=== PATIENT | male | born 1945 | race American Indian/Alaskan Native ===

== ENCOUNTER 2020-12-01 14:57 | Inpatient (IN) | payer MEDICARE ==
[2020-12-01] MEDS ORDERED: SODIUM CHLORIDE 0.9% 1000 ML 1,000 ML IV ONE (15:04)
[2020-12-01] MEDS ORDERED: ONDANSETRON 4 MG/2 ML INJ IV ONE (15:04)
--- NOTE | 2020-12-01 15:09 | Emergency Department Report ---
ED General Adult HPI - General Stated complaint: HYPOTENSION Time Seen by Provider: 12/01/20 15:03 - History of Present Illness Initial comments: Patient presented by EMS from a custodial secondary to hypotension. They were called because the patient was hypotensive. They found the patient to have a blood pressure of 50/30. He had a coffee ground emesis. He complained of epigastric pain. He was transported here for further management. Patient admits his stomach has been upset today. He has been vomiting today. He does report some coffee-ground emesis. He denies melanotic stool. He has no cough or congestion. There is no bleeding from other sites. He does not know if he takes a blood thinner. He has not noticed bleeding from other sites. There has been no epistaxis. He has no gingival bleeding. Patient does feel somewhat dizzy and lightheaded. EMS reports that the patient's blood pressure has improved with IV saline. - Related Data Home Medications Medication Instructions Recorded Confirmed Last Taken Apixaban [Eliquis] 5 mg PO BID 12/01/20 12/01/20 Unknown Aspirin [Aspirin BABY CHEW TAB] 81 mg PO QDAY 12/01/20 12/01/20 Unknown AtorvaSTATin [Lipitor] 40 mg PO QHS 12/01/20 12/01/20 Unknown Carbidopa/Levodopa 25-100 [Sinemet] 1 each PO TID 12/01/20 12/01/20 Unknown Divalproex [Eleanor STARK] 500 mg PO BID 12/01/20 12/01/20 Unknown Flecainide [Tambocor] 100 mg PO Q12H 12/01/20 12/01/20 Unknown Loratadine 10 mg PO QDAY 12/01/20 12/01/20 Unknown Metoprolol Tartrate [Lopressor] 25 mg PO QDAY 12/01/20 12/01/20 Unknown Mirtazapine 7.5 mg PO QHS 12/01/20 12/01/20 Unknown Oxybutynin Chloride [Ditropan Xl] 5 mg PO BID 12/01/20 12/01/20 Unknown QUEtiapine [SEROquel] 200 mg PO QHS 12/01/20 12/01/20 Unknown amantadine HCL [Amantadine] 100 mg PO BID 12/01/20 12/01/20 Unknown Allergies Allergy/AdvReac Type Severity Reaction Status Date / Time No Known Allergies Allergy Unverified 12/01/20 15:26 ED Review of Systems ROS: Stated complaint: HYPOTENSION Other details as noted in HPI Comment: All other systems reviewed and negative Constitutional: denies: fever Eyes: denies: vision change ENT: denies: throat pain Respiratory: denies: cough Cardiovascular: denies: chest pain Endocrine: denies: unexplained weight loss Gastrointestinal: as per HPI Genitourinary: denies: hematuria Musculoskeletal: denies: back pain Skin: denies: rash Neurological: denies: headache Hematological/Lymphatic: easy bruising ED Past Medical Hx - Medications Home Medications: Home Medications Medication Instructions Recorded Confirmed Last Taken Type Apixaban [Eliquis] 5 mg PO BID 12/01/20 12/01/20 Unknown History Aspirin [Aspirin BABY CHEW TAB] 81 mg PO QDAY 12/01/20 12/01/20 Unknown History AtorvaSTATin [Lipitor] 40 mg PO QHS 12/01/20 12/01/20 Unknown History Carbidopa/Levodopa 25-100 [Sinemet] 1 each PO TID 12/01/20 12/01/[address] [DepaKOTE DR] 500 mg PO BID 12/01/20 12/01/20 Unknown History Flecainide [Tambocor] 100 mg PO Q12H 12/01/20 12/01/20 Unknown History Loratadine 10 mg PO QDAY 12/01/20 12/01/20 Unknown History Metoprolol Tartrate [Lopressor] 25 mg PO QDAY 12/01/20 12/01/20 Unknown History Mirtazapine 7.5 mg PO QHS 12/01/20 12/01/20 Unknown History Oxybutynin Chloride [Ditropan Xl] 5 mg PO BID 12/01/20 12/01/20 Unknown History QUEtiapine [SEROquel] 200 mg PO QHS 12/01/20 12/01/20 Unknown History amantadine HCL [Amantadine] 100 mg PO BID 12/01/20 12/01/20 Unknown History ED Physical Exam - General Limitations: Other (Pulse ox was noted and normal. Is not hypoxic.) General appearance: alert, in no apparent distress - Head Head exam: Present: atraumatic, normocephalic, normal inspection - Eye Eye exam: Present: normal appearance, PERRL. Absent: scleral icterus - ENT ENT exam: Present: mucous membranes dry (Parched), normal external ear exam, other (Coffee-ground material is noted in the oropharynx.) - Neck Neck exam: Present: normal inspection. Absent: meningismus - Respiratory Respiratory exam: Present: normal lung sounds bilaterally. Absent: respiratory distress - Cardiovascular Cardiovascular Exam: Present: regular rate, normal rhythm - GI/Abdominal GI/Abdominal exam: Present: soft. Absent: tenderness, guarding, rebound, pulsatile mass - Extremities Exam Extremities exam: Present: normal capillary refill. Absent: pedal edema - Back Exam Back exam: Absent: CVA tenderness (R), CVA tenderness (L) - Neurological Exam Neurological exam: Present: alert, oriented X3, CN II-XII intact - Psychiatric Psychiatric exam: Present: normal affect, normal mood - Skin Skin exam: Present: warm, dry ED Course Vital Signs 12/01/20 12/01/20 12/01/20 15:18 15:31 15:45 Temperature Pulse Rate 65 64 63 Respiratory 24 9 L 9 L Rate Blood Pressure 76/50 76/50 81/61 O2 Sat by Pulse 94 97 96 Oximetry 12/01/20 12/01/20 12/01/20 15:46 16:01 16:15 Temperature 96.9 F L Pulse Rate 74 64 Respiratory 12 16 Rate Blood Pressure 90/58 108/54 O2 Sat by Pulse 95 95 Oximetry 12/01/20 12/01/20 12/01/20 16:31 16:45 17:01 Temperature Pulse Rate 62 64 68 Respiratory 17 15 21 Rate Blood Pressure 113/53 100/61 99/59 O2 Sat by Pulse 97 96 98 Oximetry - Reevaluation(s) Reevaluation #1: 12/01/20 15:09 EMS was met upon arrival. IV and labs were ordered. Fluids were ordered. Reevaluation #2: 12/01/20 16:05 Blood pressures improving. We will continue fluid resuscitation. He may need blood at some point. He continues to rest. Labs are pending. Reevaluation #3: 12/01/20 17:24 Patient was discussed with Dr. Thurman who admit. GI has been paged but has not returned page. We will add Protonix. He does have acute kidney injury in addition to hypotension. He does have leukocytosis. This could be demargination. There is no fever. He does not have a obvious source of infection but the chest x-ray and UA have been added on. Patient is frail. We will give fluid boluses. I have discussed the fluid bolus with him at a 30 mL/kg bolus. He states that he would like to go slower with the fluids. He does not want the fluids bolused all at once. He will get 1/3 L now. That would give him 50% of a 30 mill per kilo bolus. We will continue to administer fluids as he will allow. Reevaluation #4: 12/01/20 17:34 Case was discussed with Dr. Anderson who will see the patient tomorrow. She would like him kept n.p.o. ED Medical Decision Making - Lab Data Result diagrams: 12/01/20 15:38 12/01/20 15:38 Rhythm strip: Monitor strip shows normal sinus rhythm without ectopy. Monitor observed 20 seconds. Critical Care Time: Yes Critical care time in (mins) excluding proc time.: 50 Critical care attestation.: If time is entered above; I have spent that time in minutes in the direct care of this critically ill patient, excluding procedure time. Critical Care Time: Critical care time of 50 minutes exclusive of procedures based on hypotension and acute kidney injury. ED Disposition Clinical Impression: Transient hypotension, Upper GI bleed, CHINO (acute kidney injury) Leukocytosis Qualifiers: Leukocytosis type: unspecified Qualified Code(s): D72.829 - Elevated white blood cell count, unspecified Disposition: 09 ADMITTED INPATIENT Is pt being admited?: Yes Condition: Stable Referrals: PRIMARY CARE, [Primary Care Provider] - 3-5 Days
[2020-12-01 16:18] LABS: Basophils # (Auto) 0.1 K/mm3 (0.0-0.1); Basophils % (Auto) 0.4 % (0.0-1.8); Hematocrit 40.8 % (35.5-45.6); Hemoglobin 13.7 gm/dl (11.8-15.2); Lymphocytes # (Auto) 2.9 K/mm3 (1.2-5.4); Lymphocytes % (Auto) 19.7 % (13.4-35.0); Mean Corpuscular HGB Conc 34 % (32-34); Mean Corpuscular Volume 96 fl (84-94); Monocytes # (Auto) 1.2 K/mm3 (0.0-0.8); Monocytes % (Auto) 8.4 % (0.0-7.3); Platelet Count 197 K/mm3 (140-440); Red Blood Count 4.27 M/mm3 (3.65-5.03); Red Cell Distribution Width 16.8 % (13.2-15.2)
[2020-12-01] MEDS ORDERED: FAMOTIDINE 20 MG/2 ML INJ IV ONE (16:20)
[2020-12-01 16:30] LABS: Calcium 9.7 mg/dL (8.4-10.2)
[2020-12-01] MEDS ORDERED: LACTATED RINGERS 1,000 ML IV ONE (17:21)
--- NOTE | 2020-12-01 17:54 | XRay Report ---
CHEST 1 VIEW 12/01/2020 5:39 PM INDICATION / CLINICAL INFORMATION: leukocytosis. COMPARISON: None available. FINDINGS: SUPPORT DEVICES: None. HEART / MEDIASTINUM: No significant abnormality. LUNGS / PLEURA: Airspace opacities are noted medially along the right lower lobe. No other significan t pulmonary abnormality. No significant pleural effusion. No pneumothorax. ADDITIONAL FINDINGS: No significant additional findings. IMPRESSION: Right lower lobe airspace opacities could represent pneumonia in the setting of leukocytosis. A neopl astic process is also a consideration. Please correlate with the clinical findings. Signer Name: Matt Mejia MD Signed: 12/01/2020 5:50 PM Workstation Name: [id number]
--- NOTE | 2020-12-01 18:17 | History and Physical Report ---
History of Present Illness Date of admission: 12/01/20 17:26 Chief complaint: Spitting up blood History of present illness: 75 YO Male [facility] Facility Resident at [email or web address]] with Atrial Fib on Therapeutic Anticoagulation, Encephalopathy, Debility, Bipolar Disorder, HTN, Debility, Vascular Dementia, Cerebral Atherosclerosis, Alzheimers Disease presents to ED for evaluation. Patient has diminished cognition and is unable to provide detailed history at the time of my evaluation. Patient history taken from EMS staff, ED staff, as well as halfway facility staff. As per staff the patient was found to have coffee- ground emesis today with concomitant hypotension with a blood pressure of 50/30. EMS was notified and upon arrival the patient was found to be hypotensive with a systolic blood pressure in the 50s. The patient was treated with supportive care and transported to [facility] for further care and evaluation of the aforementioned symptoms. The patient was seen and evaluated in the emergency department. All lab and imaging studies reviewed. Patient found to have symptoms consistent with GI bleed. Chest x-ray revealed pneumonia with focal consolidation suspicious for malignancy. Patient also found to have systemic plantar response syndrome, as well as CHINO. Patient admitted to [facility] and initiated on pneumonia protocol as well as GI bleed protocol. GI team consulted in ED. No reports of fever, chills, chest pain, palpitations, productive cough, skin rash, recent ill contacts. No prior admission for review. All medication listed at time of admission has been reconciled. Advanced care planning conducted in ED. Patient has diminished cognition at the time my evaluation but has a positive gag reflex and is able to protect his airway without difficulty. Past History Past Medical History: atrial fib, hypertension, other (See HPI) Past Surgical History: No surgical history, Other (Reviewed) Social history: Family history: diabetes, hypertension Medications and Allergies Allergies Allergy/AdvReac Type Severity Reaction Status Date / Time No Known Allergies Allergy Unverified 12/01/20 15:26 Home Medications Medication Instructions Recorded Confirmed Last Taken Type Apixaban [Eliquis] 5 mg PO BID 12/01/20 12/01/20 Unknown History Aspirin [Aspirin BABY CHEW TAB] 81 mg PO QDAY 12/01/20 12/01/20 Unknown History AtorvaSTATin [Lipitor] 40 mg PO QHS 12/01/20 12/01/20 Unknown History Carbidopa/Levodopa 25-100 [Sinemet] 1 each PO TID 12/01/20 12/01/[address] [DepaKOTE DR] 500 mg PO BID 12/01/20 12/01/20 Unknown History Flecainide [Tambocor] 100 mg PO Q12H 12/01/20 12/01/20 Unknown History Loratadine 10 mg PO QDAY 12/01/20 12/01/20 Unknown History Metoprolol Tartrate [Lopressor] 25 mg PO QDAY 12/01/20 12/01/20 Unknown History Mirtazapine 7.5 mg PO QHS 12/01/20 12/01/20 Unknown History Oxybutynin Chloride [Ditropan Xl] 5 mg PO BID 12/01/20 12/01/20 Unknown History QUEtiapine [SEROquel] 200 mg PO QHS 12/01/20 12/01/20 Unknown History amantadine HCL [Amantadine] 100 mg PO BID 12/01/20 12/01/20 Unknown History Active Meds: Active Medications Lactated Ringer's (Lactated Ringers) 1,000 mls @ 999 mls/hr IV BOLUS ONE Stop: 12/01/20 18:21 Last Admin: 12/01/20 17:35 Dose: 999 mls/hr Documented by: Pantoprazole Sodium 80 mg/ (Sodium Chloride) 100 mls @ 10 mls/hr IV DIRECT CASEY Review of Systems ROS unobtainable: due to mental status Exam - Constitutional Vitals: Temp Pulse Resp BP Pulse Ox 96.9 F L 67 11 L 92/50 100 12/01/20 15:46 12/01/20 18:01 12/01/20 18:01 12/01/20 18:01 12/01/20 18:01 General appearance: Present: mild distress - EENT Eyes: Present: PERRL ENT: hearing decreased - Neck Neck: Present: supple - Respiratory Respiratory effort: normal Respiratory: bilateral: diminished - Cardiovascular Rhythm: regular Heart Sounds: Present: S1 & S2 Peripheral Pulses: within normal limits - Abdominal General gastrointestinal: Present: soft, non-tender, non-distended, normal bowel sounds Male genitourinary: Present: normal - Integumentary Integumentary: Present: clear, warm, dry - Musculoskeletal Musculoskeletal: generalized weakness - Psychiatric Psychiatric: no appropriate mood/affect, no intact judgment & insight, no memory intact, cooperative - Neurologic Neurologic: CNII-XII intact, moves all extremities, no gait normal Results - Labs CBC & Chem 7: 12/01/20 15:38 12/01/20 15:38 Labs: Abnormal lab results 12/01/20 12/01/20 Range/Units 15:38 15:38 WBC 14.7 H (4.5-11.0) K/mm3 MCV 96 H (84-94) fl RDW 16.8 H (13.2-15.2) % [place] % (Auto) 8.4 H (0.0-7.3) % [place] # (Auto) 1.2 H (0.0-0.8) K/mm3 Seg Neutrophils % 71.5 H (40.0-70.0) % Seg Neutrophils # 10.5 H (1.8-7.7) K/mm3 BUN 67 H (9-20) mg/dL Creatinine 4.2 H (0.8-1.3) mg/dL Glucose 119 H (75-100) mg/dL Assessment and Plan - Patient Problems (1) GI bleed Current Visit: Yes Status: Acute Plan to address problem: GI bleed protocol: CBC, IV PPI therapy, serial abdominal exam, GI team consulted. Will consider blood transfusion if patient hemoglobin dropped by greater than 2 g in 24-hour period. (2) SIRS (systemic inflammatory response syndrome) Current Visit: Yes Status: Acute Plan to address problem: CBC, CMP, IV antibiotic therapy, blood culture. (3) Pneumonia Current Visit: Yes Status: Acute Plan to address problem: Chest x-ray, pneumonia protocol: CBC, CMP, supplemental oxygen, pulse oximetry, nebulizer therapy, supportive care. (4) CHINO (acute kidney injury) Current Visit: Yes Status: Acute Plan to address problem: BMP, IV fluid resuscitation therapy, repeat BMP in a.m. (5) Atrial fibrillation Current Visit: Yes Status: Acute Qualifiers: Atrial fibrillation type: longstanding persistent Qualified Code(s): I48.11 - Longstanding persistent atrial fibrillation Plan to address problem: therapeutic anticoagulation for now. Rate control, supportive care. (6) Alzheimer disease Current Visit: Yes Status: Acute Plan to address problem: Continue current therapy, supportive care (7) DVT prophylaxis Current Visit: Yes Status: Acute Plan to address problem: SCDs bilateral lower extremities while in bed, (8) Advance care planning Current Visit: Yes Status: Acute Plan to address problem: Disease education conducted, care plan discussed, diagnoses discussed, prognosis discussed, patient is full code, +30 minutes.
[2020-12-01] MEDS: PANTOPRAZOLE 80 MG in SODIUM CHLORIDE 0.9% 100 ML IV SCH (18:28)
[2020-12-01] MEDS ORDERED: ALBUTEROL 2.5 MG/3 ML NEBU IH PRN (18:59)
[2020-12-01] MEDS ORDERED: oxyCODONE /ACETAMINOPHEN 5-325MG TAB PO PRN (18:59)
[2020-12-01] MEDS ORDERED: ONDANSETRON 4 MG/2 ML INJ IV PRN (18:59)
[2020-12-01] MEDS ORDERED: ACETAMINOPHEN 325 MG TAB PO PRN (18:59)
[2020-12-01] MEDS ORDERED: HYDROmorphone 1 MG/1 ML INJ IV PRN (18:59)
--- NOTE | 2020-12-01 21:07 | Cat Scan Report ---
CT CHEST WITHOUT CONTRAST INDICATION / CLINICAL INFORMATION: suspected lung mass/malignancy. TECHNIQUE: Axial CT images were obtained through the chest without contrast. All CT scans at this [facility] ation are performed using CT dose reduction for ALARA by means of automated exposure control. COMPARISON: Chest x-ray 12/01/2020 FINDINGS: HEART: No significant abnormality. CORONARY ARTERY CALCIFICATION: None. THORACIC AORTA: No significant abnormality. MEDIASTINUM / ALVARADO: No significant abnormality. PLEURA: No pleural effusion. No pneumothorax. LUNGS: Patchy opacities in the right lower lobe are likely infectious/inflammatory. Scattered tiny n odules in the right upper lobe. For example there is a 4 mm noncalcified nodule in the right upper lo be on series 2 image 29. ADDITIONAL FINDINGS: Small hiatal hernia with fluid up to the midesophagus. UPPER ABDOMEN: 3.0 cm fluid attenuating lesion in the spleen, likely cyst. Additional cyst in the lef t kidney. SKELETAL SYSTEM: No significant abnormality. IMPRESSION: 1. Patchy opacities in the right lower lobe favoring infectious/inflammatory etiology. Given small hi atal hernia and fluid-filled esophagus, this may be related to aspiration. 2. Multiple incidental pulmonary nodule(s) in the right upper lobe measuring up to 4 mm with solid ch aracteristics. Recommendation according to Fleischner Society 2017 Guidelines: Low Risk Patient: No r outine follow-up; High Risk Patient: Optional CT at 12 months. 3. Additional incidental findings as above. Signer Name: Larry Kurtz MD Signed: 12/01/2020 9:03 PM Workstation Name: [id number]
[2020-12-01] MEDS ORDERED: SODIUM CHLORIDE 0.9% 1000 ML 1,000 ML ONE ×3 (21:31→21:33)
[2020-12-01] MEDS: MIRTAZAPINE 15 MG TAB PO SCH (21:49)
[2020-12-01] MEDS: DIVALPROEX DR 500 MG TAB PO SCH (21:49)
[2020-12-01] MEDS: QUEtiapine 200 MG TAB PO SCH (21:51)
[2020-12-01] MEDS: cefTRIAXone/NS 2 GM/100 ML 2 GM/100 ML BAG IV SCH (21:57)
[2020-12-01] MEDS ORDERED: NON-FORMULARY EACH (Apixaban 5 MG Tablet) PO SCH (22:00)
[2020-12-01] MEDS ORDERED: APIXABAN 5 MG TAB PO SCH (22:00)
[2020-12-01] MEDS ORDERED: NON-FORMULARY EACH (Oxybutynin Chloride [Ditropan Xl] 10 MG Tab.Er.24) PO SCH (22:00)
[2020-12-01] MEDS ORDERED: NON-FORMULARY EACH (Mirtazapine [Mirtazapine] 7.5 MG Tablet) PO SCH (22:00)
[2020-12-01] MEDS: FLECAINIDE 100 MG TAB PO SCH (22:34)
[2020-12-01] MEDS: OXYBUTYNIN 5 MG TAB PO SCH (22:35)
[2020-12-01] MEDS: CARBIDOPA/LEVODOPA 25-100 MG TAB PO SCH (22:35)
[2020-12-01] MEDS: AZITHROMYCIN/NS 500 MG/250 ML 500 MG/250 ML BAG IV SCH (22:36)
[2020-12-02 01:01] LABS: Basophils % (Auto) 0.1 % (0.0-1.8); Eosinophils % (Auto) 0.1 % (0.0-4.3); Hematocrit 33.9 % (35.5-45.6); Hemoglobin 11.4 gm/dl (11.8-15.2); Lymphocytes # (Auto) 2.3 K/mm3 (1.2-5.4); Mean Corpuscular HGB Conc 34 % (32-34); Mean Corpuscular Volume 97 fl (84-94); Monocytes # (Auto) 0.8 K/mm3 (0.0-0.8); Monocytes % (Auto) 6.9 % (0.0-7.3); Platelet Count 128 K/mm3 (140-440); Red Cell Distribution Width 16.8 % (13.2-15.2)
[2020-12-02] MEDS ORDERED: SODIUM CHLORIDE 0.9% 500 ML 500 ML IV ONE (03:32)
[2020-12-02] MEDS ORDERED: NORepinephrine/NS 4 MG-250 ML 4 MG/250 ML BAG IV SCH (04:00)
[2020-12-02 04:56] LABS: Basophils % (Auto) 0.4 % (0.0-1.8); Eosinophils % (Auto) 0.1 % (0.0-4.3); Hematocrit 33.7 % (35.5-45.6); Hemoglobin 11.5 gm/dl (11.8-15.2); Lymphocytes # (Auto) 2.3 K/mm3 (1.2-5.4); Lymphocytes % (Auto) 23.9 % (13.4-35.0); Mean Corpuscular HGB Conc 34 % (32-34); Mean Corpuscular Volume 97 fl (84-94); Monocytes # (Auto) 0.6 K/mm3 (0.0-0.8); Monocytes % (Auto) 5.9 % (0.0-7.3); Platelet Count 138 K/mm3 (140-440); Red Blood Count 3.48 M/mm3 (3.65-5.03)
[2020-12-02 05:20] LABS: Calcium 8.8 mg/dL (8.4-10.2)
[2020-12-02] MEDS: FLECAINIDE 100 MG TAB PO SCH (08:04)
[2020-12-02] MEDS: CARBIDOPA/LEVODOPA 25-100 MG TAB PO SCH ×2 (08:04→14:41)
[2020-12-02] MEDS ORDERED: SODIUM CHLORIDE 0.9% 1000 ML 1,000 ML IV ONE ×2 (08:15→22:00)
[2020-12-02 08:36] LABS: Bilirubin,Urine NEG (Negative); Blood,Urine SM (Negative); Color,Urine Amber (Yellow); Granular Casts,Urine 7 /LPF; Hyaline Casts,Urine 1 /LPF; Mucus,Urine FEW /HPF
[2020-12-02] MEDS ORDERED: NON-FORMULARY EACH (Loratadine [Loratadine] 10 MG Tablet) PO SCH (10:00)
[2020-12-02] MEDS ORDERED: ASPIRIN 81 MG TAB CHEW PO SCH (10:00)
[2020-12-02] MEDS: PANTOPRAZOLE 80 MG in SODIUM CHLORIDE 0.9% 100 ML IV SCH (10:21)
[2020-12-02] MEDS: DIVALPROEX DR 500 MG TAB PO SCH (10:37)
--- NOTE | 2020-12-02 10:37 | Progress Note ---
Assessment and Plan Assessment and plan: 75 YO Male Assisted Facility Resident at [facility] with Atrial Fib on Therapeutic Anticoagulation, Encephalopathy, Debility, Bipolar Disorder, HTN, Debility, Vascular Dementia, Cerebral Atherosclerosis, Alzheimers Disease presents to ED for evaluation. Patient has diminished cognition and is unable to provide detailed history at the time of my evaluation. Patient history taken from EMS staff, ED staff, as well as [facility] staff. As per staff the patient was found to have coffee- ground emesis today with concomitant hypotension with a blood pressure of 50/30. EMS was notified and upon arrival the patient was found to be hypotensive with a systolic blood pressure in the 50s. The patient was treated with supportive care and transported to [facility] for further care and evaluation of the aforementioned symptoms. The patient was seen and evaluated in the emergency department. All lab and imaging studies reviewed. Patient found to have symptoms consistent with GI bleed. Chest x-ray revealed pneumonia with focal consolidation suspicious for malignancy. Patient also found to have systemic plantar response syndrome, as well as CHINO. Patient admitted to [facility] and initiated on pneumonia protocol as well as GI bleed protocol. GI team consulted in ED. No reports of fever, chills, chest pain, palpitations, productive cough, skin rash, recent ill contacts. No prior admission for review. All medication listed at time of admission has been reconciled. Advanced care planning conducted in ED. Patient has diminished cognition at the time my evaluation but has a positive gag reflex and is able to protect his airway without difficulty. 12/02; CT scan chest shows no definitive mass but some nodules. No further recommendation noted on that. I have gone ahead to discontinue aspirin and anticoagulant on this patient due to possible GI bleed. Will monitor H&H today to see if any further decline. I have also gone ahead to consult GI. We will continue to follow I have discussed with nursing staff to restart Protonix drip until GI evaluation is complete. We will give a bolus of fluid, no need to start pressors at this time but if patient's blood pressure continues to trend down and pressors are needed nursing staff is advised physician and we can change patient throughout ICU stay. For now continue with IMCU (1) GI bleed Current Visit: Yes Status: Acute Plan to address problem: GI bleed protocol: CBC, IV PPI therapy, serial abdominal exam, GI team consulted. Will consider blood transfusion if patient hemoglobin dropped by greater than 2 g in 24-hour period. (2) SIRS (systemic inflammatory response syndrome) Current Visit: Yes Status: Acute Plan to address problem: CBC, CMP, IV antibiotic therapy, blood culture. (3) Pneumonia Current Visit: Yes Status: Acute Plan to address problem: Chest x-ray, pneumonia protocol: CBC, CMP, supplemental oxygen, pulse oximetry, nebulizer therapy, supportive care. (4) CHINO (acute kidney injury) Current Visit: Yes Status: Acute Plan to address problem: BMP, IV fluid resuscitation therapy, repeat BMP in a.m. (5) Atrial fibrillation Current Visit: Yes Status: Acute Qualifiers: Atrial fibrillation type: longstanding persistent Qualified Code(s): I48.11 - Longstanding persistent atrial fibrillation Plan to address problem: therapeutic anticoagulation for now. Rate control, supportive care. (6) Alzheimer disease Current Visit: Yes Status: Acute Plan to address problem: Continue current therapy, supportive care (7) acute blood loss anemia secondary to possible upper GI bleed (8) DVT prophylaxis Current Visit: Yes Status: Acute Plan to address problem: SCDs bilateral lower extremities while in bed, (9) Advance care planning Current Visit: Yes Status: Acute Plan to address problem: Disease education conducted, care plan discussed, diagnoses discussed, prognosis discussed, patient is full code, +30 minutes. History Interval history: Patient seen and examined this morning lethargic still. No further bleeding or vomiting noted by nursing staff. Hospitalist Physical - Physical exam Narrative exam: VITAL SIGNS: Reviewed. GENERAL: The patient appears normally developed, Vital signs as documented. HEAD: No signs of head trauma. EYES: Pupils are equal. Extraocular motions intact. EARS: Hearing grossly intact. MOUTH: Oropharynx is normal. NECK: No adenopathy, no JVD. CHEST: Chest with diminished breath sounds bilaterally. No wheezes, rales, or rhonchi. CARDIAC: Regular rate and rhythm. S1 and S2, without murmurs, gallops, or rubs. VASCULAR: No Edema. Peripheral pulses normal and equal in all extremities. ABDOMEN: Soft, non tender and non distended. No rebound or guarding, and no masses palpated. Bowel Sounds normal. MUSCULOSKELETAL: Good range of motion of all major joints. Extremities without clubbing, cyanosis or edema. NEUROLOGIC EXAM: Alert and oriented x 3 No focal sensory or strength deficits. Speech normal. Follows commands. PSYCHIATRIC: Mood normal. SKIN: detail exam as documented in skin assessment - Constitutional Vitals: Temp Pulse Resp BP Pulse Ox 98.0 F 78 12 91/64 96 12/02/20 07:04 12/02/20 08:07 12/02/20 08:07 12/02/20 08:07 12/02/20 08:07 General appearance: Present: mild distress Results - Labs CBC & Chem 7: 12/02/20 04:07 12/02/20 04:07 Labs: Laboratory Last Values WBC 9.7 K/mm3 (4.5-11.0) 12/02/20 04:07 RBC 3.48 M/mm3 (3.65-5.03) L 12/02/20 04:07 Hgb 11.5 gm/dl (11.8-15.2) L 12/02/20 04:07 Hct 33.7 % (35.5-45.6) L 12/02/20 04:07 MCV 97 fl (84-94) H 12/02/20 04:07 MCH 33 pg (28-32) H 12/02/20 04:07 MCHC 34 % (32-34) 12/02/20 04:07 RDW 17.0 % (13.2-15.2) H 12/02/20 04:07 Plt Count 138 K/mm3 (140-440) L 12/02/20 04:07 Lymph % (Auto) 23.9 % (13.4-35.0) 12/02/20 04:07 [place] % (Auto) 5.9 % (0.0-7.3) 12/02/20 04:07 Eos % (Auto) 0.1 % (0.0-4.3) 12/02/20 04:07 Baso % (Auto) 0.4 % (0.0-1.8) 12/02/20 04:07 Lymph # (Auto) 2.3 K/mm3 (1.2-5.4) 12/02/20 04:07 [place] # (Auto) 0.6 K/mm3 (0.0-0.8) 12/02/20 04:07 Eos # (Auto) 0.0 K/mm3 (0.0-0.4) 12/02/20 04:07 Baso # (Auto) 0.0 K/mm3 (0.0-0.1) 12/02/20 04:07 Seg Neutrophils % 69.7 % (40.0-70.0) 12/02/20 04:07 Seg Neutrophils # 6.7 K/mm3 (1.8-7.7) 12/02/20 04:07 Sodium 142 mmol/L (137-145) 12/02/20 04:07 Potassium 4.8 mmol/L (3.6-5.0) 12/02/20 04:07 Chloride 101.0 mmol/L (98-107) 12/02/20 04:07 Carbon Dioxide 26 mmol/L (22-30) 12/02/20 04:07 Anion Gap 20 mmol/L 12/02/20 04:07 BUN 63 mg/dL (9-20) H 12/02/20 04:07 Creatinine 3.2 mg/dL (0.8-1.3) H 12/02/20 04:07 Estimated GFR 23 ml/min 12/02/20 04:07 BUN/Creatinine Ratio 20 % 12/02/20 04:07 Glucose 82 mg/dL (75-100) 12/02/20 04:07 Lactic Acid 1.60 mmol/L (0.7-2.0) 12/02/20 04:07 Calcium 8.8 mg/dL (8.4-10.2) 12/02/20 04:07 Urine Color [place] (Yellow) 12/02/20 08:21 Urine Turbidity Slightly-cloudy (Clear) 12/02/20 08:21 Urine pH 5.0 (5.0-7.0) 12/02/20 08:21 Ur Specific [place] 1.020 (1.003-1.030) 12/02/20 08:21 Urine Protein 100 mg/dl mg/dL (Negative) 12/02/20 08:21 Urine Glucose (UA) 50 mg/dL (Negative) 12/02/20 08:21 Urine Ketones Neg mg/dL (Negative) 12/02/20 08:21 Urine Blood Sm (Negative) 12/02/20 08:21 Urine Nitrite Neg (Negative) 12/02/20 08:21 Urine Bilirubin Neg (Negative) 12/02/20 08:21 Urine Urobilinogen 4.0 mg/dL (<2.0) 12/02/20 08:21 Ur Leukocyte Esterase Mod (Negative) 12/02/20 08:21 Urine WBC (Auto) 67.0 /HPF (0.0-6.0) H 12/02/20 08:21 Urine RBC (Auto) 3.0 /HPF (0.0-6.0) 12/02/20 08:21 U Epithel Cells (Auto) 4.0 /HPF (0-13.0) 12/02/20 08:21 Hyaline Casts 1 /LPF 12/02/20 08:21 Granular Casts 7 /LPF 12/02/20 08:21 Urine Mucus Few /HPF 12/02/20 08:21 Blood Type O POSITIVE 12/01/20 15:38 Antibody Screen Negative 12/01/20 15:38 Crossmatch See Detail 12/01/20 15:38 Microbiology: Microbiology 12/01/20 18:18 Peripheral/Venous Blood Culture - Preliminary Culture in Progress 12/01/20 18:27 Peripheral/Venous Blood Culture - Preliminary Culture in Progress Active Medications - Current Medications Current Medications: Generic Name Dose Route Start Last Admin Trade Name Freq PRN Reason Stop Dose Admin Acetaminophen 650 mg 12/01/20 18:59 Acetaminophen 325 Mg Tab PO Q4H PRN Pain MILD(1-3)/Fever >100.5/FARRIS Albuterol 2.5 mg 12/01/20 18:59 Albuterol 2.5 Mg/3 Ml Nebu IH Q4HRT PRN Shortness Of Breath Amantadine HCl 100 mg 12/01/20 22:00 12/01/20 22:34 Amantadine 100 Mg Cap PO 100 mg BID CASEY Administration Atorvastatin Calcium 40 mg 12/01/20 22:00 12/01/20 21:51 Atorvastatin 40 Mg Tab PO 40 mg QHS CASEY Administration Carbidopa/Levodopa 1 each 12/01/20 20:00 12/02/20 08:04 Carbidopa/Levodopa 25-100 Mg Tab PO 1 each TID CASEY Administration Cetirizine HCl 10 mg 12/02/20 10:00 Cetirizine 10 Mg Tab PO DAILY CASEY Divalproex Sodium 500 mg 12/01/20 22:00 12/01/20 21:[address] 500 Mg Tab PO 500 mg BID CASEY Administration Flecainide Acetate 100 mg 12/01/20 20:00 12/02/20 08:04 Flecainide 100 Mg Tab PO 100 mg Q12H CASEY Administration Hydromorphone HCl 0.5 mg 12/01/20 18:59 Hydromorphone 1 Mg/1 Ml Inj IV Q23H PRN Pain , Severe (7-10) Pantoprazole Sodium 80 mg/ 100 mls @ 10 mls/hr 12/01/20 18:00 12/02/20 10:21 Sodium Chloride IV 8 mg/hr DIRECT CASEY 10 mls/hr Administration 8 MG/HR Ceftriaxone Sodium 2 gm in 100 mls @ 200 mls/hr 12/01/20 19:00 12/01/20 21:57 Rocephin/Ns 2 Gm/100 Ml IV 200 mls/hr Q24H CASEY Administration Protocol Azithromycin 500 mg in 250 mls @ 250 mls/hr 12/01/20 19:00 12/01/20 22:36 Zithromax/Ns IV 250 mls/hr Q24H CASEY Administration Protocol Sodium Chloride 1,000 mls @ 75 mls/hr 12/02/20 22:00 Nacl 0.9% 1000 Ml IV 12/03/20 11:19 BOLUS ONE Norepinephrine 4 mg in 250 mls @ 7.5 mls/hr 12/02/20 04:00 Levophed Drip 4 Mg/Ns 250 Ml IV TITR CASEY Protocol 2 MCG/MIN Metoprolol Succinate 25 mg 12/02/20 10:00 Metoprolol Succinate Xl 25 Mg Tab PO QDAY CASEY Mirtazapine 7.5 mg 12/01/20 22:00 12/01/20 21:49 Mirtazapine 15 Mg Tab PO 7.5 mg QHS CASEY Administration Ondansetron HCl 4 mg 12/01/20 18:59 Ondansetron 4 Mg/2 Ml Inj IV Q8H PRN Nausea And Vomiting Oxybutynin Chloride 5 mg 12/01/20 22:00 12/01/20 22:35 Oxybutynin 5 Mg Tab PO 5 mg BID CASEY Administration Oxycodone/Acetaminophen 1 tab 12/01/20 18:59 Oxycodone /Acetaminophen 5-325mg Tab PO Q16H PRN Pain, Moderate (4-6) Quetiapine Fumarate 200 mg 12/01/20 22:00 12/01/20 21:51 Quetiapine 200 Mg Tab PO 200 mg QHS CASEY Administration Sodium Chloride 10 ml 12/01/20 22:00 Sodium Chloride 0.9% 10 Ml Flush Syringe IV BID CASEY Sodium Chloride 10 ml 12/01/20 18:59 Sodium Chloride 0.9% 10 Ml Flush Syringe IV PRN PRN LINE FLUSH
[2020-12-02] MEDS: CETIRIZINE 10 MG TAB PO SCH (10:38)
[2020-12-02] MEDS: OXYBUTYNIN 5 MG TAB PO SCH (10:38)
[2020-12-02] MEDS: METOPROLOL SUCCINATE XL 25 MG TAB PO SCH (10:42)
--- NOTE | 2020-12-02 12:05 | Gastroenterology Consultation ---
History of Present Illness - Reason for Consult Consult date: 12/02/20 GI bleed Requesting physician: TYRA SEVILLA - History of Present Illness This is a 75 yo male from [facility] nursing facility with pmh of Afib on eliquis, vascular dementia, Bipolar, HTN brought from detention via EMS for coffee ground emesis and hypotension. Patient not able to give much history due to underlying diminished cognition. History obtained from ED staff and chart. Patient had episode of coffee ground emesis at detention. No additional vomiting in the ED overnight. No BM overnight. Work up in the ED, patient found to have pneumonia based on CXR. Started on sepsis protocol with antibiotics. Started on protonix IV. CT chest showed no definitive mass but nodules. BP was initially low but responded to IVF. Did not need to start on pressors. medication list reviewed. Past History Past Medical History: atrial fib, hypertension, other (See HPI) Past Surgical History: No surgical history, Other (Reviewed) Social history: Family history: diabetes, hypertension Medications and Allergies Allergies Allergy/AdvReac Type Severity Reaction Status Date / Time No Known Allergies Allergy Unverified 12/01/20 15:26 Home Medications Medication Instructions Recorded Confirmed Last Taken Type Apixaban [Eliquis] 5 mg PO BID 12/01/20 12/01/20 Unknown History Aspirin [Aspirin BABY CHEW TAB] 81 mg PO QDAY 12/01/20 12/01/20 Unknown History AtorvaSTATin [Lipitor] 40 mg PO QHS 12/01/20 12/01/20 Unknown History Carbidopa/Levodopa 25-100 [Sinemet] 1 each PO TID 12/01/20 12/01/20 Unknown History Divalproex [Eleanor STARK] 500 mg PO BID 12/01/20 12/01/20 Unknown History Flecainide [Tambocor] 100 mg PO Q12H 12/01/20 12/01/20 Unknown History Loratadine 10 mg PO QDAY 12/01/20 12/01/20 Unknown History Metoprolol Tartrate [Lopressor] 25 mg PO QDAY 12/01/20 12/01/20 Unknown History Mirtazapine 7.5 mg PO QHS 12/01/20 12/01/20 Unknown History Oxybutynin Chloride [Ditropan Xl] 5 mg PO BID 12/01/20 12/01/20 Unknown History QUEtiapine [SEROquel] 200 mg PO QHS 12/01/20 12/01/20 Unknown History amantadine HCL [Amantadine] 100 mg PO BID 12/01/20 12/01/20 Unknown History Active Meds: Active Medications Acetaminophen (Acetaminophen 325 Mg Tab) 650 mg PO Q4H PRN PRN Reason: Pain MILD(1-3)/Fever >100.5/FARRIS Albuterol (Albuterol 2.5 Mg/3 Ml Nebu) 2.5 mg IH Q4HRT PRN PRN Reason: Shortness Of Breath Amantadine HCl (Amantadine 100 Mg Cap) 100 mg PO BID [facility] Last Admin: 12/02/20 10:39 Dose: 100 mg Documented by: Atorvastatin Calcium (Atorvastatin 40 Mg Tab) 40 mg PO QHS [facility] Last Admin: 12/01/20 21:51 Dose: 40 mg Documented by: Carbidopa/Levodopa (Carbidopa/Levodopa 25-100 Mg Tab) 1 each PO TID [facility] Last Admin: 12/02/20 08:04 Dose: 1 each Documented by: Cetirizine HCl (Cetirizine 10 Mg Tab) 10 mg PO DAILY [facility] Last Admin: 12/02/20 10:38 Dose: 10 mg Documented by: Divalproex Sodium (Divalproex Dr 500 Mg Tab) 500 mg PO BID [facility] Last Admin: 12/02/20 10:37 Dose: 500 mg Documented by: Flecainide Acetate (Flecainide 100 Mg Tab) 100 mg PO Q12H [facility] Last Admin: 12/02/20 08:04 Dose: 100 mg Documented by: Hydromorphone HCl (Hydromorphone 1 Mg/1 Ml Inj) 0.5 mg IV Q23H PRN PRN Reason: Pain , Severe (7-10) Pantoprazole Sodium 80 mg/ (Sodium Chloride) 100 mls @ 10 mls/hr IV DIRECT [facility] Last Admin: 12/02/20 10:21 Dose: 8 mg/hr, 10 mls/hr Documented by: Ceftriaxone Sodium (Rocephin/Ns 2 Gm/100 Ml) 2 gm in 100 mls @ 200 mls/hr IV Q24H [facility]; Protocol Last Admin: 12/01/20 21:57 Dose: 200 mls/hr Documented by: Azithromycin (Zithromax/Ns) 500 mg in 250 mls @ 250 mls/hr IV Q24H [facility]; Protocol Last Admin: 12/01/20 22:36 Dose: 250 mls/hr Documented by: Sodium Chloride (Nacl 0.9% 1000 Ml) 1,000 mls @ 75 mls/hr IV BOLUS ONE Stop: 12/03/20 11:19 Norepinephrine (Levophed Drip 4 Mg/Ns 250 Ml) 4 mg in 250 mls @ 7.5 mls/hr IV TITR [facility]; Protocol Metoprolol Succinate (Metoprolol Succinate Xl 25 Mg Tab) 25 mg PO QDAY [facility] Last Admin: 12/02/20 10:42 Dose: Not Given Documented by: Mirtazapine (Mirtazapine 15 Mg Tab) 7.5 mg PO QHS [facility] Last Admin: 12/01/20 21:49 Dose: 7.5 mg Documented by: Ondansetron HCl (Ondansetron 4 Mg/2 Ml Inj) 4 mg IV Q8H PRN PRN Reason: Nausea And Vomiting Oxybutynin Chloride (Oxybutynin 5 Mg Tab) 5 mg PO BID [facility] Last Admin: 12/02/20 10:38 Dose: 5 mg Documented by: Oxycodone/Acetaminophen (Oxycodone /Acetaminophen 5-325mg Tab) 1 tab PO Q16H PRN PRN Reason: Pain, Moderate (4-6) Quetiapine Fumarate (Quetiapine 200 Mg Tab) 200 mg PO QHS [facility] Last Admin: 12/01/20 21:51 Dose: 200 mg Documented by: Sodium Chloride (Sodium Chloride 0.9% 10 Ml Flush Syringe) 10 ml IV BID [facility] Last Admin: 12/02/20 10:25 Dose: 10 ml Documented by: Sodium Chloride (Sodium Chloride 0.9% 10 Ml Flush Syringe) 10 ml IV PRN PRN PRN Reason: LINE FLUSH Review of Systems - Review of Systems ROS unobtainable: due to mental status Exam - Constitutional Vital Signs: Temp Pulse Resp BP Pulse Ox 98.0 F 73 24 112/73 96 12/02/20 07:04 12/02/20 11:32 12/02/20 11:32 12/02/20 11:32 12/02/20 11:33 General appearance: no acute distress - EENT Eyes: EOM intact ENT: hearing intact - Respiratory Respiratory effort: normal - Cardiovascular Rhythm: regular Heart Sounds: Present: S1 & S2 - Gastrointestinal General gastrointestinal: Present: soft, non-tender, non-distended - Neurologic Neurological: disoriented - Psychiatric Psychiatric: cooperative - Labs CBC & Chem 7: 12/02/20 04:07 12/02/20 04:07 Lab Results: Laboratory Results - last 24 hr 12/01/20 12/01/20 12/01/20 15:38 15:38 15:38 WBC 14.7 H RBC 4.27 Hgb 13.7 Hct 40.8 MCV 96 H MCH 32 MCHC 34 RDW 16.8 H Plt Count 197 Lymph % (Auto) 19.7 [place] % (Auto) 8.4 H Eos % (Auto) 0.0 Baso % (Auto) 0.4 Lymph # (Auto) 2.9 [place] # (Auto) 1.2 H Eos # (Auto) 0.0 Baso # (Auto) 0.1 Seg Neutrophils % 71.5 H Seg Neutrophils # 10.5 H Sodium 140 Potassium 4.7 Chloride 98.3 Carbon Dioxide 24 Anion Gap 22 BUN 67 H Creatinine 4.2 H Estimated GFR 17 BUN/Creatinine Ratio 16 Glucose 119 H Lactic Acid Calcium 9.7 Urine Color Urine Turbidity Urine pH Ur Specific [place] Urine Protein Urine Glucose (UA) Urine Ketones Urine Blood Urine Nitrite Urine Bilirubin Urine Urobilinogen Ur Leukocyte Esterase Urine WBC (Auto) Urine RBC (Auto) U Epithel Cells (Auto) Hyaline Casts Granular Casts Urine Mucus Blood Type O POSITIVE Antibody Screen Negative Crossmatch See Detail 12/01/20 12/01/20 12/02/20 18:18 20:33 00:13 WBC RBC Hgb Hct MCV MCH MCHC RDW Plt Count Lymph % (Auto) [place] % (Auto) Eos % (Auto) Baso % (Auto) Lymph # (Auto) [place] # (Auto) Eos # (Auto) Baso # (Auto) Seg Neutrophils % Seg Neutrophils # Sodium Potassium Chloride Carbon Dioxide Anion Gap BUN Creatinine Estimated GFR BUN/Creatinine Ratio Glucose Lactic Acid 3.10 H* 2.70 H* 2.50 H* Calcium Urine Color Urine Turbidity Urine pH Ur Specific [place] Urine Protein Urine Glucose (UA) Urine Ketones Urine Blood Urine Nitrite Urine Bilirubin Urine Urobilinogen Ur Leukocyte Esterase Urine WBC (Auto) Urine RBC (Auto) U Epithel Cells (Auto) Hyaline Casts Granular Casts Urine Mucus Blood Type Antibody Screen Crossmatch 12/02/20 12/02/20 12/02/20 00:13 04:07 04:07 WBC 11.6 H 9.7 RBC 3.50 L 3.48 L Hgb 11.4 L 11.5 L Hct 33.9 L D 33.7 L MCV 97 H 97 H MCH 33 H 33 H MCHC 34 34 RDW 16.8 H 17.0 H Plt Count 128 L 138 L Lymph % (Auto) 20.0 23.9 [place] % (Auto) 6.9 5.9 Eos % (Auto) 0.1 0.1 Baso % (Auto) 0.1 0.4 Lymph # (Auto) 2.3 2.3 [place] # (Auto) 0.8 0.6 Eos # (Auto) 0.0 0.0 Baso # (Auto) 0.0 0.0 Seg Neutrophils % 72.9 H 69.7 Seg Neutrophils # 8.5 H 6.7 Sodium 142 Potassium 4.8 Chloride 101.0 Carbon Dioxide 26 Anion Gap 20 BUN 63 H Creatinine 3.2 H Estimated GFR 23 BUN/Creatinine Ratio 20 Glucose 82 Lactic Acid Calcium 8.8 Urine Color Urine Turbidity Urine pH Ur Specific [place] Urine Protein Urine Glucose (UA) Urine Ketones Urine Blood Urine Nitrite Urine Bilirubin Urine Urobilinogen Ur Leukocyte Esterase Urine WBC (Auto) Urine RBC (Auto) U Epithel Cells (Auto) Hyaline Casts Granular Casts Urine Mucus Blood Type Antibody Screen Crossmatch 12/02/20 12/02/20 04:07 08:21 WBC RBC Hgb Hct MCV MCH MCHC RDW Plt Count Lymph % (Auto) [place] % (Auto) Eos % (Auto) Baso % (Auto) Lymph # (Auto) [place] # (Auto) Eos # (Auto) Baso # (Auto) Seg Neutrophils % Seg Neutrophils # Sodium Potassium Chloride Carbon Dioxide Anion Gap BUN Creatinine Estimated GFR BUN/Creatinine Ratio Glucose Lactic Acid 1.60 Calcium Urine Color [place] Urine Turbidity Slightly-cloudy Urine pH 5.0 Ur Specific [place] 1.020 Urine Protein 100 mg/dl Urine Glucose (UA) 50 Urine Ketones Neg Urine Blood Sm Urine Nitrite Neg Urine Bilirubin Neg Urine Urobilinogen 4.0 Ur Leukocyte Esterase Mod Urine WBC (Auto) 67.0 H Urine RBC (Auto) 3.0 U Epithel Cells (Auto) 4.0 Hyaline Casts 1 Granular Casts 7 Urine Mucus Few Blood Type Antibody Screen Crossmatch - Imaging CT Scan: report reviewed Assessment and Plan This is a 75 yo male from [facility] with pmh of Afib on eliquis, vascular dementia, Bipolar, HTN brought from detention via EMS for coffee ground emesis and hypotension. # GI bleed # Coffee ground emesis - Hgb at 11. - no additional episodes of bleeding symptoms. no nausea/vomiting or stools. - patient on antibiotics for possible aspiration pneumonia. - HD stable. Rec - cont with PPI IV - conservative management given no active bleeding. - will reassess tomorrow for possible EGD in case of active bleeding and will also need to have stable respiratory status. - will follow. - spoke with the son on the phone and updated. No prior h/o liver disease, colonoscopy, GI bleed that he knows. - Patient Problems (1) GI bleed Current Visit: Yes Status: Acute
[2020-12-02 15:57] LABS: Hematocrit 39.8 % (35.5-45.6); Hemoglobin 13.5 gm/dl (11.8-15.2); Mean Corpuscular HGB Conc 34 % (32-34); Mean Corpuscular Volume 95 fl (84-94); Platelet Count 145 K/mm3 (140-440); Red Blood Count 4.18 M/mm3 (3.65-5.03); Red Cell Distribution Width 16.5 % (13.2-15.2)
[2020-12-02 16:07] LABS: INR 1.08 (0.87-1.13)
[2020-12-02 16:19] LABS: Albumin 3.4 g/dL (3.9-5); Bilirubin,Direct 0.2 mg/dL (0-0.2)
[2020-12-02] MEDS: cefTRIAXone/NS 2 GM/100 ML 2 GM/100 ML BAG IV SCH (23:15)
[2020-12-03] MEDS: AZITHROMYCIN/NS 500 MG/250 ML 500 MG/250 ML BAG IV SCH ×2 (00:27→20:21)
[2020-12-03] MEDS: DIVALPROEX DR 500 MG TAB PO SCH ×3 (00:27→23:27)
[2020-12-03] MEDS: MIRTAZAPINE 15 MG TAB PO SCH ×2 (00:28→23:27)
[2020-12-03] MEDS: FLECAINIDE 100 MG TAB PO SCH ×3 (00:28→20:00)
[2020-12-03] MEDS: OXYBUTYNIN 5 MG TAB PO SCH ×3 (01:37→23:26)
[2020-12-03] MEDS: CARBIDOPA/LEVODOPA 25-100 MG TAB PO SCH ×3 (01:37→20:00)
[2020-12-03] MEDS: QUEtiapine 200 MG TAB PO SCH ×2 (03:14→23:26)
[2020-12-03 04:54] LABS: Hematocrit 36.4 % (35.5-45.6); Hemoglobin 12.6 gm/dl (11.8-15.2); Mean Corpuscular HGB Conc 35 % (32-34); Mean Corpuscular Volume 95 fl (84-94); Platelet Count 155 K/mm3 (140-440); Red Blood Count 3.82 M/mm3 (3.65-5.03); Red Cell Distribution Width 16.5 % (13.2-15.2)
[2020-12-03 05:26] LABS: Albumin 3.2 g/dL (3.9-5); BUN/Creatinine Ratio 28; Blood Urea Nitrogen 48 mg/dL (9-20); Calcium 9.4 mg/dL (8.4-10.2); Hemolysis Index 2
[2020-12-03 05:29] LABS: Alanine Aminotransferase < 5 units/L (7-56)
[2020-12-03] MEDS: METOPROLOL SUCCINATE XL 25 MG TAB PO SCH (10:00)
[2020-12-03] MEDS: CETIRIZINE 10 MG TAB PO SCH (11:00)
--- NOTE | 2020-12-03 11:58 | Gastroenterology Progress Note ---
Assessment and Plan This is a 75 yo male from [facility] with pmh of Afib on eliquis, vascular dementia, Bipolar, HTN brought from [facility] via EMS for coffee ground emesis and hypotension. # GI bleed # Coffee ground emesis - Hgb stable at 12. - no additional episodes of bleeding symptoms. no nausea/vomiting or stools. - patient on antibiotics for aspiration pneumonia. - HD stable. Rec - cont with PPI IV - will plan for EGD tomorrow. Currently eliquis held given concern for GI bleed but indicated for afib. - NPO MN - Patient Problems (1) GI bleed Current Visit: Yes Status: Acute Subjective Date of service: 12/03/20 Interval history: Patient more alert today but disoriented. No vomiting or BM overnight. Objective - Constitutional Vitals: Temp Pulse Resp BP Pulse Ox 97.6 F 87 11 L 118/77 98 12/03/20 01:23 12/03/20 07:45 12/03/20 07:45 12/03/20 08:15 12/03/20 08:15 General appearance: no acute distress - EENT Eyes: EOM intact ENT: hearing intact - Cardiovascular Rhythm: regular Heart Sounds: Present: S1 & S2 - Gastrointestinal General gastrointestinal: Present: soft, non-tender, non-distended - Integumentary Integumentary: Present: clear, warm - Neurologic Neurological: disoriented - Labs CBC & Chem 7: 12/03/20 04:26 12/03/20 04:26 Labs: Laboratory Results - last 24 hr 12/02/20 12/02/20 12/02/20 15:47 15:47 15:47 WBC 11.4 H RBC 4.18 Hgb 13.5 Hct 39.8 D MCV 95 H MCH 32 MCHC 34 RDW 16.5 H Plt Count 145 PT 15.2 H INR 1.08 Sodium Potassium Chloride Carbon Dioxide Anion Gap BUN Creatinine Estimated GFR BUN/Creatinine Ratio Glucose Calcium Total Bilirubin 0.50 Direct Bilirubin 0.2 Indirect Bilirubin 0.3 AST 63 H ALT 6 L Alkaline Phosphatase 96 Total Protein 6.3 Albumin 3.4 L Albumin/Globulin Ratio 1.2 12/03/20 12/03/20 04:26 04:26 WBC 9.3 RBC 3.82 Hgb 12.6 Hct 36.4 MCV 95 H MCH 33 H MCHC 35 H RDW 16.5 H Plt Count 155 PT INR Sodium 145 Potassium 5.2 H Chloride 104.0 Carbon Dioxide 28 Anion Gap 18 BUN 48 H Creatinine 1.7 H Estimated GFR 48 BUN/Creatinine Ratio 28 Glucose 73 L Calcium 9.4 Total Bilirubin 0.40 Direct Bilirubin Indirect Bilirubin AST 68 H ALT < 5 L Alkaline Phosphatase 92 Total Protein 5.9 L Albumin 3.2 L Albumin/Globulin Ratio 1.2
--- NOTE | 2020-12-03 13:53 | Progress Note ---
Assessment and Plan Assessment and plan: 75 YO Male Correction Facility Resident at [facility] Nursing [facility] with Atrial Fib on Therapeutic Anticoagulation, Encephalopathy, Debility, Bipolar Disorder, HTN, Debility, Vascular Dementia, Cerebral Atherosclerosis, Alzheimers Disease presents to ED for evaluation. Patient has diminished cognition and is unable to provide detailed history at the time of my evaluation. Patient history taken from EMS staff, ED staff, as well as nursing home facility staff. As per staff the patient was found to have coffee- ground emesis today with concomitant hypotension with a blood pressure of 50/30. EMS was notified and upon arrival the patient was found to be hypotensive with a systolic blood pressure in the 50s. The patient was treated with supportive care and transported to [facility] for further care and evaluation of the aforementioned symptoms. The patient was seen and evaluated in the emergency department. All lab and imaging studies reviewed. Patient found to have symptoms consistent with GI bleed. Chest x-ray revealed pneumonia with focal consolidation suspicious for malignancy. Patient also found to have systemic plantar response syndrome, as well as CHINO. Patient admitted to [facility] and initiated on pneumonia protocol as well as GI bleed protocol. GI team consulted in ED. No reports of fever, chills, chest pain, palpitations, productive cough, skin rash, recent ill contacts. No prior admission for review. All medication listed at time of admission has been reconciled. Advanced care planning conducted in ED. Patient has diminished cognition at the time my evaluation but has a positive gag reflex and is able to protect his airway without difficulty. 12/02; CT scan chest shows no definitive mass but some nodules. No further recommendation noted on that. I have gone ahead to discontinue aspirin and anticoagulant on this patient due to possible GI bleed. Will monitor H&H today to see if any further decline. I have also gone ahead to consult GI. We will continue to follow I have discussed with nursing staff to restart Protonix drip until GI evaluation is complete. We will give a bolus of fluid, no need to start pressors at this time but if patient's blood pressure continues to trend down and pressors are needed nursing staff is advised physician and we can change patient throughout ICU stay. For now continue with [facility] 12/03: Patient seen and examined, clinically improving. H/H is stable, will feed today per discussion with GI and plan for possible Endoscopy in am due to his need for anticoagulation for Afib. Patient is on restriants for safety, due to his Alzhemiers Dementia. Will obtain PT eval for evaluation. He can return to the SNF when cleared by GI. (1) GI bleed Current Visit: Yes Status: Acute Plan to address problem: GI bleed protocol: CBC, IV PPI therapy, serial abdominal exam, GI team consulted. Will consider blood transfusion if patient hemoglobin dropped by greater than 2 g in 24-hour period. (2) SIRS (systemic inflammatory response syndrome) Current Visit: Yes Status: Acute Plan to address problem: CBC, CMP, IV antibiotic therapy, blood culture. (3) Pneumonia Current Visit: Yes Status: Acute Plan to address problem: Chest x-ray, pneumonia protocol: CBC, CMP, supplemental oxygen, pulse oximetry, nebulizer therapy, supportive care. (4) CHINO (acute kidney injury) with vasomotor nephropathy Current Visit: Yes Status: Acute Plan to address problem: BMP, IV fluid resuscitation therapy, repeat BMP in a.m. (5) Atrial fibrillation Current Visit: Yes Status: Acute Qualifiers: Atrial fibrillation type: longstanding persistent Qualified Code(s): I48.11 - Longstanding persistent atrial fibrillation Plan to address problem: therapeutic anticoagulation for now. Rate control, supportive care. (6) Alzheimer disease Current Visit: Yes Status: Acute Plan to address problem: Continue current therapy, supportive care (7) acute blood loss anemia secondary to possible upper GI bleed (8) Hyperkalemia (9) DVT prophylaxis Current Visit: Yes Status: Acute Plan to address problem: SCDs bilateral lower extremities while in bed, (10) Advance care planning Current Visit: Yes Status: Acute Plan to address problem: Disease education conducted, care plan discussed, diagnoses discussed, prognosis discussed, patient is full code, +30 minutes. History Interval history: Patient seen and examined this morning awake but on restriants for safety. No further bleeding noted. Hospitalist Physical - Physical exam Narrative exam: VITAL SIGNS: Reviewed. GENERAL: The patient appears normally developed, Vital signs as documented. HEAD: No signs of head trauma. EYES: Pupils are equal. Extraocular motions intact. EARS: Hearing grossly intact. MOUTH: Oropharynx is normal. NECK: No adenopathy, no JVD. CHEST: Chest with diminished breath sounds bilaterally. No wheezes, rales, or rhonchi. CARDIAC: Regular rate and rhythm. S1 and S2, without murmurs, gallops, or rubs. VASCULAR: No Edema. Peripheral pulses normal and equal in all extremities. ABDOMEN: Soft, non tender and non distended. No rebound or guarding, and no masses palpated. Bowel Sounds normal. MUSCULOSKELETAL: Good range of motion of all major joints. Extremities without clubbing, cyanosis or edema. NEUROLOGIC EXAM: Alert and oriented x 3 No focal sensory or strength deficits. Speech normal. Follows commands. PSYCHIATRIC: Mood normal. SKIN: detail exam as documented in skin assessment - Constitutional Vitals: Temp Pulse Resp BP Pulse Ox 97.6 F 87 11 L 118/77 99 12/03/20 01:23 12/03/20 07:45 12/03/20 07:45 12/03/20 12:01 12/03/20 12:01 General appearance: Present: mild distress Results - Labs CBC & Chem 7: 12/03/20 04:26 12/03/20 04:26 Labs: Laboratory Last Values WBC 9.3 K/mm3 (4.5-11.0) 12/03/20 04:26 RBC 3.82 M/mm3 (3.65-5.03) 12/03/20 04:26 Hgb 12.6 gm/dl (11.8-15.2) 12/03/20 04:26 Hct 36.4 % (35.5-45.6) 12/03/20 04:26 MCV 95 fl (84-94) H 12/03/20 04:26 MCH 33 pg (28-32) H 12/03/20 04:26 MCHC 35 % (32-34) H 12/03/20 04:26 RDW 16.5 % (13.2-15.2) H 12/03/20 04:26 Plt Count 155 K/mm3 (140-440) 12/03/20 04:26 Lymph % (Auto) 23.9 % (13.4-35.0) 12/02/20 04:07 [place] % (Auto) 5.9 % (0.0-7.3) 12/02/20 04:07 Eos % (Auto) 0.1 % (0.0-4.3) 12/02/20 04:07 Baso % (Auto) 0.4 % (0.0-1.8) 12/02/20 04:07 Lymph # (Auto) 2.3 K/mm3 (1.2-5.4) 12/02/20 04:07 [place] # (Auto) 0.6 K/mm3 (0.0-0.8) 12/02/20 04:07 Eos # (Auto) 0.0 K/mm3 (0.0-0.4) 12/02/20 04:07 Baso # (Auto) 0.0 K/mm3 (0.0-0.1) 12/02/20 04:07 Seg Neutrophils % 69.7 % (40.0-70.0) 12/02/20 04:07 Seg Neutrophils # 6.7 K/mm3 (1.8-7.7) 12/02/20 04:07 PT 15.2 Sec. (12.2-14.9) H 12/02/20 15:47 INR 1.08 (0.87-1.13) 12/02/20 15:47 Sodium 145 mmol/L (137-145) 12/03/20 04:26 Potassium 5.2 mmol/L (3.6-5.0) H 12/03/20 04:26 Chloride 104.0 mmol/L (98-107) 12/03/20 04:26 Carbon Dioxide 28 mmol/L (22-30) 12/03/20 04:26 Anion Gap 18 mmol/L 12/03/20 04:26 BUN 48 mg/dL (9-20) H 12/03/20 04:26 Creatinine 1.7 mg/dL (0.8-1.3) H 12/03/20 04:26 Estimated GFR 48 ml/min 12/03/20 04:26 BUN/Creatinine Ratio 28 % 12/03/20 04:26 Glucose 73 mg/dL (75-100) L 12/03/20 04:26 Lactic Acid 1.60 mmol/L (0.7-2.0) 12/02/20 04:07 Calcium 9.4 mg/dL (8.4-10.2) 12/03/20 04:26 Total Bilirubin 0.40 mg/dL (0.1-1.2) 12/03/20 04:26 Direct Bilirubin 0.2 mg/dL (0-0.2) 12/02/20 15:47 Indirect Bilirubin 0.3 mg/dL 12/02/20 15:47 AST 68 units/L (5-40) H 12/03/20 04:26 ALT < 5 units/L (7-56) L 12/03/20 04:26 Alkaline Phosphatase 92 units/L (35-129) 12/03/20 04:26 Total Protein 5.9 g/dL (6.3-8.2) L 12/03/20 04:26 Albumin 3.2 g/dL (3.9-5) L 12/03/20 04:26 Albumin/Globulin Ratio 1.2 % 12/03/20 04:26 Urine Color [place] (Yellow) 12/02/20 08:21 Urine Turbidity Slightly-cloudy (Clear) 12/02/20 08:21 Urine pH 5.0 (5.0-7.0) 12/02/20 08:21 Ur Specific [place] 1.020 (1.003-1.030) 12/02/20 08:21 Urine Protein 100 mg/dl mg/dL (Negative) 12/02/20 08:21 Urine Glucose (UA) 50 mg/dL (Negative) 12/02/20 08:21 Urine Ketones Neg mg/dL (Negative) 12/02/20 08:21 Urine Blood Sm (Negative) 12/02/20 08:21 Urine Nitrite Neg (Negative) 12/02/20 08:21 Urine Bilirubin Neg (Negative) 12/02/20 08:21 Urine Urobilinogen 4.0 mg/dL (<2.0) 12/02/20 08:21 Ur Leukocyte Esterase Mod (Negative) 12/02/20 08:21 Urine WBC (Auto) 67.0 /HPF (0.0-6.0) H 12/02/20 08:21 Urine RBC (Auto) 3.0 /HPF (0.0-6.0) 12/02/20 08:21 U Epithel Cells (Auto) 4.0 /HPF (0-13.0) 12/02/20 08:21 Hyaline Casts 1 /LPF 12/02/20 08:21 Granular Casts 7 /LPF 12/02/20 08:21 Urine Mucus Few /HPF 12/02/20 08:21 Blood Type O POSITIVE 12/01/20 15:38 Antibody Screen Negative 12/01/20 15:38 Crossmatch See Detail 12/01/20 15:38 Microbiology: Microbiology 12/02/20 08:21 Urine,Clean Catch Urine Culture - Preliminary NO GROWTH AFTER 24 HOURS 12/01/20 18:18 Peripheral/Venous Blood Culture - Preliminary NO GROWTH AFTER 24 HOURS 12/01/20 18:27 Peripheral/Venous Blood Culture - Preliminary NO GROWTH AFTER 24 HOURS Active Medications - Current Medications Current Medications: Generic Name Dose Route Start Last Admin Trade Name Freq PRN Reason Stop Dose Admin Acetaminophen 650 mg 12/01/20 18:59 Acetaminophen 325 Mg Tab PO Q4H PRN Pain MILD(1-3)/Fever >100.5/FARRIS Albuterol 2.5 mg 12/01/20 18:59 Albuterol 2.5 Mg/3 Ml Nebu IH Q4HRT PRN Shortness Of Breath Amantadine HCl 100 mg 12/01/20 22:00 12/03/20 01:37 Amantadine 100 Mg Cap PO 100 mg BID CASEY Administration Atorvastatin Calcium 40 mg 12/01/20 22:00 12/03/20 00:27 Atorvastatin 40 Mg Tab PO 40 mg QHS CASEY Administration Carbidopa/Levodopa 1 each 12/01/20 20:00 12/03/20 10:00 Carbidopa/Levodopa 25-100 Mg Tab PO 1 each TID CASEY Administration Cetirizine HCl 10 mg 12/02/20 10:00 12/03/20 11:00 Cetirizine 10 Mg Tab PO 10 mg DAILY CASEY Administration Divalproex Sodium 500 mg 12/01/20 22:00 12/03/20 11:[address] 500 Mg Tab PO 500 mg BID CASEY Administration Flecainide Acetate 100 mg 12/01/20 20:00 12/03/20 10:15 Flecainide 100 Mg Tab PO 100 mg Q12H CASEY Administration Hydromorphone HCl 0.5 mg 12/01/20 18:59 Hydromorphone 1 Mg/1 Ml Inj IV Q23H PRN Pain , Severe (7-10) Pantoprazole Sodium 80 mg/ 100 mls @ 10 mls/hr 12/01/20 18:00 12/02/20 10:21 Sodium Chloride IV 8 mg/hr DIRECT CASEY 10 mls/hr Administration 8 MG/HR Ceftriaxone Sodium 2 gm in 100 mls @ 200 mls/hr 12/01/20 19:00 12/02/20 23:15 Rocephin/Ns 2 Gm/100 Ml IV 200 mls/hr Q24H CASEY Administration Protocol Azithromycin 500 mg in 250 mls @ 250 mls/hr 12/01/20 19:00 12/03/20 00:27 Zithromax/Ns IV 250 mls/hr Q24H ACSEY Administration Protocol Norepinephrine 4 mg in 250 mls @ 7.5 mls/hr 12/02/20 04:00 Levophed Drip 4 Mg/Ns 250 Ml IV TITR CASEY Protocol 2 MCG/MIN Metoprolol Succinate 25 mg 12/02/20 10:00 12/03/20 10:00 Metoprolol Succinate Xl 25 Mg Tab PO 25 mg QDAY CASEY Administration Mirtazapine 7.5 mg 12/01/20 22:00 12/03/20 00:28 Mirtazapine 15 Mg Tab PO 7.5 mg QHS CASEY Administration Ondansetron HCl 4 mg 12/01/20 18:59 Ondansetron 4 Mg/2 Ml Inj IV Q8H PRN Nausea And Vomiting Oxybutynin Chloride 5 mg 12/01/20 22:00 12/03/20 11:00 Oxybutynin 5 Mg Tab PO 5 mg BID CASEY Administration Oxycodone/Acetaminophen 1 tab 12/01/20 18:59 Oxycodone /Acetaminophen 5-325mg Tab PO Q16H PRN Pain, Moderate (4-6) Quetiapine Fumarate 200 mg 12/01/20 22:00 12/03/20 03:14 Quetiapine 200 Mg Tab PO Not Given QHS CASEY Sodium Chloride 10 ml 12/01/20 22:00 12/03/20 10:30 Sodium Chloride 0.9% 10 Ml Flush Syringe IV 10 ml BID CASEY Administration Sodium Chloride 10 ml 12/01/20 18:59 Sodium Chloride 0.9% 10 Ml Flush Syringe IV PRN PRN LINE FLUSH
[2020-12-03] MEDS: cefTRIAXone/NS 2 GM/100 ML 2 GM/100 ML BAG IV SCH (20:22)
--- NOTE | 2020-12-04 07:23 | Progress Note ---
Assessment and Plan Assessment and plan: 75 YO Male [facility] Facility Resident at [facility] with Atrial Fib on Therapeutic Anticoagulation, Encephalopathy, Debility, Bipolar Disorder, HTN, Debility, Vascular Dementia, Cerebral Atherosclerosis, Alzheimers Disease presents to ED for evaluation. Patient has diminished cognition and is unable to provide detailed history at the time of my evaluation. Patient history taken from EMS staff, ED staff, as well as group home facility staff. As per staff the patient was found to have coffee- ground emesis today with concomitant hypotension with a blood pressure of 50/30. EMS was notified and upon arrival the patient was found to be hypotensive with a systolic blood pressure in the 50s. The patient was treated with supportive care and transported to [facility] for further care and evaluation of the aforementioned symptoms. The patient was seen and evaluated in the emergency department. All lab and imaging studies reviewed. Patient found to have symptoms consistent with GI bleed. Chest x-ray revealed pneumonia with focal consolidation suspicious for malignancy. Patient also found to have systemic plantar response syndrome, as well as CHINO. Patient admitted to [facility] and initiated on pneumonia protocol as well as GI bleed protocol. GI team consulted in ED. No reports of fever, chills, chest pain, palpitations, productive cough, skin rash, recent ill contacts. No prior admission for review. All medication listed at time of admission has been reconciled. Advanced care planning conducted in ED. Patient has diminished cognition at the time my evaluation but has a positive gag reflex and is able to protect his airway without difficulty. 12/02; CT scan chest shows no definitive mass but some nodules. No further recommendation noted on that. I have gone ahead to discontinue aspirin and anticoagulant on this patient due to possible GI bleed. Will monitor H&H today to see if any further decline. I have also gone ahead to consult GI. We will continue to follow I have discussed with nursing staff to restart Protonix drip until GI evaluation is complete. We will give a bolus of fluid, no need to start pressors at this time but if patient's blood pressure continues to trend down and pressors are needed nursing staff is advised physician and we can change patient throughout ICU stay. For now continue with [facility] 12/03: Patient seen and examined, clinically improving. H/H is stable, will feed today per discussion with GI and plan for possible Endoscopy in am due to his need for anticoagulation for Afib. Patient is on restriants for safety, due to his Alzhemiers Dementia. Will obtain PT eval for evaluation. He can return to the SNF when cleared by GI. 12/04: Patient seen and examined, clinically improved in comparison to previous assessments. Vitally stable and H&H is stable. Plan for endoscopy this morning by gastroenterology. Once cleared by GI can be discharged back to [facility]. (1) GI bleed Current Visit: Yes Status: Acute Plan to address problem: GI bleed protocol: CBC, IV PPI therapy, serial abdominal exam, GI team consulted. Total units transfused this admission: 1 Will consider blood transfusion if patient hemoglobin dropped by greater than 2 g in 24-hour period. Follow-up EGD results and GI recommendation (2) SIRS (systemic inflammatory response syndrome) Current Visit: Yes Status: Acute Plan to address problem: CBC, CMP, IV antibiotic therapy, blood culture. (3) Pneumonia Current Visit: Yes Status: Acute Plan to address problem: Chest x-ray, pneumonia protocol: CBC, CMP, supplemental oxygen, pulse oximetry, nebulizer therapy, supportive care. (4) CHINO (acute kidney injury) with vasomotor nephropathy Current Visit: Yes Status: Acute Plan to address problem: BMP, IV fluid resuscitation therapy, repeat BMP in a.m. (5) Atrial fibrillation Current Visit: Yes Status: Acute Qualifiers: Atrial fibrillation type: longstanding persistent Qualified Code(s): I48.11 - Longstanding persistent atrial fibrillation Plan to address problem: therapeutic anticoagulation for now. Rate control, supportive care. (6) Alzheimer disease Current Visit: Yes Status: Acute Plan to address problem: Continue current therapy, supportive care (7) acute blood loss anemia secondary to possible upper GI bleed (8) Hyperkalemia (9) DVT prophylaxis Current Visit: Yes Status: Acute Plan to address problem: SCDs bilateral lower extremities while in bed, (10) Advance care planning Current Visit: Yes Status: Acute Plan to address problem: Disease education conducted, care plan discussed, diagnoses discussed, prognosis discussed, patient is full code, +30 minutes. History Interval history: No acute complaints today. Patient remains in restraints but is not agitated on encounter. Patient is alert and only oriented to self. He has EGD planned for today. Hospitalist Physical - Physical exam Narrative exam: Physical Exam: VITAL SIGNS: Reviewed. GENERAL: The patient appears normally developed, Vital signs as documented. Elderly gentleman currently in restraints HEAD: No signs of head trauma. EYES: Pupils are equal. Extraocular motions intact. EARS: Hearing grossly intact. MOUTH: Oropharynx is normal. NECK: No adenopathy, no JVD. CHEST: Chest with clear breath sounds bilaterally. No wheezes, rales, or rhonchi. CARDIAC: Regular rate and rhythm. S1 and S2, without murmurs, gallops, or rubs. VASCULAR: No Edema. Peripheral pulses normal and equal in all extremities. ABDOMEN: Soft, non tender and non distended. No rebound or guarding, and no masses palpated. Bowel Sounds normal. MUSCULOSKELETAL: Good range of motion of all major joints. Extremities without clubbing, cyanosis or edema. NEUROLOGIC EXAM: Alert although oriented only to self PSYCHIATRIC: Mood normal. SKIN: detail exam as documented in skin assessment - Constitutional Vitals: Temp Pulse Resp BP Pulse Ox 98.2 F 85 18 180/98 100 12/04/20 03:28 12/04/20 03:28 12/04/20 04:57 12/04/20 03:28 12/04/20 04:57 General appearance: Present: mild distress Results - Labs CBC & Chem 7: 12/03/20 04:26 12/03/20 04:26 Labs: Laboratory Last Values WBC 9.3 K/mm3 (4.5-11.0) 12/03/20 04:26 RBC 3.82 M/mm3 (3.65-5.03) 12/03/20 04:26 Hgb 12.6 gm/dl (11.8-15.2) 12/03/20 04:26 Hct 36.4 % (35.5-45.6) 12/03/20 04:26 MCV 95 fl (84-94) H 12/03/20 04:26 MCH 33 pg (28-32) H 12/03/20 04:26 MCHC 35 % (32-34) H 12/03/20 04:26 RDW 16.5 % (13.2-15.2) H 12/03/20 04:26 Plt Count 155 K/mm3 (140-440) 12/03/20 04:26 Lymph % (Auto) 23.9 % (13.4-35.0) 12/02/20 04:07 [place] % (Auto) 5.9 % (0.0-7.3) 12/02/20 04:07 Eos % (Auto) 0.1 % (0.0-4.3) 12/02/20 04:07 Baso % (Auto) 0.4 % (0.0-1.8) 12/02/20 04:07 Lymph # (Auto) 2.3 K/mm3 (1.2-5.4) 12/02/20 04:07 [place] # (Auto) 0.6 K/mm3 (0.0-0.8) 12/02/20 04:07 Eos # (Auto) 0.0 K/mm3 (0.0-0.4) 12/02/20 04:07 Baso # (Auto) 0.0 K/mm3 (0.0-0.1) 12/02/20 04:07 Seg Neutrophils % 69.7 % (40.0-70.0) 12/02/20 04:07 Seg Neutrophils # 6.7 K/mm3 (1.8-7.7) 12/02/20 04:07 PT 15.2 Sec. (12.2-14.9) H 12/02/20 15:47 INR 1.08 (0.87-1.13) 12/02/20 15:47 Sodium 145 mmol/L (137-145) 12/03/20 04:26 Potassium 5.2 mmol/L (3.6-5.0) H 12/03/20 04:26 Chloride 104.0 mmol/L (98-107) 12/03/20 04:26 Carbon Dioxide 28 mmol/L (22-30) 12/03/20 04:26 Anion Gap 18 mmol/L 12/03/20 04:26 BUN 48 mg/dL (9-20) H 12/03/20 04:26 Creatinine 1.7 mg/dL (0.8-1.3) H 12/03/20 04:26 Estimated GFR 48 ml/min 12/03/20 04:26 BUN/Creatinine Ratio 28 % 12/03/20 04:26 Glucose 73 mg/dL (75-100) L 12/03/20 04:26 Lactic Acid 1.60 mmol/L (0.7-2.0) 12/02/20 04:07 Calcium 9.4 mg/dL (8.4-10.2) 12/03/20 04:26 Total Bilirubin 0.40 mg/dL (0.1-1.2) 12/03/20 04:26 Direct Bilirubin 0.2 mg/dL (0-0.2) 12/02/20 15:47 Indirect Bilirubin 0.3 mg/dL 12/02/20 15:47 AST 68 units/L (5-40) H 12/03/20 04:26 ALT < 5 units/L (7-56) L 12/03/20 04:26 Alkaline Phosphatase 92 units/L (35-129) 12/03/20 04:26 Total Protein 5.9 g/dL (6.3-8.2) L 12/03/20 04:26 Albumin 3.2 g/dL (3.9-5) L 12/03/20 04:26 Albumin/Globulin Ratio 1.2 % 12/03/20 04:26 Urine Color Diana (Yellow) 12/02/20 08:21 Urine Turbidity Slightly-cloudy (Clear) 12/02/20 08:21 Urine pH 5.0 (5.0-7.0) 12/02/20 08:21 Ur Specific [place] 1.020 (1.003-1.030) 12/02/20 08:21 Urine Protein 100 mg/dl mg/dL (Negative) 12/02/20 08:21 Urine Glucose (UA) 50 mg/dL (Negative) 12/02/20 08:21 Urine Ketones Neg mg/dL (Negative) 12/02/20 08:21 Urine Blood Sm (Negative) 12/02/20 08:21 Urine Nitrite Neg (Negative) 12/02/20 08:21 Urine Bilirubin Neg (Negative) 12/02/20 08:21 Urine Urobilinogen 4.0 mg/dL (<2.0) 12/02/20 08:21 Ur Leukocyte Esterase Mod (Negative) 12/02/20 08:21 Urine WBC (Auto) 67.0 /HPF (0.0-6.0) H 12/02/20 08:21 Urine RBC (Auto) 3.0 /HPF (0.0-6.0) 12/02/20 08:21 U Epithel Cells (Auto) 4.0 /HPF (0-13.0) 12/02/20 08:21 Hyaline Casts 1 /LPF 12/02/20 08:21 Granular Casts 7 /LPF 12/02/20 08:21 Urine Mucus Few /HPF 12/02/20 08:21 Blood Type O POSITIVE 12/01/20 15:38 Antibody Screen Negative 12/01/20 15:38 Crossmatch See Detail 12/01/20 15:38 Microbiology: Microbiology 12/01/20 18:18 Peripheral/Venous Blood Culture - Preliminary NO GROWTH AFTER 48 HOURS 12/01/20 18:27 Peripheral/Venous Blood Culture - Preliminary NO GROWTH AFTER 48 HOURS 12/02/20 08:21 Urine,Clean Catch Urine Culture - Preliminary NO GROWTH AFTER 24 HOURS Vu/IV: Voiding Method Indwelling Catheter Active Medications - Current Medications Current Medications: Generic Name Dose Route Start Last Admin Trade Name Freq PRN Reason Stop Dose Admin Acetaminophen 650 mg 12/01/20 18:59 Acetaminophen 325 Mg Tab PO Q4H PRN Pain MILD(1-3)/Fever >100.5/FARRIS Albuterol 2.5 mg 12/01/20 18:59 Albuterol 2.5 Mg/3 Ml Nebu IH Q4HRT PRN Shortness Of Breath Amantadine HCl 100 mg 12/01/20 22:00 12/03/20 23:26 Amantadine 100 Mg Cap PO 100 mg BID CASEY Administration Atorvastatin Calcium 40 mg 12/01/20 22:00 12/03/20 23:27 Atorvastatin 40 Mg Tab PO 40 mg QHS CASEY Administration Carbidopa/Levodopa 1 each 12/01/20 20:00 12/03/20 20:00 Carbidopa/Levodopa 25-100 Mg Tab PO Not Given TID CASEY Cetirizine HCl 10 mg 12/02/20 10:00 12/03/20 11:00 Cetirizine 10 Mg Tab PO 10 mg DAILY CASEY Administration Divalproex Sodium 500 mg 12/01/20 22:00 12/03/20 23:[address] 500 Mg Tab PO 500 mg BID CASEY Administration Flecainide Acetate 100 mg 12/01/20 20:00 12/03/20 20:00 Flecainide 100 Mg Tab PO Not Given Q12H CASEY Hydromorphone HCl 0.5 mg 12/01/20 18:59 Hydromorphone 1 Mg/1 Ml Inj IV Q23H PRN Pain , Severe (7-10) Pantoprazole Sodium 80 mg/ 100 mls @ 10 mls/hr 12/01/20 18:00 12/02/20 10:21 Sodium Chloride IV 8 mg/hr DIRECT CASEY 10 mls/hr Administration 8 MG/HR Ceftriaxone Sodium 2 gm in 100 mls @ 200 mls/hr 12/01/20 19:00 12/03/20 20:22 Rocephin/Ns 2 Gm/100 Ml IV 200 mls/hr Q24H CASEY Administration Protocol Azithromycin 500 mg in 250 mls @ 250 mls/hr 12/01/20 19:00 12/03/20 20:21 Zithromax/Ns IV 250 mls/hr Q24H CASEY Administration Protocol Norepinephrine 4 mg in 250 mls @ 7.5 mls/hr 12/02/20 04:00 Levophed Drip 4 Mg/Ns 250 Ml IV TITR CASEY Protocol 2 MCG/MIN Metoprolol Succinate 25 mg 12/02/20 10:00 12/03/20 10:00 Metoprolol Succinate Xl 25 Mg Tab PO 25 mg QDAY CASEY Administration Mirtazapine 7.5 mg 12/01/20 22:00 12/03/20 23:27 Mirtazapine 15 Mg Tab PO 7.5 mg QHS CASEY Administration Ondansetron HCl 4 mg 12/01/20 18:59 Ondansetron 4 Mg/2 Ml Inj IV Q8H PRN Nausea And Vomiting Oxybutynin Chloride 5 mg 12/01/20 22:00 12/03/20 23:26 Oxybutynin 5 Mg Tab PO 5 mg BID CASEY Administration Oxycodone/Acetaminophen 1 tab 12/01/20 18:59 Oxycodone /Acetaminophen 5-325mg Tab PO Q16H PRN Pain, Moderate (4-6) Quetiapine Fumarate 200 mg 12/01/20 22:00 12/03/20 23:26 Quetiapine 200 Mg Tab PO 200 mg QHS ACSEY Administration Sodium Chloride 10 ml 12/01/20 22:00 12/03/20 23:27 Sodium Chloride 0.9% 10 Ml Flush Syringe IV 10 ml BID CASEY Administration Sodium Chloride 10 ml 12/01/20 18:59 Sodium Chloride 0.9% 10 Ml Flush Syringe IV PRN PRN LINE FLUSH
[2020-12-04] MEDS ORDERED: SODIUM CHLORIDE 0.9% 1000 ML 1,000 ML IV SCH (11:00)
[2020-12-04] MEDS: CARBIDOPA/LEVODOPA 25-100 MG TAB PO SCH ×3 (11:35→22:00)
[2020-12-04] MEDS: METOPROLOL SUCCINATE XL 25 MG TAB PO SCH (13:28)
[2020-12-04] MEDS: DIVALPROEX DR 500 MG TAB PO SCH (13:28)
[2020-12-04] MEDS: FLECAINIDE 100 MG TAB PO SCH (13:28)
[2020-12-04] MEDS: CETIRIZINE 10 MG TAB PO SCH (13:28)
[2020-12-04] MEDS: OXYBUTYNIN 5 MG TAB PO SCH (13:28)
--- NOTE | 2020-12-04 13:51 | Anesthesia Consultation ---
Anesthesia Consult and Med Hx Date of service: 12/04/20 - Airway Anesthetic Teeth Evaluation: Good ROM Head & Neck: Adequate Mental/Hyoid Distance: Adequate Mallampati Class: Class II Intubation Access Assessment: Probably Good - Pulmonary Exam CTA: Yes - Pre-Operative Health Status ASA Pre-Surgery Classification: ASA3 Proposed Anesthetic Plan: MAC - Pulmonary Hx Smoking: Yes Hx Respiratory Symptoms: No Hx Pneumonia: Yes (Systemic Inflammatory Response Syndrome) Hx Sleep Apnea: No - Cardiovascular System Hx Hypertension: Yes Hx Cardia Arrhythmia: Yes (Atrial Firillation) Hx Valvular Heart Disease: No - Central Nervous System Hx Seizures: No Hx Psychiatric Problems: Yes (Bipolar Disorder, Alzheimer's Disease, Cerebral Artherosclerosis,) - Gastrointestinal Hx Ulcer: Yes (GI Bleed) - Endocrine Hx Renal Disease: Yes (Acute renal Injury) Hx Liver Disease: No Hx Insulin Dependent Diabetes: No Hx Non-Insulin Dependent Diabetes: No - Hematic Hx Anemia: Yes - Other Systems Hx Alcohol Use: No Hx Substance Use: No Hx Obesity: Yes - Additional Comments Anesthesia Medical History Comments: Patient denied previous anesthesia complication.
--- NOTE | 2020-12-04 14:01 | Anesthesia Day of Surgery ---
Anesthesia Day of Surgery - Day of Surgery Patient Examined: Yes Patient H&P Reviewed: Yes Patient is NPO: Yes Beta Blockers: No Cardiac Clearance: No Pulmonary Clearance: No
[2020-12-04] MEDS ORDERED: ONDANSETRON 4 MG/2 ML INJ ONE (14:04)
[2020-12-04] MEDS ORDERED: fentaNYL 100 MCG/2 ML INJ ONE (14:05)
[2020-12-04] MEDS ORDERED: propofoL 200 MG/20 ML VIAL IV ONE (14:05)
[2020-12-04] MEDS ORDERED: PHENYLEPHRINE/NS 1,000 MCG/10 ML SYRINGE (OR USE) IV ONE (14:26)
--- NOTE | 2020-12-04 14:41 | Operative Report ---
Operative Report Operative Report: Date: 12/04/2020 SURGEON: Jose Anderson MD (Jenny) EGD REPORT PREOPERATIVE DIAGNOSIS: esophagitis, gastritis POSTOPERATIVE DIAGNOSIS: moderate hiatal hernia, esophagitis, gastritis, retained fluid in the esophagus and stomach ESTIMATED BLOOD LOSS:none DESCRIPTION OF PROCEDURE: A high-resolution EGD scope was passed through the oropharynx, esophagus, stomach, and second portion of duodenum. The scope was carefully withdrawn. Retroflexion was performed in the stomach. At the end of e procedure, the scope was cleaned using normal technique. Vital signs monitored continuously throughout. SEDATION: Provided by Anesthesiology Services. COMPLICATIONS: None. FINDINGS: 1. A large amount of fluid in the distal esophagus and gastric fundus. It was cleared out with aggressive suctioning. 2. Diffuse erosive esophagitis, LA grade c in the mid to distal esophagus with polypoid mucosa in the distal esophagus. Could not appreciate obvious mass lesions but not excluded. Biopsies obtained from distal esophagus. 3. The stomach was J-shaped with distortion and difficult to advance to the duodenum. The pylorus was open without signs of obstruction. 4. Mild erythematous mucosa in the antrum and body. Biopsies obtained. 5. A moderate size hiatal hernia 6. Examined part of duodenum appeared normal. 7. No blood throughout the exam. RECOMMENDATIONS: 1. Recommend CT a/p with oral contrast to evaluate for any obstruction in the small bowel. 2. NPO until after CT. 3. Aspiration precautions. 4. Monitor H/H serially. 5. Continue with PPI BID. 6. Discussed with family on the phone 7. Will follow.
--- NOTE | 2020-12-04 17:16 | Post Anesthesia Evaluation ---
- Post Anesthesia Evaluation Patient Participated: Yes Airway Patent: Yes Stable Respiratory Function: Yes Nausea/Vomiting: No Temp > 96.8F: Yes Pain Manageable: Yes Adequeate Hydration: Yes Anesthesia Complications: No Block Receding Appropriately: Not Applicable Patient on Ventilator: No
--- NOTE | 2020-12-04 18:08 | Cat Scan Report ---
CT ABDOMEN AND PELVIS WITH AND WITHOUT CONTRAST HISTORY: rule out small bowel obstruction 100 ML OMNI 300. COMPARISON: None. TECHNIQUE: Helical CT images of the abdomen and pelvis were obtained before and after administration of intravenous contrast. Sagittal and coronal reformatted images were reviewed. All CT scans at this location are performed using CT dose reduction for ALARA by means of automated exposure control. CONTRAST: 100 ml of intravenous contrast administered. FINDINGS: Abdomen/pelvis: There are multiple fluid-filled, dilated loops of small bowel throughout the abdomen . The transition point is not clearly identified but appears to be distal. The colon and appendix are unremarkable. There is small pelvic ascites. Large hiatal hernia. The liver, biliary system, pancreas, right kidney and adrenal glands are unremarkable. 2 cm cyst in t he superior left kidney is noted. The spleen is normal size and contains a 3 cm cyst inferiorly. The vascular structures are patent. No adenopathy is appreciated. The bladder is partially empty and demo nstrates diffuse wall thickening consistent with trabeculation. The prostate gland is mildly enlarged and contains multiple calcifications. Lungs/bones: There is minor subpleural scarring at the right lung base, otherwise the lung bases are clear. Mild thoracolumbar spondylosis. IMPRESSION: Moderate grade distal small bowel obstruction. Large hiatal hernia. Diffuse bladder wall thickening probably representing trabeculation. A cystitis could be considered. Signer Name: Alejo Garcia Jr, MD Signed: 12/04/2020 6:03 PM Workstation Name: [id number]
[2020-12-04] MEDS: cefTRIAXone/NS 2 GM/100 ML 2 GM/100 ML BAG IV SCH (18:22)
[2020-12-04 18:32] LABS: BUN/Creatinine Ratio 27; Blood Urea Nitrogen 27 mg/dL (9-20); Calcium 9.4 mg/dL (8.4-10.2); Hemolysis Index 5
[2020-12-05] MEDS: OXYBUTYNIN 5 MG TAB PO SCH ×3 (00:36→21:24)
[2020-12-05] MEDS: DIVALPROEX DR 500 MG TAB PO SCH ×2 (00:36→10:49)
[2020-12-05] MEDS: QUEtiapine 200 MG TAB PO SCH ×2 (00:36→21:23)
[2020-12-05] MEDS: MIRTAZAPINE 15 MG TAB PO SCH ×2 (00:36→21:23)
[2020-12-05] MEDS: FLECAINIDE 100 MG TAB PO SCH ×3 (00:37→21:24)
[2020-12-05 05:11] LABS: Eosinophils % (Auto) 0.1 % (0.0-4.3); Hematocrit 38.2 % (35.5-45.6); Hemoglobin 12.6 gm/dl (11.8-15.2); Lymphocytes % (Auto) 9.8 % (13.4-35.0); Mean Corpuscular HGB Conc 33 % (32-34); Mean Corpuscular Volume 95 fl (84-94); Monocytes # (Auto) 0.8 K/mm3 (0.0-0.8); Monocytes % (Auto) 7.2 % (0.0-7.3); Platelet Count 182 K/mm3 (140-440); Red Blood Count 4.03 M/mm3 (3.65-5.03); Red Cell Distribution Width 16.5 % (13.2-15.2)
[2020-12-05 05:13] LABS: BUN/Creatinine Ratio 26; Blood Urea Nitrogen 23 mg/dL (9-20); Calcium 9.4 mg/dL (8.4-10.2); Hemolysis Index 0
[2020-12-05 05:18] LABS: Mean Platelet Volume 8.9 fl (6-12)
--- NOTE | 2020-12-05 09:18 | XRay Report ---
ABDOMEN AP SUPINE 0909 INDICATION: NGT PLACEMENT COMPARISON: None available. FINDINGS: Nasogastric tube is coiled in the proximal stomach. Moderate small bowel dilatation is seen in a nonspecific pattern though possibly indicating mechanica l obstruction. Gas is seen throughout the colon. Follow-up is recommended. Signer Name: Claudio Santoro MD Signed: 12/05/2020 9:13 AM Workstation Name: [id number]
--- NOTE | 2020-12-05 10:30 | Progress Note ---
Assessment and Plan Assessment and plan: 75 YO Male Half-Way Facility Resident at [facility] with Atrial Fib on Therapeutic Anticoagulation, Encephalopathy, Debility, Bipolar Disorder, HTN, Debility, Vascular Dementia, Cerebral Atherosclerosis, Alzheimers Disease presents to ED for evaluation. Patient has diminished cognition and is unable to provide detailed history at the time of my evaluation. Patient history taken from EMS staff, ED staff, as well as residential facility staff. As per staff the patient was found to have coffee- ground emesis today with concomitant hypotension with a blood pressure of 50/30. EMS was notified and upon arrival the patient was found to be hypotensive with a systolic blood pressure in the 50s. The patient was treated with supportive care and transported to [facility] for further care and evaluation of the aforementioned symptoms. The patient was seen and evaluated in the emergency department. All lab and imaging studies reviewed. Patient found to have symptoms consistent with GI bleed. Chest x-ray revealed pneumonia with focal consolidation suspicious for malignancy. Patient also found to have systemic plantar response syndrome, as well as CHINO. Patient admitted to [facility] and initiated on pneumonia protocol as well as GI bleed protocol. GI team consulted in ED. No reports of fever, chills, chest pain, palpitations, productive cough, skin rash, recent ill contacts. No prior admission for review. All medication listed at time of admission has been reconciled. Advanced care planning conducted in ED. Patient has diminished cognition at the time my evaluation but has a positive gag reflex and is able to protect his airway without difficulty. 12/02; CT scan chest shows no definitive mass but some nodules. No further recommendation noted on that. I have gone ahead to discontinue aspirin and anticoagulant on this patient due to possible GI bleed. Will monitor H&H today to see if any further decline. I have also gone ahead to consult GI. We will continue to follow I have discussed with nursing staff to restart Protonix drip until GI evaluation is complete. We will give a bolus of fluid, no need to start pressors at this time but if patient's blood pressure continues to trend down and pressors are needed nursing staff is advised physician and we can change patient throughout ICU stay. For now continue with [facility] 12/03: Patient seen and examined, clinically improving. H/H is stable, will feed today per discussion with GI and plan for possible Endoscopy in am due to his need for anticoagulation for Afib. Patient is on restriants for safety, due to his Alzhemiers Dementia. Will obtain PT eval for evaluation. He can return to the SNF when cleared by GI. 12/04: Patient seen and examined, clinically improved in comparison to previous assessments. Vitally stable and H&H is stable. Plan for endoscopy this morning by gastroenterology. Once cleared by GI can be discharged back to [facility]. 12/05: EGD demonstrated erosive esophagitis and gastritis. Continue IV PPI twice daily. CT abdomen pelvis with contrast demonstrated small bowel obstruction. Patient has NG tube placed and remains n.p.o.. General surgery consulted will follow recommendations. (1) GI bleed Current Visit: Yes Status: Acute Plan to address problem: GI bleed protocol: CBC, IV PPI therapy, serial abdominal exam, GI team consulted. Total units transfused this admission: 1 Will consider blood transfusion if patient hemoglobin dropped by greater than 2 g in 24-hour period. EGD demonstrates erosive esophagitis and gastritis CT abdomen and pelvis with contrast ordered by GI yesterday, demonstrates evidence of small bowel obstruction NGT placed, patient remains n.p.o. General surgery consulted (2) SIRS (systemic inflammatory response syndrome) Current Visit: Yes Status: Acute Plan to address problem: CBC, CMP, IV antibiotic therapy, blood culture. (3) Pneumonia Current Visit: Yes Status: Acute Plan to address problem: Chest x-ray, pneumonia protocol: CBC, CMP, supplemental oxygen, pulse oximetry, nebulizer therapy, supportive care. (4) CHINO (acute kidney injury) with vasomotor nephropathy Current Visit: Yes Status: Acute Plan to address problem: BMP, IV fluid resuscitation therapy, repeat BMP in a.m. (5) Atrial fibrillation Current Visit: Yes Status: Acute Qualifiers: Atrial fibrillation type: longstanding persistent Qualified Code(s): I48.11 - Longstanding persistent atrial fibrillation Plan to address problem: therapeutic anticoagulation for now. Rate control, supportive care. (6) Alzheimer disease Current Visit: Yes Status: Acute Plan to address problem: Continue current therapy, supportive care (7) acute blood loss anemia secondary to possible upper GI bleed (8) Hyperkalemia (9) DVT prophylaxis Current Visit: Yes Status: Acute Plan to address problem: SCDs bilateral lower extremities while in bed, (10) Advance care planning Current Visit: Yes Status: Acute Plan to address problem: Disease education conducted, care plan discussed, diagnoses discussed, prognosis discussed, patient is full code, +30 minutes. History Interval history: No acute complaints on encounter. Denies abdominal pain. Patient has not had a bowel movement per RN. Patient remains in restraints. NG tube placed by RN this a.m. Hospitalist Physical - Physical exam Narrative exam: Physical Exam: VITAL SIGNS: Reviewed. GENERAL: The patient appears normally developed, Vital signs as documented. Elderly gentleman currently in restraints HEAD: No signs of head trauma. EYES: Pupils are equal. Extraocular motions intact. EARS: Hearing grossly intact. MOUTH: Oropharynx is normal. NECK: No adenopathy, no JVD. CHEST: Chest with clear breath sounds bilaterally. No wheezes, rales, or rhonchi. CARDIAC: Regular rate and rhythm. S1 and S2, without murmurs, gallops, or rubs. VASCULAR: No Edema. Peripheral pulses normal and equal in all extremities. ABDOMEN: Soft, non tender and non distended. No rebound or guarding, and no masses palpated. No bowel sounds appreciated. MUSCULOSKELETAL: Good range of motion of all major joints. Extremities without clubbing, cyanosis or edema. NEUROLOGIC EXAM: Alert although oriented only to self PSYCHIATRIC: Mood normal. SKIN: detail exam as documented in skin assessment - Constitutional Vitals: Temp Pulse Resp BP Pulse Ox 96.8 F L 73 20 131/78 100 12/05/20 07:45 12/05/20 07:45 12/05/20 07:45 12/05/20 07:45 12/05/20 07:45 General appearance: Present: mild distress Results - Labs CBC & Chem 7: 12/05/20 04:23 12/05/20 04:23 Labs: Laboratory Last Values WBC 10.5 K/mm3 (4.5-11.0) 12/05/20 04:23 RBC 4.03 M/mm3 (3.65-5.03) 12/05/20 04:23 Hgb 12.6 gm/dl (11.8-15.2) 12/05/20 04:23 Hct 38.2 % (35.5-45.6) 12/05/20 04:23 MCV 95 fl (84-94) H 12/05/20 04:23 MCH 31 pg (28-32) 12/05/20 04:23 MCHC 33 % (32-34) 12/05/20 04:23 RDW 16.5 % (13.2-15.2) H 12/05/20 04:23 Plt Count 182 K/mm3 (140-440) 12/05/20 04:23 Lymph % (Auto) 9.8 % (13.4-35.0) L 12/05/20 04:23 Bland % (Auto) 7.2 % (0.0-7.3) 12/05/20 04:23 Eos % (Auto) 0.1 % (0.0-4.3) 12/05/20 04:23 Baso % (Auto) 0.0 % (0.0-1.8) 12/05/20 04:23 Lymph # (Auto) 1.0 K/mm3 (1.2-5.4) L 12/05/20 04:23 Bland # (Auto) 0.8 K/mm3 (0.0-0.8) 12/05/20 04:23 Eos # (Auto) 0.0 K/mm3 (0.0-0.4) 12/05/20 04:23 Baso # (Auto) 0.0 K/mm3 (0.0-0.1) 12/05/20 04:23 Seg Neutrophils % 82.9 % (40.0-70.0) H 12/05/20 04:23 Seg Neutrophils # 8.7 K/mm3 (1.8-7.7) H 12/05/20 04:23 PT 15.2 Sec. (12.2-14.9) H 12/02/20 15:47 INR 1.08 (0.87-1.13) 12/02/20 15:47 Sodium 147 mmol/L (137-145) H 12/05/20 04:23 Potassium 4.6 mmol/L (3.6-5.0) 12/05/20 04:23 Chloride 104.3 mmol/L (98-107) 12/05/20 04:23 Carbon Dioxide 31 mmol/L (22-30) H 12/05/20 04:23 Anion Gap 16 mmol/L 12/05/20 04:23 BUN 23 mg/dL (9-20) H 12/05/20 04:23 Creatinine 0.9 mg/dL (0.8-1.3) 12/05/20 04:23 Estimated GFR > 60 ml/min 12/05/20 04:23 BUN/Creatinine Ratio 26 % 12/05/20 04:23 Glucose 95 mg/dL (75-100) 12/05/20 04:23 Lactic Acid 1.60 mmol/L (0.7-2.0) 12/02/20 04:07 Calcium 9.4 mg/dL (8.4-10.2) 12/05/20 04:23 Total Bilirubin 0.40 mg/dL (0.1-1.2) 12/03/20 04:26 Direct Bilirubin 0.2 mg/dL (0-0.2) 12/02/20 15:47 Indirect Bilirubin 0.3 mg/dL 12/02/20 15:47 AST 68 units/L (5-40) H 12/03/20 04:26 ALT < 5 units/L (7-56) L 12/03/20 04:26 Alkaline Phosphatase 92 units/L (35-129) 12/03/20 04:26 Total Protein 5.9 g/dL (6.3-8.2) L 12/03/20 04:26 Albumin 3.2 g/dL (3.9-5) L 12/03/20 04:26 Albumin/Globulin Ratio 1.2 % 12/03/20 04:26 Urine Color Diana (Yellow) 12/02/20 08:21 Urine Turbidity Slightly-cloudy (Clear) 12/02/20 08:21 Urine pH 5.0 (5.0-7.0) 12/02/20 08:21 Ur Specific Seltzer 1.020 (1.003-1.030) 12/02/20 08:21 Urine Protein 100 mg/dl mg/dL (Negative) 12/02/20 08:21 Urine Glucose (UA) 50 mg/dL (Negative) 12/02/20 08:21 Urine Ketones Neg mg/dL (Negative) 12/02/20 08:21 Urine Blood Sm (Negative) 12/02/20 08:21 Urine Nitrite Neg (Negative) 12/02/20 08:21 Urine Bilirubin Neg (Negative) 12/02/20 08:21 Urine Urobilinogen 4.0 mg/dL (<2.0) 12/02/20 08:21 Ur Leukocyte Esterase Mod (Negative) 12/02/20 08:21 Urine WBC (Auto) 67.0 /HPF (0.0-6.0) H 12/02/20 08:21 Urine RBC (Auto) 3.0 /HPF (0.0-6.0) 12/02/20 08:21 U Epithel Cells (Auto) 4.0 /HPF (0-13.0) 12/02/20 08:21 Hyaline Casts 1 /LPF 12/02/20 08:21 Granular Casts 7 /LPF 12/02/20 08:21 Urine Mucus Few /HPF 12/02/20 08:21 Blood Type O POSITIVE 12/01/20 15:38 Antibody Screen Negative 12/01/20 15:38 Crossmatch See Detail 12/01/20 15:38 Microbiology: Microbiology 12/01/20 18:18 Peripheral/Venous Blood Culture - Preliminary NO GROWTH AFTER 72 HOURS 12/01/20 18:27 Peripheral/Venous Blood Culture - Preliminary NO GROWTH AFTER 72 HOURS 12/02/20 08:21 Urine,Clean Catch Urine Culture - Final NO GROWTH AFTER 48 HOURS Vu/IV: Voiding Method Indwelling Catheter Active Medications - Current Medications Current Medications: Generic Name Dose Route Start Last Admin Trade Name Freq PRN Reason Stop Dose Admin Acetaminophen 650 mg 12/01/20 18:59 Acetaminophen 325 Mg Tab PO Q4H PRN Pain MILD(1-3)/Fever >100.5/FARRIS Albuterol 2.5 mg 12/01/20 18:59 Albuterol 2.5 Mg/3 Ml Nebu IH Q4HRT PRN Shortness Of Breath Amantadine HCl 100 mg 12/01/20 22:00 12/05/20 00:36 Amantadine 100 Mg Cap PO Not Given BID CASEY Atorvastatin Calcium 40 mg 12/01/20 22:00 12/05/20 00:36 Atorvastatin 40 Mg Tab PO Not Given QHS CASEY Carbidopa/Levodopa 1 each 12/01/20 20:00 12/04/20 22:00 Carbidopa/Levodopa 25-100 Mg Tab PO Not Given TID CASEY Cetirizine HCl 10 mg 12/02/20 10:00 12/04/20 13:28 Cetirizine 10 Mg Tab PO Not Given DAILY [facility] Divalproex Sodium 500 mg 12/01/20 22:00 12/05/20 00:[address] 500 Mg Tab PO Not Given BID CASEY Flecainide Acetate 100 mg 12/01/20 20:00 12/05/20 00:37 Flecainide 100 Mg Tab PO Not Given Q12H CASEY Hydromorphone HCl 0.5 mg 12/01/20 18:59 Hydromorphone 1 Mg/1 Ml Inj IV Q23H PRN Pain , Severe (7-10) Pantoprazole Sodium 80 mg/ 100 mls @ 10 mls/hr 12/01/20 18:00 12/02/20 10:21 Sodium Chloride IV 8 mg/hr DIRECT CASEY 10 mls/hr Administration 8 MG/HR Ceftriaxone Sodium 2 gm in 100 mls @ 200 mls/hr 12/01/20 19:00 12/04/20 18:22 Rocephin/Ns 2 Gm/100 Ml IV 12/05/20 19:29 200 mls/hr Q24H CASEY Administration Protocol Sodium Chloride 1,000 mls @ 50 mls/hr 12/04/20 11:00 12/04/20 15:45 Nacl 0.9% 1000 Ml IV 50 mls/hr DIRECT CASEY Administration Metoprolol Succinate 25 mg 12/02/20 10:00 12/04/20 13:28 Metoprolol Succinate Xl 25 Mg Tab PO Not Given QDAY CASEY Mirtazapine 7.5 mg 12/01/20 22:00 12/05/20 00:36 Mirtazapine 15 Mg Tab PO Not Given QHS CASEY Ondansetron HCl 4 mg 12/01/20 18:59 Ondansetron 4 Mg/2 Ml Inj IV Q8H PRN Nausea And Vomiting Oxybutynin Chloride 5 mg 12/01/20 22:00 12/05/20 00:36 Oxybutynin 5 Mg Tab PO Not Given BID CASEY Oxycodone/Acetaminophen 1 tab 12/01/20 18:59 Oxycodone /Acetaminophen 5-325mg Tab PO Q16H PRN Pain, Moderate (4-6) Quetiapine Fumarate 200 mg 12/01/20 22:00 12/05/20 00:36 Quetiapine 200 Mg Tab PO Not Given QHS CASEY Sodium Chloride 10 ml 12/01/20 22:00 12/05/20 00:30 Sodium Chloride 0.9% 10 Ml Flush Syringe IV 10 ml BID CASEY Administration Sodium Chloride 10 ml 12/01/20 18:59 Sodium Chloride 0.9% 10 Ml Flush Syringe IV PRN PRN LINE FLUSH
[2020-12-05] MEDS: CARBIDOPA/LEVODOPA 25-100 MG TAB PO SCH ×3 (10:48→21:17)
[2020-12-05] MEDS: CETIRIZINE 10 MG TAB PO SCH (10:49)
[2020-12-05] MEDS: METOPROLOL SUCCINATE XL 25 MG TAB PO SCH (10:49)
--- NOTE | 2020-12-05 10:52 | Gastroenterology Progress Note ---
Assessment and Plan This is a 75 yo male from [facility] with pmh of Afib on eliquis, vascular dementia, Bipolar, HTN brought from intermediate via EMS for coffee ground emesis and hypotension. # GI bleed # Coffee ground emesis - Hgb stable - no additional episodes of bleeding symptoms. no nausea/vomiting or stools. - patient on antibiotics for aspiration pneumonia. - s/p EGD on 12/04/2020 showing erosive esophagitis and retained food in the stomach and distal esophagus. - CT a/p showed moderate distal small bowel obstruction. normal appearing colon. - s/p NG tube placement. Rec - cont with PPI IV - surgery consult with Dr. melvin. Discussed case on the phone. - cont with NG tube for decompression. - Patient Problems (1) GI bleed Current Visit: Yes Status: Acute Subjective Date of service: 12/05/20 Interval history: Patient had CT a/p showing signs of SBO. NG tube placed this morning. No vomiting overnight. Objective - Constitutional Vitals: Temp Pulse Resp BP Pulse Ox 96.8 F L 73 20 131/78 100 12/05/20 07:45 12/05/20 07:45 12/05/20 07:45 12/05/20 07:45 12/05/20 07:45 General appearance: no acute distress - EENT Eyes: EOM intact ENT: hearing intact - Respiratory Respiratory effort: normal - Cardiovascular Rhythm: regular Heart Sounds: Present: S1 & S2 - Gastrointestinal General gastrointestinal: Present: soft, non-tender, non-distended, hypoactive bowel sounds - Integumentary Integumentary: Present: clear, warm - Labs CBC & Chem 7: 12/05/20 04:23 12/05/20 04:23 Labs: Laboratory Results - last 24 hr 12/04/20 12/05/20 12/05/20 16:49 04:23 04:23 WBC 10.5 RBC 4.03 Hgb 12.6 Hct 38.2 MCV 95 H MCH 31 MCHC 33 RDW 16.5 H Plt Count 182 Lymph % (Auto) 9.8 L Amelia % (Auto) 7.2 Eos % (Auto) 0.1 Baso % (Auto) 0.0 Lymph # (Auto) 1.0 L Amelia # (Auto) 0.8 Eos # (Auto) 0.0 Baso # (Auto) 0.0 Seg Neutrophils % 82.9 H Seg Neutrophils # 8.7 H Sodium 147 H 147 H Potassium 4.5 4.6 Chloride 105.0 104.3 Carbon Dioxide 27 31 H Anion Gap 20 16 BUN 27 H 23 H Creatinine 1.0 0.9 Estimated GFR > 60 > 60 BUN/Creatinine Ratio 27 26 Glucose 101 H 95 Calcium 9.4 9.4 - Imaging CT scan: report reviewed
[2020-12-05] MEDS: DEXTROSE 5% IN WATER 1,000 ML IV SCH (10:57)
--- NOTE | 2020-12-05 11:10 | Consultation ---
History of Present Illness Consult date: 12/05/20 Chief complaint: sbo - History of present illness History of present illness: 75 yo non-communicative male initially admitted for possible UGI bleed. Dr. Anderson is now concerned about the possibility of SBO. No apparent prior abdominal surgery. Past History Past Medical History: atrial fib, hypertension, other (See HPI) Past Surgical History: No surgical history, Other (Reviewed) Social history: Family history: diabetes, hypertension Medications and Allergies Allergies Allergy/AdvReac Type Severity Reaction Status Date / Time No Known Allergies Allergy Unverified 12/01/20 15:26 Home Medications Medication Instructions Recorded Confirmed Last Taken Type Apixaban [Eliquis] 5 mg PO BID 12/01/20 12/01/20 Unknown History Aspirin [Aspirin BABY CHEW TAB] 81 mg PO QDAY 12/01/20 12/01/20 Unknown History AtorvaSTATin [Lipitor] 40 mg PO QHS 12/01/20 12/01/20 Unknown History Carbidopa/Levodopa 25-100 [Sinemet] 1 each PO TID 12/01/20 12/01/20 Unknown History Divalproex [Eleanor STARK] 500 mg PO BID 12/01/20 12/01/20 Unknown History Flecainide [Tambocor] 100 mg PO Q12H 12/01/20 12/01/20 Unknown History Loratadine 10 mg PO QDAY 12/01/20 12/01/20 Unknown History Metoprolol Tartrate [Lopressor] 25 mg PO QDAY 12/01/20 12/01/20 Unknown History Mirtazapine 7.5 mg PO QHS 12/01/20 12/01/20 Unknown History Oxybutynin Chloride [Ditropan Xl] 5 mg PO BID 12/01/20 12/01/20 Unknown History QUEtiapine [SEROquel] 200 mg PO QHS 12/01/20 12/01/20 Unknown History amantadine HCL [Amantadine] 100 mg PO BID 12/01/20 12/01/20 Unknown History Active Meds: Active Medications Acetaminophen (Acetaminophen 325 Mg Tab) 650 mg PO Q4H PRN PRN Reason: Pain MILD(1-3)/Fever >100.5/FARRIS Albuterol (Albuterol 2.5 Mg/3 Ml Nebu) 2.5 mg IH Q4HRT PRN PRN Reason: Shortness Of Breath Amantadine HCl (Amantadine 100 Mg Cap) 100 mg PO BID [facility] Last Admin: 12/05/20 10:49 Dose: Not Given Documented by: Atorvastatin Calcium (Atorvastatin 40 Mg Tab) 40 mg PO QHS [facility] Last Admin: 12/05/20 00:36 Dose: Not Given Documented by: Carbidopa/Levodopa (Carbidopa/Levodopa 25-100 Mg Tab) 1 each PO TID [facility] Last Admin: 12/05/20 10:48 Dose: Not Given Documented by: Cetirizine HCl (Cetirizine 10 Mg Tab) 10 mg PO DAILY [facility] Last Admin: 12/05/20 10:49 Dose: Not Given Documented by: Divalproex Sodium (Divalproex Dr 500 Mg Tab) 500 mg PO BID [facility] Last Admin: 12/05/20 10:49 Dose: Not Given Documented by: Flecainide Acetate (Flecainide 100 Mg Tab) 100 mg PO Q12H [facility] Last Admin: 12/05/20 10:49 Dose: Not Given Documented by: Hydromorphone HCl (Hydromorphone 1 Mg/1 Ml Inj) 0.5 mg IV Q23H PRN PRN Reason: Pain , Severe (7-10) Pantoprazole Sodium 80 mg/ (Sodium Chloride) 100 mls @ 10 mls/hr IV DIRECT CASEY Last Admin: 12/02/20 10:21 Dose: 8 mg/hr, 10 mls/hr Documented by: Ceftriaxone Sodium (Rocephin/Ns 2 Gm/100 Ml) 2 gm in 100 mls @ 200 mls/hr IV Q24H [facility]; Protocol Stop: 12/05/20 19:29 Last Admin: 12/04/20 18:22 Dose: 200 mls/hr Documented by: Sodium Chloride (Nacl 0.9% 1000 Ml) 1,000 mls @ 50 mls/hr IV DIRECT CASEY Last Admin: 12/04/20 15:45 Dose: 50 mls/hr Documented by: Dextrose (D5w) 1,000 mls @ 75 mls/hr IV DIRECT CASEY Stop: 12/07/20 00:49 Last Admin: 12/05/20 10:57 Dose: 75 mls/hr Documented by: Metoprolol Succinate (Metoprolol Succinate Xl 25 Mg Tab) 25 mg PO QDAY [facility] Last Admin: 12/05/20 10:49 Dose: Not Given Documented by: Mirtazapine (Mirtazapine 15 Mg Tab) 7.5 mg PO QHS [facility] Last Admin: 12/05/20 00:36 Dose: Not Given Documented by: Ondansetron HCl (Ondansetron 4 Mg/2 Ml Inj) 4 mg IV Q8H PRN PRN Reason: Nausea And Vomiting Oxybutynin Chloride (Oxybutynin 5 Mg Tab) 5 mg PO BID [facility] Last Admin: 12/05/20 10:49 Dose: Not Given Documented by: Oxycodone/Acetaminophen (Oxycodone /Acetaminophen 5-325mg Tab) 1 tab PO Q16H PRN PRN Reason: Pain, Moderate (4-6) Quetiapine Fumarate (Quetiapine 200 Mg Tab) 200 mg PO QHS [facility] Last Admin: 12/05/20 00:36 Dose: Not Given Documented by: Sodium Chloride (Sodium Chloride 0.9% 10 Ml Flush Syringe) 10 ml IV BID [facility] Last Admin: 12/05/20 00:30 Dose: 10 ml Documented by: Sodium Chloride (Sodium Chloride 0.9% 10 Ml Flush Syringe) 10 ml IV PRN PRN PRN Reason: LINE FLUSH Review of Systems ROS unobtainable: due to mental status Exam Vital Signs Pulse Resp BP Pulse Ox 65 24 76/50 94 12/01/20 15:18 12/01/20 15:18 12/01/20 15:18 12/01/20 15:18 - General physical appearance Positive: well developed, well nourished, no distress - Eyes Positive: PERRL, normal occular movement - ENT Positive: normal pinna, normal nares, normal mucosa, no hearing loss, no congestion - Neck Positive: no masses, no bruits, trachea midline, no venous distension - Respiratory Positive: normal expansion, normal respiratory effort, clear to auscultation - Cardiovascular Rhythm: regular Heart Sounds: Present: S1 & S2. Absent: rub, click - Extremities Extremities: no ischemia, pulses symmetrical, No edema - Breasts Breasts: normal, no mass, no skin changes - Abdomen Abdomen: Present: soft, bowel sounds hypoactive. Absent: tender, distended, masses, rebound, guarding, surgical scars Hernia: none - Genitourinary Male Genitourinary: normal Female Genitourinary: normal - Integumentary no rash, no growths, no abnormal pigmentation Results - Labs 12/05/20 04:23 12/05/20 04:23 Abnormal lab results 12/04/20 12/05/20 12/05/20 Range/Units 16:49 04:23 04:23 MCV 95 H (84-94) fl RDW 16.5 H (13.2-15.2) % Lymph % (Auto) 9.8 L (13.4-35.0) % Lymph # (Auto) 1.0 L (1.2-5.4) K/mm3 Seg Neutrophils % 82.9 H (40.0-70.0) % Seg Neutrophils # 8.7 H (1.8-7.7) K/mm3 Sodium 147 H 147 H (137-145) mmol/L Carbon Dioxide 31 H (22-30) mmol/L BUN 27 H 23 H (9-20) mg/dL Glucose 101 H (75-100) mg/dL Diabetes panel 12/04/20 12/05/20 Range/Units 16:49 04:23 Sodium 147 H 147 H (137-145) mmol/L Potassium 4.5 4.6 (3.6-5.0) mmol/L Chloride 105.0 104.3 (98-107) mmol/L Carbon Dioxide 27 31 H (22-30) mmol/L BUN 27 H 23 H (9-20) mg/dL Creatinine 1.0 0.9 (0.8-1.3) mg/dL Glucose 101 H 95 (75-100) mg/dL Calcium 9.4 9.4 (8.4-10.2) mg/dL Calcium panel 12/04/20 12/05/20 Range/Units 16:49 04:23 Calcium 9.4 9.4 (8.4-10.2) mg/dL Pituitary panel 12/04/20 12/05/20 Range/Units 16:49 04:23 Sodium 147 H 147 H (137-145) mmol/L Potassium 4.5 4.6 (3.6-5.0) mmol/L Chloride 105.0 104.3 (98-107) mmol/L Carbon Dioxide 27 31 H (22-30) mmol/L BUN 27 H 23 H (9-20) mg/dL Creatinine 1.0 0.9 (0.8-1.3) mg/dL Glucose 101 H 95 (75-100) mg/dL Calcium 9.4 9.4 (8.4-10.2) mg/dL Adrenal panel 12/04/20 12/05/20 Range/Units 16:49 04:23 Sodium 147 H 147 H (137-145) mmol/L Potassium 4.5 4.6 (3.6-5.0) mmol/L Chloride 105.0 104.3 (98-107) mmol/L Carbon Dioxide 27 31 H (22-30) mmol/L BUN 27 H 23 H (9-20) mg/dL Creatinine 1.0 0.9 (0.8-1.3) mg/dL Glucose 101 H 95 (75-100) mg/dL Calcium 9.4 9.4 (8.4-10.2) mg/dL - Imaging Abdominal x-ray: report reviewed, image reviewed CT scan - abdomen: report reviewed CT scan - pelvis: report reviewed Assessment and Plan - Patient Problems (1) Paralytic ileus Current Visit: Yes Status: Acute Plan to address problem: 1) Continue NG 2) IVF 3) Daily AXR, CBC and BMP
[2020-12-05] MEDS: levETIRAcetam 1,000 MG in DEXTROSE 5% IN WATER 100 ML IV SCH ×2 (13:31→21:20)
[2020-12-05] MEDS: PANTOPRAZOLE 40 MG INJ IV SCH ×2 (13:31→21:41)
[2020-12-05] MEDS: cefTRIAXone/NS 2 GM/100 ML 2 GM/100 ML BAG IV SCH (18:02)
[2020-12-06] MEDS: DEXTROSE 5% IN WATER 1,000 ML IV SCH (00:23)
[2020-12-06 05:49] LABS: Basophils # (Auto) 0.1 K/mm3 (0.0-0.1); Basophils % (Auto) 1.4 % (0.0-1.8); Eosinophils # (Auto) 0.1 K/mm3 (0.0-0.4); Eosinophils % (Auto) 0.8 % (0.0-4.3); Hematocrit 35.4 % (35.5-45.6); Hemoglobin 11.9 gm/dl (11.8-15.2); Lymphocytes % (Auto) 13.5 % (13.4-35.0); Mean Corpuscular HGB Conc 34 % (32-34); Mean Corpuscular Volume 96 fl (84-94); Monocytes # (Auto) 0.6 K/mm3 (0.0-0.8); Monocytes % (Auto) 8.2 % (0.0-7.3); Platelet Count 188 K/mm3 (140-440); Red Blood Count 3.69 M/mm3 (3.65-5.03); Red Cell Distribution Width 16.9 % (13.2-15.2)
[2020-12-06 06:36] LABS: Blood Urea Nitrogen 17 mg/dL (9-20); Calcium 9.2 mg/dL (8.4-10.2); Hemolysis Index 17
[2020-12-06 06:41] LABS: BUN/Creatinine Ratio 24
--- NOTE | 2020-12-06 08:03 | XRay Report ---
ABDOMEN 2 VIEW(S) INDICATION / CLINICAL INFORMATION: ileus. COMPARISON: Yesterday FINDINGS: TUBES / LINES: Nasogastric tube appears slightly retracted with the sidehole at the level of the GE j unction. Consider advancement by 5-10 cm. BOWEL GAS PATTERN: Persistent mildly distended loops of small bowel throughout the abdomen. Normal ga s and stool in the colon. No overwhelming change is appreciated since yesterday's exam. FREE AIR / EXTRALUMINAL GAS: None seen. ADDITIONAL FINDINGS: No significant additional findings. IMPRESSION: No significant interval change. Nasogastric tube as described above. Signer Name: Alejo Garcia Jr, MD Signed: 12/06/2020 7:59 AM Workstation Name: [id number]
[2020-12-06] MEDS: CARBIDOPA/LEVODOPA 25-100 MG TAB PO SCH ×3 (09:39→21:15)
[2020-12-06] MEDS: FLECAINIDE 100 MG TAB PO SCH ×2 (09:39→21:15)
[2020-12-06] MEDS: CETIRIZINE 10 MG TAB PO SCH (09:39)
[2020-12-06] MEDS: PANTOPRAZOLE 40 MG INJ IV SCH ×2 (09:39→21:16)
[2020-12-06] MEDS: METOPROLOL SUCCINATE XL 25 MG TAB PO SCH (09:39)
[2020-12-06] MEDS: OXYBUTYNIN 5 MG TAB PO SCH ×2 (09:39→21:15)
--- NOTE | 2020-12-06 10:04 | Electrocardiograph Report ---
[facility] Test Date: 2020-12-01 Test Time: 18:42:46 Pat Name: EVAN HERRERA Department: Room: A453 Gender: M Director Furniture: KARISSA : 1945 Requested By: KRISTOFER GAY Order Number: [id number] Reading MD: Jorge Orr Measurements Intervals [place] Rate: 70 P: 0 DC: 161 QRS: 89 QRSD: 131 T: -9 QT: 556 QTc: 598 Interpretive Statements Poor quality ECG Probably atrial fibrillation with well-controlled ventricular rate Nonspecific intraventricular conduction delay Nonspecific ST segment abnormality No previous ECG available for comparison Electronically Signed On 12-06-2020 10:04:35 EDT by Jorge Orr
--- NOTE | 2020-12-06 10:29 | Progress Note ---
Assessment and Plan Assessment and plan: 75 YO Male Nursing Home Facility Resident at [facility] with Atrial Fib on Therapeutic Anticoagulation, Encephalopathy, Debility, Bipolar Disorder, HTN, Debility, Vascular Dementia, Cerebral Atherosclerosis, Alzheimers Disease presents to ED for evaluation. Patient has diminished cognition and is unable to provide detailed history at the time of my evaluation. Patient history taken from EMS staff, ED staff, as well as assisted facility staff. As per staff the patient was found to have coffee- ground emesis today with concomitant hypotension with a blood pressure of 50/30. EMS was notified and upon arrival the patient was found to be hypotensive with a systolic blood pressure in the 50s. The patient was treated with supportive care and transported to [facility] for further care and evaluation of the aforementioned symptoms. The patient was seen and evaluated in the emergency department. All lab and imaging studies reviewed. Patient found to have symptoms consistent with GI bleed. Chest x-ray revealed pneumonia with focal consolidation suspicious for malignancy. Patient also found to have systemic plantar response syndrome, as well as CHINO. Patient admitted to [facility] and initiated on pneumonia protocol as well as GI bleed protocol. GI team consulted in ED. No reports of fever, chills, chest pain, palpitations, productive cough, skin rash, recent ill contacts. No prior admission for review. All medication listed at time of admission has been reconciled. Advanced care planning conducted in ED. Patient has diminished cognition at the time my evaluation but has a positive gag reflex and is able to protect his airway without difficulty. 12/02; CT scan chest shows no definitive mass but some nodules. No further recommendation noted on that. I have gone ahead to discontinue aspirin and anticoagulant on this patient due to possible GI bleed. Will monitor H&H today to see if any further decline. I have also gone ahead to consult GI. We will continue to follow I have discussed with nursing staff to restart Protonix drip until GI evaluation is complete. We will give a bolus of fluid, no need to start pressors at this time but if patient's blood pressure continues to trend down and pressors are needed nursing staff is advised physician and we can change patient throughout ICU stay. For now continue with [facility] 12/03: Patient seen and examined, clinically improving. H/H is stable, will feed today per discussion with GI and plan for possible Endoscopy in am due to his need for anticoagulation for Afib. Patient is on restriants for safety, due to his Alzhemiers Dementia. Will obtain PT eval for evaluation. He can return to the SNF when cleared by GI. 12/04: Patient seen and examined, clinically improved in comparison to previous assessments. Vitally stable and H&H is stable. Plan for endoscopy this morning by gastroenterology. Once cleared by GI can be discharged back to [facility] SNF. 12/05: EGD demonstrated erosive esophagitis and gastritis. Continue IV PPI twice daily. CT abdomen pelvis with contrast demonstrated small bowel obstruction. Patient has NG tube placed and remains n.p.o.. General surgery consulted will follow recommendations. 12/06: Abdominal x-ray does not demonstrate any interval change. Patient denied bowel movement on encounter today. NG tube remains in place and set to intermittent suction, 60 cc of brown secretions in suction canister. Supportive management with IV fluids as patient is n.p.o. Will follow GI and surgery recommendations. (1) Small Bowel Obstruction CT abdomen and pelvis with contrast ordered by GI, demonstrates evidence of small bowel obstruction NGT placed, set to intermittent suction. patient remains n.p.o. General surgery following (2) GI bleed Current Visit: Yes Status: Acute Plan to address problem: GI bleed protocol: CBC, IV PPI therapy, serial abdominal exam, GI team consulted. Total units transfused this admission: 1 Will consider blood transfusion if patient hemoglobin dropped by greater than 2 g in 24-hour period. EGD demonstrates erosive esophagitis and gastritis CT abdomen and pelvis with contrast ordered by GI yesterday, demonstrates evidence of small bowel obstruction NGT placed, patient remains n.p.o. General surgery consulted (3) Bradycardia HR on 12/06 as low as 39 bpm, while sleeping. Range 39-50's. Currently asymptomatic continuous tele monitoring If patient becomes severely bradycardic or symptomatic will consult cardiology. (3) Pneumonia (improved) Current Visit: Yes Status: Acute Plan to address problem: Chest x-ray, pneumonia protocol: CBC, CMP, supplemental oxygen, pulse oximetry, nebulizer therapy, supportive care. (4) CHINO (acute kidney injury) with vasomotor nephropathy (resolved) Current Visit: Yes Status: Acute Plan to address problem: BMP, IV fluid resuscitation therapy, repeat BMP in a.m. (5) Atrial fibrillation (rate controlled) Current Visit: Yes Status: Acute Qualifiers: Atrial fibrillation type: longstanding persistent Qualified Code(s): I48.11 - Longstanding persistent atrial fibrillation Plan to address problem: Hold therapeutic anticoagulation for now. Rate control, supportive care. (6) Alzheimer disease Current Visit: Yes Status: Acute Plan to address problem: Continue current therapy, supportive care (7) acute blood loss anemia secondary to possible upper GI bleed (resolved) Supportive care management as above (8) Hyperkalemia (resolved) Follow on renal profile (9) DVT prophylaxis Current Visit: Yes Status: Acute Plan to address problem: SCDs bilateral lower extremities while in bed, (10) Advance care planning Current Visit: Yes Status: Acute Plan to address problem: Disease education conducted, care plan discussed, diagnoses discussed, prognosis discussed, patient is full code, +30 minutes. History Interval history: Resting comfortably on encounter. Patient denies any acute complaints. Nasogastric tube remains in place, denies any bowel movement this morning on encounter. Discussed with RN this morning who states that patient is sinus bradycardic. Rate was as low as 39 bpm however patient was sleeping at the time. Patient remains asymptomatic from this. Hospitalist Physical - Physical exam Narrative exam: Physical Exam: VITAL SIGNS: Reviewed. GENERAL: The patient appears normally developed, Vital signs as documented. Elderly gentleman currently in restraints HEAD: No signs of head trauma. EYES: Pupils are equal. Extraocular motions intact. EARS: Hearing grossly intact. MOUTH: Oropharynx is normal. NECK: No adenopathy, no JVD. CHEST: Chest with clear breath sounds bilaterally. No wheezes, rales, or rhonchi. CARDIAC: Regular rate and rhythm. S1 and S2, without murmurs, gallops, or rub s. VASCULAR: No Edema. Peripheral pulses normal and equal in all extremities. ABDOMEN: Soft, non tender and non distended. No rebound or guarding, and no masses palpated. No bowel sounds appreciated. MUSCULOSKELETAL: Good range of motion of all major joints. Extremities without clubbing, cyanosis or edema. NEUROLOGIC EXAM: Alert although oriented only to self PSYCHIATRIC: Mood normal. SKIN: detail exam as documented in skin assessment - Constitutional Vitals: Temp Pulse Resp BP Pulse Ox 98.5 F 51 L 18 128/78 96 12/06/20 03:42 12/06/20 03:42 12/06/20 03:42 12/06/20 03:42 12/06/20 03:42 General appearance: Present: mild distress Results - Labs CBC & Chem 7: 12/06/20 04:57 12/06/20 04:57 Labs: Laboratory Last Values WBC 7.5 K/mm3 (4.5-11.0) 12/06/20 04:57 RBC 3.69 M/mm3 (3.65-5.03) 12/06/20 04:57 Hgb 11.9 gm/dl (11.8-15.2) 12/06/20 04:57 Hct 35.4 % (35.5-45.6) L 12/06/20 04:57 MCV 96 fl (84-94) H 12/06/20 04:57 MCH 32 pg (28-32) 12/06/20 04:57 MCHC 34 % (32-34) 12/06/20 04:57 RDW 16.9 % (13.2-15.2) H 12/06/20 04:57 Plt Count 188 K/mm3 (140-440) 12/06/20 04:57 Lymph % (Auto) 13.5 % (13.4-35.0) 12/06/20 04:57 V[place] % (Auto) 8.2 % (0.0-7.3) H 12/06/20 04:57 Eos % (Auto) 0.8 % (0.0-4.3) 12/06/20 04:57 Baso % (Auto) 1.4 % (0.0-1.8) 12/06/20 04:57 Lymph # (Auto) 1.0 K/mm3 (1.2-5.4) L 12/06/20 04:57 [place] # (Auto) 0.6 K/mm3 (0.0-0.8) 12/06/20 04:57 Eos # (Auto) 0.1 K/mm3 (0.0-0.4) 12/06/20 04:57 Baso # (Auto) 0.1 K/mm3 (0.0-0.1) 12/06/20 04:57 Seg Neutrophils % 76.1 % (40.0-70.0) H 12/06/20 04:57 Seg Neutrophils # 5.7 K/mm3 (1.8-7.7) 12/06/20 04:57 PT 15.2 Sec. (12.2-14.9) H 12/02/20 15:47 INR 1.08 (0.87-1.13) 12/02/20 15:47 Sodium 146 mmol/L (137-145) H 12/06/20 04:57 Potassium 4.7 mmol/L (3.6-5.0) 12/06/20 04:57 Chloride 105.0 mmol/L (98-107) 12/06/20 04:57 Carbon Dioxide 31 mmol/L (22-30) H 12/06/20 04:57 Anion Gap 15 mmol/L 12/06/20 04:57 BUN 17 mg/dL (9-20) 12/06/20 04:57 Creatinine 0.7 mg/dL (0.8-1.3) L 12/06/20 04:57 Estimated GFR > 60 ml/min 12/06/20 04:57 BUN/Creatinine Ratio 24 % 12/06/20 04:57 Glucose 108 mg/dL (75-100) H 12/06/20 04:57 Lactic Acid 1.60 mmol/L (0.7-2.0) 12/02/20 04:07 Calcium 9.2 mg/dL (8.4-10.2) 12/06/20 04:57 Magnesium 1.80 mg/dL (1.7-2.3) 12/06/20 04:57 Total Bilirubin 0.40 mg/dL (0.1-1.2) 12/03/20 04:26 Direct Bilirubin 0.2 mg/dL (0-0.2) 12/02/20 15:47 Indirect Bilirubin 0.3 mg/dL 12/02/20 15:47 AST 68 units/L (5-40) H 12/03/20 04:26 ALT < 5 units/L (7-56) L 12/03/20 04:26 Alkaline Phosphatase 92 units/L (35-129) 12/03/20 04:26 Total Protein 5.9 g/dL (6.3-8.2) L 12/03/20 04:26 Albumin 3.2 g/dL (3.9-5) L 12/03/20 04:26 Albumin/Globulin Ratio 1.2 % 12/03/20 04:26 TSH 7.930 mlU/mL (0.270-4.200) H 12/06/20 04:57 Urine Color Diana (Yellow) 12/02/20 08:21 Urine Turbidity Slightly-cloudy (Clear) 12/02/20 08:21 Urine pH 5.0 (5.0-7.0) 12/02/20 08:21 Ur Specific [place] 1.020 (1.003-1.030) 12/02/20 08:21 Urine Protein 100 mg/dl mg/dL (Negative) 12/02/20 08:21 Urine Glucose (UA) 50 mg/dL (Negative) 12/02/20 08:21 Urine Ketones Neg mg/dL (Negative) 12/02/20 08:21 Urine Blood Sm (Negative) 12/02/20 08:21 Urine Nitrite Neg (Negative) 12/02/20 08:21 Urine Bilirubin Neg (Negative) 12/02/20 08:21 Urine Urobilinogen 4.0 mg/dL (<2.0) 12/02/20 08:21 Ur Leukocyte Esterase Mod (Negative) 12/02/20 08:21 Urine WBC (Auto) 67.0 /HPF (0.0-6.0) H 12/02/20 08:21 Urine RBC (Auto) 3.0 /HPF (0.0-6.0) 12/02/20 08:21 U Epithel Cells (Auto) 4.0 /HPF (0-13.0) 12/02/20 08:21 Hyaline Casts 1 /LPF 12/02/20 08:21 Granular Casts 7 /LPF 12/02/20 08:21 Urine Mucus Few /HPF 12/02/20 08:21 Coronavirus (PCR) Negative (Negative) 12/04/20 Unknown Blood Type O POSITIVE 12/01/20 15:38 Antibody Screen Negative 12/01/20 15:38 Crossmatch See Detail 12/01/20 15:38 Microbiology: Microbiology 12/01/20 18:18 Peripheral/Venous Blood Culture - Preliminary NO GROWTH AFTER 4 DAYS 12/01/20 18:27 Peripheral/Venous Blood Culture - Preliminary NO GROWTH AFTER 4 DAYS Vu/IV: Voiding Method Indwelling Catheter Active Medications - Current Medications Current Medications: Generic Name Dose Route Start Last Admin Trade Name Freq PRN Reason Stop Dose Admin Acetaminophen 650 mg 12/01/20 18:59 Acetaminophen 325 Mg Tab PO Q4H PRN Pain MILD(1-3)/Fever >100.5/FARRIS Albuterol 2.5 mg 12/01/20 18:59 Albuterol 2.5 Mg/3 Ml Nebu IH Q4HRT PRN Shortness Of Breath Amantadine HCl 100 mg 12/01/20 22:00 12/06/20 09:39 Amantadine 100 Mg Cap PO Not Given BID CASEY Atorvastatin Calcium 40 mg 12/01/20 22:00 12/05/20 21:25 Atorvastatin 40 Mg Tab PO Not Given QHS CASEY Carbidopa/Levodopa 1 each 12/01/20 20:00 12/06/20 09:39 Carbidopa/Levodopa 25-100 Mg Tab PO Not Given TID CASEY Cetirizine HCl 10 mg 12/02/20 10:00 12/06/20 09:39 Cetirizine 10 Mg Tab PO Not Given DAILY CASEY Flecainide Acetate 100 mg 12/01/20 20:00 12/06/20 09:39 Flecainide 100 Mg Tab PO Not Given Q12H CASEY Hydromorphone HCl 0.5 mg 12/01/20 18:59 Hydromorphone 1 Mg/1 Ml Inj IV Q23H PRN Pain , Severe (7-10) Sodium Chloride 1,000 mls @ 50 mls/hr 12/04/20 11:00 12/04/20 15:45 Nacl 0.9% 1000 Ml IV 50 mls/hr DIRECT CASEY Administration Dextrose 1,000 mls @ 75 mls/hr 12/05/20 11:30 12/06/20 00:23 D5w IV 12/07/20 00:49 75 mls/hr DIRECT CASEY Administration Levetiracetam 1,000 mg/ 110 mls @ 400 mls/hr 12/05/20 13:00 12/05/20 21:20 Dextrose IV 400 mls/hr Q12HR CASEY Administration Metoprolol Succinate 25 mg 12/02/20 10:00 12/06/20 09:39 Metoprolol Succinate Xl 25 Mg Tab PO Not Given QDAY CASEY Mirtazapine 7.5 mg 12/01/20 22:00 12/05/20 21:23 Mirtazapine 15 Mg Tab PO Not Given QHS CASEY Ondansetron HCl 4 mg 12/01/20 18:59 Ondansetron 4 Mg/2 Ml Inj IV Q8H PRN Nausea And Vomiting Oxybutynin Chloride 5 mg 12/01/20 22:00 12/06/20 09:39 Oxybutynin 5 Mg Tab PO Not Given BID CASEY Oxycodone/Acetaminophen 1 tab 12/01/20 18:59 Oxycodone /Acetaminophen 5-325mg Tab PO Q16H PRN Pain, Moderate (4-6) Pantoprazole Sodium 40 mg 12/05/20 14:00 12/06/20 09:39 Pantoprazole 40 Mg Inj IV Not Given BID CASEY Quetiapine Fumarate 200 mg 12/01/20 22:00 12/05/20 21:23 Quetiapine 200 Mg Tab PO Not Given QHS CASEY Sodium Chloride 10 ml 12/01/20 22:00 12/06/20 09:39 Sodium Chloride 0.9% 10 Ml Flush Syringe IV Not Given BID CASEY Sodium Chloride 10 ml 12/01/20 18:59 Sodium Chloride 0.9% 10 Ml Flush Syringe IV PRN PRN LINE FLUSH Nutrition/Malnutrition Assess - Dietary Evaluation Nutrition/Malnutrition Findings: Nutrition Notes Start: 12/05/20 13:12 Freq: Status: Active Protocol: Document 12/05/20 13:12 RITIKA (Rec: 12/05/20 13:30 RITIKA [email or web address]) Nutrition Notes Need for Assessment generated from: [facility] Initial or Follow up Assessment Current Diagnosis Acute Kidney Injury Other Pertinent Diagnosis Hypotension, GI Bleeding, Dementia Current Diet NPO (since D 12/04) Labs/Tests 12/05: Na 147, CO2 31, BUN 23. Pertinent Medications 12/05: Nutritionally unremarkable. Height 5 ft 8 in Weight 95.5 kg Ce[place] Body Weight (kg) 70.00 BMI 32.0 Weight Status Obese Subjective/Other Information NG tube has been installed am. Percent of energy/protein needs met: Pt currently on NPO, but could advance to Tube Feed. Burn Absent Trauma Absent GI Symptoms Other Difficulty In Chewing Skin Integrity/Comment Clear, warm, dry. Current % PO Other Minimum of two criteria No physical signs of malnutrition #1 Nutrition Diagnosis No nutrition diagnosis at this time Comments: Pt currently on NPO, but could advance to Tube Feed as per MD. Is patient on ventilator? No Is Patient Ambulatory and/or Out of Bed Yes REE-([place]-St. Jeor-ambulatory/OOB) [ 2176.850 NUTR.[id number]] Kcal/Kg value to use for calculation 23 Approximate Energy Requirements Using 2197 kcal/Kg Calculation Used for Recommendations Kcal/kg Additional Notes Proteins: 1.0-1.2 g/Kg/day; 70 -80 g/day; 280-320 Kcal/day ( from IBW). Fluids: 1.0 ml/Kcal/day, or as per MD. Nutrition Intervention Change Diet Order: Continue NPO as per MD, advance to Tube Feeding as soon as possible. Goal #1 Maintain body weight within +/ -3% of current BWt during LOS. Goal #2 Reach and maintaing acceptable chemistry lab values during LOS. Follow-Up By: 12/07/20 Additional Comments Continue monitoring Hydration and BM.
[2020-12-06] MEDS: levETIRAcetam 1,000 MG in DEXTROSE 5% IN WATER 100 ML IV SCH ×2 (10:51→21:15)
--- NOTE | 2020-12-06 13:32 | Gastroenterology Progress Note ---
Assessment and Plan This is a 75 yo male from [facility] with pmh of Afib on eliquis, vascular dementia, Bipolar, HTN brought from care home via EMS for coffee ground emesis and hypotension. # GI bleed # Coffee ground emesis - Hgb stable - no additional episodes of bleeding symptoms. no nausea/vomiting or stools. - patient on antibiotics for aspiration pneumonia. - s/p EGD on 12/04/2020 showing erosive esophagitis and retained food in the stomach and distal esophagus. - CT a/p showed moderate distal small bowel obstruction. normal appearing colon. - s/p NG tube placement for decompression. Patient pulled out NG tube. - Abdominal xray with similar findings with dilated small bowel. Normal colon. - no signs of GI bleeding. Rec - cont with PPI IV bid. - surgery with Dr. melvin on board. would defer management for SBO to surgery. - cont with NG tube for decompression. - will sign off. please call with questions. - Patient Problems (1) GI bleed Current Visit: Yes Status: Acute Subjective Date of service: 12/06/20 Interval history: Patient with 100 cc output from NG tube. Abdominal xray with still dilated small bowel. No signs of GI bleeding. Per nursing, patient had a BM overnight. Pulled out NG tube this morning. Objective - Constitutional Vitals: Temp Pulse Resp BP Pulse Ox 98.7 F 48 L 18 122/63 99 12/06/20 11:35 12/06/20 11:35 12/06/20 11:35 12/06/20 11:35 12/06/20 11:35 General appearance: no acute distress - EENT Eyes: EOM intact ENT: hearing intact - Respiratory Respiratory effort: normal - Cardiovascular Rhythm: regular Heart Sounds: Present: S1 & S2 - Gastrointestinal General gastrointestinal: Present: soft, non-tender, non-distended, hypoactive bowel sounds - Neurologic Neurological: disoriented - Labs CBC & Chem 7: 12/06/20 04:57 12/06/20 04:57 Labs: Laboratory Results - last 24 hr 12/04/20 12/06/20 12/06/20 Unknown 04:57 04:57 WBC 7.5 RBC 3.69 Hgb 11.9 Hct 35.4 L MCV 96 H MCH 32 MCHC 34 RDW 16.9 H Plt Count 188 Lymph % (Auto) 13.5 [place] % (Auto) 8.2 H Eos % (Auto) 0.8 Baso % (Auto) 1.4 Lymph # (Auto) 1.0 L [place] # (Auto) 0.6 Eos # (Auto) 0.1 Baso # (Auto) 0.1 Seg Neutrophils % 76.1 H Seg Neutrophils # 5.7 Sodium 146 H Potassium 4.7 Chloride 105.0 Carbon Dioxide 31 H Anion Gap 15 BUN 17 Creatinine 0.7 L Estimated GFR > 60 BUN/Creatinine Ratio 24 Glucose 108 H Calcium 9.2 Magnesium 1.80 TSH Coronavirus (PCR) Negative 12/06/20 04:57 WBC RBC Hgb Hct MCV MCH MCHC RDW Plt Count Lymph % (Auto) [place] % (Auto) Eos % (Auto) Baso % (Auto) Lymph # (Auto) [place] # (Auto) Eos # (Auto) Baso # (Auto) Seg Neutrophils % Seg Neutrophils # Sodium Potassium Chloride Carbon Dioxide Anion Gap BUN Creatinine Estimated GFR BUN/Creatinine Ratio Glucose Calcium Magnesium TSH 7.930 H Coronavirus (PCR) - Imaging x-ray: report reviewed CT scan: report reviewed
[2020-12-06] MEDS ORDERED: DEXTROSE 5% IN WATER 1,000 ML IV SCH (15:00)
--- NOTE | 2020-12-06 19:27 | Progress Note ---
Assessment and Plan - Patient Problems (1) Paralytic ileus Current Visit: Yes Status: Acute Plan to address problem: 1) DC NG 2) Sips of clears 3) AXR, TSH and Mg in the am Subjective Date of service: 12/06/20 Patient Reports: Positive: no new complaints (Very little NG output. 1 BM yesterday.) Objective Vital Signs - 12hr 12/06/20 12/06/20 12/06/20 08:04 10:00 11:00 Temperature 97.2 F L Pulse Rate 61 52 L Respiratory 18 Rate Blood Pressure 110/71 O2 Sat by Pulse 100 100 Oximetry 12/06/20 12/06/20 11:35 17:14 Temperature 98.7 F 97.8 F Pulse Rate 48 L 54 L Respiratory 18 18 Rate Blood Pressure 122/63 129/61 O2 Sat by Pulse 99 98 Oximetry - Abdomen soft, not tender, bowel sounds hypoactive, not rebound, not guarding - Labs 12/06/20 04:57 12/06/20 04:57 Diabetes panel 12/06/20 Range/Units 04:57 Sodium 146 H (137-145) mmol/L Potassium 4.7 (3.6-5.0) mmol/L Chloride 105.0 (98-107) mmol/L Carbon Dioxide 31 H (22-30) mmol/L BUN 17 (9-20) mg/dL Creatinine 0.7 L (0.8-1.3) mg/dL Glucose 108 H (75-100) mg/dL Calcium 9.2 (8.4-10.2) mg/dL Thyroid panel 12/06/20 Range/Units 04:57 TSH 7.930 H (0.270-4.200) mlU/mL Calcium panel 12/06/20 Range/Units 04:57 Calcium 9.2 (8.4-10.2) mg/dL Pituitary panel 12/06/20 12/06/20 Range/Units 04:57 04:57 Sodium 146 H (137-145) mmol/L Potassium 4.7 (3.6-5.0) mmol/L Chloride 105.0 (98-107) mmol/L Carbon Dioxide 31 H (22-30) mmol/L BUN 17 (9-20) mg/dL Creatinine 0.7 L (0.8-1.3) mg/dL Glucose 108 H (75-100) mg/dL Calcium 9.2 (8.4-10.2) mg/dL TSH 7.930 H (0.270-4.200) mlU/mL Adrenal panel 12/06/20 Range/Units 04:57 Sodium 146 H (137-145) mmol/L Potassium 4.7 (3.6-5.0) mmol/L Chloride 105.0 (98-107) mmol/L Carbon Dioxide 31 H (22-30) mmol/L BUN 17 (9-20) mg/dL Creatinine 0.7 L (0.8-1.3) mg/dL Glucose 108 H (75-100) mg/dL Calcium 9.2 (8.4-10.2) mg/dL
[2020-12-06] MEDS: MIRTAZAPINE 15 MG TAB PO SCH (21:16)
[2020-12-06] MEDS: QUEtiapine 200 MG TAB PO SCH (21:16)
--- NOTE | 2020-12-07 08:45 | XRay Report ---
ABDOMEN 2 VIEW(S) INDICATION / CLINICAL INFORMATION: ileus. COMPARISON: 12/06/2020 FINDINGS: TUBES / LINES: None. Nasogastric tube has been removed. BOWEL GAS PATTERN: Gaseous distention of small bowel loops is again seen with no overwhelming change. FREE AIR / EXTRALUMINAL GAS: None seen. ADDITIONAL FINDINGS: No significant additional findings. IMPRESSION: No significant interval change. Signer Name: Alejo Garcia Jr, MD Signed: 12/07/2020 8:41 AM Workstation Name: [id number]
[2020-12-07] MEDS: PANTOPRAZOLE 40 MG INJ IV SCH (10:20)
[2020-12-07] MEDS: levETIRAcetam 1,000 MG in DEXTROSE 5% IN WATER 100 ML IV SCH (10:20)
[2020-12-07] MEDS: METOPROLOL SUCCINATE XL 25 MG TAB PO SCH (10:20)
[2020-12-07] MEDS: CETIRIZINE 10 MG TAB PO SCH (10:20)
[2020-12-07] MEDS: FLECAINIDE 100 MG TAB PO SCH (10:21)
[2020-12-07] MEDS: OXYBUTYNIN 5 MG TAB PO SCH (10:21)
[2020-12-07] MEDS: CARBIDOPA/LEVODOPA 25-100 MG TAB PO SCH ×3 (10:21→15:38)
--- NOTE | 2020-12-07 12:29 | Progress Note ---
Assessment and Plan - Patient Problems (1) Paralytic ileus Current Visit: Yes Status: Acute Plan to address problem: 1) FLD Subjective Date of service: 12/07/20 Patient Reports: Positive: no new complaints, feels better, tolerating liquids well Objective Vital Signs - 12hr 12/07/20 07:33 O2 Sat by Pulse 95 Oximetry - Abdomen soft, not tender, bowel sounds normal, not distended, not rebound, not guarding - Labs 12/06/20 04:57 12/06/20 04:57 Thyroid panel 12/07/20 Range/Units 04:59 TSH 8.920 H (0.270-4.200) mlU/mL Pituitary panel 12/07/20 Range/Units 04:59 TSH 8.920 H (0.270-4.200) mlU/mL - Imaging Abdominal x-ray: report reviewed, image reviewed
--- NOTE | 2020-12-07 14:45 | Discharge Summary ---
Providers - Providers Date of Admission: 12/01/20 17:26 Date of discharge: 12/07/20 Attending physician: JIMENA PALMOINO MD 12/02/20 07:45 Consult to Physician [CONS] Routine Comment: Consulting Provider: ELAINE DELGADO Physician Instructions: Reason For Exam: GI BLEED 12/04/20 08:36 Occupational Therapy Evaluate and Treat [CONS] Urgent Comment: Reason For Exam: OT to eval and treat Physical Therapy Evaluation and Treat [CONS] Urgent Comment: Reason For Exam: PT to eval and treat 12/05/20 07:59 Consult to Physician [CONS] Routine Comment: Consulting Provider: CURTIS KINGSTON Physician Instructions: Reason For Exam: SBO Primary care physician: PIPE TURNER Hospitalization Reason for admission: coffee ground emesis Condition: Stable Hospital course: History of present illness: 75 YO Male [facility] Facility Resident at [facility] with Atrial Fib on Therapeutic Anticoagulation, Encephalopathy, Debility, Bipolar Disorder, HTN, Debility, Vascular Dementia, Cerebral Atherosclerosis, Alzheimers Disease presents to ED for evaluation. Patient has diminished cognition and is unable to provide detailed history at the time of my evaluation. Patient history taken from EMS staff, ED staff, as well as shelter facility staff. As per staff the patient was found to have coffee- ground emesis today with concomitant hypotension with a blood pressure of 50/30. EMS was notified and upon arrival the patient was found to be hypotensive with a systolic blood pressure in the 50s. The patient was treated with supportive care and transported to [facility] for further care and evaluation of the aforementioned symptoms. The patient was seen and evaluated in the emergency department. All lab and imaging studies reviewed. Patient found to have symptoms consistent with GI bleed. Chest x-ray revealed pneumonia with focal consolidation suspicious for malignancy. Patient also found to have systemic plantar response syndrome, as well as CHINO. Patient admitted to [facility] and initiated on pneumonia protocol as well as GI bleed protocol. GI team consulted in ED. No reports of fever, chills, chest pain, palpitations, productive cough, skin rash, recent ill contacts. No prior admission for review. All medication listed at time of admission has been reconciled. Advanced care planning conducted in ED. Patient has diminished cognition at the time my evaluation but has a positive gag reflex and is able to protect his airway with out difficulty. 12/02; CT scan chest shows no definitive mass but some nodules. No further recommendation noted on that. I have gone ahead to discontinue aspirin and anticoagulant on this patient due to possible GI bleed. Will monitor H&H today to see if any further decline. I have also gone ahead to consult GI. We will continue to follow I have discussed with nursing staff to restart Protonix drip until GI evaluation is complete. We will give a bolus of fluid, no need to start pressors at this time but if patient's blood pressure continues to trend down and pressors are needed nursing staff is advised physician and we can change patient throughout ICU stay. For now continue with IMCU 12/03: Patient seen and examined, clinically improving. H/H is stable, will feed today per discussion with GI and plan for possible Endoscopy in am due to his need for anticoagulation for Afib. Patient is on restriants for safety, due to his Alzhemiers Dementia. Will obtain PT eval for evaluation. He can return to the SNF when cleared by GI. 12/04: Patient seen and examined, clinically improved in comparison to previous assessments. Vitally stable and H&H is stable. Plan for endoscopy this morning by gastroenterology. Once cleared by GI can be discharged back to [facility]. 12/05: EGD demonstrated erosive esophagitis and gastritis. Continue IV PPI twice daily. CT abdomen pelvis with contrast demonstrated small bowel obstruction. Patient has NG tube placed and remains n.p.o.. General surgery consulted will follow recommendations. 12/06: Abdominal x-ray does not demonstrate any interval change. Patient denied bowel movement on encounter today. NG tube remains in place and set to intermittent suction, 60 cc of brown secretions in suction canister. Supportive management with IV fluids as patient is n.p.o. Will follow GI and surgery recommendations. 12/07: Patient NG tube was discontinued. SBO appears to be resolving. He was able to tolerate liquid diet. OK to return to [facility] home. Hgb is stable and patient is no longer actively bleeeding. He will have instructions to resume anticoagulation with Eliquis as per the direction of his staff reporter/primary care doctor. He will be discharged with prescription for protonix 40 mg po daily. Patient should follow-up with his primary care doctor in 1 week. He can follow-up with gastroenterology in 1 week. (1) Small Bowel Obstruction (resolving) CT abdomen and pelvis with contrast ordered by GI, demonstrates evidence of small bowel obstruction NGT placed, set to intermittent suction. has since been d/c Clear liquid diet, patient tolerated well. (2) GI bleed Current Visit: Yes Status: Acute Plan to address problem: GI bleed protocol: CBC, IV PPI therapy, serial abdominal exam, GI team consulted. Total units transfused this admission: 1 Will consider blood transfusion if patient hemoglobin dropped by greater than 2 g in 24-hour period. EGD demonstrates erosive esophagitis and gastritis CT abdomen and pelvis with contrast ordered by GI yesterday, demonstrates evidence of small bowel obstruction NGT placed, patient remains n.p.o. General surgery consulted (3) Bradycardia (resolved) HR on 12/06 as low as 39 bpm, while sleeping. Range 39-50's. Currently asymptomatic continuous tele monitoring If patient becomes severely bradycardic or symptomatic will consult cardiology. Resolved, now in 60's on 12/07. (3) Pneumonia (improved) Current Visit: Yes Status: Acute Plan to address problem: Chest x-ray, pneumonia protocol: CBC, CMP, supplemental oxygen, pulse oximetry, nebulizer therapy, supportive care. (4) CHINO (acute kidney injury) with vasomotor nephropathy (resolved) Current Visit: Yes Status: Acute Plan to address problem: BMP, IV fluid resuscitation therapy, repeat BMP in a.m. (5) Atrial fibrillation (rate controlled) Current Visit: Yes Status: Acute Qualifiers: Atrial fibrillation type: longstanding persistent Qualified Code(s): I48.11 - Longstanding persistent atrial fibrillation Plan to address problem: Hold therapeutic anticoagulation for now. Rate control, supportive care. (6) Alzheimer disease Current Visit: Yes Status: Acute Plan to address problem: Continue current therapy, supportive care (7) acute blood loss anemia secondary to possible upper GI bleed (resolved) Supportive care management as above (8) Hyperkalemia (resolved) Follow on renal profile (9) DVT prophylaxis Current Visit: Yes Status: Acute Plan to address problem: SCDs bilateral lower extremities while in bed, (10) Advance care planning Current Visit: Yes Status: Acute Plan to address problem: Disease education conducted, care plan discussed, diagnoses discussed, prognosis discussed, patient is full code, +30 minutes. Disposition: [facility] Final Discharge Diagnosis (Prints w/discharge instructions): small bowel obstruction, erosive esophagitis Time spent for discharge: 35 - Discharge Diagnoses (1) Small bowel obstruction Status: Acute (2) Erosive esophagitis Status: Acute (3) Paralytic ileus Status: Acute (4) Upper GI bleed Status: Acute Core Measure Documentation - Palliative Care Palliative Care/ Comfort Measures: Not Applicable - Core Measures Any of the following diagnoses?: none Exam - Physical Exam Narrative exam: Physical Exam: VITAL SIGNS: Reviewed. GENERAL: The patient appears normally developed, Vital signs as documented. Elderly gentleman currently in restraints HEAD: No signs of head trauma. EYES: Pupils are equal. Extraocular motions intact. EARS: Hearing grossly intact. MOUTH: Oropharynx is normal. NECK: No adenopathy, no JVD. CHEST: Chest with clear breath sounds bilaterally. No wheezes, rales, or rhonchi. CARDIAC: Regular rate and rhythm. S1 and S2, without murmurs, gallops, or rubs. VASCULAR: No Edema. Peripheral pulses normal and equal in all extremities. ABDOMEN: Soft, non tender and non distended. No rebound or guarding, and no masses palpated. MUSCULOSKELETAL: Good range of motion of all major joints. Extremities without clubbing, cyanosis or edema. NEUROLOGIC EXAM: Alert although oriented only to self PSYCHIATRIC: Mood normal. SKIN: detail exam as documented in skin assessment - Constitutional Vitals: Temp Pulse Resp BP Pulse Ox 98.4 F 64 18 131/78 95 12/07/20 00:23 12/07/20 00:23 12/07/20 00:23 12/07/20 00:23 12/07/20 07:33 Plan Activity: advance as tolerated Weight Bearing Status: Weight Bear as Tolerated Diet: clear liquids, advance as tolerated Follow up with: MAYA MARTINEZ MD [Primary Care Provider] - 3-5 Days MINYANI MD [Staff Physician] - 7 Days Forms: Accompanied Note Prescriptions: Pantoprazole [Protonix] 40 mg PO QDAY 30 Days #30 tablet
[2020-12-07 20:09] VITALS: BP 103/71
== END 2020-12-07 21:19 | DRG 380 ==
LOC: ED 14:57 → IMCU 17:26 → 4A 12-03 14:58
PROVIDERS: ADMIT Internal Medicine; ATTEND Internal Medicine
PROC: 30233N1 Transfusion of Nonautologous Red Blood Cells into Peripheral Vein, Percutaneous Approach (ICD-10-PCS; principal; 2020-12-02)
PROC: 0DB38ZX Excision of Lower Esophagus, Via Natural or Artificial Opening Endoscopic, Diagnostic (ICD-10-PCS; 2020-12-04)
PROC: 0DB68ZX Excision of Stomach, Via Natural or Artificial Opening Endoscopic, Diagnostic (ICD-10-PCS; 2020-12-04)
PROC: 0D9670Z Drainage of Stomach with Drainage Device, Via Natural or Artificial Opening (ICD-10-PCS; 2020-12-05)
DX: K22.11 Ulcer of esophagus with bleeding (principal); N17.0 Acute kidney failure with tubular necrosis; J18.9 Pneumonia, unspecified organism; I48.11 Longstanding persistent atrial fibrillation; D62 Acute posthemorrhagic anemia; K56.0 Paralytic ileus; K56.609 Unspecified intestinal obstruction, unspecified as to partial versus complete obstruction; R65.10 Systemic inflammatory response syndrome (SIRS) of non-infectious origin without acute organ dysfunction; K29.71 Gastritis, unspecified, with bleeding; G30.9 Alzheimer's disease, unspecified; F02.80 Dementia in other diseases classified elsewhere, unspecified severity, without behavioral disturbance, psychotic disturbance, mood disturbance, and anxiety; Z20.822 Contact with and (suspected) exposure to COVID-19; I95.9 Hypotension, unspecified; R53.81 Other malaise; F31.9 Bipolar disorder, unspecified; F01.50 Vascular dementia, unspecified severity, without behavioral disturbance, psychotic disturbance, mood disturbance, and anxiety; Z83.3 Family history of diabetes mellitus; Z82.49 Family history of ischemic heart disease and other diseases of the circulatory system; E87.5 Hyperkalemia
CPT/HCPCS: 36415; 71045; 71250; 74018; 74019; 74178; 80048; 80053; 80076; 81001; 82140; 83735; 84443; 85025; 85027; 85610; 86850; 86900; 86901; 86920; 87040; 87086; 88305; 88342; 93005; 94760; G0378; C9113; J0456; J0696; J1953; J2370; J2405; J2704; J3010; J7030; J7040; J7070; J7120; P9016; Q9967; U0003

== ENCOUNTER 2021-03-17 01:58 | Emergency (ER) | payer MEDICARE ==
--- NOTE | 2021-03-17 03:07 | Cat Scan Report ---
CT HEAD WITHOUT CONTRAST INDICATION / CLINICAL INFORMATION: Fall with head trauma. TECHNIQUE: All CT scans at this location are performed using CT dose reduction for ALARA by means of automated exposure control. COMPARISON: None available. FINDINGS: HEMORRHAGE: None. EXTRA-AXIAL SPACES: Moderately prominent likely related to cortical atrophy. VENTRICULAR SYSTEM: Moderately enlarged likely related to central atrophy. CEREBRAL PARENCHYMA: There are moderate small vessel ischemic changes in the periventricular white ma tter bilaterally. No acute territorial infarct. MIDLINE SHIFT / HERNIATION: None. CEREBELLUM / BRAINSTEM: Mild generalized cerebellar atrophy without other abnormality. ORBITS: Normal as visualized. SOFT TISSUES: No significant abnormality. SKULL: No significant abnormality. PARANASAL SINUSES / MASTOID AIR CELLS: Normal as visualized. ADDITIONAL FINDINGS: None. IMPRESSION: No acute intracranial abnormality. Signer Name: Yfn Bush MD Signed: 03/17/2021 3:03 AM Workstation Name: [id number]
[2021-03-17 03:21] VITALS: BP 141/73
--- NOTE | 2021-03-17 03:30 | Emergency Department Report ---
ED Fall HPI - General Chief Complaint: Fall Stated Complaint: HEAD TRAUMA Time Seen by Provider: 03/17/21 02:23 Source: EMS Mode of arrival: Stretcher - History of Present Illness Initial Comments: Patient presents after a fall at 1830 while at [facility] facility -: Sudden, hour(s) Fall From: chair When Fall Occurred: 4-6 hours [employer] Fall Witnessed: yes, by living facility s Place Fall Occurred: long-term/SNF Loss of Consciousness: none Prolonged Down Time?: no - Related Data Home Medications Medication Instructions Recorded Confirmed Last Taken Apixaban [Eliquis] 5 mg PO BID 12/01/20 12/01/20 Unknown Aspirin [Aspirin BABY CHEW TAB] 81 mg PO QDAY 12/01/20 12/01/20 Unknown AtorvaSTATin [Lipitor] 40 mg PO QHS 12/01/20 12/01/20 Unknown Carbidopa/Levodopa 25-100 [Sinemet] 1 each PO TID 12/01/20 12/01/[address] [Depakote Dr] 500 mg PO BID 12/01/20 12/01/20 Unknown Flecainide [Tambocor] 100 mg PO Q12H 12/01/20 12/01/20 Unknown Loratadine 10 mg PO QDAY 12/01/20 12/01/20 Unknown Metoprolol Tartrate [Lopressor] 25 mg PO QDAY 12/01/20 12/01/20 Unknown Mirtazapine 7.5 mg PO QHS 12/01/20 12/01/20 Unknown Oxybutynin Chloride [Ditropan Xl] 5 mg PO BID 12/01/20 12/01/20 Unknown amantadine HCL [Amantadine] 100 mg PO BID 12/01/20 12/01/20 Unknown Previous Rx's Medication Instructions Recorded Last Taken Type Pantoprazole [Protonix] 40 mg PO QDAY 30 Days #30 tablet 12/07/20 Unknown Rx Allergies Allergy/AdvReac Type Severity Reaction Status Date / Time No Known Allergies Allergy Verified 03/17/21 02:12 ED Review of Systems ROS: Stated complaint: HEAD TRAUMA Other details as noted in HPI Comment: Unobtainable due to pts medical conditions Constitutional: denies: chills, fever Eyes: denies: eye pain, eye discharge, vision change ENT: denies: ear pain, throat pain Respiratory: denies: cough, shortness of breath, wheezing Cardiovascular: denies: chest pain, palpitations Endocrine: no symptoms reported Gastrointestinal: denies: abdominal pain, nausea, diarrhea Genitourinary: denies: urgency, dysuria Musculoskeletal: denies: back pain, joint swelling, arthralgia Skin: denies: rash, lesions Neurological: denies: headache, weakness, paresthesias Psychiatric: denies: anxiety, depression Hematological/Lymphatic: denies: easy bleeding, easy bruising ED Past Medical Hx - Past Medical History Hx Hypertension: Yes Hx CVA: Yes Hx Liver Disease: No Hx Renal Disease: Yes (Acute renal Injury) Hx Seizures: No - Social History Smoking Status: Never Smoker - Medications Home Medications: Home Medications Medication Instructions Recorded Confirmed Last Taken Type Apixaban [Eliquis] 5 mg PO BID 12/01/20 12/01/20 Unknown History Aspirin [Aspirin BABY CHEW TAB] 81 mg PO QDAY 12/01/20 12/01/20 Unknown History AtorvaSTATin [Lipitor] 40 mg PO QHS 12/01/20 12/01/20 Unknown History Carbidopa/Levodopa 25-100 [Sinemet] 1 each PO TID 12/01/20 12/01/[address] [Depveronicate Dr] 500 mg PO BID 12/01/20 12/01/20 Unknown History Flecainide [Tambocor] 100 mg PO Q12H 12/01/20 12/01/20 Unknown History Loratadine 10 mg PO QDAY 12/01/20 12/01/20 Unknown History Metoprolol Tartrate [Lopressor] 25 mg PO QDAY 12/01/20 12/01/20 Unknown History Mirtazapine 7.5 mg PO QHS 12/01/20 12/01/20 Unknown History Oxybutynin Chloride [Ditropan Xl] 5 mg PO BID 12/01/20 12/01/20 Unknown History amantadine HCL [Amantadine] 100 mg PO BID 12/01/20 12/01/20 Unknown History Pantoprazole [Protonix] 40 mg PO QDAY 30 Days #30 tablet 12/07/20 Unknown Rx ED Physical Exam - General Limitations: No Limitations General appearance: alert - Head Head exam: Present: atraumatic, normocephalic - Eye Eye exam: Present: normal appearance - ENT ENT exam: Present: mucous membranes moist - Neck Neck exam: Present: normal inspection - Respiratory Respiratory exam: Present: normal lung sounds bilaterally. Absent: respiratory distress - Cardiovascular Cardiovascular Exam: Present: regular rate, normal rhythm. Absent: systolic murmur, diastolic murmur, rubs, gallop - GI/Abdominal GI/Abdominal exam: Present: soft, normal bowel sounds - Rectal Rectal exam: Present: deferred - Extremities Exam Extremities exam: Present: normal inspection - Back Exam Back exam: Present: normal inspection - Neurological Exam Neurological exam: Present: alert, oriented X3 - Psychiatric Psychiatric exam: Present: normal affect, normal mood - Skin Skin exam: Present: warm, dry, intact, normal color. Absent: rash ED Course Vital Signs 03/17/21 03/17/21 03/17/21 02:14 03:09 03:15 Temperature 97.1 F L Pulse Rate 78 Respiratory 16 Rate Blood Pressure 141/73 Blood Pressure 142/84 [Left] O2 Sat by Pulse 98 100 99 Oximetry 03/17/21 03:21 Temperature Pulse Rate 45 L Respiratory Rate Blood Pressure Blood Pressure [Left] O2 Sat by Pulse 100 Oximetry Critical care attestation.: If time is entered above; I have spent that time in minutes in the direct care of this critically ill patient, excluding procedure time. ED Disposition Clinical Impression: Fall, Head injury Disposition: 03 LONG-TERM FACILITY Is pt being admited?: No Does the pt Need Aspirin: No Condition: Stable Instructions: How to Use Cold Therapy
[2021-03-17] MEDS ORDERED: ACETAMINOPHEN 650 MG RECT SUPP PR ONE (21:16)
[2021-03-17] MEDS ORDERED: SODIUM CHLORIDE 0.9% 1000 ML 1,000 ML ONE (22:35)
== END 2021-03-17 11:30 ==
LOC: ED 01:58
DX: S09.90XA Unspecified injury of head, initial encounter (principal); I10 Essential (primary) hypertension; N28.9 Disorder of kidney and ureter, unspecified; Z86.73 Personal history of transient ischemic attack (TIA), and cerebral infarction without residual deficits; Z79.899 Other long term (current) drug therapy; W07.XXXA Fall from chair, initial encounter; Y93.89 Activity, other specified; Y92.89 Other specified places as the place of occurrence of the external cause; Y99.8 Other external cause status
CPT/HCPCS: 70450; 99283; Q0162; J7030

== ENCOUNTER 2021-04-29 03:10 | Emergency (ER) | payer MEDICARE ==
--- NOTE | 2021-04-29 04:38 | Cat Scan Report ---
CT head without contrast INDICATION : fall. Headache. TECHNIQUE: Axial imaging performed from the skull apex through the skull base without the use of con trast. All CT scans at this location are performed using CT dose reduction for ALARA by means of aut omated exposure control. COMPARISON: 03/17/2021 FINDINGS: Parenchyma: Diffuse cerebral atrophy. Low density within the periventricular white matter. Small, chr onic right cerebellar infarct. No mass, stroke or hemorrhage. Ventricles: Ventricles are normal in size and appear symmetric. Soft tissues: Soft tissues including the orbits appear normal. Bones: No acute osseous abnormality. Sinuses: Mild thickening left maxillary sinus. IMPRESSION: 1. Chronic changes of atrophy, small vessel ischemic change and small infarct right cerebellum. 2. No acute intracranial abnormality. Signer Name: Alvarado Flores MD Signed: 04/29/2021 4:34 AM Workstation Name: [id number]
--- NOTE | 2021-04-29 05:06 | Emergency Department Report ---
ED Head Trauma HPI - General Chief complaint: Head Injury Stated complaint: FALL/HEAD INJURY Time Seen by Provider: 04/29/21 03:18 Source: EMS Mode of arrival: Stretcher Limitations: Other - History of Present Illness Initial comments: From correction. Ground level fall and sustained small laceration right forehead. Reporting pain in left hip. Complaint: head injury -: Sudden, hour(s) Mechanism of Injury: other Location: parietal Loss of Consciousness: no Previous Trauma to this Area: No Place: other ([facility] home ) Severity scale (0 -10): 0 Provoking factors: none known - Related Data Home Medications Medication Instructions Recorded Confirmed Last Taken Apixaban [Eliquis] 5 mg PO BID 12/01/20 12/01/20 Unknown Aspirin [Aspirin BABY CHEW TAB] 81 mg PO QDAY 12/01/20 12/01/20 Unknown AtorvaSTATin [Lipitor] 40 mg PO QHS 12/01/20 12/01/20 Unknown Carbidopa/Levodopa 25-100 [Sinemet] 1 each PO TID 12/01/20 12/01/[address] [Depakote Dr] 500 mg PO BID 12/01/20 12/01/20 Unknown Flecainide [Tambocor] 100 mg PO Q12H 12/01/20 12/01/20 Unknown Loratadine 10 mg PO QDAY 12/01/20 12/01/20 Unknown Metoprolol Tartrate [Lopressor] 25 mg PO QDAY 12/01/20 12/01/20 Unknown Mirtazapine 7.5 mg PO QHS 12/01/20 12/01/20 Unknown Oxybutynin Chloride [Ditropan Xl] 5 mg PO BID 12/01/20 12/01/20 Unknown amantadine HCL [Amantadine] 100 mg PO BID 12/01/20 12/01/20 Unknown Previous Rx's Medication Instructions Recorded Last Taken Type Pantoprazole [Protonix] 40 mg PO QDAY 30 Days #30 tablet 12/07/20 Unknown Rx Allergies/Adverse reactions: Allergies Allergy/AdvReac Type Severity Reaction Status Date / Time peanut Allergy Itching Verified 04/29/21 03:49 ED Review of Systems ROS: Stated complaint: FALL/HEAD INJURY Other details as noted in HPI Constitutional: denies: chills, fever Eyes: denies: eye pain, eye discharge, vision change ENT: denies: ear pain, throat pain Respiratory: denies: cough, shortness of breath, wheezing Cardiovascular: denies: chest pain, palpitations Endocrine: no symptoms reported Gastrointestinal: denies: abdominal pain, nausea, diarrhea Genitourinary: denies: urgency, dysuria Musculoskeletal: denies: back pain, joint swelling, arthralgia Skin: denies: rash, lesions Neurological: denies: headache, weakness, paresthesias Psychiatric: denies: anxiety, depression Hematological/Lymphatic: denies: easy bleeding, easy bruising ED Past Medical Hx - Past Medical History Previous Medical History?: Yes Hx Hypertension: Yes Hx CVA: Yes Hx Liver Disease: Yes Hx Renal Disease: Yes (Acute renal Injury) Hx Seizures: No Hx Psychiatric Treatment: Yes (Bipolar, Schizophrenia) Additional medical history: A-fib. High Cholesterol - Surgical History Past Surgical History?: No - Social History Smoking Status: Current Every Day Smoker Substance Use Type: None - Medications Home Medications: Home Medications Medication Instructions Recorded Confirmed Last Taken Type Apixaban [Eliquis] 5 mg PO BID 12/01/20 12/01/20 Unknown History Aspirin [Aspirin BABY CHEW TAB] 81 mg PO QDAY 12/01/20 12/01/20 Unknown History AtorvaSTATin [Lipitor] 40 mg PO QHS 12/01/20 12/01/20 Unknown History Carbidopa/Levodopa 25-100 [Sinemet] 1 each PO TID 12/01/20 12/01/[address] [Depakote Dr] 500 mg PO BID 12/01/20 12/01/20 Unknown History Flecainide [Tambocor] 100 mg PO Q12H 12/01/20 12/01/20 Unknown History Loratadine 10 mg PO QDAY 12/01/20 12/01/20 Unknown History Metoprolol Tartrate [Lopressor] 25 mg PO QDAY 12/01/20 12/01/20 Unknown History Mirtazapine 7.5 mg PO QHS 12/01/20 12/01/20 Unknown History Oxybutynin Chloride [Ditropan Xl] 5 mg PO BID 12/01/20 12/01/20 Unknown History amantadine HCL [Amantadine] 100 mg PO BID 12/01/20 12/01/20 Unknown History Pantoprazole [Protonix] 40 mg PO QDAY 30 Days #30 tablet 12/07/20 Unknown Rx ED Physical Exam - General Limitations: Other General appearance: alert, in no apparent distress - Head Head exam: Present: atraumatic, normocephalic - Eye Eye exam: Present: normal appearance - ENT ENT exam: Present: mucous membranes moist - Neck Neck exam: Present: normal inspection - Respiratory Respiratory exam: Present: normal lung sounds bilaterally. Absent: respiratory distress - Cardiovascular Cardiovascular Exam: Present: regular rate, normal rhythm. Absent: systolic murmur, diastolic murmur, rubs, gallop - GI/Abdominal GI/Abdominal exam: Present: soft, normal bowel sounds - Rectal Rectal exam: Present: deferred - Extremities Exam Extremities exam: Present: normal inspection - Back Exam Back exam: Present: normal inspection - Neurological Exam Neurological exam: Present: alert, oriented X3 - Psychiatric Psychiatric exam: Present: normal affect, normal mood - Skin Skin exam: Present: warm, dry, intact, normal color. Absent: rash ED Course Vital Signs 04/29/21 04/29/21 03:33 04:49 Temperature 98 F Pulse Rate 57 L 47 L Respiratory 18 16 Rate Blood Pressure 135/88 Blood Pressure 134/65 [Right] O2 Sat by Pulse 96 98 Oximetry Critical care attestation.: If time is entered above; I have spent that time in minutes in the direct care of this critically ill patient, excluding procedure time. ED Disposition Clinical Impression: Head injury Disposition: [facility] Is pt being admited?: No Does the pt Need Aspirin: No Condition: Stable Instructions: How to Use Cold Therapy, [id number]
[2021-04-29 08:02] VITALS: BP 95/56
--- NOTE | 2021-04-30 09:59 | Electrocardiograph Report ---
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 FIB. LOW LIMB VOLTAGE [id number] Nonspecific intraventricular conduction delay Prolonged QT interval Compared to ECG 12/01/2020 18:42:46 Prolonged QT interval now present Thereis a change in rhythm ST (T wave) deviation has improved Electronically Signed On 04-30-2021 9:59:29 EDT by Evan Tesfaye
== END 2021-04-29 08:00 ==
LOC: ED 03:10
DX: S01.81XA Laceration without foreign body of other part of head, initial encounter (principal); I10 Essential (primary) hypertension; Z86.73 Personal history of transient ischemic attack (TIA), and cerebral infarction without residual deficits; K76.9 Liver disease, unspecified; N28.9 Disorder of kidney and ureter, unspecified; F31.9 Bipolar disorder, unspecified; F20.9 Schizophrenia, unspecified; F17.200 Nicotine dependence, unspecified, uncomplicated; Z79.899 Other long term (current) drug therapy; Z91.010 Allergy to peanuts; X58.XXXA Exposure to other specified factors, initial encounter; Y93.89 Activity, other specified; Y92.89 Other specified places as the place of occurrence of the external cause; Y99.8 Other external cause status
CPT/HCPCS: 70450; 93005; 99284

== ENCOUNTER 2021-05-04 12:29 | Inpatient (IN) | payer MEDICARE ==
[2021-05-04] MEDS ORDERED: SODIUM CHLORIDE 0.9% 1000 ML 1,000 ML IV ONE ×2 (12:46→13:03)
[2021-05-04] MEDS ORDERED: PANTOPRAZOLE 40 MG INJ IV ONE (12:46)
--- NOTE | 2021-05-04 12:55 | Emergency Department Report ---
HPI - General Chief Complaint: Nausea/Vomiting/Diarrhea Time Seen by Provider: 05/04/21 12:37 - HPI HPI: Room 20 The patient is a 76-year-old male present with a chief complaint of hematemesis. Patient is a resident at [facility] staff reports patient developed coffee-ground emesis this morning. EMS was called and upon their arrival states the patient was lethargic and hypotensive with a systolic in the 80s. Patient was administered normal saline 300 mL prior to arrival with improvement of his blood pressure and mental status. The patient appears demented and initially denied having episodes of nausea vomitus morning until his emesis was pointed out on his clothing ED Past Medical Hx - Past Medical History Previous Medical History?: Yes Hx Hypertension: Yes Hx CVA: Yes Hx Liver Disease: Yes Hx Renal Disease: Yes (Acute renal Injury) Hx Psychiatric Treatment: Yes (Bipolar, Schizophrenia) Additional medical history: A-fib. High Cholesterol - Surgical History Past Surgical History?: No - Family History Family history: no significant - Social History Smoking Status: Unknown if ever smoked Substance Use Type: None - Medications Home Medications: Home Medications Medication Instructions Recorded Confirmed Last Taken Type Apixaban [Eliquis] 5 mg PO BID 12/01/20 12/01/20 Unknown History Aspirin [Aspirin BABY CHEW TAB] 81 mg PO QDAY 12/01/20 12/01/20 Unknown History AtorvaSTATin [Lipitor] 40 mg PO QHS 12/01/20 12/01/20 Unknown History Carbidopa/Levodopa 25-100 [Sinemet] 1 each PO TID 12/01/20 12/01/20 Unknown History Divalproex [Elvia Suarez] 500 mg PO BID 12/01/20 12/01/20 Unknown History Flecainide [Tambocor] 100 mg PO Q12H 12/01/20 12/01/20 Unknown History Loratadine 10 mg PO QDAY 12/01/20 12/01/20 Unknown History Metoprolol Tartrate [Lopressor] 25 mg PO QDAY 12/01/20 12/01/20 Unknown History Mirtazapine 7.5 mg PO QHS 12/01/20 12/01/20 Unknown History Oxybutynin Chloride [Ditropan Xl] 5 mg PO BID 12/01/20 12/01/20 Unknown History amantadine HCL [Amantadine] 100 mg PO BID 12/01/20 12/01/20 Unknown History Pantoprazole [Protonix] 40 mg PO QDAY 30 Days #30 tablet 12/07/20 Unknown Rx ED Review of Systems ROS: Stated complaint: HYPOTENSION Other details as noted in HPI Comment: Unobtainable due to pts medical conditions Physical Exam - Physical Exam Vital Signs: Vital Signs 05/04/21 12:30 Temperature 97.9 F Pulse Rate 51 L Respiratory 16 Rate Blood Pressure 98/62 [Left] O2 Sat by Pulse 98 Oximetry Physical Exam: GENERAL: The patient is well-developed well-nourished male sitting on stretcher with emesis stains on his shirt awake and alert and in no acute distress. [] HEENT: Normocephalic. Atraumatic. Extraocular motions are intact. Patient has moist mucous membranes. NECK: Supple. Trachea midline CHEST/LUNGS: Clear to auscultation. There is no respiratory distress noted. HEART/CARDIOVASCULAR: Regular. There is no tachycardia. There is no gallop rub or murmur. ABDOMEN: Abdomen is soft, nontender. Patient has normal bowel sounds. There is no abdominal distention. SKIN: There is no rash. There is no edema. There is no diaphoresis. NEURO: The patient is awake and alert. The patient is cooperative. The patient has no focal neurologic deficits. The patient has normal speech. GCS 15 MUSCULOSKELETAL: There is no evidence of acute injury. RECTAL: Guaiac positive brown stool ED Course Vital Signs 05/04/21 12:30 Temperature 97.9 F Pulse Rate 51 L Respiratory 16 Rate Blood Pressure 98/62 [Left] O2 Sat by Pulse 98 Oximetry - Consultations Consultation #1: 05/04/21 13:41 GI paged-Case discussed with mill representative Dr. Maria L Brown ED Medical Decision Making - Lab Data Result diagrams: 05/04/21 13:01 05/04/21 13:01 Laboratory Tests 05/04/21 05/04/21 05/04/21 13:01 13:01 13:01 WBC 8.2 RBC 2.30 L Hgb 7.3 L Hct 21.1 L MCV 92 MCH 32 MCHC 35 H RDW 18.5 H Plt Count 391 Lymph % (Auto) 23.1 [place] % (Auto) 3.0 Eos % (Auto) 0.8 Baso % (Auto) 0.8 Lymph # (Auto) 1.9 [place] # (Auto) 0.2 Eos # (Auto) 0.1 Baso # (Auto) 0.1 Seg Neutrophils % 72.3 H Seg Neutrophils # 5.9 APTT 29.0 Sodium 143 Potassium 3.9 Chloride 100.9 Carbon Dioxide 26 Anion Gap 20 BUN 21 H Creatinine 1.0 Estimated GFR > 60 BUN/Creatinine Ratio 21 Glucose 135 H Calcium 9.2 Total Bilirubin 0.40 AST 14 ALT < 5 L Alkaline Phosphatase 102 Troponin T 0.018 Total Protein 6.4 Albumin 3.2 L Albumin/Globulin Ratio 1.0 Blood Type 05/04/21 13:01 WBC RBC Hgb Hct MCV MCH MCHC RDW Plt Count Lymph % (Auto) [place] % (Auto) Eos % (Auto) Baso % (Auto) Lymph # (Auto) [place] # (Auto) Eos # (Auto) Baso # (Auto) Seg Neutrophils % Seg Neutrophils # APTT Sodium Potassium Chloride Carbon Dioxide Anion Gap BUN Creatinine Estimated GFR BUN/Creatinine Ratio Glucose Calcium Total Bilirubin AST ALT Alkaline Phosphatase Troponin T Total Protein Albumin Albumin/Globulin Ratio Blood Type O POSITIVE - Differential Diagnosis GI bleed, dehydration Critical care attestation.: If time is entered above; I have spent that time in minutes in the direct care of this critically ill patient, excluding procedure time. ED Disposition Clinical Impression: GI bleed Disposition: ADMITTED INPATIENT Is pt being admited?: Yes Does the pt Need Aspirin: No Condition: Fair Referrals: ANALY QUACH MD [Primary Care Provider] - 3-5 Days Time of Disposition: 14:13 (Hospitalist called (Dr. Thurman))
[2021-05-04] MEDS: PANTOPRAZOLE 80 MG in SODIUM CHLORIDE 0.9% 100 ML IV SCH ×2 (13:35→23:36)
[2021-05-04 13:37] LABS: Basophils # (Auto) 0.1 K/mm3 (0.0-0.1); Basophils % (Auto) 0.8 % (0.0-1.8); Eosinophils # (Auto) 0.1 K/mm3 (0.0-0.4); Eosinophils % (Auto) 0.8 % (0.0-4.3); Hematocrit 21.1 % (35.5-45.6); Hemoglobin 7.3 gm/dl (11.8-15.2); Lymphocytes # (Auto) 1.9 K/mm3 (1.2-5.4); Lymphocytes % (Auto) 23.1 % (13.4-35.0); Mean Corpuscular HGB Conc 35 % (32-34); Mean Corpuscular Volume 92 fl (84-94); Monocytes # (Auto) 0.2 K/mm3 (0.0-0.8); Platelet Count 391 K/mm3 (140-440); Red Cell Distribution Width 18.5 % (13.2-15.2)
[2021-05-04 14:03] LABS: Albumin 3.2 g/dL (3.9-5); BUN/Creatinine Ratio 21; Blood Urea Nitrogen 21 mg/dL (9-20); Calcium 9.2 mg/dL (8.4-10.2); Hemolysis Index 16
[2021-05-04 14:06] LABS: Alanine Aminotransferase < 5 units/L (7-56)
--- NOTE | 2021-05-04 14:20 | History and Physical Report ---
History of Present Illness Chief complaint: He was coughing up blood History of present illness: 76 YO Male [facility]mediate Facility Resident as [facility] with Atrial Fib on Therapeutic Anticoagulation, Encephalopathy, Debility, Bipolar Disorder, HTN, CVA, Debility, Vascular Dementia, Cerebral Atherosclerosis, Alzheimers Disease presents to ED for evaluation. Patient has diminished cognition and is unable to provide detailed history at the time of my evaluation. Patient history taken from EMS staff, ED staff, as well as residential facility staff. As per staff the patient was found to have coffee- ground emesis today with concomitant hypotension, and change in level of consciousness, hypotension with a systolic blood pressure in the 80s. EMS was notified and upon arrival the patient was found to be in distress and subsequent transported to [facility] for further care and evaluation of the aforementioned symptoms. The patient was seen and evaluated in the emergency department. All lab and imaging studies reviewed. Patient found to have symptoms consistent with GI bleed. Patient admitted to telemetry due to increased risk of worsening symptoms. Patient initiated on GI bleed protocol. GI team consulted in ED. No reports of fever, chills, chest pain, palpitations, productive cough, skin rash, recent ill contacts, known exposure to COVID-19. Prior mission on 05/01/2020 reviewed. All medication listed at time of admission has been reconciled. Advanced care planning conducted in ED. Patient has diminished cognition at the time my evaluation but has a positive gag reflex and is able to protect his airway without difficulty. Past History Past Medical History: atrial fib, hypertension, stroke, other (See HPI) Past Surgical History: No surgical history, Other (Reviewed) Social history: . denies: smoking, alcohol abuse Family history: diabetes, hypertension Medications and Allergies Allergies Allergy/AdvReac Type Severity Reaction Status Date / Time peanut Allergy Itching Verified 05/04/21 12:35 Home Medications Medication Instructions Recorded Confirmed Last Taken Type Apixaban [Eliquis] 5 mg PO BID 12/01/20 12/01/20 Unknown History Aspirin [Aspirin BABY CHEW TAB] 81 mg PO QDAY 12/01/20 12/01/20 Unknown History AtorvaSTATin [Lipitor] 40 mg PO QHS 12/01/20 12/01/20 Unknown History Carbidopa/Levodopa 25-100 [Sinemet] 1 each PO TID 12/01/20 12/01/[address] [Depakote Dr] 500 mg PO BID 12/01/20 12/01/20 Unknown History Flecainide [Tambocor] 100 mg PO Q12H 12/01/20 12/01/20 Unknown History Loratadine 10 mg PO QDAY 12/01/20 12/01/20 Unknown History Metoprolol Tartrate [Lopressor] 25 mg PO QDAY 12/01/20 12/01/20 Unknown History Mirtazapine 7.5 mg PO QHS 12/01/20 12/01/20 Unknown History Oxybutynin Chloride [Ditropan Xl] 5 mg PO BID 12/01/20 12/01/20 Unknown History amantadine HCL [Amantadine] 100 mg PO BID 12/01/20 12/01/20 Unknown History Pantoprazole [Protonix] 40 mg PO QDAY 30 Days #30 tablet 12/07/20 Unknown Rx Active Meds: Active Medications Pantoprazole Sodium 80 mg/ (Sodium Chloride) 100 mls @ 10 mls/hr IV DIRECT CASEY Last Admin: 05/04/21 13:35 Dose: 8 mg/hr, 10 mls/hr Review of Systems ROS unobtainable: due to mental status Exam - Constitutional Vitals: Temp Pulse Resp BP Pulse Ox 97.9 F 51 L 16 98/62 98 05/04/21 12:30 05/04/21 12:30 05/04/21 12:30 05/04/21 12:30 05/04/21 12:30 General appearance: Present: mild distress - EENT Eyes: Present: PERRL ENT: hearing intact, clear oral mucosa, hearing decreased - Neck Neck: Present: supple, normal ROM - Respiratory Respiratory effort: normal Respiratory: bilateral: diminished - Cardiovascular Rhythm: irregularly irregular Heart Sounds: Present: S1 & S2. Absent: rub, click - Extremities Extremities: pulses symmetrical, No edema Peripheral Pulses: within normal limits - Abdominal General gastrointestinal: Present: soft, non-tender, non-distended Male genitourinary: Present: normal - Integumentary Integumentary: Present: clear, dry - Musculoskeletal Musculoskeletal: generalized weakness - Psychiatric Psychiatric: no appropriate mood/affect, no intact judgment & insight, no memory intact - Neurologic Neurologic: CNII-XII intact, no focal deficits, moves all extremities, no gait normal HEART Score - HEART Score Troponin: Troponin T 0.018 ng/mL (0.00-0.029) 05/04/21 13:01 Results - Labs CBC & Chem 7: 05/04/21 13:01 05/04/21 13:01 Labs: Abnormal lab results 05/04/21 05/04/21 Range/Units 13:01 13:01 RBC 2.30 L (3.65-5.03) M/mm3 Hgb 7.3 L (11.8-15.2) gm/dl Hct 21.1 L (35.5-45.6) % MCHC 35 H (32-34) % RDW 18.5 H (13.2-15.2) % Seg Neutrophils % 72.3 H (40.0-70.0) % BUN 21 H (9-20) mg/dL Glucose 135 H (75-100) mg/dL ALT < 5 L (7-56) units/L Albumin 3.2 L (3.9-5) g/dL Assessment and Plan - Patient Problems (1) GI bleed Current Visit: Yes Status: Acute Plan to address problem: GI bleed protocol: CBC, repeat CBC in a.m., IV PPI therapy, supportive care, GI team consulted. (2) Alzheimer disease Current Visit: No Status: Acute Plan to address problem: Supportive care. Patient has a fast score of 7C. Continue medical management. Supportive care. Fall precautions. (3) Atrial fibrillation Current Visit: No Status: Acute Qualifiers: Atrial fibrillation type: longstanding persistent Qualified Code(s): I48.11 - Longstanding persistent atrial fibrillation Plan to address problem: Rate currently controlled, continue therapeutic anticoagulation, supportive care. Continue medical management. (4) Vascular dementia Current Visit: Yes Status: Acute Qualifiers: Dementia behavioral disturbance: without behavioral disturbance Qualified Code(s): F01.50 - Vascular dementia without behavioral disturbance Plan to address problem: Verbal prompting, verbal redirection, benzodiazepine therapy as clinically indicated. (5) Cerebral atherosclerosis Current Visit: Yes Status: Acute Plan to address problem: Risk factor reduction therapy, antiplatelet therapy as clinically indicated. (6) Bipolar disorder Current Visit: Yes Status: Acute Plan to address problem: No acute exacerbation at this time, continue current therapy. (7) DVT prophylaxis Current Visit: No Status: Acute Plan to address problem: SCD to bilateral lower extremities while in bed, continue therapeutic anticoagulation (8) Advance care planning Current Visit: No Status: Acute Plan to address problem: Disease education conducted, care plan discussed, diagnoses discussed, prognosis discussed, +30 minutes.
[2021-05-04 14:22] LABS: INR 1.13 (0.87-1.13)
[2021-05-04] MEDS ORDERED: oxyCODONE /ACETAMINOPHEN 5-325MG TAB PO PRN (15:00)
[2021-05-04] MEDS ORDERED: HYDROmorphone 1 MG/1 ML INJ IV PRN (15:00)
[2021-05-04] MEDS ORDERED: ALBUTEROL 2.5 MG/3 ML NEBU IH PRN (15:00)
[2021-05-04] MEDS ORDERED: ONDANSETRON 4 MG/2 ML INJ IV PRN (15:00)
[2021-05-04] MEDS ORDERED: ACETAMINOPHEN 325 MG TAB PO PRN (15:00)
[2021-05-04 15:04] LABS: INR 1.13 (0.87-1.13)
--- NOTE | 2021-05-04 16:58 | Gastroenterology Consultation ---
History of Present Illness - Reason for Consult Consult date: 05/04/21 UGI bleed Requesting physician: MAMTA PALM - History of Present Illness The patient is a 76 yo aam who presents with coffee ground emesis/upper gi bleed. pt presents from [facility], extensive medical history including cva, dementia, afib on anticoagulation. h/o SBO a couple years ago. reportedly with ugi bleeding signs last couple days, hypotensive on arrival, improved vitals now. no overt bleeding since ER arrival. vitals now stable. Past History Past Medical History: atrial fib, hypertension, stroke, other (See HPI) Past Surgical History: No surgical history, Other (Reviewed) Social history: . denies: smoking, alcohol abuse Family history: diabetes, hypertension Medications and Allergies Allergies Allergy/AdvReac Type Severity Reaction Status Date / Time peanut Allergy Itching Verified 05/04/21 12:35 Home Medications Medication Instructions Recorded Confirmed Last Taken Type Apixaban [Eliquis] 5 mg PO BID 12/01/20 12/01/20 Unknown History Aspirin [Aspirin BABY CHEW TAB] 81 mg PO QDAY 12/01/20 12/01/20 Unknown History AtorvaSTATin [Lipitor] 40 mg PO QHS 12/01/20 12/01/20 Unknown History Carbidopa/Levodopa 25-100 [Sinemet] 1 each PO TID 12/01/20 12/01/20 Unknown History Divalproex [Elvia Suarez] 500 mg PO BID 12/01/20 12/01/20 Unknown History Flecainide [Tambocor] 100 mg PO Q12H 12/01/20 12/01/20 Unknown History Loratadine 10 mg PO QDAY 12/01/20 12/01/20 Unknown History Metoprolol Tartrate [Lopressor] 25 mg PO QDAY 12/01/20 12/01/20 Unknown History Mirtazapine 7.5 mg PO QHS 12/01/20 12/01/20 Unknown History Oxybutynin Chloride [Ditropan Xl] 5 mg PO BID 12/01/20 12/01/20 Unknown History amantadine HCL [Amantadine] 100 mg PO BID 12/01/20 12/01/20 Unknown History Pantoprazole [Protonix] 40 mg PO QDAY 30 Days #30 tablet 12/07/20 Unknown Rx Active Meds: Active Medications Acetaminophen (Acetaminophen 325 Mg Tab) 650 mg PO Q4H PRN PRN Reason: Pain MILD(1-3)/Fever >100.5/FARRIS Albuterol (Albuterol 2.5 Mg/3 Ml Nebu) 2.5 mg IH Q4HRT PRN PRN Reason: Shortness Of Breath Hydromorphone HCl (Hydromorphone 1 Mg/1 Ml Inj) 0.5 mg IV Q13H PRN PRN Reason: Pain , Severe (7-10) Pantoprazole Sodium 80 mg/ (Sodium Chloride) 100 mls @ 10 mls/hr IV DIRECT CASEY Last Admin: 05/04/21 13:35 Dose: 8 mg/hr, 10 mls/hr Ondansetron HCl (Ondansetron 4 Mg/2 Ml Inj) 4 mg IV Q8H PRN PRN Reason: Nausea And Vomiting Oxycodone/Acetaminophen (Oxycodone /Acetaminophen 5-325mg Tab) 1 tab PO Q6H PRN PRN Reason: Pain, Moderate (4-6) Sodium Chloride (Sodium Chloride 0.9% 10 Ml Flush Syringe) 10 ml IV BID CASEY Sodium Chloride (Sodium Chloride 0.9% 10 Ml Flush Syringe) 10 ml IV PRN PRN PRN Reason: LINE FLUSH Reviewed/updated patient's home and current medications Review of Systems - Review of Systems ROS unobtainable: due to mental status Exam - Constitutional Vital Signs: Temp Pulse Resp BP Pulse Ox 97.9 F 63 13 93/50 93 05/04/21 12:30 05/04/21 16:00 05/04/21 16:00 05/04/21 16:00 05/04/21 16:00 General appearance: no acute distress, other (resting tremors) - EENT Eyes: PERRL, EOM intact - Respiratory Respiratory effort: normal Respiratory: bilateral: CTA - Cardiovascular Rhythm: regular Heart Sounds: Present: S1 & S2 - Gastrointestinal General gastrointestinal: Present: soft, non-tender, non-distended - Neurologic Neurological: disoriented - Labs CBC & Chem 7: 05/04/21 13:01 05/04/21 13:01 Lab Results: Laboratory Results - last 24 hr 05/04/21 05/04/21 05/04/21 13:01 13:01 13:01 WBC 8.2 RBC 2.30 L Hgb 7.3 L Hct 21.1 L MCV 92 MCH 32 MCHC 35 H RDW 18.5 H Plt Count 391 Lymph % (Auto) 23.1 [place] % (Auto) 3.0 Eos % (Auto) 0.8 Baso % (Auto) 0.8 Lymph # (Auto) 1.9 [place] # (Auto) 0.2 Eos # (Auto) 0.1 Baso # (Auto) 0.1 Seg Neutrophils % 72.3 H Seg Neutrophils # 5.9 PT 15.8 H INR 1.13 APTT 29.0 Sodium 143 Potassium 3.9 Chloride 100.9 Carbon Dioxide 26 Anion Gap 20 BUN 21 H Creatinine 1.0 Estimated GFR > 60 BUN/Creatinine Ratio 21 Glucose 135 H Calcium 9.2 Total Bilirubin 0.40 AST 14 ALT < 5 L Alkaline Phosphatase 102 Troponin T 0.018 Total Protein 6.4 Albumin 3.2 L Albumin/Globulin Ratio 1.0 Blood Type 05/04/21 05/04/21 13:01 14:47 WBC RBC Hgb Hct MCV MCH MCHC RDW Plt Count Lymph % (Auto) [place] % (Auto) Eos % (Auto) Baso % (Auto) Lymph # (Auto) [place] # (Auto) Eos # (Auto) Baso # (Auto) Seg Neutrophils % Seg Neutrophils # PT 15.8 H INR 1.13 APTT Sodium Potassium Chloride Carbon Dioxide Anion Gap BUN Creatinine Estimated GFR BUN/Creatinine Ratio Glucose Calcium Total Bilirubin AST ALT Alkaline Phosphatase Troponin T Total Protein Albumin Albumin/Globulin Ratio Blood Type O POSITIVE Assessment and Plan 1. Upper gi bleed with acute on chronic anemia - non-obstructive abdomen on exam. consider ct scan given h/o SBO. cont IV PPI, monitor labs, and will plan for EGD tomorrow.
[2021-05-05 05:39] LABS: Basophils % (Auto) 0.2 % (0.0-1.8); Hemoglobin 6.1 gm/dl (11.8-15.2); Lymphocytes # (Auto) 1.5 K/mm3 (1.2-5.4); Lymphocytes % (Auto) 8.1 % (13.4-35.0); Mean Corpuscular HGB Conc 32 % (32-34); Mean Corpuscular Volume 92 fl (84-94); Monocytes # (Auto) 0.4 K/mm3 (0.0-0.8); Monocytes % (Auto) 2.3 % (0.0-7.3); Platelet Count 279 K/mm3 (140-440); Red Cell Distribution Width 18.1 % (13.2-15.2)
[2021-05-05 05:48] LABS: Hematocrit 19.4 % (35.5-45.6)
[2021-05-05] MEDS ORDERED: SODIUM CHLORIDE 0.9% 500 ML 500 ML IV ONE (06:52)
[2021-05-05] MEDS ORDERED: WATER FOR IRRIG STERILE 1,000 ML BOTTLE ONE (10:00)
[2021-05-05] MEDS ORDERED: WATER FOR IRRIG STERILE 250 ML BOTTLE IR ONE (10:00)
[2021-05-05] MEDS ORDERED: SODIUM CHLORIDE 0.9% 1000 ML 1,000 ML ONE (10:53)
[2021-05-05] MEDS ORDERED: propofoL 200 MG/20 ML VIAL IV ONE (11:14)
--- NOTE | 2021-05-05 11:23 | Operative Report ---
Operative Report Operative Report: Esophagogastroduodenoscopy Procedure Note Date of procedure: 05/05/2021 Endoscopist: Gael Brown Pre-op diagnosis/indication: Upper gi bleed/coffee ground emesis Post-op diagnosis: Mild esophagitis MEDICATIONS: MAC COMPLICATIONS: No immediate complications ESTIMATED BLOOD LOSS: Minimal DESCRIPTION OF PROCEDURE: After consent was obtained from the patient's son over the phone, the patient was placed in the left lateral decubitis position. The olympus endoscope was inserted into the patient's mouth under direct vision and advanced to the 2nd portion of the duodenum without difficulty. The patient tolerated the procedure well. The views of the mucosa were good. The patient's vital signs were monitored continuously throughout the procedure. FINDINGS: There was mild esophagitis without bleeding in the distal esophagus. Moderate sized hiatal hernia. Otherwise, the esophagus appeared normal. The stomach and duodenum appeared normal. IMPRESSION: 1. Mild esophagitis. Hiatal hernia. Otherwise, unremarkable upper endoscopy RECOMMENDATIONS: -okay to resume diet as tolerated -PPI once daily -consider ct scan based on progress (if further signs of n/v or other abd symptoms given h/o SBO)
--- NOTE | 2021-05-05 11:23 | Progress Note ---
Assessment and Plan Assessment and plan: The patient is a 76 yo aam who presents with coffee ground emesis/upper gi bleed. pt [facility] from [facility], extensive medical history including cva, dementia, afib on anticoagulation. h/o SBO a couple years ago. reportedly with ugi bleeding signs last couple days, hypotensive on arrival Upper GI bleed Alzheimer's/vascular dementia Atrial fibrillation Cerebral atherosclerosis Bipolar disorder 05/05/2021. Patient to receive PRBCs. Follow-up H&H. GI has been consulted and plans for EGD in a.m. History Interval history: No new issues overnight Hospitalist Physical - Constitutional Vitals: Temp Pulse Resp BP Pulse Ox 97.2 F L 56 L 18 136/59 97 05/05/21 07:47 05/05/21 10:00 05/05/21 07:47 05/05/21 07:47 05/05/21 07:47 General appearance: Present: no acute distress - EENT Eyes: Present: PERRL, EOM intact ENT: hearing intact, clear oral mucosa, dentition normal - Neck Neck: Present: supple, normal ROM - Respiratory Respiratory effort: normal Respiratory: bilateral: CTA - Cardiovascular Rhythm: regular Heart Sounds: Present: S1 & S2. Absent: gallop, rub - Extremities Extremities: no ischemia, No edema, Full ROM - Abdominal General gastrointestinal: soft, non-tender, non-distended, normal bowel sounds - Integumentary Integumentary: Present: clear, warm, dry - Neurologic Neurologic: CNII-XII intact, moves all extremities HEART Score - HEART Score Troponin: Troponin T 0.018 ng/mL (0.00-0.029) 05/04/21 13:01 Results - Labs CBC & Chem 7: 05/05/21 05:12 05/04/21 13:01 Labs: Laboratory Last Values WBC 18.4 K/mm3 (4.5-11.0) H 05/05/21 05:12 RBC 2.10 M/mm3 (3.65-5.03) L 05/05/21 05:12 Hgb 6.1 gm/dl (11.8-15.2) L 05/05/21 05:12 Hct 19.4 % (35.5-45.6) L* 05/05/21 05:12 MCV 92 fl (84-94) 05/05/21 05:12 MCH 29 pg (28-32) 05/05/21 05:12 MCHC 32 % (32-34) 05/05/21 05:12 RDW 18.1 % (13.2-15.2) H 05/05/21 05:12 Plt Count 279 K/mm3 (140-440) 05/05/21 05:12 Lymph % (Auto) 8.1 % (13.4-35.0) L 05/05/21 05:12 [place] % (Auto) 2.3 % (0.0-7.3) 05/05/21 05:12 Eos % (Auto) 0.0 % (0.0-4.3) 05/05/21 05:12 Baso % (Auto) 0.2 % (0.0-1.8) 05/05/21 05:12 Lymph # (Auto) 1.5 K/mm3 (1.2-5.4) 05/05/21 05:12 [place] # (Auto) 0.4 K/mm3 (0.0-0.8) 05/05/21 05:12 Eos # (Auto) 0.0 K/mm3 (0.0-0.4) 05/05/21 05:12 Baso # (Auto) 0.0 K/mm3 (0.0-0.1) 05/05/21 05:12 Seg Neutrophils % 89.4 % (40.0-70.0) H 05/05/21 05:12 Seg Neutrophils # 16.4 K/mm3 (1.8-7.7) H 05/05/21 05:12 PT 15.8 Sec. (12.2-14.9) H 05/04/21 14:47 INR 1.13 (0.87-1.13) 05/04/21 14:47 APTT 29.0 Sec. (24.2-36.6) 05/04/21 13:01 Sodium 143 mmol/L (137-145) 05/04/21 13:01 Potassium 3.9 mmol/L (3.6-5.0) 05/04/21 13:01 Chloride 100.9 mmol/L (98-107) 05/04/21 13:01 Carbon Dioxide 26 mmol/L (22-30) 05/04/21 13:01 Anion Gap 20 mmol/L 05/04/21 13:01 BUN 21 mg/dL (9-20) H 05/04/21 13:01 Creatinine 1.0 mg/dL (0.8-1.3) 05/04/21 13:01 Estimated GFR > 60 ml/min 05/04/21 13:01 BUN/Creatinine Ratio 21 % 05/04/21 13:01 Glucose 135 mg/dL (75-100) H 05/04/21 13:01 Calcium 9.2 mg/dL (8.4-10.2) 05/04/21 13:01 Total Bilirubin 0.40 mg/dL (0.1-1.2) 05/04/21 13:01 AST 14 units/L (5-40) 05/04/21 13:01 ALT < 5 units/L (7-56) L 05/04/21 13:01 Alkaline Phosphatase 102 units/L (35-129) 05/04/21 13:01 Troponin T 0.018 ng/mL (0.00-0.029) 05/04/21 13:01 Total Protein 6.4 g/dL (6.3-8.2) 05/04/21 13:01 Albumin 3.2 g/dL (3.9-5) L 05/04/21 13:01 Albumin/Globulin Ratio 1.0 % 05/04/21 13:01 Blood Type O POSITIVE 05/04/21 13:01 Antibody Screen Negative 05/04/21 13:01 Crossmatch See Detail 05/04/21 13:01 Microbiology: Microbiology 05/04/21 Unknown Stool Stool Occult Blood (VI) - Final Active Medications - Current Medications Current Medications: Generic Name Dose Route Start Last Admin Trade Name Freq PRN Reason Stop Dose Admin Acetaminophen 650 mg 05/04/21 15:00 Acetaminophen 325 Mg Tab PO Q4H PRN Pain MILD(1-3)/Fever >100.5/FARRIS Albuterol 2.5 mg 05/04/21 15:00 Albuterol 2.5 Mg/3 Ml Nebu IH Q4HRT PRN Shortness Of Breath Hydromorphone HCl 0.5 mg 05/04/21 15:00 Hydromorphone 1 Mg/1 Ml Inj IV Q13H PRN Pain , Severe (7-10) Pantoprazole Sodium 80 mg/ 100 mls @ 10 mls/hr 05/04/21 13:00 05/04/21 23:36 Sodium Chloride IV 8 mg/hr DIRECT CASEY 10 mls/hr Administration 8 MG/HR Ondansetron HCl 4 mg 05/04/21 15:00 Ondansetron 4 Mg/2 Ml Inj IV Q8H PRN Nausea And Vomiting Oxycodone/Acetaminophen 1 tab 05/04/21 15:00 Oxycodone /Acetaminophen 5-325mg Tab PO Q6H PRN Pain, Moderate (4-6) Sodium Chloride 10 ml 05/04/21 22:00 05/04/21 23:00 Sodium Chloride 0.9% 10 Ml Flush Syringe IV 10 ml BID CASEY Administration Sodium Chloride 10 ml 05/04/21 15:00 Sodium Chloride 0.9% 10 Ml Flush Syringe IV PRN PRN LINE FLUSH
--- NOTE | 2021-05-05 11:27 | Anesthesia Consultation ---
Anesthesia Consult and Med Hx Date of service: 05/05/21 - Airway Anesthetic Teeth Evaluation: Poor ROM Head & Neck: Adequate Mental/Hyoid Distance: Adequate Mallampati Class: Class II Intubation Access Assessment: Possibly Difficult - Pulmonary Exam CTA: Yes - Cardiac Exam Cardiac Exam: RRR - Pre-Operative Health Status ASA Pre-Surgery Classification: ASA3 Proposed Anesthetic Plan: MAC - Pulmonary Hx Smoking: Yes Hx Respiratory Symptoms: No Hx Pneumonia: Yes (Systemic Inflammatory Response Syndrome) Hx Sleep Apnea: No - Cardiovascular System Hx Hypertension: Yes Hx Cardia Arrhythmia: Yes (Atrial Firillation) Hx Valvular Heart Disease: No - Central Nervous System Hx Seizures: No Hx Psychiatric Problems: Yes (Bipolar Disorder, Alzheimer's Disease, Cerebral Artherosclerosis,) - Gastrointestinal Hx Ulcer: Yes (GI Bleed) - Endocrine Hx Renal Disease: Yes (Acute renal Injury) Hx Liver Disease: Yes Hx Insulin Dependent Diabetes: No Hx Non-Insulin Dependent Diabetes: No - Hematic Hx Anemia: Yes - Other Systems Hx Alcohol Use: No Hx Substance Use: No Hx Obesity: Yes
--- NOTE | 2021-05-05 11:28 | Anesthesia Day of Surgery ---
Anesthesia Day of Surgery - Day of Surgery Patient Examined: Yes Patient H&P Reviewed: Yes Patient is NPO: Yes
--- NOTE | 2021-05-05 11:29 | Post Anesthesia Evaluation ---
- Post Anesthesia Evaluation Patient Participated: No Airway Patent: Yes Stable Respiratory Function: Yes Nausea/Vomiting: No Temp > 96.8F: Yes Pain Manageable: Yes Adequeate Hydration: Yes Anesthesia Complications: No Block Receding Appropriately: Not Applicable Patient on Ventilator: No
[2021-05-05] MEDS ORDERED: SODIUM CHLORIDE 0.9% 500 ML 500 ML ONE (12:00)
[2021-05-06] MEDS: PANTOPRAZOLE 80 MG in SODIUM CHLORIDE 0.9% 100 ML IV SCH (05:50)
--- NOTE | 2021-05-06 08:58 | Progress Note ---
Assessment and Plan Assessment and plan: The patient is a 76 yo aam who presents with coffee ground emesis/upper gi bleed. pt presents from [facility], extensive medical history including cva, dementia, afib on anticoagulation. h/o SBO a couple years ago. reportedly with ugi bleeding signs last couple days, hypotensive on arrival Upper GI bleed Alzheimer's/vascular dementia Atrial fibrillation Cerebral atherosclerosis Bipolar disorder 05/05/2021. Patient to receive PRBCs. Follow-up H&H. GI has been consulted and plans for EGD in a.m. 05/06/2021. EGD revealed mild esophagitis and hiatal hernia. Otherwise unremarkable upper endoscopy. Patient's diet was resumed. Continue PPI daily. Patient is s/p 1 unit PRBCs. Follow-up H&H and transfuse for hemoglobin less than 7 History Interval history: No new issues overnight Hospitalist Physical - Constitutional Vitals: Temp Pulse Resp BP Pulse Ox 98.0 F 67 18 144/70 98 05/06/21 08:02 05/06/21 08:02 05/06/21 08:02 05/06/21 08:02 05/06/21 08:02 General appearance: Present: no acute distress - EENT Eyes: Present: PERRL, EOM intact ENT: hearing intact, clear oral mucosa, dentition normal - Neck Neck: Present: supple, normal ROM - Respiratory Respiratory effort: normal Respiratory: bilateral: CTA - Cardiovascular Rhythm: regular Heart Sounds: Present: S1 & S2. Absent: gallop, rub - Extremities Extremities: no ischemia, No edema, Full ROM - Abdominal General gastrointestinal: soft, non-tender, non-distended, normal bowel sounds - Integumentary Integumentary: Present: clear, warm, dry - Neurologic Neurologic: CNII-XII intact, moves all extremities HEART Score - HEART Score Troponin: Troponin T 0.018 ng/mL (0.00-0.029) 05/04/21 13:01 Results - Labs CBC & Chem 7: 05/05/21 05:12 05/04/21 13:01 Labs: Laboratory Last Values WBC 18.4 K/mm3 (4.5-11.0) H 05/05/21 05:12 RBC 2.10 M/mm3 (3.65-5.03) L 05/05/21 05:12 Hgb 6.1 gm/dl (11.8-15.2) L 05/05/21 05:12 Hct 19.4 % (35.5-45.6) L* 05/05/21 05:12 MCV 92 fl (84-94) 05/05/21 05:12 MCH 29 pg (28-32) 05/05/21 05:12 MCHC 32 % (32-34) 05/05/21 05:12 RDW 18.1 % (13.2-15.2) H 05/05/21 05:12 Plt Count 279 K/mm3 (140-440) 05/05/21 05:12 Lymph % (Auto) 8.1 % (13.4-35.0) L 05/05/21 05:12 [place] % (Auto) 2.3 % (0.0-7.3) 05/05/21 05:12 Eos % (Auto) 0.0 % (0.0-4.3) 05/05/21 05:12 Baso % (Auto) 0.2 % (0.0-1.8) 05/05/21 05:12 Lymph # (Auto) 1.5 K/mm3 (1.2-5.4) 05/05/21 05:12 [place] # (Auto) 0.4 K/mm3 (0.0-0.8) 05/05/21 05:12 Eos # (Auto) 0.0 K/mm3 (0.0-0.4) 05/05/21 05:12 Baso # (Auto) 0.0 K/mm3 (0.0-0.1) 05/05/21 05:12 Seg Neutrophils % 89.4 % (40.0-70.0) H 05/05/21 05:12 Seg Neutrophils # 16.4 K/mm3 (1.8-7.7) H 05/05/21 05:12 PT 15.8 Sec. (12.2-14.9) H 05/04/21 14:47 INR 1.13 (0.87-1.13) 05/04/21 14:47 APTT 29.0 Sec. (24.2-36.6) 05/04/21 13:01 Sodium 143 mmol/L (137-145) 05/04/21 13:01 Potassium 3.9 mmol/L (3.6-5.0) 05/04/21 13:01 Chloride 100.9 mmol/L (98-107) 05/04/21 13:01 Carbon Dioxide 26 mmol/L (22-30) 05/04/21 13:01 Anion Gap 20 mmol/L 05/04/21 13:01 BUN 21 mg/dL (9-20) H 05/04/21 13:01 Creatinine 1.0 mg/dL (0.8-1.3) 05/04/21 13:01 Estimated GFR > 60 ml/min 05/04/21 13:01 BUN/Creatinine Ratio 21 % 05/04/21 13:01 Glucose 135 mg/dL (75-100) H 05/04/21 13:01 Calcium 9.2 mg/dL (8.4-10.2) 05/04/21 13:01 Total Bilirubin 0.40 mg/dL (0.1-1.2) 05/04/21 13:01 AST 14 units/L (5-40) 05/04/21 13:01 ALT < 5 units/L (7-56) L 05/04/21 13:01 Alkaline Phosphatase 102 units/L (35-129) 05/04/21 13:01 Troponin T 0.018 ng/mL (0.00-0.029) 05/04/21 13:01 Total Protein 6.4 g/dL (6.3-8.2) 05/04/21 13:01 Albumin 3.2 g/dL (3.9-5) L 05/04/21 13:01 Albumin/Globulin Ratio 1.0 % 05/04/21 13:01 Blood Type O POSITIVE 05/04/21 13:01 Antibody Screen Negative 05/04/21 13:01 Crossmatch See Detail 05/04/21 13:01 Vu/IV: Voiding Method Incontinent Active Medications - Current Medications Current Medications: Generic Name Dose Route Start Last Admin Trade Name Freq PRN Reason Stop Dose Admin Acetaminophen 650 mg 05/04/21 15:00 Acetaminophen 325 Mg Tab PO Q4H PRN Pain MILD(1-3)/Fever >100.5/FARRIS Albuterol 2.5 mg 05/04/21 15:00 Albuterol 2.5 Mg/3 Ml Nebu IH Q4HRT PRN Shortness Of Breath Hydromorphone HCl 0.5 mg 05/04/21 15:00 Hydromorphone 1 Mg/1 Ml Inj IV Q13H PRN Pain , Severe (7-10) Pantoprazole Sodium 80 mg/ 100 mls @ 10 mls/hr 05/04/21 13:00 05/06/21 05:50 Sodium Chloride IV 05/06/21 16:00 8 mg/hr DIRECT CASEY 10 mls/hr Administration 8 MG/HR Ondansetron HCl 4 mg 05/04/21 15:00 Ondansetron 4 Mg/2 Ml Inj IV Q8H PRN Nausea And Vomiting Oxycodone/Acetaminophen 1 tab 05/04/21 15:00 Oxycodone /Acetaminophen 5-325mg Tab PO Q6H PRN Pain, Moderate (4-6) Pantoprazole Sodium 40 mg 05/07/21 07:30 Pantoprazole 40 Mg Tab PO QDAC CASEY Sodium Chloride 10 ml 05/04/21 22:00 05/05/21 22:00 Sodium Chloride 0.9% 10 Ml Flush Syringe IV 10 ml BID CASEY Administration Sodium Chloride 10 ml 05/04/21 15:00 Sodium Chloride 0.9% 10 Ml Flush Syringe IV PRN PRN LINE FLUSH
--- NOTE | 2021-05-06 08:59 | Electrocardiograph Report ---
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
--- NOTE | 2021-05-06 09:14 | Gastroenterology Progress Note ---
Assessment and Plan 1. Upper gi bleed/anemia - s/p egd with esophagitis otherwise no significant findings. no overt gi bleeding since procedure. labs for today pending. cont PPI once daily. can resume diet as tolerated, recommend speech eval for reccs regarding appropriate diet for patient 1. abd pain with n/v - appears resolved. f/u labs for today and if worsening leukocytosis or recurrent symptoms, recommend ct scan Subjective Date of service: 05/06/21 Principal diagnosis: gi bleed Interval history: no events overnight, no signs overt gi bleeding since endoscopy Objective - Constitutional Vitals: Temp Pulse Resp BP Pulse Ox 98.0 F 67 18 144/70 98 05/06/21 08:02 05/06/21 08:02 05/06/21 08:02 05/06/21 08:02 05/06/21 08:02 General appearance: no acute distress - Respiratory Respiratory effort: normal Respiratory: bilateral: CTA - Cardiovascular Rhythm: regular Heart Sounds: Present: S1 & S2 - Gastrointestinal General gastrointestinal: Present: soft, non-tender, non-distended - Labs CBC & Chem 7: 05/05/21 05:12 05/04/21 13:01 Labs: Laboratory Results - last 24 hr 05/04/21 13:01 Blood Type O POSITIVE Antibody Screen Negative Crossmatch See Detail
[2021-05-06 10:13] LABS: Basophils # (Auto) 0.1 K/mm3 (0.0-0.1); Basophils % (Auto) 0.4 % (0.0-1.8); Eosinophils # (Auto) 0.1 K/mm3 (0.0-0.4); Eosinophils % (Auto) 0.5 % (0.0-4.3); Hematocrit 21.1 % (35.5-45.6); Lymphocytes # (Auto) 1.2 K/mm3 (1.2-5.4); Lymphocytes % (Auto) 7.1 % (13.4-35.0); Mean Corpuscular HGB Conc 33 % (32-34); Mean Corpuscular Volume 90 fl (84-94); Monocytes # (Auto) 0.5 K/mm3 (0.0-0.8); Monocytes % (Auto) 2.9 % (0.0-7.3); Platelet Count 201 K/mm3 (140-440); Red Blood Count 2.36 M/mm3 (3.65-5.03); Red Cell Distribution Width 17.5 % (13.2-15.2)
--- NOTE | 2021-05-06 16:47 | Cat Scan Report ---
CT head/brain wo con INDICATION: Altered mental status. TECHNIQUE: Routine CT head. All CT scans at this location are performed using CT dose reduction for A LUCA by means of automated exposure control. COMPARISON: 04/29/21. FINDINGS: Intracranial: Fish-white matter differentiation is maintained. Encephalomalacia in the right cerebell um from prior infarction. No intracranial hemorrhage. No extra axial collection. No hydrocephalus. No herniation. Periventricular and centrum semiovale white matter hypoattenuation most consistent with sequela of chronic microvascular disease. Sinuses: Paranasal sinuses and mastoid air cells are essentially clear. Orbits: Globes are intact. Calvarium: No acute fracture. IMPRESSION: 1. No acute intracranial abnormality. Signer Name: Kishore Hartmann MD Signed: 05/06/2021 4:43 PM Workstation Name: [id number]
[2021-05-06] MEDS: D5W/0.45% NACL 1,000 ML IV SCH (16:56)
[2021-05-06] MEDS ORDERED: cefTRIAXone/NS 1 GM/50 ML 1 GM/50 ML BAG IV SCH (21:00)
[2021-05-07] MEDS: D5W/0.45% NACL 1,000 ML IV SCH ×3 (07:11→20:29)
[2021-05-07] MEDS: PANTOPRAZOLE 40 MG TAB PO SCH (07:30)
[2021-05-07 08:02] LABS: Basophils % (Auto) 0.2 % (0.0-1.8); Eosinophils # (Auto) 0.3 K/mm3 (0.0-0.4); Eosinophils % (Auto) 1.8 % (0.0-4.3); Hematocrit 20.8 % (35.5-45.6); Hemoglobin 6.6 gm/dl (11.8-15.2); Lymphocytes # (Auto) 1.2 K/mm3 (1.2-5.4); Lymphocytes % (Auto) 7.5 % (13.4-35.0); Mean Corpuscular HGB Conc 32 % (32-34); Mean Corpuscular Volume 90 fl (84-94); Monocytes # (Auto) 0.5 K/mm3 (0.0-0.8); Monocytes % (Auto) 3.2 % (0.0-7.3); Platelet Count 208 K/mm3 (140-440); Red Blood Count 2.32 M/mm3 (3.65-5.03); Red Cell Distribution Width 16.9 % (13.2-15.2)
[2021-05-07 08:48] LABS: Blood Urea Nitrogen 11 mg/dL (9-20); Calcium 9.1 mg/dL (8.4-10.2); Hemolysis Index 2
[2021-05-07 08:54] LABS: BUN/Creatinine Ratio 22
[2021-05-07] MEDS ORDERED: SODIUM CHLORIDE 0.9% 500 ML 500 ML IV NR (09:06)
--- NOTE | 2021-05-07 09:13 | Progress Note ---
Assessment and Plan Assessment and plan: The patient is a 76 yo aam who presents with coffee ground emesis/upper gi bleed. pt presents from [facility], extensive medical history including cva, dementia, afib on anticoagulation. h/o SBO a couple years ago. reportedly with ugi bleeding signs last couple days, hypotensive on arrival Patient also has bradycardia with mild dizziness. Receiving second unit of PRBC transfusion --Bradycardia; symptomatic[patient had mild dizziness] check EKG heart rate ranges between 30-59 Patient has mild dizziness, check EKG Patient not on any AV noel blocking agents Cardiology evaluation if needed --Upper GI bleeding ; Closely monitor H&H and transfuse as needed --Acute blood loss anemia s/p 1 unit PRBC transfusion Today hemoglobin is 6.6, advised second unit of PRBC transfusion today --Alzheimer's/vascular dementia --Atrial fibrillation; low heart rate Closely monitor, patient is not on any AV noel blocking agents --Cerebral atherosclerosis --Bipolar disorder Closely monitor the patient and adjust management as needed Plan of care reviewed with the patient and his nurse 05/05/2021. Patient to receive PRBCs. Follow-up H&H. GI has been consulted and plans for EGD in a.m. 05/06/2021. EGD revealed mild esophagitis and hiatal hernia. Otherwise unremarkable upper endoscopy. Patient's diet was resumed. Continue PPI daily. Patient is s/p 1 unit PRBCs. Follow-up H&H and transfuse for hemoglobin less than 7 05/07/2021; cardiology consult, EKG, follow posttransfusion H&H, if less than 7 additional 1 unit PRBC transfusion Follow cardiology evaluation recommendations History Interval history: I have seen and examined the patient at the bedside Patient's chart and med medications reviewed Patient is receiving blood transfusion due to severe anemia due to GI bleeding Patient also complains of mild dizziness, multifactorial Due to severe anemia, bradycardia[symptomatic bradycardia] Vital signs noted Hospitalist Physical - Constitutional Vitals: Temp Pulse Resp BP Pulse Ox 97.8 F 69 21 128/70 96 05/07/21 07:56 05/07/21 04:13 05/07/21 07:56 05/07/21 07:56 05/07/21 04:13 General appearance: Present: no acute distress, well-nourished - EENT Eyes: Present: PERRL, EOM intact - Neck Neck: Present: supple, normal ROM - Respiratory Respiratory effort: normal Respiratory: bilateral: diminished, negative: rales, rhonchi, wheezing - Cardiovascular Rhythm: regular Heart Sounds: Present: S1 & S2 (Bradycardia) - Extremities Extremities: no ischemia, pulses intact Peripheral Pulses: within normal limits - Abdominal General gastrointestinal: soft, non-tender, non-distended, normal bowel sounds - Integumentary Integumentary: Present: clear, warm - Psychiatric Psychiatric: appropriate mood/affect, cooperative - Neurologic Neurologic: CNII-XII intact, moves all extremities HEART Score - HEART Score Troponin: Troponin T 0.014 ng/mL (0.00-0.029) 05/06/21 19:27 Results - Labs CBC & Chem 7: 05/07/21 18:39 05/07/21 07:49 Labs: Laboratory Last Values WBC 15.6 K/mm3 (4.5-11.0) H 05/07/21 07:49 RBC 2.32 M/mm3 (3.65-5.03) L 05/07/21 07:49 Hgb 6.6 gm/dl (11.8-15.2) L 05/07/21 07:49 Hct 20.8 % (35.5-45.6) L 05/07/21 07:49 MCV 90 fl (84-94) 05/07/21 07:49 MCH 29 pg (28-32) 05/07/21 07:49 MCHC 32 % (32-34) 05/07/21 07:49 RDW 16.9 % (13.2-15.2) H 05/07/21 07:49 Plt Count 208 K/mm3 (140-440) 05/07/21 07:49 Lymph % (Auto) 7.5 % (13.4-35.0) L 05/07/21 07:49 [place] % (Auto) 3.2 % (0.0-7.3) 05/07/21 07:49 Eos % (Auto) 1.8 % (0.0-4.3) 05/07/21 07:49 Baso % (Auto) 0.2 % (0.0-1.8) 05/07/21 07:49 Lymph # (Auto) 1.2 K/mm3 (1.2-5.4) 05/07/21 07:49 [place] # (Auto) 0.5 K/mm3 (0.0-0.8) 05/07/21 07:49 Eos # (Auto) 0.3 K/mm3 (0.0-0.4) 05/07/21 07:49 Baso # (Auto) 0.0 K/mm3 (0.0-0.1) 05/07/21 07:49 Seg Neutrophils % 87.3 % (40.0-70.0) H 05/07/21 07:49 Seg Neutrophils # 13.6 K/mm3 (1.8-7.7) H 05/07/21 07:49 PT 15.8 Sec. (12.2-14.9) H 05/04/21 14:47 INR 1.13 (0.87-1.13) 05/04/21 14:47 APTT 29.0 Sec. (24.2-36.6) 05/04/21 13:01 Sodium 149 mmol/L (137-145) H 05/07/21 07:49 Potassium 3.5 mmol/L (3.6-5.0) L 05/07/21 07:49 Chloride 110.0 mmol/L (98-107) H 05/07/21 07:49 Carbon Dioxide 30 mmol/L (22-30) 05/07/21 07:49 Anion Gap 13 mmol/L 05/07/21 07:49 BUN 11 mg/dL (9-20) 05/07/21 07:49 Creatinine 0.5 mg/dL (0.8-1.3) L 05/07/21 07:49 Estimated GFR > 60 ml/min 05/07/21 07:49 BUN/Creatinine Ratio 22 % 05/07/21 07:49 Glucose 99 mg/dL (75-100) 05/07/21 07:49 POC Glucose 89 mg/dL (70-105) 05/06/21 17:37 Calcium 9.1 mg/dL (8.4-10.2) 05/07/21 07:49 Total Bilirubin 0.40 mg/dL (0.1-1.2) 05/04/21 13:01 AST 14 units/L (5-40) 05/04/21 13:01 ALT < 5 units/L (7-56) L 05/04/21 13:01 Alkaline Phosphatase 102 units/L (35-129) 05/04/21 13:01 Troponin T 0.014 ng/mL (0.00-0.029) 05/06/21 19:27 Total Protein 6.4 g/dL (6.3-8.2) 05/04/21 13:01 Albumin 3.2 g/dL (3.9-5) L 05/04/21 13:01 Albumin/Globulin Ratio 1.0 % 05/04/21 13:01 Blood Type O POSITIVE 05/04/21 13:01 Antibody Screen Negative 05/04/21 13:01 Crossmatch See Detail 05/04/21 13:01 Vu/IV: Voiding Method Incontinent Active Medications - Current Medications Current Medications: Generic Name Dose Route Start Last Admin Trade Name Freq PRN Reason Stop Dose Admin Acetaminophen 650 mg 05/04/21 15:00 Acetaminophen 325 Mg Tab PO Q4H PRN Pain MILD(1-3)/Fever >100.5/FARRIS Albuterol 2.5 mg 05/04/21 15:00 Albuterol 2.5 Mg/3 Ml Nebu IH Q4HRT PRN Shortness Of Breath Hydromorphone HCl 0.5 mg 05/04/21 15:00 Hydromorphone 1 Mg/1 Ml Inj IV Q13H PRN Pain , Severe (7-10) Dextrose/Sodium Chloride 1,000 mls @ 75 mls/hr 05/06/21 17:00 05/07/21 07:19 D5/0.45ns IV 75 mls/hr DIRECT CASEY Administration Ceftriaxone Sodium 1 gm in 50 mls @ 100 mls/hr 05/06/21 21:00 05/06/21 21:03 Rocephin/Ns 1 Gm/50 Ml IV 100 mls/hr Q24H CASEY Administration Protocol Sodium Chloride 500 mls @ 0 mls/hr 05/07/21 09:06 Nacl 0.9% 500 Ml IV 05/07/21 09:07 ONCE ONE As Directed Ondansetron HCl 4 mg 05/04/21 15:00 Ondansetron 4 Mg/2 Ml Inj IV Q8H PRN Nausea And Vomiting Oxycodone/Acetaminophen 1 tab 05/04/21 15:00 Oxycodone /Acetaminophen 5-325mg Tab PO Q6H PRN Pain, Moderate (4-6) Pantoprazole Sodium 40 mg 05/07/21 07:30 05/07/21 07:30 Pantoprazole 40 Mg Tab PO Not Given QDAC CASEY Sodium Chloride 10 ml 05/04/21 22:00 05/06/21 21:03 Sodium Chloride 0.9% 10 Ml Flush Syringe IV 10 ml BID CASEY Administration Sodium Chloride 10 ml 05/04/21 15:00 Sodium Chloride 0.9% 10 Ml Flush Syringe IV PRN PRN LINE FLUSH
--- NOTE | 2021-05-07 10:56 | Electrocardiograph Report ---
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
--- NOTE | 2021-05-07 17:01 | Consultation ---
History of Present Illness Consult date: 05/07/21 Requesting physician: KAITLIN MASTERS Consult reason: bradycardia History of present illness: Patient is 76-year-old male with a past medical history of A. fib, bipolar disorder, debility, dementia, Alzheimer, history of CVA, and hypertension who came to the ED from a assisted facility on 05/04/2021 for complaint of coffee-ground emesis and hypotension. History is taken for documentation due to patient's mental status. Patient had EGD done and was found to have esophagitis. Per conversation with staff patient has been having episodes of bradycardia into the 30s-40s for the last 2 days on monitor. Patient denies any complaints of chest pain, shortness of breath, nausea, diaphoresis or lighth eadedness. Per charting patient's blood pressures appears to be stable while being bradycardic. Patient is previously known to our practice cardiology is consulted for bradycardia Past History Past Medical History: atrial fib, hypertension, stroke, other (See HPI) Past Surgical History: No surgical history, Other (Reviewed) Social history: . denies: smoking, alcohol abuse Family history: diabetes, hypertension Medications and Allergies Allergies Allergy/AdvReac Type Severity Reaction Status Date / Time peanut Allergy Itching Verified 05/04/21 12:35 Home Medications Medication Instructions Recorded Confirmed Last Taken Type Apixaban [Eliquis] 5 mg PO BID 12/01/20 05/05/21 Unknown History Aspirin [Aspirin BABY CHEW TAB] 81 mg PO QDAY 12/01/20 05/05/21 Unknown History AtorvaSTATin [Lipitor] 40 mg PO QHS 12/01/20 05/05/21 Unknown History Carbidopa/Levodopa 25-100 [Sinemet] 1 each PO TID 12/01/20 05/05/21 Unknown History Divalproex [Elvia Suarez] 500 mg PO BID 12/01/20 05/05/21 Unknown History Flecainide [Tambocor] 100 mg PO Q12H 12/01/20 05/05/21 Unknown History Loratadine 10 mg PO QDAY 12/01/20 05/05/21 Unknown History Metoprolol Tartrate [Lopressor] 25 mg PO QDAY 12/01/20 05/05/21 Unknown History Mirtazapine 7.5 mg PO QHS 12/01/20 05/05/21 Unknown History Oxybutynin Chloride [Ditropan Xl] 5 mg PO BID 12/01/20 05/05/21 Unknown History amantadine HCL [Amantadine] 100 mg PO BID 12/01/20 05/05/21 Unknown History Pantoprazole [Protonix] 40 mg PO QDAY 30 Days #30 tablet 12/07/20 05/05/21 Unknown Rx Active Meds: Active Medications Acetaminophen (Acetaminophen 325 Mg Tab) 650 mg PO Q4H PRN PRN Reason: Pain MILD(1-3)/Fever >100.5/FARRIS Albuterol (Albuterol 2.5 Mg/3 Ml Nebu) 2.5 mg IH Q4HRT PRN PRN Reason: Shortness Of Breath Hydromorphone HCl (Hydromorphone 1 Mg/1 Ml Inj) 0.5 mg IV Q13H PRN PRN Reason: Pain , Severe (7-10) Dextrose/Sodium Chloride (D5/0.45ns) 1,000 mls @ 75 mls/hr IV DIRECT [facility] Last Admin: 05/07/21 07:19 Dose: 75 mls/hr Sodium Chloride (Nacl 0.9% 500 Ml) 500 mls @ 0 mls/hr IV ONCE NR Stop: 05/08/21 09:05 Last Admin: 05/07/21 13:08 Dose: 50 mls/hr Ondansetron HCl (Ondansetron 4 Mg/2 Ml Inj) 4 mg IV Q8H PRN PRN Reason: Nausea And Vomiting Oxycodone/Acetaminophen (Oxycodone /Acetaminophen 5-325mg Tab) 1 tab PO Q6H PRN PRN Reason: Pain, Moderate (4-6) Pantoprazole Sodium (Pantoprazole 40 Mg Tab) 40 mg PO QDAC [facility] Last Admin: 05/07/21 07:30 Dose: Not Given Sodium Chloride (Sodium Chloride 0.9% 10 Ml Flush Syringe) 10 ml IV BID [facility] Last Admin: 05/07/21 13:07 Dose: 10 ml Sodium Chloride (Sodium Chloride 0.9% 10 Ml Flush Syringe) 10 ml IV PRN PRN PRN Reason: LINE FLUSH Review of Systems Constitutional: no weight loss, no weight gain Ears, nose, mouth and throat: no nasal discharge, no sinus pressure, no sinus pain Cardiovascular: no chest pain, no orthopnea, no palpitations, no shortness of breath, no dyspnea on exertion Respiratory: no shortness of breath, no dyspnea on exertion Gastrointestinal: no abdominal pain Musculoskeletal: no neck stiffness, no neck pain Integumentary: no rash, no pruritis, no redness, no sores Neurological: no head injury, no transient paralysis Psychiatric: no anxiety, no memory loss Endocrine: no cold intolerance, no heat intolerance Physical Examination Vital Signs Temp Pulse Resp BP Pulse Ox 97.9 F 51 L 16 98/62 98 05/04/21 12:30 05/04/21 12:30 05/04/21 12:30 05/04/21 12:30 05/04/21 12:30 General appearance: no acute distress HEENT: Positive: Normocephaly Neck: Positive: trachea midline Cardiac: Positive: irregularly irregular, Bradycardia Lungs: Positive: Normal Breath Sounds Neuro: Positive: Other Abdomen: Positive: Soft Skin: Negative: Rash, Suspicious Lesions, Ulceration Extremities: Present: upper extr. pulses, edema Results 05/07/21 18:39 05/07/21 07:49 CBC 05/07/21 Range/Units 07:49 WBC 15.6 H (4.5-11.0) K/mm3 RBC 2.32 L (3.65-5.03) M/mm3 Hgb 6.6 L (11.8-15.2) gm/dl Hct 20.8 L (35.5-45.6) % Plt Count 208 (140-440) K/mm3 Lymph # (Auto) 1.2 (1.2-5.4) K/mm3 [place] # (Auto) 0.5 (0.0-0.8) K/mm3 Eos # (Auto) 0.3 (0.0-0.4) K/mm3 Baso # (Auto) 0.0 (0.0-0.1) K/mm3 Comprehensive Metabolic Panel 05/07/21 Range/Units 07:49 Sodium 149 H (137-145) mmol/L Potassium 3.5 L (3.6-5.0) mmol/L Chloride 110.0 H (98-107) mmol/L Carbon Dioxide 30 (22-30) mmol/L BUN 11 (9-20) mg/dL Creatinine 0.5 L (0.8-1.3) mg/dL Glucose 99 (75-100) mg/dL Calcium 9.1 (8.4-10.2) mg/dL - Imaging and Cardiology Echo: pending EKG interpretations - Telemetry EKG Rhythm: Atrial Fibrillation - EKG Supraventricular dysrhythmia: atrial fibrillation Repolarization changes or abnormalities: Q-T interval prolongation Assessment and Plan Patient is 76-year-old male with a past medical history of A. fib, bipolar disorder, debility, dementia, Alzheimer, history of CVA, and hypertension who came to the ED from a assisted facility on 05/04/2021 for complaint of coffee-ground emesis and hypotension Esophagitis-GI following Anemia requiring PRBCs A. fib Bradycardia Dementia/Alzheimer's History of CVA Hypertension Plan: EKG shows bradycardia with a irregular rate 53 prolonged QT. No acute ischemic changes patient denies any complaints of chest pain Telemetry rhythm was reviewed patient appears to be in a slow A. fib. Patient does not appear to have a heart block. Furthermore patient's blood pressure appears to be stable with systolic blood pressure trending in the 120s to 140s If patient becomes hemodynamically unstable recommend using pacing pads and transcutaneously pacing patient Continue to closely monitor and to hold any AV noel agents If patient heart rate does not appear to have been improved will consider EP consult Hold anticoagulation due to anemia requiring PRBC transfusion Echo pending Patient seen in conjunction with Dr. Ibrahim who agrees with this plan of care - Patient Problems (1) Bipolar disorder Current Visit: Yes Status: Acute (2) Cerebral atherosclerosis Current Visit: Yes Status: Acute (3) GI bleed Current Visit: Yes Status: Acute (4) Vascular dementia Current Visit: Yes Status: Acute Qualifiers: Dementia behavioral disturbance: without behavioral disturbance Qualified Code(s): F01.50 - Vascular dementia without behavioral disturbance (5) Alzheimer disease Current Visit: No Status: Acute (6) Atrial fibrillation Current Visit: No Status: Acute Qualifiers: Atrial fibrillation type: longstanding persistent Qualified Code(s): I48.11 - Longstanding persistent atrial fibrillation (7) Erosive esophagitis Current Visit: No Status: Acute (8) Leukocytosis Current Visit: No Status: Acute Qualifiers: Leukocytosis type: unspecified Qualified Code(s): D72.829 - Elevated white blood cell count, unspecified (9) Upper GI bleed Current Visit: No Status: Acute
--- NOTE | 2021-05-07 17:35 | Gastroenterology Progress Note ---
Assessment and Plan Anemia - s/p egd due to coffee ground emesis with esophagitis otherwise no high risk bleeding lesions. no overt bleeding last couple days. cont anti-acid medication once daily abd pain - appears resolved, no further n/v episodes. diet per speech recommendations will sign off, please call as needed Subjective Date of service: 05/07/21 Principal diagnosis: gi bleed Interval history: no overt bleeding episodes overnight/today. Objective - Constitutional Vitals: Temp Pulse Resp BP Pulse Ox 98.2 F 78 18 173/75 95 05/07/21 16:01 05/07/21 12:40 05/07/21 16:01 05/07/21 16:01 05/07/21 17:04 General appearance: no acute distress - Respiratory Respiratory effort: normal Respiratory: bilateral: CTA - Cardiovascular Rhythm: regular Heart Sounds: Present: S1 & S2 - Gastrointestinal General gastrointestinal: Present: soft, non-tender - Labs CBC & Chem 7: 05/07/21 07:49 05/07/21 07:49 Labs: Laboratory Results - last 24 hr 05/04/21 05/06/21 05/06/21 13:01 16:44 17:37 WBC RBC Hgb Hct MCV MCH MCHC RDW Plt Count Lymph % (Auto) Miner % (Auto) Eos % (Auto) Baso % (Auto) Lymph # (Auto) Miner # (Auto) Eos # (Auto) Baso # (Auto) Seg Neutrophils % Seg Neutrophils # Sodium Potassium Chloride Carbon Dioxide Anion Gap BUN Creatinine Estimated GFR BUN/Creatinine Ratio Glucose POC Glucose 94 89 Calcium Troponin T Blood Type O POSITIVE Antibody Screen Negative Crossmatch See Detail 05/06/21 05/07/21 05/07/21 19:27 07:49 07:49 WBC 15.6 H RBC 2.32 L Hgb 6.6 L Hct 20.8 L MCV 90 MCH 29 MCHC 32 RDW 16.9 H Plt Count 208 Lymph % (Auto) 7.5 L Miner % (Auto) 3.2 Eos % (Auto) 1.8 Baso % (Auto) 0.2 Lymph # (Auto) 1.2 Miner # (Auto) 0.5 Eos # (Auto) 0.3 Baso # (Auto) 0.0 Seg Neutrophils % 87.3 H Seg Neutrophils # 13.6 H Sodium 149 H Potassium 3.5 L Chloride 110.0 H Carbon Dioxide 30 Anion Gap 13 BUN 11 Creatinine 0.5 L Estimated GFR > 60 BUN/Creatinine Ratio 22 Glucose 99 POC Glucose Calcium 9.1 Troponin T 0.014 Blood Type Antibody Screen Crossmatch
[2021-05-07 19:46] LABS: Hematocrit 23.3 % (35.5-45.6); Hemoglobin 7.7 gm/dl (11.8-15.2)
[2021-05-08] MEDS: D5W/0.45% NACL 1,000 ML IV SCH ×2 (10:32→23:04)
[2021-05-08] MEDS: PANTOPRAZOLE 40 MG INJ IV SCH (10:32)
[2021-05-08 11:15] LABS: Hematocrit 24.1 % (35.5-45.6); Hemoglobin 7.7 gm/dl (11.8-15.2); Mean Corpuscular HGB Conc 32 % (32-34); Mean Corpuscular Volume 91 fl (84-94); Platelet Count 248 K/mm3 (140-440); Red Blood Count 2.67 M/mm3 (3.65-5.03); Red Cell Distribution Width 17.3 % (13.2-15.2)
[2021-05-08] MEDS: PANTOPRAZOLE 40 MG TAB PO SCH (11:32)
[2021-05-08 11:36] LABS: Blood Urea Nitrogen 8 mg/dL (9-20); Calcium 8.8 mg/dL (8.4-10.2); Hemolysis Index 0
[2021-05-08 11:48] LABS: BUN/Creatinine Ratio 16
--- NOTE | 2021-05-08 14:42 | Progress Note ---
Assessment and Plan Assessment and plan: --COVID-19 infection Dan PCR test positive/05/08/2021 Contact and droplet isolation Chest x-ray to rule out pneumonia Inflammatory markers O2 evaluation, patient is on 2 L of nasal cannula oxygen Home O2 evaluation prior to discharge Prone positioning ID consult, pulmonary consult as needed --Bradycardia; symptomatic[patient had mild dizziness] check EKG heart rate ranges between 30-59 Patient not on any AV noel blocking agents Cardiology following, EP cardiology evaluation and possible PPM/AICD placement --Upper GI bleeding ; Closely monitor H&H and transfuse as needed GI evaluated ,status post endoscopy, cleared for discharge --Acute blood loss anemia Patient received total 2 units of PRBC Hb improved to 7.7 Monitor H&H additional transfusion as needed --Alzheimer's/vascular dementia --Atrial fibrillation; low heart rate Closely monitor, patient is not on any AV noel blocking agents --Cerebral atherosclerosis --Bipolar disorder; continue psych medications Closely monitor the patient and adjust management as needed Plan of care reviewed with the patient and his nurse Advance care plan;+30min Patient is COVID 19+, transfer the patient to [facility] floor, placed on isolation, ordered inflammatory markers, chest x-ray Also called the family x2, to discuss about patient's condition, to discuss about patient's prognosis, to discuss the goals of treatment And also to discuss the CODE STATUS, could not reach them, I will call again tomorrow Informed the patient's nurse. Advance care planning spent additional 32 minutes Brief history and daily hospital course; The patient is a 76 yo aam who presents with coffee ground emesis/upper gi bleed. pt presents from [facility], extensive medical history including cva, dementia, afib on anticoagulation. h/o SBO a couple years ago. reportedly with ugi bleeding signs last couple days, hypotensive on arrival Patient also has bradycardia with mild dizziness. 05/05/2021. Patient to receive PRBCs. Follow-up H&H. GI has been consulted and plans for EGD in a.m. 05/06/2021. EGD revealed mild esophagitis and hiatal hernia. Otherwise unremarkable upper endoscopy. Patient's diet was resumed. Continue PPI daily. Patient is s/p 1 unit PRBCs. Follow-up H&H and transfuse for hemoglobin less than 7 05/07/2021; cardiology consult, EKG, follow posttransfusion H&H, if less than 7 additional 1 unit PRBC transfusion Follow cardiology evaluation recommendations 05/08/2021; we will check with the family about patient's baseline status and about the goals of treatment and CODE STATUS Today's positive Covid test, his bradycardia and cardiologists plans of possible procedure. However I was not able to reach him As nobody picked up the phone and voicemail was not set up, I tried twice, will try again tomorrow Patient was transferred to [facility] unit with isolation precautions, will consult ID tomorrow History Interval history: I have seen and examined the patient at the bedside Patient's chart and medications reviewed Patient's COVID-19 is positive Pleasant droplet and contact isolation Transfer the patient to cold floor [facility] third floor Patient is afebrile Hospitalist Physical - Constitutional Vitals: Temp Pulse Resp BP Pulse Ox 96.7 F L 41 L 20 148/73 100 05/08/21 12:59 05/08/21 13:58 05/08/21 12:59 05/08/21 12:59 05/08/21 12:59 General appearance: Present: mild distress, well-nourished, other (On 2 L nasal cannula oxygen) - EENT Eyes: Present: PERRL, EOM intact - Neck Neck: Present: supple, normal ROM - Respiratory Respiratory effort: normal Respiratory: bilateral: diminished, rhonchi, negative: rales, wheezing - Cardiovascular Rhythm: regular Heart Sounds: Present: S1 & S2 - Extremities Extremities: no ischemia, No edema - Abdominal General gastrointestinal: soft, non-tender, non-distended, normal bowel sounds - Integumentary Integumentary: Present: clear, warm - Psychiatric Psychiatric: appropriate mood/affect, cooperative - Neurologic Neurologic: CNII-XII intact, moves all extremities HEART Score - HEART Score Troponin: Troponin T 0.014 ng/mL (0.00-0.029) 05/06/21 19:27 Results - Labs CBC & Chem 7: 05/08/21 10:43 05/08/21 10:43 Labs: Laboratory Last Values WBC 11.7 K/mm3 (4.5-11.0) H 05/08/21 10:43 RBC 2.67 M/mm3 (3.65-5.03) L 05/08/21 10:43 Hgb 7.7 gm/dl (11.8-15.2) L 05/08/21 10:43 Hct 24.1 % (35.5-45.6) L 05/08/21 10:43 MCV 91 fl (84-94) 05/08/21 10:43 MCH 29 pg (28-32) 05/08/21 10:43 MCHC 32 % (32-34) 05/08/21 10:43 RDW 17.3 % (13.2-15.2) H 05/08/21 10:43 Plt Count 248 K/mm3 (140-440) 05/08/21 10:43 Lymph % (Auto) 7.5 % (13.4-35.0) L 05/07/21 07:49 Cobb % (Auto) 3.2 % (0.0-7.3) 05/07/21 07:49 Eos % (Auto) 1.8 % (0.0-4.3) 05/07/21 07:49 Baso % (Auto) 0.2 % (0.0-1.8) 05/07/21 07:49 Lymph # (Auto) 1.2 K/mm3 (1.2-5.4) 05/07/21 07:49 Cobb # (Auto) 0.5 K/mm3 (0.0-0.8) 05/07/21 07:49 Eos # (Auto) 0.3 K/mm3 (0.0-0.4) 05/07/21 07:49 Baso # (Auto) 0.0 K/mm3 (0.0-0.1) 05/07/21 07:49 Seg Neutrophils % 87.3 % (40.0-70.0) H 05/07/21 07:49 Seg Neutrophils # 13.6 K/mm3 (1.8-7.7) H 05/07/21 07:49 PT 15.8 Sec. (12.2-14.9) H 05/04/21 14:47 INR 1.13 (0.87-1.13) 05/04/21 14:47 APTT 29.0 Sec. (24.2-36.6) 05/04/21 13:01 Sodium 150 mmol/L (137-145) H 05/08/21 10:43 Potassium 3.6 mmol/L (3.6-5.0) 05/08/21 10:43 Chloride 110.1 mmol/L (98-107) H 05/08/21 10:43 Carbon Dioxide 29 mmol/L (22-30) 05/08/21 10:43 Anion Gap 15 mmol/L 05/08/21 10:43 BUN 8 mg/dL (9-20) L 05/08/21 10:43 Creatinine 0.5 mg/dL (0.8-1.3) L 05/08/21 10:43 Estimated GFR > 60 ml/min 05/08/21 10:43 BUN/Creatinine Ratio 16 % 05/08/21 10:43 Glucose 94 mg/dL (75-100) 05/08/21 10:43 POC Glucose 89 mg/dL (70-105) 05/06/21 17:37 Calcium 8.8 mg/dL (8.4-10.2) 05/08/21 10:43 Total Bilirubin 0.40 mg/dL (0.1-1.2) 05/04/21 13:01 AST 14 units/L (5-40) 05/04/21 13:01 ALT < 5 units/L (7-56) L 05/04/21 13:01 Alkaline Phosphatase 102 units/L (35-129) 05/04/21 13:01 Troponin T 0.014 ng/mL (0.00-0.029) 05/06/21 19:27 Total Protein 6.4 g/dL (6.3-8.2) 05/04/21 13:01 Albumin 3.2 g/dL (3.9-5) L 05/04/21 13:01 Albumin/Globulin Ratio 1.0 % 05/04/21 13:01 Coronavirus (PCR) Positive (Negative) A 05/08/21 10:50 Blood Type O POSITIVE 05/04/21 13:01 Antibody Screen Negative 05/04/21 13:01 Crossmatch See Detail 05/04/21 13:01 Vu/IV: Voiding Method Condom Catheter Active Medications - Current Medications Current Medications: Generic Name Dose Route Start Last Admin Trade Name Freq PRN Reason Stop Dose Admin Acetaminophen 650 mg 05/04/21 15:00 Acetaminophen 325 Mg Tab PO Q4H PRN Pain MILD(1-3)/Fever >100.5/FARRIS Albuterol 2.5 mg 05/04/21 15:00 Albuterol 2.5 Mg/3 Ml Nebu IH Q4HRT PRN Shortness Of Breath Hydromorphone HCl 0.5 mg 05/04/21 15:00 Hydromorphone 1 Mg/1 Ml Inj IV Q13H PRN Pain , Severe (7-10) Dextrose/Sodium Chloride 1,000 mls @ 75 mls/hr 05/06/21 17:00 05/08/21 10:32 D5/0.45ns IV 75 mls/hr DIRECT CASEY Administration Ondansetron HCl 4 mg 05/04/21 15:00 Ondansetron 4 Mg/2 Ml Inj IV Q8H PRN Nausea And Vomiting Oxycodone/Acetaminophen 1 tab 05/04/21 15:00 Oxycodone /Acetaminophen 5-325mg Tab PO Q6H PRN Pain, Moderate (4-6) Pantoprazole Sodium 40 mg 05/08/21 10:00 05/08/21 10:32 Pantoprazole 40 Mg Inj IV 40 mg QDAY CASEY Administration Sodium Chloride 10 ml 05/04/21 22:00 05/08/21 10:32 Sodium Chloride 0.9% 10 Ml Flush Syringe IV 10 ml BID CASEY Administration Sodium Chloride 10 ml 05/04/21 15:00 Sodium Chloride 0.9% 10 Ml Flush Syringe IV PRN PRN LINE FLUSH
--- NOTE | 2021-05-08 16:19 | Progress Note ---
Assessment and Plan Patient is 76-year-old male with a past medical history of A. fib, bipolar disorder, debility, dementia, Alzheimer, history of CVA, and hypertension who came to the ED from a [facility] facility on 05/[facility]/2021 for complaint of coffee-ground emesis and hypotension Covid+ Esophagitis-GI following Anemia requiring PRBCs A. fib Bradycardia Dementia/Alzheimer's History of CVA Hypertension Echo 05/07/2021-EF 50% normal LV systolic function. Right ventricle is dilated right ventricle systolic function is normal. Left atrium is normal in size. Right atrium is. Mild diastolic function depression relaxation pattern. No pericardial effusion Plan: Patient tested positive for COVID-19 today Patient remains in A. fib with episodes of bradycardic into the 30s and 40s. However patient's blood pressure appears to be stable with systolic blood pressure trending in the 120s to 140s If patient becomes hemodynamically unstable recommend using pacing pads and transcutaneously pacing patient Continue to closely monitor and to hold any AV noel agents EP consulted due to slow A. fib with episodes into bradycardia. Pending EP recommendations Hold anticoagulation due to anemia requiring PRBC transfusion Patient seen in conjunction with Dr. Ibrahim who agrees with this plan of care - Patient Problems (1) Bipolar disorder Current Visit: Yes Status: Acute (2) Cerebral atherosclerosis Current Visit: Yes Status: Acute (3) GI bleed Current Visit: Yes Status: Acute (4) Vascular dementia Current Visit: Yes Status: Acute Qualifiers: Dementia behavioral disturbance: without behavioral disturbance Qualified Code(s): F01.50 - Vascular dementia without behavioral disturbance (5) Alzheimer disease Current Visit: No Status: Acute (6) Atrial fibrillation Current Visit: No Status: Acute Qualifiers: Atrial fibrillation type: longstanding persistent Qualified Code(s): I48.11 - Longstanding persistent atrial fibrillation (7) Erosive esophagitis Current Visit: No Status: Acute (8) Leukocytosis Current Visit: No Status: Acute Qualifiers: Leukocytosis type: unspecified Qualified Code(s): D72.829 - Elevated white blood cell count, unspecified (9) Upper GI bleed Current Visit: No Status: Acute Subjective Date of service: 05/08/21 Principal diagnosis: gi bleed Interval history: Patient remains demented altered mental status A. fib on monitor episodes as low into the 40s and patient's rate go right back up to a rate of 60 Objective Vital Signs Temp Pulse Resp BP BP Pulse Ox 05/08/21 13:58 41 L 05/08/21 12:59 96.7 F L 65 20 148/73 100 05/08/21 09:36 96 05/08/21 08:13 16 97 05/08/21 04:10 97.5 F L 61 18 134/77 93 05/08/21 00:06 98.5 F 47 L 18 124/64 95 05/07/21 23:25 99 05/07/21 22:33 96 05/07/21 19:29 98.0 F 76 19 138/67 94 05/07/21 17:04 95 - Physical Examination General: No Apparent Distress HEENT: Positive: Normocephaly Neck: Positive: trachea midline Cardiac: Positive: irregularly irregular Lungs: Positive: Normal Breath Sounds Neuro: Positive: Other Abdomen: Positive: Soft Skin: Negative: Rash, Suspicious Lesions, Ulceration Extremities: Present: upper extr. pulses, edema - Labs and Meds CBC 05/07/21 05/08/21 Range/Units 18:39 10:43 WBC 11.7 H (4.5-11.0) K/mm3 RBC 2.67 L (3.65-5.03) M/mm3 Hgb 7.7 L 7.7 L (11.8-15.2) gm/dl Hct 23.3 L 24.1 L (35.5-45.6) % Plt Count 248 (140-440) K/mm3 Comprehensive Metabolic Panel 05/08/21 Range/Units 10:43 Sodium 150 H (137-145) mmol/L Potassium 3.6 (3.6-5.0) mmol/L Chloride 110.1 H (98-107) mmol/L Carbon Dioxide 29 (22-30) mmol/L BUN 8 L (9-20) mg/dL Creatinine 0.5 L (0.8-1.3) mg/dL Glucose 94 (75-100) mg/dL Calcium 8.8 (8.4-10.2) mg/dL - Imaging and Cardiology Echo: report reviewed - Telemetry EKG Rhythm: Atrial Fibrillation - EKG Supraventricular dysrhythmia: atrial fibrillation Repolarization changes or abnormalities: Q-T interval prolongation
--- NOTE | 2021-05-08 19:41 | Event Note ---
Date: 05/08/21 I tried to reach Patient's Son , Ridge Parker at [phone] to discuss about the patient's condition, tests and reports, pending cardiology procedure tomorrow, positive Covid status, goals of treatment, CODE STATUS and the prognosis. I called this number twice, could not reach as nobody picked up the phone, the voicemail box was not set up. Unable to leave a message to call back. I will try to reach out to him tomorrow again. And also will discuss with the case management tomorrow.
--- NOTE | 2021-05-08 20:50 | XRay Report ---
CHEST 1 VIEW INDICATION / CLINICAL INFORMATION: COVID-19 infection/rule out pneumonia STUDY TIME: 2022 COMPARISON: 12/01/2020 FINDINGS: SUPPORT DEVICES: None HEART / MEDIASTINUM: No significant abnormality. LUNGS / PLEURA: No significant acute pulmonary or pleural abnormality. No pneumothorax. ADDITIONAL FINDINGS: No significant additional findings. Signer Name: Claudio Santoro MD Signed: 05/08/2021 8:46 PM Workstation Name: [id number]
[2021-05-08] MEDS: ASCORBIC ACID 500 MG TAB PO SCH (21:16)
[2021-05-08] MEDS ORDERED: ENOXAPARIN 40 MG/0.4 ML INJ SUB-Q SCH (22:00)
[2021-05-08 22:11] LABS: C-Reactive Protein 10.5 mg/dL (0.00-1.30)
[2021-05-09] MEDS ORDERED: SODIUM CHLORIDE 0.9% 1000 ML 1,000 ML IV ONE (08:00)
[2021-05-09 08:53] LABS: Hematocrit 21.9 % (35.5-45.6); Hemoglobin 7.1 gm/dl (11.8-15.2); Mean Corpuscular HGB Conc 33 % (32-34); Mean Corpuscular Volume 90 fl (84-94); Platelet Count 270 K/mm3 (140-440); Red Blood Count 2.44 M/mm3 (3.65-5.03); Red Cell Distribution Width 17.2 % (13.2-15.2)
[2021-05-09 09:12] LABS: Blood Urea Nitrogen 7 mg/dL (9-20); Calcium 8.8 mg/dL (8.4-10.2); Hemolysis Index 7
[2021-05-09] MEDS: CHOLECALCIFEROL (VIT D3) 1000 UNIT (25 mcg) TAB PO SCH (09:12)
[2021-05-09] MEDS: ASCORBIC ACID 500 MG TAB PO SCH ×2 (09:12→21:46)
[2021-05-09 09:13] LABS: BUN/Creatinine Ratio 18
[2021-05-09] MEDS: PANTOPRAZOLE 40 MG INJ IV SCH (09:13)
[2021-05-09] MEDS ORDERED: dexAMETHasone 4 MG/ML VIAL IV SCH (10:00)
--- NOTE | 2021-05-09 11:20 | Electrocardiograph Report ---
[facility] Test Date: 2021-05-07 Test Time: 12:14:48 Pat Name: EVAN HERRERA Department: Room: A356 Gender: M Leasing Associate: VAISHALI : 1945 Requested By: KAITLIN MASTERS Order Number: [id number] Reading MD: Александр Ibrahim Measurements Intervals [place] Rate: 42 P: [place]: QRS: 53 QRSD: 112 T: 74 QT: 684 QTc: 573 Interpretive Statements Atrial fibrillation Nonspecific T abnrm, anterolateral leads Prolonged QT interval Compared to ECG 05/06/2021 16:56:52 No significant changes Electronically Signed On 05-09-2021 11:19:48 EDT by Александр Ibrahim
--- NOTE | 2021-05-09 11:46 | Consultation ---
History of Present Illness - Reason for Consult Consult date: 05/09/21 COVID-19 infection Requesting physician: KAITLIN MASTERS - History of Present Illness The patient is a 76-year-old male with atrial fibrillation, bipolar disorder, hypertension, prior CVA, dementia, shelter resident was admitted on 05/04/2021 with coffee-ground emesis. Was seen by GI, underwent EGD and was found to have mild esophagitis. Was also found to have episodes of bradycardia for which cardiology was consulted, once plan for additional evaluation, underwent COVID-19 testing and came back positive. Infectious diseases was consulted for additional evaluation. He has been afebrile throughout the hospitalization. Labs revealed improving leukocytosis, D-dimer 419, CRP 10.5, LDH 377, ferritin 171. Review of Systems: Unable to obtain due to dementia Past History Past Medical History: atrial fib, hypertension, stroke, other (See HPI) Past Surgical History: No surgical history, Other (Reviewed) Social history: . denies: smoking, alcohol abuse Family history: diabetes, hypertension Medications and Allergies Allergies Allergy/AdvReac Type Severity Reaction Status Date / Time peanut Allergy Itching Verified 05/04/21 12:35 Home Medications Medication Instructions Recorded Confirmed Last Taken Type Apixaban [Eliquis] 5 mg PO BID 12/01/20 05/05/21 Unknown History Aspirin [Aspirin BABY CHEW TAB] 81 mg PO QDAY 12/01/20 05/05/21 Unknown History AtorvaSTATin [Lipitor] 40 mg PO QHS 12/01/20 05/05/21 Unknown History Carbidopa/Levodopa 25-100 [Sinemet] 1 each PO TID 12/01/20 05/05/21 Unknown History Divalproex [Elvia Suarez] 500 mg PO BID 12/01/20 05/05/21 Unknown History Flecainide [Tambocor] 100 mg PO Q12H 12/01/20 05/05/21 Unknown History Loratadine 10 mg PO QDAY 12/01/20 05/05/21 Unknown History Metoprolol Tartrate [Lopressor] 25 mg PO QDAY 12/01/20 05/05/21 Unknown History Mirtazapine 7.5 mg PO QHS 12/01/20 05/05/21 Unknown History Oxybutynin Chloride [Ditropan Xl] 5 mg PO BID 12/01/20 05/05/21 Unknown History amantadine HCL [Amantadine] 100 mg PO BID 12/01/20 05/05/21 Unknown History Pantoprazole [Protonix] 40 mg PO QDAY 30 Days #30 tablet 12/07/20 05/05/21 Unknown Rx Active Meds: Active Medications Acetaminophen (Acetaminophen 325 Mg Tab) 650 mg PO Q4H PRN PRN Reason: Pain MILD(1-3)/Fever >100.5/FARRIS Albuterol (Albuterol 2.5 Mg/3 Ml Nebu) 2.5 mg IH Q4HRT PRN PRN Reason: Shortness Of Breath Ascorbic Acid (Ascorbic Acid 500 Mg Tab) 500 mg PO BID [facility] Last Admin: 05/09/21 09:12 Dose: 500 mg Cholecalciferol (Cholecalciferol (Vit D3) 1000 Unit (25 Mcg) Tab) 1,000 unit PO QDAY [facility] Last Admin: 05/09/21 09:12 Dose: 1,000 unit Dexamethasone (Dexamethasone 4 Mg/Ml Vial) 6 mg IV DAILY [facility] Last Admin: 05/09/21 09:12 Dose: 6 mg Hydromorphone HCl (Hydromorphone 1 Mg/1 Ml Inj) 0.5 mg IV Q13H PRN PRN Reason: Pain , Severe (7-10) Dextrose/Sodium Chloride (D5/0.45ns) 1,000 mls @ 75 mls/hr IV DIRECT [facility] Last Admin: 05/08/21 23:04 Dose: 75 mls/hr Ondansetron HCl (Ondansetron 4 Mg/2 Ml Inj) 4 mg IV Q8H PRN PRN Reason: Nausea And Vomiting Oxycodone/Acetaminophen (Oxycodone /Acetaminophen 5-325mg Tab) 1 tab PO Q6H PRN PRN Reason: Pain, Moderate (4-6) Pantoprazole Sodium (Pantoprazole 40 Mg Inj) 40 mg IV QDAY [facility] Last Admin: 05/09/21 09:13 Dose: 40 mg Sodium Chloride (Sodium Chloride 0.9% 10 Ml Flush Syringe) 10 ml IV BID [facility] Last Admin: 05/09/21 09:13 Dose: 10 ml Sodium Chloride (Sodium Chloride 0.9% 10 Ml Flush Syringe) 10 ml IV PRN PRN PRN Reason: LINE FLUSH Physical Examination - Physical Exam Narrative exam: Physical Exam: Constitutional: Alert, cooperative. No acute distress Head, Ears, Nose: Normocephalic, atraumatic. External ears, nose normal Eyes: Conjunctivae/corneas clear. No icterus. No ptosis. Neck: Supple, no meningeal signs Oral: Dentition poor Cardiovascular: S1, S2 + Respiratory: Good air entry, clear to auscultation bilaterally GI: Soft, non-tender; bowel sounds normal. No peritoneal signs Musculoskeletal: No pedal edema, no cyanosis. Skin: No rash or abscess Hem/Lymphatic: No palpable cervical or supraclavicular nodes. No lymphangitis Psych: Calm, no agitation Neurological: Awake, alert, not oriented - Constitutional Vitals: Vital Signs Temp Pulse Resp BP Pulse Ox 98.0 F 66 18 99/54 90 05/09/21 04:16 05/09/21 04:16 05/09/21 04:16 05/09/21 04:16 05/09/21 04:16 Temperature -Last 24 Hours Temperature 98.0 F Temperature 97.5 F Temperature 96.7 F Results - Labs CBC & Chem 7: 05/09/21 07:30 05/09/21 07:30 Labs: Abnormal lab results 05/08/21 05/08/21 05/08/21 Range/Units 10:43 10:50 20:28 WBC (4.5-11.0) K/mm3 RBC (3.65-5.03) M/mm3 Hgb (11.8-15.2) gm/dl Hct (35.5-45.6) % RDW (13.2-15.2) % D-Dimer 419.12 H (0-234) ng/mlDDU Potassium (3.6-5.0) mmol/L BUN (9-20) mg/dL Creatinine 0.5 L (0.8-1.3) mg/dL Lactate Dehydrogenase (91-180) units/L C-Reactive Protein (0.00-1.30) mg/dL Coronavirus (PCR) Positive A (Negative) 05/08/21 05/09/21 05/09/21 Range/Units 20:28 07:30 07:30 WBC 11.7 H (4.5-11.0) K/mm3 RBC 2.44 L (3.65-5.03) M/mm3 Hgb 7.1 L (11.8-15.2) gm/dl Hct 21.9 L (35.5-45.6) % RDW 17.2 H (13.2-15.2) % D-Dimer (0-234) ng/mlDDU Potassium 3.2 L (3.6-5.0) mmol/L BUN 7 L (9-20) mg/dL Creatinine 0.4 L (0.8-1.3) mg/dL Lactate Dehydrogenase 377 H (91-180) units/L C-Reactive Protein 10.50 H (0.00-1.30) mg/dL Coronavirus (PCR) (Negative) - Imaging and Cardiology Chest x-ray: report reviewed, image reviewed (no pneumonia) Assessment and Plan Cultures: SARS CoV2 PCR: Positive 05/08/2021 blood culture: In process A/P: 76-year-old male with atrial fibrillation, bipolar disorder, hypertension, prior CVA, dementia, shelter resident was admitted on 05/04/2021 with coffee- ground emesis: #COVID-19 infection: Chest x-ray does not show pneumonia. At the time of my evaluation, patient was not on oxygen. Unable to determine if asymptomatic v/s presymptomatic. Considering his comorbidities, is at risk of disease progression, hence will treat with Remdesivir for 3 days. CRP elevated, ferritin normal, mild elevation of LDH. #Bradycardia: Cardiology following. #Acute blood loss anemia, suspected upper GI bleeding: EGD revealed esophagitis. #Dementia Recs: -IV Remdesivir for 3 days based on PINETREE study data and FDA label expansion -Monitor bradycardia, if he becomes symptomatic, stop Remdesivir -No indication for steroids since he is not hypoxic. If he develops hypoxia, start dexamethasone 6 mg daily -monitor LFTs -trend ferritin, d-dimer, CRP every 2-3 days Lavinia Low MD, FACP, [facility] O: [phone] F: [phone] C: [phone]
[2021-05-09 12:30] LABS: Alanine Aminotransferase 21 units/L (7-56); Albumin 2.6 g/dL (3.9-5); Blood Urea Nitrogen 6 mg/dL (9-20); Calcium 8.6 mg/dL (8.4-10.2); Hemolysis Index 6
[2021-05-09 12:33] LABS: BUN/Creatinine Ratio 12
[2021-05-09] MEDS ORDERED: REMDESIVIR 200 MG in SODIUM CHLORIDE 0.9% 250ML 250 ML IV ONE (14:00)
--- NOTE | 2021-05-09 14:14 | Progress Note ---
Assessment and Plan Patient is 76-year-old male with a past medical history of A. fib, bipolar disorder, debility, dementia, Alzheimer, history of CVA, and hypertension who came to the ED from a custodial facility on 05/04/2021 for complaint of coffee-ground emesis and hypotension Covid+ -ID following Esophagitis-GI following Anemia requiring PRBCs A. fib Bradycardia Dementia/Alzheimer's History of CVA Hypertension Echo 05/07/2021-EF 50% normal LV systolic function. Right ventricle is dilated right ventricle systolic function is normal. Left atrium is normal in size. Right atrium is. Mild diastolic function depression relaxation pattern. No pericardial effusion Plan: Patient remains in A. fib with brief episodes of bradycardia into the 30s and 40s. However patient's blood pressure appears to be stable with systolic blood pressure trending in the 120s to 140s If patient becomes hemodynamically unstable recommend using pacing pads and transcutaneously pacing patient Continue to closely monitor and to hold any AV noel agents EP consulted due to slow A. fib with episodes into bradycardia. Pending EP recommendations Hold anticoagulation due to anemia requiring PRBC transfusion Patient seen in conjunction with Dr. Ibrahim who agrees with this plan of care - Patient Problems (1) Bipolar disorder Current Visit: Yes Status: Acute (2) Cerebral atherosclerosis Current Visit: Yes Status: Acute (3) GI bleed Current Visit: Yes Status: Acute (4) Vascular dementia Current Visit: Yes Status: Acute Qualifiers: Dementia behavioral disturbance: without behavioral disturbance Qualified Code(s): F01.50 - Vascular dementia without behavioral disturbance (5) Alzheimer disease Current Visit: No Status: Acute (6) Atrial fibrillation Current Visit: No Status: Acute Qualifiers: Atrial fibrillation type: longstanding persistent Qualified Code(s): I48.11 - Longstanding persistent atrial fibrillation (7) Erosive esophagitis Current Visit: No Status: Acute (8) Leukocytosis Current Visit: No Status: Acute Qualifiers: Leukocytosis type: unspecified Qualified Code(s): D72.829 - Elevated white blood cell count, unspecified (9) Upper GI bleed Current Visit: No Status: Acute Subjective Date of service: 05/09/21 Principal diagnosis: gi bleed Interval history: Patient remains demented altered mental status A. fib on monitor episodes as low into the 40s and patient's rate go right back up to a rate of 60s Objective Vital Signs Temp Pulse Resp BP Pulse Ox 05/09/21 04:16 98.0 F 66 18 99/54 90 05/08/21 22:00 97 05/08/21 21:03 97.5 F L 75 19 143/67 97 05/08/21 19:43 97 - Physical Examination General: No Apparent Distress HEENT: Positive: Normocephaly Neck: Positive: trachea midline Cardiac: Positive: irregularly irregular Lungs: Positive: Decreased Breath Sounds Neuro: Positive: Other Abdomen: Positive: Soft Skin: Negative: Rash, Suspicious Lesions, Ulceration Extremities: Present: upper extr. pulses, edema - Labs and Meds Cardiac Enzymes 05/08/21 05/09/21 Range/Units 20:28 11:58 AST 20 (5-40) units/L Lactate Dehydrogenase 377 H (91-180) units/L CBC 05/09/21 Range/Units 07:30 WBC 11.7 H (4.5-11.0) K/mm3 RBC 2.44 L (3.65-5.03) M/mm3 Hgb 7.1 L (11.8-15.2) gm/dl Hct 21.9 L (35.5-45.6) % Plt Count 270 (140-440) K/mm3 Comprehensive Metabolic Panel 05/09/21 05/09/21 Range/Units 07:30 11:58 Sodium 145 145 (137-145) mmol/L Potassium 3.2 L 3.5 L (3.6-5.0) mmol/L Chloride 106.8 107.9 H (98-107) mmol/L Carbon Dioxide 28 28 (22-30) mmol/L BUN 7 L 6 L (9-20) mg/dL Creatinine 0.4 L 0.5 L (0.8-1.3) mg/dL Glucose 91 84 (75-100) mg/dL Calcium 8.8 8.6 (8.4-10.2) mg/dL AST 20 (5-40) units/L ALT 21 (7-56) units/L Alkaline Phosphatase 85 (35-129) units/L Total Protein 5.9 L (6.3-8.2) g/dL Albumin 2.6 L (3.9-5) g/dL - Imaging and Cardiology Echo: report reviewed - Telemetry EKG Rhythm: Atrial Fibrillation Repolarization changes or abnormalities: Q-T interval prolongation
[2021-05-09] MEDS ORDERED: SODIUM CHLORIDE 0.9% 50 ML IVPB IV ONE (14:30)
[2021-05-09] MEDS: SODIUM CHLORIDE 0.9% 50 ML IVPB IV SCH (14:57)
--- NOTE | 2021-05-09 18:16 | Progress Note ---
Assessment and Plan Assessment and plan: #COVID-19 infection #Acute hypoxic respiratory failure- resolved -Dan PCR test positive/05/08/2021 -Continue Contact and droplet isolation -Chest x-ray to rule out pneumonia -Inflammatory markers every 2-3 days -ID consulted; appreciate recs #Bradycardia; symptomatic -check EKG heart rate ranges between 30-59 -Patient not on any AV noel blocking agents -Cardiology following, EP cardiology evaluation and possible PPM/AICD placement #Upper GI bleeding- resolved -Closely monitor H&H and transfuse as needed -GI consulted; appreciate recs -status post endoscopy that revealed esophagitis #Acute blood loss anemia- resolved -Patient received total 2 units of PRBC Hb improved to 7.7 -Monitor H&H additional transfusion as needed #Alzheimer's/vascular dementia #Chronic Atrial fibrillation -Closely monitor, patient is not on any AV noel blocking agents #Cerebral atherosclerosis #Bipolar disorder; continue psych medications #Advanced care planning -Disease education conducted, care plan discussed, diagnoses discussed, prognosis discussed, and patient acknowledges understanding with care plan -Time: +30 min Disposition Plan: Continue medical management Total Time Spent with Patient (Minutes): 30 minutes History Interval history: No acute events overnight. Hospitalist Physical - Constitutional Vitals: Temp Pulse Resp BP Pulse Ox 98.3 F 67 14 125/58 93 05/09/21 17:21 05/09/21 17:21 05/09/21 17:21 05/09/21 17:21 05/09/21 10:00 General appearance: Present: no acute distress, well-nourished, other (Dementia at baseline) - EENT Eyes: Present: PERRL, EOM intact ENT: hearing intact, clear oral mucosa, poor dentition, edentulous - Neck Neck: Present: supple, normal ROM - Respiratory Respiratory effort: normal Respiratory: bilateral: diminished - Cardiovascular Rhythm: regular Heart Sounds: Present: S1 & S2 - Extremities Extremities: no ischemia, pulses intact, pulses symmetrical, normal color Peripheral Pulses: within normal limits - Abdominal General gastrointestinal: soft, non-tender, non-distended, normal bowel sounds - Integumentary Integumentary: Present: clear, warm, dry - Psychiatric Psychiatric: appropriate mood/affect, other (Unable to assess given dementia baseline) - Allied Health Allied health notes reviewed: nursing HEART Score - HEART Score Troponin: Troponin T 0.014 ng/mL (0.00-0.029) 05/06/21 19:27 Results - Labs CBC & Chem 7: 05/09/21 07:30 05/09/21 11:58 Labs: Laboratory Last Values WBC 11.7 K/mm3 (4.5-11.0) H 05/09/21 07:30 RBC 2.44 M/mm3 (3.65-5.03) L 05/09/21 07:30 Hgb 7.1 gm/dl (11.8-15.2) L 05/09/21 07:30 Hct 21.9 % (35.5-45.6) L 05/09/21 07:30 MCV 90 fl (84-94) 05/09/21 07:30 MCH 29 pg (28-32) 05/09/21 07:30 MCHC 33 % (32-34) 05/09/21 07:30 RDW 17.2 % (13.2-15.2) H 05/09/21 07:30 Plt Count 270 K/mm3 (140-440) 05/09/21 07:30 Lymph % (Auto) 7.5 % (13.4-35.0) L 05/07/21 07:49 [place] % (Auto) 3.2 % (0.0-7.3) 05/07/21 07:49 Eos % (Auto) 1.8 % (0.0-4.3) 05/07/21 07:49 Baso % (Auto) 0.2 % (0.0-1.8) 05/07/21 07:49 Lymph # (Auto) 1.2 K/mm3 (1.2-5.4) 05/07/21 07:49 [place] # (Auto) 0.5 K/mm3 (0.0-0.8) 05/07/21 07:49 Eos # (Auto) 0.3 K/mm3 (0.0-0.4) 05/07/21 07:49 Baso # (Auto) 0.0 K/mm3 (0.0-0.1) 05/07/21 07:49 Seg Neutrophils % 87.3 % (40.0-70.0) H 05/07/21 07:49 Seg Neutrophils # 13.6 K/mm3 (1.8-7.7) H 05/07/21 07:49 PT 15.8 Sec. (12.2-14.9) H 05/04/21 14:47 INR 1.13 (0.87-1.13) 05/04/21 14:47 APTT 29.0 Sec. (24.2-36.6) 05/04/21 13:01 D-Dimer 419.12 ng/mlDDU (0-234) H 05/08/21 20:28 Sodium 145 mmol/L (137-145) 05/09/21 11:58 Potassium 3.5 mmol/L (3.6-5.0) L 05/09/21 11:58 Chloride 107.9 mmol/L (98-107) H 05/09/21 11:58 Carbon Dioxide 28 mmol/L (22-30) 05/09/21 11:58 Anion Gap 13 mmol/L 05/09/21 11:58 BUN 6 mg/dL (9-20) L 05/09/21 11:58 Creatinine 0.5 mg/dL (0.8-1.3) L 05/09/21 11:58 Estimated GFR > 60 ml/min 05/09/21 11:58 BUN/Creatinine Ratio 12 % 05/09/21 11:58 Glucose 84 mg/dL (75-100) 05/09/21 11:58 POC Glucose 89 mg/dL (70-105) 05/06/21 17:37 Calcium 8.6 mg/dL (8.4-10.2) 05/09/21 11:58 Ferritin 171.3 ng/mL (30.0-300.0) 05/08/21 20:28 Total Bilirubin 0.90 mg/dL (0.1-1.2) 05/09/21 11:58 AST 20 units/L (5-40) 05/09/21 11:58 ALT 21 units/L (7-56) 05/09/21 11:58 Alkaline Phosphatase 85 units/L (35-129) 05/09/21 11:58 Lactate Dehydrogenase 377 units/L (91-180) H 05/08/21 20:28 Troponin T 0.014 ng/mL (0.00-0.029) 05/06/21 19:27 C-Reactive Protein 10.50 mg/dL (0.00-1.30) H 05/08/21 20:28 Total Protein 5.9 g/dL (6.3-8.2) L 05/09/21 11:58 Albumin 2.6 g/dL (3.9-5) L 05/09/21 11:58 Albumin/Globulin Ratio 0.8 % 05/09/21 11:58 Coronavirus (PCR) Positive (Negative) A 05/08/21 10:50 Blood Type O POSITIVE 05/04/21 13:01 Antibody Screen Negative 05/04/21 13:01 Crossmatch See Detail 05/04/21 13:01 Microbiology: Microbiology 05/08/21 20:28 Peripheral/Venous Blood Culture - Preliminary Culture in Progress 05/08/21 20:28 Peripheral/Venous Blood Culture - Preliminary Culture in Progress Vu/IV: Voiding Method Incontinent Active Medications - Current Medications Current Medications: Generic Name Dose Route Start Last Admin Trade Name Freq PRN Reason Stop Dose Admin Acetaminophen 650 mg 05/04/21 15:00 Acetaminophen 325 Mg Tab PO Q4H PRN Pain MILD(1-3)/Fever >100.5/FARRIS Albuterol 2.5 mg 05/04/21 15:00 Albuterol 2.5 Mg/3 Ml Nebu IH Q4HRT PRN Shortness Of Breath Ascorbic Acid 500 mg 05/08/21 22:00 05/09/21 09:12 Ascorbic Acid 500 Mg Tab PO 500 mg BID CASEY Administration Cholecalciferol 1,000 unit 05/09/21 10:00 05/09/21 09:12 Cholecalciferol (Vit D3) 1000 Unit (25 Mcg) Tab PO 1,000 unit QDAY CASEY Administration Hydromorphone HCl 0.5 mg 05/04/21 15:00 Hydromorphone 1 Mg/1 Ml Inj IV Q13H PRN Pain , Severe (7-10) Dextrose/Sodium Chloride 1,000 mls @ 75 mls/hr 05/06/21 17:00 05/08/21 23:04 D5/0.45ns IV 75 mls/hr DIRECT CASEY Administration Remdesivir 100 mg/ Sodium 250 mls @ 500 mls/hr 05/10/21 14:00 Chloride IV 05/11/21 14:29 Q24HR@1400 CASEY Ondansetron HCl 4 mg 05/04/21 15:00 Ondansetron 4 Mg/2 Ml Inj IV Q8H PRN Nausea And Vomiting Oxycodone/Acetaminophen 1 tab 05/04/21 15:00 Oxycodone /Acetaminophen 5-325mg Tab PO Q6H PRN Pain, Moderate (4-6) Pantoprazole Sodium 40 mg 05/08/21 10:00 05/09/21 09:13 Pantoprazole 40 Mg Inj IV 40 mg QDAY CASEY Administration Sodium Chloride 10 ml 05/04/21 22:00 05/09/21 09:13 Sodium Chloride 0.9% 10 Ml Flush Syringe IV 10 ml BID CASEY Administration Sodium Chloride 10 ml 05/04/21 15:00 Sodium Chloride 0.9% 10 Ml Flush Syringe IV PRN PRN LINE FLUSH Sodium Chloride 50 ml 05/09/21 14:00 05/09/21 14:57 Sodium Chloride 0.9% 50 Ml Ivpb IV 05/11/21 14:01 50 ml Q24HR@1400 CASEY Administration
[2021-05-09] MEDS: D5W/0.45% NACL 1,000 ML IV SCH (21:46)
[2021-05-10] MEDS ORDERED: SODIUM CHLORIDE 0.9% 1000 ML 1,000 ML IV ONE (04:02)
[2021-05-10 08:06] LABS: Basophils % (Auto) 0.4 % (0.0-1.8); Eosinophils # (Auto) 0.1 K/mm3 (0.0-0.4); Eosinophils % (Auto) 1.1 % (0.0-4.3); Hematocrit 20.4 % (35.5-45.6); Hemoglobin 6.5 gm/dl (11.8-15.2); Lymphocytes # (Auto) 2.1 K/mm3 (1.2-5.4); Mean Corpuscular HGB Conc 32 % (32-34); Mean Corpuscular Volume 90 fl (84-94); Monocytes # (Auto) 1.1 K/mm3 (0.0-0.8); Monocytes % (Auto) 11.5 % (0.0-7.3); Platelet Count 279 K/mm3 (140-440); Red Blood Count 2.26 M/mm3 (3.65-5.03); Red Cell Distribution Width 17.1 % (13.2-15.2)
[2021-05-10 08:30] LABS: Alanine Aminotransferase 24 units/L (7-56); Albumin 2.6 g/dL (3.9-5); Blood Urea Nitrogen 9 mg/dL (9-20); Calcium 8.2 mg/dL (8.4-10.2); Hemolysis Index 0
[2021-05-10 08:31] LABS: BUN/Creatinine Ratio 23
--- NOTE | 2021-05-10 10:14 | Progress Note ---
Assessment and Plan Cultures: SARS CoV2 PCR: Positive 05/08/2021 blood culture: no growth A/P: 76-year-old male with atrial fibrillation, bipolar disorder, hypertension, prior CVA, dementia, [facility] resident was admitted on 05/[facility]/2021 with coffee- ground emesis: #COVID-19 infection: Chest x-ray does not show pneumonia. At the time of my evaluation, patient was not on oxygen. Unable to determine if asymptomatic v/s presymptomatic. Considering his comorbidities, is at risk of disease progression, hence will treat with Remdesivir for 3 days. CRP elevated, ferritin normal, mild elevation of LDH. #Bradycardia: Cardiology following. #Acute blood loss anemia, suspected upper GI bleeding: EGD revealed esophagitis. #Dementia Recs: -IV Remdesivir, D2 of 3 -if he develops symptomatic bradycardia or if heart rate drops below 30/min, stop Remdesivir -No indication for steroids since he is not hypoxic. If he develops hypoxia, start dexamethasone 6 mg daily -monitor LFTs -trend ferritin, d-dimer, CRP every 2-3 days Lavinia Low MD, FACP, [facility] ([facility] O: [phone] F: [phone] C: [phone] Subjective Date of service: 05/10/21 Principal diagnosis: gi bleed Interval history: No fever. Remains on room air. No distress. Poor historian. Objective - Exam Narrative Exam: Physical Exam: Constitutional: Alert, cooperative. No acute distress Head, Ears, Nose: Normocephalic, atraumatic. External ears, nose normal Eyes: Conjunctivae/corneas clear. No icterus. No ptosis. Neck: Supple, no meningeal signs Oral: Dentition poor Cardiovascular: S1, S2 + Respiratory: Good air entry, clear to auscultation bilaterally GI: Soft, non-tender; bowel sounds normal. No peritoneal signs Musculoskeletal: No pedal edema, no cyanosis. Skin: No rash or abscess Hem/Lymphatic: No palpable cervical or supraclavicular nodes. No lymphangitis Psych: Calm, no agitation Neurological: Awake, alert, not oriented - Constitutional Vitals: Vital Signs Temp Pulse Resp BP Pulse Ox 97.9 F 40 L 18 124/47 95 05/10/21 09:10 05/10/21 09:10 05/10/21 09:10 05/10/21 09:10 05/09/21 22:00 Temperature -Last 24 Hours Temperature 97.9 F Temperature 98.3 F Temperature 98.3 F - Labs CBC & Chem 7: 05/10/21 07:25 05/10/21 07:25 Labs: Abnormal lab results 05/09/21 05/10/21 05/10/21 Range/Units 11:58 07:25 07:25 RBC 2.26 L (3.65-5.03) M/mm3 Hgb 6.5 L (11.8-15.2) gm/dl Hct 20.4 L (35.5-45.6) % RDW 17.1 H (13.2-15.2) % [place] % (Auto) 11.5 H (0.0-7.3) % [place] # (Auto) 1.1 H (0.0-0.8) K/mm3 Sodium 146 H (137-145) mmol/L Potassium 3.5 L 3.2 L (3.6-5.0) mmol/L Chloride 107.9 H 109.6 H (98-107) mmol/L BUN 6 L (9-20) mg/dL Creatinine 0.5 L 0.4 L (0.8-1.3) mg/dL Calcium 8.2 L (8.4-10.2) mg/dL Total Protein 5.9 L 5.5 L (6.3-8.2) g/dL Albumin 2.6 L 2.6 L (3.9-5) g/dL
[2021-05-10] MEDS: ASCORBIC ACID 500 MG TAB PO SCH ×2 (10:35→23:20)
[2021-05-10] MEDS: PANTOPRAZOLE 40 MG TAB PO SCH (10:35)
[2021-05-10] MEDS: CHOLECALCIFEROL (VIT D3) 1000 UNIT (25 mcg) TAB PO SCH (10:35)
--- NOTE | 2021-05-10 11:50 | Progress Note ---
Assessment and Plan Assessment and plan: #COVID-19 infection #Acute hypoxic respiratory failure- resolved -Dan PCR test positive/05/08/2021 -Continue Contact and droplet isolation -Chest x-ray to rule out pneumonia -Inflammatory markers every 2-3 days -ID consulted; appreciate recs #Bradycardia; symptomatic -check EKG heart rate ranges between 30-59 -Patient not on any AV noel blocking agents -Cardiology following, EP cardiology evaluation and possible PPM/AICD placement -Transferring to ICU for initiation of dopamine drip. Pulmonology consulted for critical care management; pending recs #Upper GI bleeding- resolved -Closely monitor H&H and transfuse as needed -GI consulted; appreciate recs -status post endoscopy that revealed esophagitis #Acute blood loss anemia- resolved -Patient received total 2 units of PRBC Hb improved to 7.7 -Monitor H&H additional transfusion as needed #Alzheimer's/vascular dementia #Chronic Atrial fibrillation -Closely monitor, patient is not on any AV noel blocking agents #Cerebral atherosclerosis #Bipolar disorder; continue psych medications #Advanced care planning -Disease education conducted, care plan discussed, diagnoses discussed, prognosis discussed, and patient acknowledges understanding with care plan -Time: +30 min Disposition Plan: Transferring to ICU for dopamine drip Total Time Spent with Patient (Minutes): 30 minutes History Interval history: The patient continued to be bradycardic to as low as the 30s last night. Hospitalist Physical - Constitutional Vitals: Temp Pulse Resp BP Pulse Ox 97.9 F 40 L 18 124/47 95 05/10/21 09:10 05/10/21 09:10 05/10/21 09:10 05/10/21 09:10 05/09/21 22:00 General appearance: Present: mild distress, well-nourished - EENT Eyes: Present: PERRL, EOM intact ENT: hearing intact, clear oral mucosa, edentulous - Neck Neck: Present: supple, normal ROM - Respiratory Respiratory effort: normal Respiratory: bilateral: CTA - Cardiovascular Heart rate: 40 Rhythm: regular Heart Sounds: Present: S1 & S2 - Extremities Extremities: no ischemia, pulses intact, pulses symmetrical, No edema, normal temperature, normal color Peripheral Pulses: within normal limits - Abdominal General gastrointestinal: soft, non-tender, non-distended, normal bowel sounds - Integumentary Integumentary: Present: clear, warm, dry - Psychiatric Psychiatric: cooperative, other (Baseline dementia) - Neurologic Neurologic: other (Baseline dementia; alert and oriented x1) - Allied Health Allied health notes reviewed: nursing HEART Score - HEART Score Troponin: Troponin T 0.014 ng/mL (0.00-0.029) 05/06/21 19:27 Results - Labs CBC & Chem 7: 05/10/21 07:25 05/10/21 07:25 Labs: Laboratory Last Values WBC 9.8 K/mm3 (4.5-11.0) 05/10/21 07:25 RBC 2.26 M/mm3 (3.65-5.03) L 05/10/21 07:25 Hgb 6.5 gm/dl (11.8-15.2) L 05/10/21 07:25 Hct 20.4 % (35.5-45.6) L 05/10/21 07:25 MCV 90 fl (84-94) 05/10/21 07:25 MCH 29 pg (28-32) 05/10/21 07:25 MCHC 32 % (32-34) 05/10/21 07:25 RDW 17.1 % (13.2-15.2) H 05/10/21 07:25 Plt Count 279 K/mm3 (140-440) 05/10/21 07:25 Lymph % (Auto) 21.0 % (13.4-35.0) 05/10/21 07:25 [place] % (Auto) 11.5 % (0.0-7.3) H 05/10/21 07:25 Eos % (Auto) 1.1 % (0.0-4.3) 05/10/21 07:25 Baso % (Auto) 0.4 % (0.0-1.8) 05/10/21 07:25 Lymph # (Auto) 2.1 K/mm3 (1.2-5.4) 05/10/21 07:25 [place] # (Auto) 1.1 K/mm3 (0.0-0.8) H 05/10/21 07:25 Eos # (Auto) 0.1 K/mm3 (0.0-0.4) 05/10/21 07:25 Baso # (Auto) 0.0 K/mm3 (0.0-0.1) 05/10/21 07:25 Seg Neutrophils % 66.0 % (40.0-70.0) 05/10/21 07:25 Seg Neutrophils # 6.5 K/mm3 (1.8-7.7) 05/10/21 07:25 PT 15.8 Sec. (12.2-14.9) H 05/04/21 14:47 INR 1.13 (0.87-1.13) 05/04/21 14:47 APTT 29.0 Sec. (24.2-36.6) 05/04/21 13:01 D-Dimer 419.12 ng/mlDDU (0-234) H 05/08/21 20:28 Sodium 146 mmol/L (137-145) H 05/10/21 07:25 Potassium 3.2 mmol/L (3.6-5.0) L 05/10/21 07:25 Chloride 109.6 mmol/L (98-107) H 05/10/21 07:25 Carbon Dioxide 27 mmol/L (22-30) 05/10/21 07:25 Anion Gap 13 mmol/L 05/10/21 07:25 BUN 9 mg/dL (9-20) 05/10/21 07:25 Creatinine 0.4 mg/dL (0.8-1.3) L 05/10/21 07:25 Estimated GFR > 60 ml/min 05/10/21 07:25 BUN/Creatinine Ratio 23 % 05/10/21 07:25 Glucose 96 mg/dL (75-100) 05/10/21 07:25 POC Glucose 89 mg/dL (70-105) 05/06/21 17:37 Calcium 8.2 mg/dL (8.4-10.2) L 05/10/21 07:25 Ferritin 171.3 ng/mL (30.0-300.0) 05/08/21 20:28 Total Bilirubin 0.60 mg/dL (0.1-1.2) 05/10/21 07:25 AST 26 units/L (5-40) 05/10/21 07:25 ALT 24 units/L (7-56) 05/10/21 07:25 Alkaline Phosphatase 76 units/L (35-129) 05/10/21 07:25 Lactate Dehydrogenase 377 units/L (91-180) H 05/08/21 20:28 Troponin T 0.014 ng/mL (0.00-0.029) 05/06/21 19:27 C-Reactive Protein 10.50 mg/dL (0.00-1.30) H 05/08/21 20:28 Total Protein 5.5 g/dL (6.3-8.2) L 05/10/21 07:25 Albumin 2.6 g/dL (3.9-5) L 05/10/21 07:25 Albumin/Globulin Ratio 0.9 % 05/10/21 07:25 Coronavirus (PCR) Positive (Negative) A 05/08/21 10:50 Blood Type O POSITIVE 05/04/21 13:01 Antibody Screen Negative 05/04/21 13:01 Crossmatch See Detail 05/04/21 13:01 Microbiology: Microbiology 05/08/21 20:28 Peripheral/Venous Blood Culture - Preliminary NO GROWTH AFTER 24 HOURS 05/08/21 20:28 Peripheral/Venous Blood Culture - Preliminary NO GROWTH AFTER 24 HOURS Vu/IV: Voiding Method Incontinent Active Medications - Current Medications Current Medications: Generic Name Dose Route Start Last Admin Trade Name Freq PRN Reason Stop Dose Admin Acetaminophen 650 mg 05/04/21 15:00 Acetaminophen 325 Mg Tab PO Q4H PRN Pain MILD(1-3)/Fever >100.5/FARRIS Albuterol 2.5 mg 05/04/21 15:00 Albuterol 2.5 Mg/3 Ml Nebu IH Q4HRT PRN Shortness Of Breath Ascorbic Acid 500 mg 05/08/21 22:00 05/10/21 10:35 Ascorbic Acid 500 Mg Tab PO 500 mg BID CASEY Administration Cholecalciferol 1,000 unit 05/09/21 10:00 05/10/21 10:35 Cholecalciferol (Vit D3) 1000 Unit (25 Mcg) Tab PO 1,000 unit QDAY CASEY Administration Hydromorphone HCl 0.5 mg 05/04/21 15:00 Hydromorphone 1 Mg/1 Ml Inj IV Q13H PRN Pain , Severe (7-10) Dextrose/Sodium Chloride 1,000 mls @ 75 mls/hr 05/06/21 17:00 05/09/21 21:46 D5/0.45ns IV 75 mls/hr DIRECT CASEY Administration Remdesivir 100 mg/ Sodium 250 mls @ 500 mls/hr 05/10/21 14:00 Chloride IV 05/11/21 14:29 Q24HR@1400 CASEY Dopamine HCl/Dextrose 800 mg in 250 mls @ 3.57 mls/hr 05/10/21 12:00 Dopamine 800 Mg/D5w 250ml IV TITR CASEY Protocol 2 MCG/KG/MIN Ondansetron HCl 4 mg 05/04/21 15:00 Ondansetron 4 Mg/2 Ml Inj IV Q8H PRN Nausea And Vomiting Oxycodone/Acetaminophen 1 tab 05/04/21 15:00 Oxycodone /Acetaminophen 5-325mg Tab PO Q6H PRN Pain, Moderate (4-6) Pantoprazole Sodium 40 mg 05/10/21 11:00 05/10/21 10:35 Pantoprazole 40 Mg Tab PO 40 mg DAILY CASEY Administration Sodium Chloride 10 ml 05/04/21 22:00 05/10/21 10:35 Sodium Chloride 0.9% 10 Ml Flush Syringe IV 10 ml BID CASEY Administration Sodium Chloride 10 ml 05/04/21 15:00 Sodium Chloride 0.9% 10 Ml Flush Syringe IV PRN PRN LINE FLUSH Sodium Chloride 50 ml 05/09/21 14:00 05/09/21 14:57 Sodium Chloride 0.9% 50 Ml Ivpb IV 05/11/21 14:01 50 ml Q24HR@1400 CASEY Administration
[2021-05-10] MEDS ORDERED: DOPamine 800 MG/D5W 250ML 800 MG/250 ML BAG IV SCH (12:00)
--- NOTE | 2021-05-10 12:19 | Progress Note ---
Assessment and Plan Patient is 76-year-old male with a past medical history of A. fib, bipolar disorder, debility, dementia, Alzheimer, history of CVA, and hypertension who came to the ED from a [facility] facility on 05/04/2021 for complaint of coffee-ground emesis and hypotension Covid+ -ID following Esophagitis-GI following Anemia requiring PRBCs A. fib Bradycardia Dementia/Alzheimer's History of CVA Hypertension Echo 05/07/2021-EF 50% normal LV systolic function. Right ventricle is dilated right ventricle systolic function is normal. Left atrium is normal in size. Right atrium is. Mild diastolic function depression relaxation pattern. No pericardial effusion Plan: Patient remains in A. fib with brief episodes of bradycardia into the 30s and 40s. However systolic blood pressure trending in the 120s Case discussed with environmental monitoring specialist who does not recommend pacing patient. environmental monitoring specialist recommends dopamine to improve heart rate. Dopamine drip has been ordered Further recommendations awaiting environmental monitoring specialist evaluation Continue to closely monitor and to hold any AV noel agents Hold anticoagulation due to anemia requiring PRBC transfusion Patient seen in conjunction with Dr. Ibrahim who agrees with this plan of care - Patient Problems (1) Bipolar disorder Current Visit: Yes Status: Acute (2) Cerebral atherosclerosis Current Visit: Yes Status: Acute (3) GI bleed Current Visit: Yes Status: Acute (4) Vascular dementia Current Visit: Yes Status: Acute Qualifiers: Dementia behavioral disturbance: without behavioral disturbance Qualified Code(s): F01.50 - Vascular dementia without behavioral disturbance (5) Alzheimer disease Current Visit: No Status: Acute (6) Atrial fibrillation Current Visit: No Status: Acute Qualifiers: Atrial fibrillation type: longstanding persistent Qualified Code(s): I48.11 - Longstanding persistent atrial fibrillation (7) Erosive esophagitis Current Visit: No Status: Acute (8) Leukocytosis Current Visit: No Status: Acute Qualifiers: Leukocytosis type: unspecified Qualified Code(s): D72.829 - Elevated white blood cell count, unspecified (9) Upper GI bleed Current Visit: No Status: Acute Subjective Date of service: 05/10/21 Principal diagnosis: gi bleed Interval history: Patient remains demented altered mental status A. fib on monitor patient heart rate has appeared to slow more patient is trending more into 30s and 40s with episodes back into the 60s Objective Vital Signs Temp Pulse Resp BP Pulse Ox 05/10/21 09:10 97.9 F 40 L 18 124/47 05/10/21 04:01 56 L 120/56 05/09/21 22:00 95 05/09/21 21:35 98.3 F 74 18 146/74 98 05/09/21 17:21 98.3 F 67 14 125/58 - Physical Examination General: No Apparent Distress HEENT: Positive: Normocephaly Neck: Positive: trachea midline Cardiac: Positive: irregularly irregular, Bradycardia Lungs: Positive: clear to auscultation, Normal Breath Sounds Neuro: Positive: Other Abdomen: Positive: Soft Skin: Negative: Rash, Suspicious Lesions, Ulceration Extremities: Present: upper extr. pulses, edema - Labs and Meds Cardiac Enzymes 05/09/21 05/10/21 Range/Units 11:58 07:25 AST 20 26 (5-40) units/L CBC 05/10/21 Range/Units 07:25 WBC 9.8 (4.5-11.0) K/mm3 RBC 2.26 L (3.65-5.03) M/mm3 Hgb 6.5 L (11.8-15.2) gm/dl Hct 20.4 L (35.5-45.6) % Plt Count 279 (140-440) K/mm3 Lymph # (Auto) 2.1 (1.2-5.4) K/mm3 Darke # (Auto) 1.1 H (0.0-0.8) K/mm3 Eos # (Auto) 0.1 (0.0-0.4) K/mm3 Baso # (Auto) 0.0 (0.0-0.1) K/mm3 Comprehensive Metabolic Panel 05/09/21 05/10/21 Range/Units 11:58 07:25 Sodium 145 146 H (137-145) mmol/L Potassium 3.5 L 3.2 L (3.6-5.0) mmol/L Chloride 107.9 H 109.6 H (98-107) mmol/L Carbon Dioxide 28 27 (22-30) mmol/L BUN 6 L 9 (9-20) mg/dL Creatinine 0.5 L 0.4 L (0.8-1.3) mg/dL Glucose 84 96 (75-100) mg/dL Calcium 8.6 8.2 L (8.4-10.2) mg/dL AST 20 26 (5-40) units/L ALT 21 24 (7-56) units/L Alkaline Phosphatase 85 76 (35-129) units/L Total Protein 5.9 L 5.5 L (6.3-8.2) g/dL Albumin 2.6 L 2.6 L (3.9-5) g/dL - Imaging and Cardiology Echo: report reviewed - Telemetry EKG Rhythm: Atrial Fibrillation - EKG Supraventricular dysrhythmia: atrial fibrillation Repolarization changes or abnormalities: Q-T interval prolongation
[2021-05-10] MEDS: REMDESIVIR 100 MG in SODIUM CHLORIDE 0.9% 250ML 250 ML IV SCH (14:22)
[2021-05-10] MEDS: PANTOPRAZOLE 40 MG INJ IV SCH (16:10)
[2021-05-10] MEDS: SODIUM CHLORIDE 0.9% 50 ML IVPB IV SCH (16:11)
[2021-05-10] MEDS ORDERED: SODIUM CHLORIDE 0.9% 500 ML 500 ML IV SCH (16:41)
[2021-05-10] MEDS ORDERED: POTASSIUM CHLORIDE 20 MEQ PACKET FEEDTUBE ONE (17:00)
[2021-05-10] MEDS: D5W/0.45% NACL 1,000 ML IV SCH (17:03)
[2021-05-10] MEDS: POTASSIUM CHLORIDE 10 MEQ 10 MEQ/100 ML BAG IV SCH ×4 (17:03→22:05)
--- NOTE | 2021-05-11 03:42 | Consultation ---
History of Present Illness - Reason for Consult Consult date: 05/11/21 Bradycardia - History of Present Illness 76 y/o male, covid positive transitioned to ICU for dopamine drip secondary to asymptomatic bradycardia. Even on Dopamine at 2, HR still in the 30-40's but with normal blood pressure. patient is also refusing to eat per staff and can only repeat words. Has vascular dementia Past History Past Medical History: atrial fib, hypertension, stroke, other (See HPI) Past Surgical History: No surgical history, Other (Reviewed) Social history: . denies: smoking, alcohol abuse Family history: diabetes, hypertension Medications and Allergies Allergies Allergy/AdvReac Type Severity Reaction Status Date / Time peanut Allergy Itching Verified 05/04/21 12:35 Home Medications Medication Instructions Recorded Confirmed Last Taken Type Apixaban [Eliquis] 5 mg PO BID 12/01/20 05/05/21 Unknown History Aspirin [Aspirin BABY CHEW TAB] 81 mg PO QDAY 12/01/20 05/05/21 Unknown History AtorvaSTATin [Lipitor] 40 mg PO QHS 12/01/20 05/05/21 Unknown History Carbidopa/Levodopa 25-100 [Sinemet] 1 each PO TID 12/01/20 05/05/[address] [Depveronicate Dr] 500 mg PO BID 12/01/20 05/05/21 Unknown History Flecainide [Tambocor] 100 mg PO Q12H 12/01/20 05/05/21 Unknown History Loratadine 10 mg PO QDAY 12/01/20 05/05/21 Unknown History Metoprolol Tartrate [Lopressor] 25 mg PO QDAY 12/01/20 05/05/21 Unknown History Mirtazapine 7.5 mg PO QHS 12/01/20 05/05/21 Unknown History Oxybutynin Chloride [Ditropan Xl] 5 mg PO BID 12/01/20 05/05/21 Unknown History amantadine HCL [Amantadine] 100 mg PO BID 12/01/20 05/05/21 Unknown History Pantoprazole [Protonix] 40 mg PO QDAY 30 Days #30 tablet 12/07/20 05/05/21 Unknown Rx Active Meds: Active Medications Acetaminophen (Acetaminophen 325 Mg Tab) 650 mg PO Q4H PRN PRN Reason: Pain MILD(1-3)/Fever >100.5/FARRIS Albuterol (Albuterol 2.5 Mg/3 Ml Nebu) 2.5 mg IH Q4HRT PRN PRN Reason: Shortness Of Breath Ascorbic Acid (Ascorbic Acid 500 Mg Tab) 500 mg PO BID [facility] Last Admin: 05/10/21 23:20 Dose: Not Given Cholecalciferol (Cholecalciferol (Vit D3) 1000 Unit (25 Mcg) Tab) 1,000 unit PO QDAY [facility] Last Admin: 05/10/21 10:35 Dose: 1,000 unit Hydromorphone HCl (Hydromorphone 1 Mg/1 Ml Inj) 0.5 mg IV Q13H PRN PRN Reason: Pain , Severe (7-10) Dextrose/Sodium Chloride (D5/0.45ns) 1,000 mls @ 75 mls/hr IV DIRECT [facility] Last Admin: 05/10/21 17:03 Dose: 75 mls/hr Remdesivir 100 mg/ Sodium (Chloride) 250 mls @ 500 mls/hr IV Q24HR@1400 [facility] Stop: 05/11/21 14:29 Last Admin: 05/10/21 14:22 Dose: 500 mls/hr Dopamine HCl/Dextrose (Dopamine 800 Mg/D5w 250ml) 800 mg in 250 mls @ 3.57 mls/hr IV TITR [facility]; Protocol Last Admin: 05/10/21 17:04 Dose: 2 mcg/kg/min, 3.57 mls/hr Sodium Chloride (Nacl 0.9% 500 Ml) 500 mls @ 0 mls/hr IV ONCE [facility] Ondansetron HCl (Ondansetron 4 Mg/2 Ml Inj) 4 mg IV Q8H PRN PRN Reason: Nausea And Vomiting Oxycodone/Acetaminophen (Oxycodone /Acetaminophen 5-325mg Tab) 1 tab PO Q6H PRN PRN Reason: Pain, Moderate (4-6) Pantoprazole Sodium (Pantoprazole 40 Mg Tab) 40 mg PO DAILY [facility] Last Admin: 05/10/21 10:35 Dose: 40 mg Sodium Chloride (Sodium Chloride 0.9% 10 Ml Flush Syringe) 10 ml IV BID [facility] Last Admin: 05/10/21 23:19 Dose: 10 ml Sodium Chloride (Sodium Chloride 0.9% 10 Ml Flush Syringe) 10 ml IV PRN PRN PRN Reason: LINE FLUSH Sodium Chloride (Sodium Chloride 0.9% 50 Ml Ivpb) 50 ml IV Q24HR@1400 [facility] Stop: 05/11/21 14:01 Last Admin: 05/10/21 16:11 Dose: Not Given Exam - Constitutional Vitals: Temp Pulse Resp BP Pulse Ox 98 F 44 L 11 L 126/61 94 05/11/21 02:18 05/11/21 02:10 05/11/21 02:10 05/11/21 02:10 05/11/21 02:10 Results - Labs CBC & Chem 7: 05/10/21 07:25 05/10/21 07:25 Labs: Abnormal lab results 05/04/21 05/10/21 05/10/21 Range/Units 13:01 07:25 07:25 RBC 2.26 L (3.65-5.03) M/mm3 Hgb 6.5 L (11.8-15.2) gm/dl Hct 20.4 L (35.5-45.6) % RDW 17.1 H (13.2-15.2) % [place]t % (Auto) 11.5 H (0.0-7.3) % [place] # (Auto) 1.1 H (0.0-0.8) K/mm3 Sodium 146 H (137-145) mmol/L Potassium 3.2 L (3.6-5.0) mmol/L Chloride 109.6 H (98-107) mmol/L Creatinine 0.4 L (0.8-1.3) mg/dL POC Glucose (70-105) mg/dL Calcium 8.2 L (8.4-10.2) mg/dL Total Protein 5.5 L (6.3-8.2) g/dL Albumin 2.6 L (3.9-5) g/dL Crossmatch See Detail 05/10/21 05/10/21 Range/Units 17:50 23:35 RBC (3.65-5.03) M/mm3 Hgb (11.8-15.2) gm/dl Hct (35.5-45.6) % RDW (13.2-15.2) % [place] % (Auto) (0.0-7.3) % [place] # (Auto) (0.0-0.8) K/mm3 Sodium (137-145) mmol/L Potassium (3.6-5.0) mmol/L Chloride (98-107) mmol/L Creatinine (0.8-1.3) mg/dL POC Glucose 113 H (70-105) mg/dL Calcium (8.4-10.2) mg/dL Total Protein (6.3-8.2) g/dL Albumin (3.9-5) g/dL Crossmatch See Detail - Imaging and Cardiology Chest x-ray: image reviewed Assessment and Plan 76 y/o covid positive male with asymptomatic bradycardia 1. Follow up cards recs. Dopamine, although not titrated, has not improved heart rate and has elevated Blood pressure 2. Continue COVID therapy and precautions 3. Please consider transfer back to floor if patient is asymptomatic and no intervention is planned in the immediate future
[2021-05-11 06:07] LABS: Mean Corpuscular HGB Conc 33 % (32-34); Mean Corpuscular Volume 89 fl (84-94); Platelet Count 329 K/mm3 (140-440); Red Blood Count 3.74 M/mm3 (3.65-5.03); Red Cell Distribution Width 16.1 % (13.2-15.2)
[2021-05-11 06:09] LABS: Hematocrit 33.2 % (35.5-45.6)
[2021-05-11 06:27] LABS: Alanine Aminotransferase 27 units/L (7-56); Albumin 2.8 g/dL (3.9-5); Blood Urea Nitrogen 6 mg/dL (9-20); Calcium 8.9 mg/dL (8.4-10.2); Hemolysis Index 3
[2021-05-11 06:30] LABS: BUN/Creatinine Ratio 15
[2021-05-11] MEDS: D5W/0.45% NACL 1,000 ML IV SCH ×2 (06:42→21:46)
[2021-05-11 07:28] LABS: Anisocytosis 1+; Band Neutrophils # (Manual) 0.2 K/mm3; Macrocytosis 1+; Total Cells Counted 100
[2021-05-11 07:29] LABS: Large Platelets Few; Platelet Estimate Consistent w Auto
--- NOTE | 2021-05-11 09:04 | Progress Note ---
Assessment and Plan #COVID-19 infection #Acute hypoxic respiratory failure- resolved -Patient no longer hypoxemic. -Dan PCR test positive/05/08/2021 -Continue Contact and droplet isolation -Chest x-ray to rule out pneumonia -Inflammatory markers every 2-3 days #Bradycardia; symptomatic -Cardiology suggest dopamine which is been initiated as opposed to PPM. -Remains asymptomatic at this time. -check EKG heart rate ranges between 40-59 -Patient not on any AV noel blocking agents -Cardiology following, EP cardiology evaluation and possible PPM/AICD placement #Upper GI bleeding- resolved -After closely monitoring H&H. 11 and 32. -GI consulted; appreciate recs -status post endoscopy that revealed esophagitis no evidence of bleeding. #Acute blood loss anemia- resolved -Patient received total 2 units of PRBC Hb improved to 7.7 -Monitor H&H additional transfusion as needed #Alzheimer's/vascular dementia Clear cognitive impairment. Patient mood stable #Chronic Atrial fibrillation -Require to hold anticoagulation secondary to GI blood loss anemia but stable. At some point will need to determine when to restart anticoagulate therapy. -Closely monitor, patient is not on any AV noel blocking agents #Cerebral atherosclerosis #Bipolar disorder; continue psych medications #Advanced care planning -Disease education conducted, care plan discussed, diagnoses discussed, prognosis discussed, and patient acknowledges understanding with care plan -Time: +30 min Subjective Date of service: 05/11/21 Principal diagnosis: gi bleed Interval history: Patient is 76-year-old male with a past medical history of A. fib, bipolar disorder, debility, dementia, Alzheimer, history of CVA, and hypertension who came to the ED from a longterm facility on 05/04/2021 for complaint of coffee-ground emesis and hypotension Covid+ Esophagitis-GI following Anemia requiring PRBCs A. fib Bradycardia Dementia/Alzheimer's History of CVA Hypertension Patient states today he is feeling fine. Patient able to make needs known. No acute distress. Hospital course complicated by asymptomatic bradycardia. Objective - Constitutional Vitals: Vital Signs - 12hr 05/10/21 05/10/21 05/10/21 21:10 21:20 21:30 Temperature Pulse Rate 74 71 57 L Pulse Rate [ From Monitor] Respiratory 8 L 11 L 19 Rate Blood Pressure 132/70 132/70 132/70 O2 Sat by Pulse 96 94 94 Oximetry 05/10/21 05/10/2105/10/22 21:35 21:40 21:50 Temperature 97 F L Pulse Rate 62 52 L Pulse Rate [ From Monitor] Respiratory 19 15 Rate Blood Pressure 132/70 132/70 O2 Sat by Pulse 94 94 Oximetry 05/10/21 05/10/21 05/10/21 22:00 22:10 22:20 Temperature Pulse Rate 64 64 71 Pulse Rate [ From Monitor] Respiratory 11 L 11 L 12 Rate Blood Pressure 132/70 142/70 142/70 O2 Sat by Pulse 96 95 96 Oximetry 05/10/21 05/10/21 05/10/21 22:30 22:40 22:50 Temperature Pulse Rate 73 55 L 54 L Pulse Rate [ From Monitor] Respiratory 10 L 19 11 L Rate Blood Pressure 142/70 142/70 142/70 O2 Sat by Pulse 96 95 96 Oximetry 05/10/21 05/10/21 05/10/21 23:00 23:10 23:20 Temperature 98 F Pulse Rate 64 60 54 L Pulse Rate [ From Monitor] Respiratory 14 19 13 Rate Blood Pressure 142/70 131/52 131/52 O2 Sat by Pulse 97 94 96 Oximetry 05/10/21 05/10/21 05/10/21 23:30 23:40 23:48 Temperature 98 F Pulse Rate 46 L 54 L Pulse Rate [ From Monitor] Respiratory 11 L 9 L Rate Blood Pressure 131/52 131/52 O2 Sat by Pulse 95 97 Oximetry 05/10/21 05/11/21 05/11/21 23:50 00:00 00:06 Temperature 97.5 F L Pulse Rate 54 L 54 L 45 L Pulse Rate [ 40 L From Monitor] Respiratory 10 L 18 8 L Rate Blood Pressure 131/52 131/52 139/55 O2 Sat by Pulse 98 96 98 Oximetry 05/11/21 05/11/21 05/11/21 00:10 00:20 00:29 Temperature 98.2 F Pulse Rate 49 L 46 L Pulse Rate [ From Monitor] Respiratory 10 L 9 L Rate Blood Pressure 139/55 139/55 O2 Sat by Pulse 98 97 Oximetry 05/11/21 05/11/21 05/11/21 00:30 00:40 00:50 Temperature Pulse Rate 50 L 51 L 52 L Pulse Rate [ From Monitor] Respiratory 12 17 9 L Rate Blood Pressure 139/55 139/55 139/55 O2 Sat by Pulse 99 97 97 Oximetry 05/11/21 05/11/21 05/11/21 01:00 01:10 01:20 Temperature Pulse Rate 52 L 51 L 59 L Pulse Rate [ From Monitor] Respiratory 9 L 13 12 Rate Blood Pressure 139/55 123/61 123/61 O2 Sat by Pulse 98 96 95 Oximetry 05/11/21 05/11/21 05/11/21 01:30 01:40 01:50 Temperature Pulse Rate 73 73 61 Pulse Rate [ From Monitor] Respiratory 13 13 13 Rate Blood Pressure 123/61 123/61 123/61 O2 Sat by Pulse 98 97 96 Oximetry 05/11/21 05/11/21 05/11/21 02:00 02:10 02:18 Temperature 98 F Pulse Rate 73 44 L Pulse Rate [ From Monitor] Respiratory 34 H 11 L Rate Blood Pressure 123/61 126/61 O2 Sat by Pulse 96 94 Oximetry 05/11/21 05/11/21 05/11/21 02:20 02:30 02:40 Temperature Pulse Rate 41 L 49 L 39 L Pulse Rate [ From Monitor] Respiratory 23 10 L 21 Rate Blood Pressure 126/61 126/61 126/61 O2 Sat by Pulse 95 94 95 Oximetry 05/11/21 05/11/21 05/11/21 02:50 03:00 03:10 Temperature Pulse Rate 61 75 39 L Pulse Rate [ From Monitor] Respiratory 29 H 19 17 Rate Blood Pressure 126/61 126/61 138/69 O2 Sat by Pulse 97 98 97 Oximetry 05/11/21 05/11/21 05/11/21 03:20 03:30 03:38 Temperature 96.8 F L Pulse Rate 40 L 42 L Pulse Rate [ From Monitor] Respiratory 18 15 Rate Blood Pressure 138/69 138/69 O2 Sat by Pulse 96 96 Oximetry 05/11/21 05/11/21 05/11/21 03:40 03:50 04:00 Temperature 96.8 F L Pulse Rate 43 L 43 L 44 L Pulse Rate [ 50 L From Monitor] Respiratory 9 L 8 L 13 Rate Blood Pressure 138/69 138/69 138/69 O2 Sat by Pulse 98 97 98 Oximetry 05/11/21 05/11/21 05/11/21 04:10 04:20 04:30 Temperature Pulse Rate 68 41 L 57 L Pulse Rate [ From Monitor] Respiratory 15 21 24 Rate Blood Pressure 145/68 145/68 145/68 O2 Sat by Pulse 96 95 98 Oximetry 05/11/21 05/11/21 05/11/21 04:40 04:50 05:00 Temperature Pulse Rate 43 L 38 L 52 L Pulse Rate [ From Monitor] Respiratory 29 H 30 H 7 L Rate Blood Pressure 145/68 145/68 145/68 O2 Sat by Pulse 94 96 97 Oximetry 05/11/21 05/11/21 05/11/21 05:10 05:20 05:30 Temperature Pulse Rate 38 L 42 L 54 L Pulse Rate [ From Monitor] Respiratory 12 18 21 Rate Blood Pressure 153/78 153/78 153/78 O2 Sat by Pulse 96 98 98 Oximetry 05/11/21 05/11/21 05/11/21 05:40 05:50 06:00 Temperature Pulse Rate 38 L 86 45 L Pulse Rate [ From Monitor] Respiratory 21 19 14 Rate Blood Pressure 153/78 153/78 153/78 O2 Sat by Pulse 98 97 96 Oximetry 05/11/21 05/11/21 05/11/21 06:10 06:20 06:30 Temperature Pulse Rate 50 L 57 L 51 L Pulse Rate [ From Monitor] Respiratory 20 18 16 Rate Blood Pressure 145/85 145/85 145/85 O2 Sat by Pulse 96 97 94 Oximetry 05/11/21 05/11/21 05/11/21 06:40 06:50 07:00 Temperature Pulse Rate 51 L 39 L 41 L Pulse Rate [ From Monitor] Respiratory 11 L 12 18 Rate Blood Pressure 145/85 145/85 145/85 O2 Sat by Pulse 95 97 96 Oximetry 05/11/21 05/11/21 05/11/21 07:10 07:20 07:30 Temperature Pulse Rate 48 L 41 L 45 L Pulse Rate [ From Monitor] Respiratory 29 H 14 15 Rate Blood Pressure 131/55 131/55 131/55 O2 Sat by Pulse 94 96 95 Oximetry 05/11/21 05/11/21 05/11/21 07:40 07:50 07:51 Temperature 97.7 F Pulse Rate 42 L 41 L Pulse Rate [ From Monitor] Respiratory 20 21 Rate Blood Pressure 131/55 131/55 O2 Sat by Pulse 95 93 Oximetry 05/11/21 05/11/21 05/11/21 08:00 08:10 08:20 Temperature Pulse Rate 41 L 41 L 47 L Pulse Rate [ From Monitor] Respiratory 21 9 L 26 H Rate Blood Pressure 131/55 123/54 123/54 O2 Sat by Pulse 92 93 96 Oximetry General appearance: Present: no acute distress, well-nourished - EENT Eyes: PERRL, EOM intact ENT: hearing intact, clear oral mucosa - Neck Neck: supple, normal ROM - Respiratory Respiratory effort: normal Respiratory: bilateral: diminished, negative: other (Rhonchi has resolved.) - Cardiovascular Heart rate: 47 Extremities: pulses intact, No edema, normal color, Full ROM - Gastrointestinal General gastrointestinal: Present: soft, non-tender, non-distended, normal bowel sounds - Integumentary Integumentary: clear, warm, dry - Musculoskeletal Musculoskeletal: generalized weakness - Neurologic Neurologic: moves all extremities - Psychiatric Psychiatric: memory intact, appropriate mood/affect, intact judgment & insight - Labs CBC & Chem 7: 05/11/21 05:18 05/11/21 05:18 Labs: Abnormal lab results 05/04/21 05/10/21 05/10/21 Range/Units 13:01 17:50 23:35 Hgb (11.8-15.2) gm/dl Hct (35.5-45.6) % RDW (13.2-15.2) % Monocytes % (Manual) (0.0-7.3) % Nucleated RBC % (0.0-0.9) % Monocytes # (Manual) (0.0-0.8) K/mm3 BUN (9-20) mg/dL Creatinine (0.8-1.3) mg/dL Glucose (75-100) mg/dL POC Glucose 113 H (70-105) mg/dL Albumin (3.9-5) g/dL Crossmatch See Detail See Detail 05/11/21 05/11/21 05/11/21 Range/Units 05:18 05:18 05:23 Hgb 11.0 L D (11.8-15.2) gm/dl Hct 33.2 L D (35.5-45.6) % RDW 16.1 H (13.2-15.2) % Monocytes % (Manual) 15.0 H (0.0-7.3) % Nucleated RBC % 1.0 H (0.0-0.9) % Monocytes # (Manual) 1.4 H (0.0-0.8) K/mm3 BUN 6 L (9-20) mg/dL Creatinine 0.4 L (0.8-1.3) mg/dL Glucose 116 H (75-100) mg/dL POC Glucose 108 H (70-105) mg/dL Albumin 2.8 L (3.9-5) g/dL Crossmatch HEART Score - HEART Score Troponin: Troponin T 0.014 ng/mL (0.00-0.029) 05/06/21 19:27
[2021-05-11] MEDS: PANTOPRAZOLE 40 MG TAB PO SCH (11:28)
[2021-05-11] MEDS: ASCORBIC ACID 500 MG TAB PO SCH ×2 (11:29→21:30)
[2021-05-11] MEDS: CHOLECALCIFEROL (VIT D3) 1000 UNIT (25 mcg) TAB PO SCH (11:29)
--- NOTE | 2021-05-11 11:33 | Cat Scan Report ---
CTA CHEST WITH IV CONTRAST INDICATION: COVID-19/hypoxia/elevated D-dimers /rule out PE CONTRAST: 80 cc Omnipaque 350 IV COMPARISON: CT chest 12/01/2020 Three-plane MIP reconstructions were produced. All CT scans at this location are performed using CT d ose reduction for ALARA by means of automated exposure control. FINDINGS: No significant axillary or chest wall abnormalities are seen. Views of the upper abdomen sh ow again a left renal cyst. No mediastinal or hilar masses are seen. No obvious endobronchial lesions are noted. Minimal left pleural effusion is noted. Small hiatal hernia is seen. Lung conenr again sh ow chronic changes including mild emphysematous changes. Lung conner are mildly blurred by motion. Pa tchy bibasilar scattered interstitial infiltrates are seen which are most prominent in the lower lobe s, more on the left than right. Previously there was patchy infiltrate in the posterior aspect of the right lower lobe which has resolved and infiltrate today in the right lower lobe is much more scatte red and somewhat nodular in some areas. Infiltrate is somewhat peripheral in the left lower lobe but more diffuse and widely distributed in the right lower lobe. I do not see significant upper lobe infi ltrate though there is a mild amount of patchy somewhat nodular infiltrate in the right middle lobe n ow. Mild nodularity seen previously in the right upper lobe is stable. Aorta is not well opacified but shows no aneurysmal dilatation or obvious evidence of dissection. Good opacification of the pulmonary arterial system was achieved. I do not see evidence of pulmonary thromboembolism. IMPRESSION: 1. No evidence of pulmonary thromboembolism 2. Bilateral mostly lower lobe but also mildly right middle lobe interstitial infiltrates. Especially in the right lung these have a mildly nodular appearance. This is a nonspecific finding though could include atypical infection sources. As the patient has Covid certainly Covid pneumonitis would be a consideration though the pattern is not classic. Follow-up is suggested. Signer Name: Claudio Santoro MD Signed: 05/11/2021 11:21 AM Workstation Name: [id number]
[2021-05-11] MEDS: SODIUM CHLORIDE 0.9% 50 ML IVPB IV SCH (14:03)
[2021-05-11] MEDS: REMDESIVIR 100 MG in SODIUM CHLORIDE 0.9% 250ML 250 ML IV SCH (14:03)
--- NOTE | 2021-05-11 16:41 | Progress Note ---
Assessment and Plan Covid-19 Infection // ?Pneumonia - ID following Esophagitis - GI following Anemia (s/p PRBCs) PAF w SVR (on Eliquis as outpatient) Junctional Escape Rhythm HTN H/o CVA Alzheimer's Dementia Bipolar Disorder Echo 05/07/2021 - EF 50%, normal LV systolic function. Right ventricle is dilate d right ventricle systolic function is normal. Left atrium is normal in size. Right atrium is. Mild diastolic function depression relaxation pattern. No pericardial effusion. Plan: CTA chest findings noted, ?possible PNA. In junctional escape rhythm in the 40bpm range on tele upon assessment today. Per EP, continue dopamine drip for now. If antihypertensive optimization is needed, recommend PRN IV Hydralazine. Continue to avoid AV noel blocking agents. Repeat 12-lead ECG for monitoring of QTc. Anticoagulation remains on hold at this time due to anemia requiring pRBC transfusion. Will address the safety and risk/benefit profile of resuming oral anticoagulation once H/H proves to remain stable. Patient seen in conjunction with Dr. Manning, who agrees with the assessment and plan of care. - Patient Problems (1) Junctional escape rhythm Current Visit: Yes Status: Acute Subjective Date of service: 05/11/21 Principal diagnosis: Bradycardia Interval history: Refusing to eat. No cardiac complaints reported. Objective Last Vital Signs Temp 97.8 F 05/11/21 15:45 Pulse 69 05/11/21 15:30 Resp 12 05/11/21 15:30 BP 147/67 05/11/21 15:30 Pulse Ox 98 05/11/21 15:30 - Physical Examination General: No Apparent Distress HEENT: Positive: Normocephaly Neck: Positive: neck supple, trachea midline Cardiac: Positive: Bradycardia Lungs: Positive: clear to auscultation Neuro: Positive: Other Abdomen: Positive: Soft Skin: Negative: Rash Extremities: Present: warm. Absent: edema - Labs and Meds Cardiac Enzymes 05/11/21 Range/Units 05:18 AST 21 (5-40) units/L CBC 05/11/21 Range/Units 05:18 WBC 9.2 (4.5-11.0) K/mm3 RBC 3.74 (3.65-5.03) M/mm3 Hgb 11.0 L D (11.8-15.2) gm/dl Hct 33.2 L D (35.5-45.6) % Plt Count 329 (140-440) K/mm3 Comprehensive Metabolic Panel 05/11/21 Range/Units 05:18 Sodium 142 (137-145) mmol/L Potassium 3.6 (3.6-5.0) mmol/L Chloride 104.2 (98-107) mmol/L Carbon Dioxide 27 (22-30) mmol/L BUN 6 L (9-20) mg/dL Creatinine 0.4 L (0.8-1.3) mg/dL Glucose 116 H (75-100) mg/dL Calcium 8.9 (8.4-10.2) mg/dL AST 21 (5-40) units/L ALT 27 (7-56) units/L Alkaline Phosphatase 97 (35-129) units/L Total Protein 6.3 (6.3-8.2) g/dL Albumin 2.8 L (3.9-5) g/dL - Imaging and Cardiology EKG: report reviewed, image reviewed Echo: report reviewed - Telemetry EKG Rhythm: Junctional - EKG Supraventricular dysrhythmia: atrial fibrillation Repolarization changes or abnormalities: nonspecific abnormality, ST segment, and/or T wave, Q-T interval prolongation - Allied health notes Allied health notes reviewed: nursing
[2021-05-11] MEDS ORDERED: hydrALAZINE 20 MG/1 ML INJ IV PRN (16:44)
[2021-05-12 05:18] LABS: Alanine Aminotransferase 22 units/L (7-56); Albumin 2.6 g/dL (3.9-5); BUN/Creatinine Ratio 18; Blood Urea Nitrogen 7 mg/dL (9-20); Calcium 8.8 mg/dL (8.4-10.2); Hemolysis Index 43
--- NOTE | 2021-05-12 08:48 | Progress Note ---
Assessment and Plan 76 y/o covid positive male with asymptomatic bradycardia 05/12/21: No documentation of intervention or further need for ICU. Will transfer back to COVID floor with remote tele. 1. Follow up cards recs. Dopamine, although not titrated, has not improved heart rate and has elevated Blood pressure 2. Continue COVID therapy and precautions 3. Please consider transfer back to floor if patient is asymptomatic and no intervention is planned in the immediate future Subjective Date of service: 05/12/21 Principal diagnosis: Bradycardia Interval history: Off dopamine. Continues to be bradycardic but stable BP. reviewed cards note from yesterday. Objective - Constitutional Vitals: Vital Signs - 12hr 05/11/21 05/11/21 05/11/21 21:00 21:31 22:01 Temperature Pulse Rate 47 L 47 L 39 L Pulse Rate [ From Monitor] Respiratory 10 L 16 12 Rate Blood Pressure 130/81 136/58 125/51 O2 Sat by Pulse 94 95 96 Oximetry 05/11/21 05/11/21 05/11/21 22:31 23:01 23:07 Temperature Pulse Rate 59 L 41 L 44 L Pulse Rate [ From Monitor] Respiratory 14 11 L 14 Rate Blood Pressure 126/57 125/58 125/58 O2 Sat by Pulse 96 97 95 Oximetry 05/11/21 05/11/21 05/12/21 23:31 23:57 00:00 Temperature 98.2 F Pulse Rate 42 L 52 L Pulse Rate [ 52 L From Monitor] Respiratory 13 16 Rate Blood Pressure 113/46 O2 Sat by Pulse 94 96 Oximetry 05/12/21 05/12/21 05/12/21 00:01 00:31 01:01 Temperature Pulse Rate 43 L 53 L 61 Pulse Rate [ From Monitor] Respiratory 15 19 19 Rate Blood Pressure 122/55 135/57 142/61 O2 Sat by Pulse 96 93 95 Oximetry 05/12/21 05/12/21 05/12/21 01:31 02:01 02:31 Temperature Pulse Rate 94 H 37 L 49 L Pulse Rate [ From Monitor] Respiratory 18 14 16 Rate Blood Pressure 142/61 142/55 116/78 O2 Sat by Pulse 92 94 94 Oximetry 05/12/21 05/12/21 05/12/21 03:01 03:31 04:00 Temperature 97.0 F L Pulse Rate 36 L 33 L 39 L Pulse Rate [ 39 L From Monitor] Respiratory 10 L 16 16 Rate Blood Pressure 154/52 146/54 O2 Sat by Pulse 92 96 96 Oximetry 05/12/21 05/12/21 05/12/21 04:01 04:31 05:01 Temperature Pulse Rate 39 L 43 L 41 L Pulse Rate [ From Monitor] Respiratory 17 16 18 Rate Blood Pressure 146/54 128/79 88/63 O2 Sat by Pulse 92 94 96 Oximetry 05/12/21 05/12/21 05/12/21 05:31 06:01 06:31 Temperature Pulse Rate 45 L 78 48 L Pulse Rate [ From Monitor] Respiratory 15 28 H 26 H Rate Blood Pressure 126/54 159/77 138/75 O2 Sat by Pulse 96 97 95 Oximetry 05/12/21 05/12/21 05/12/21 07:01 07:31 07:36 Temperature 98.9 F Pulse Rate 35 L 48 L Pulse Rate [ From Monitor] Respiratory 13 19 Rate Blood Pressure 138/75 113/64 O2 Sat by Pulse 93 91 Oximetry 05/12/21 05/12/21 05/12/21 08:00 08:01 08:33 Temperature Pulse Rate 69 69 Pulse Rate [ 69 From Monitor] Respiratory 12 14 Rate Blood Pressure 123/59 O2 Sat by Pulse 96 96 88 Oximetry - Labs CBC & Chem 7: 05/11/21 05:18 05/12/21 04:19 Labs: Abnormal lab results 05/12/21 Range/Units 04:19 BUN 7 L (9-20) mg/dL Creatinine 0.4 L (0.8-1.3) mg/dL Total Protein 6.1 L (6.3-8.2) g/dL Albumin 2.6 L (3.9-5) g/dL Medications & Allergies - Medications Allergies/Adverse Reactions: Allergies peanut Allergy (Verified 05/04/21 12:35) Itching Home Medications: Home Medications Medication Instructions Recorded Confirmed Last Taken Type Apixaban [Eliquis] 5 mg PO BID 12/01/20 05/05/21 Unknown History Aspirin [Aspirin BABY CHEW TAB] 81 mg PO QDAY 12/01/20 05/05/21 Unknown History AtorvaSTATin [Lipitor] 40 mg PO QHS 12/01/20 05/05/21 Unknown History Carbidopa/Levodopa 25-100 [Sinemet] 1 each PO TID 12/01/20 05/05/[address] [Depakote Dr] 500 mg PO BID 12/01/20 05/05/21 Unknown History Flecainide [Tambocor] 100 mg PO Q12H 12/01/20 05/05/21 Unknown History Loratadine 10 mg PO QDAY 12/01/20 05/05/21 Unknown History Metoprolol Tartrate [Lopressor] 25 mg PO QDAY 12/01/20 05/05/21 Unknown History Mirtazapine 7.5 mg PO QHS 12/01/20 05/05/21 Unknown History Oxybutynin Chloride [Ditropan Xl] 5 mg PO BID 12/01/20 05/05/21 Unknown History amantadine HCL [Amantadine] 100 mg PO BID 12/01/20 05/05/21 Unknown History Pantoprazole [Protonix] 40 mg PO QDAY 30 Days #30 tablet 12/07/20 05/05/21 Unknown Rx Active Medications: Generic Name Dose Route Start Last Admin Trade Name Freq PRN Reason Stop Dose Admin Acetaminophen 650 mg 05/04/21 15:00 Acetaminophen 325 Mg Tab PO Q4H PRN Pain MILD(1-3)/Fever >100.5/FARRIS Albuterol 2.5 mg 05/04/21 15:00 Albuterol 2.5 Mg/3 Ml Nebu IH Q4HRT PRN Shortness Of Breath Ascorbic Acid 500 mg 05/08/21 22:00 05/11/21 21:30 Ascorbic Acid 500 Mg Tab PO Not Given BID CASEY Cholecalciferol 1,000 unit 05/09/21 10:00 05/11/21 11:29 Cholecalciferol (Vit D3) 1000 Unit (25 Mcg) Tab PO Not Given QDAY CASEY Hydralazine HCl 5 mg 05/11/21 16:44 Hydralazine 20 Mg/1 Ml Inj IV Q30MIN PRN Hypertension Hydromorphone HCl 0.5 mg 05/04/21 15:00 Hydromorphone 1 Mg/1 Ml Inj IV Q13H PRN Pain , Severe (7-10) Dextrose/Sodium Chloride 1,000 mls @ 75 mls/hr 05/06/21 17:00 05/11/21 21:46 D5/0.45ns IV 75 mls/hr DIRECT CASEY Administration Dopamine HCl/Dextrose 800 mg in 250 mls @ 3.57 mls/hr 05/10/21 12:00 05/11/21 17:56 Dopamine 800 Mg/D5w 250ml IV 0 mcg/kg/min TITR CASEY 0 mls/hr Titration Protocol 2 MCG/KG/MIN Sodium Chloride 500 mls @ 0 mls/hr 05/10/21 16:41 Nacl 0.9% 500 Ml IV ONCE CASEY As Directed Ondansetron HCl 4 mg 05/04/21 15:00 Ondansetron 4 Mg/2 Ml Inj IV Q8H PRN Nausea And Vomiting Oxycodone/Acetaminophen 1 tab 05/04/21 15:00 Oxycodone /Acetaminophen 5-325mg Tab PO Q6H PRN Pain, Moderate (4-6) Pantoprazole Sodium 40 mg 05/10/21 11:00 05/11/21 11:28 Pantoprazole 40 Mg Tab PO Not Given DAILY CASEY Sodium Chloride 10 ml 05/04/21 22:00 05/11/21 21:30 Sodium Chloride 0.9% 10 Ml Flush Syringe IV 10 ml BID CASEY Administration Sodium Chloride 10 ml 05/04/21 15:00 Sodium Chloride 0.9% 10 Ml Flush Syringe IV PRN PRN LINE FLUSH HEART Score - HEART Score Troponin: Troponin T 0.014 ng/mL (0.00-0.029) 05/06/21 19:27
[2021-05-12] MEDS: PANTOPRAZOLE 40 MG TAB PO SCH (10:00)
[2021-05-12] MEDS: CHOLECALCIFEROL (VIT D3) 1000 UNIT (25 mcg) TAB PO SCH (10:02)
[2021-05-12] MEDS: ASCORBIC ACID 500 MG TAB PO SCH ×2 (10:02→21:50)
--- NOTE | 2021-05-12 10:58 | Progress Note ---
Assessment and Plan Covid+ -ID following Esophagitis-GI following Anemia requiring PRBCs A. fib/Bradycardia History of CVA Dementia/Alzheimer's Bipolar Disorder Hypertension Echo 05/07/2021-EF 50% normal LV systolic function. Right ventricle is dilated right ventricle systolic function is normal. Left atrium is normal in size. Right atrium is. Mild diastolic function depression relaxation pattern. No pericardial effusion Dopamine drip discontinued yesterday Patient hemodynamically stable with heart rate in the 40s and 50s Continue to monitor closely on telemetry Hold all AV noel blocking agents Subjective Date of service: 05/12/21 Principal diagnosis: Bradycardia Interval history: Patient lying in bed comfortably Objective Vital Signs Temp Pulse Pulse Resp BP Pulse Ox 05/12/21 08:33 88 05/12/21 08:31 45 L 19 123/60 89 05/12/21 08:01 69 14 123/59 96 05/12/21 08:00 69 69 12 96 05/12/21 07:36 98.9 F 05/12/21 07:31 48 L 19 113/64 91 05/12/21 07:01 35 L 13 138/75 93 05/12/21 06:31 48 L 26 H 138/75 95 05/12/21 06:01 78 28 H 159/77 97 05/12/21 05:31 45 L 15 126/54 96 05/12/21 05:01 41 L 18 88/63 96 05/12/21 04:31 43 L 16 128/79 94 05/12/21 04:01 39 L 17 146/54 92 05/12/21 04:00 97.0 F L 39 L 39 L 16 96 05/12/21 03:31 33 L 16 146/54 96 05/12/21 03:01 36 L 10 L 154/52 92 05/12/21 02:31 49 L 16 116/78 94 05/12/21 02:01 37 L 14 142/55 94 05/12/21 01:31 94 H 18 142/61 92 05/12/21 01:01 61 19 142/61 95 05/12/21 00:31 53 L 19 135/57 93 05/12/21 00:01 43 L 15 122/55 96 05/12/21 00:00 52 L 52 L 16 96 05/11/21 23:57 98.2 F 05/11/21 23:31 42 L 13 113/46 94 05/11/21 23:07 44 L 14 125/58 95 05/11/21 23:01 41 L 11 L 125/58 97 05/11/21 22:31 59 L 14 126/57 96 05/11/21 22:01 39 L 12 125/51 96 05/11/21 21:31 47 L 16 136/58 95 05/11/21 21:00 47 L 10 L 130/81 94 05/11/21 20:31 46 L 11 L 146/69 97 05/11/21 20:01 66 12 146/69 96 05/11/21 20:00 97.9 F 45 L 43 L 16 96 05/11/21 19:57 98 05/11/21 19:31 18 143/83 05/11/21 19:00 105 H 19 132/66 97 05/11/21 18:30 41 L 12 117/60 96 05/11/21 18:00 78 12 130/52 92 05/11/21 17:30 41 L 9 L 141/60 96 05/11/21 17:00 50 L 16 132/69 95 05/11/21 16:30 89 16 123/88 96 05/11/21 16:00 46 L 44 L 12 100/71 95 05/11/21 15:45 97.8 F 05/11/21 15:30 69 12 147/67 98 05/11/21 15:00 53 L 14 120/94 97 05/11/21 14:30 46 L 11 L 138/61 97 05/11/21 14:00 63 10 L 125/80 97 05/11/21 13:30 58 L 16 157/71 97 05/11/21 13:00 40 L 18 161/77 96 05/11/21 12:50 43 L 19 161/77 97 05/11/21 12:40 41 L 11 L 153/70 100 05/11/21 12:30 39 L 17 146/66 98 05/11/21 12:20 39 L 16 146/66 98 05/11/21 12:10 65 18 131/66 97 05/11/21 12:00 97.8 F 42 L 44 L 20 127/61 96 05/11/21 11:50 42 L 26 H 127/61 97 05/11/21 11:40 44 L 22 132/106 97 03/26/22 11:30 43 L 11 L 141/68 96 05/11/21 11:20 38 L 20 141/68 97 05/11/21 11:10 61 15 155/78 98 05/11/21 11:00 41 L 18 147/83 96 - Physical Examination General: No Apparent Distress HEENT: Positive: Normocephaly Neck: Positive: neck supple, trachea midline Cardiac: Positive: Bradycardia Lungs: Positive: Decreased Breath Sounds Neuro: Positive: Other (Dementia) Abdomen: Positive: Soft Skin: Negative: Rash Extremities: Present: warm. Absent: edema - Labs and Meds Cardiac Enzymes 05/12/21 Range/Units 04:19 AST 16 (5-40) units/L Comprehensive Metabolic Panel 05/12/21 Range/Units 04:19 Sodium 139 (137-145) mmol/L Potassium 3.6 (3.6-5.0) mmol/L Chloride 101.0 (98-107) mmol/L Carbon Dioxide 28 (22-30) mmol/L BUN 7 L (9-20) mg/dL Creatinine 0.4 L (0.8-1.3) mg/dL Glucose 95 (75-100) mg/dL Calcium 8.8 (8.4-10.2) mg/dL AST 16 (5-40) units/L ALT 22 (7-56) units/L Alkaline Phosphatase 93 (35-129) units/L Total Protein 6.1 L (6.3-8.2) g/dL Albumin 2.6 L (3.9-5) g/dL - Imaging and Cardiology EKG: report reviewed, image reviewed Echo: report reviewed Repolarization changes or abnormalities: nonspecific abnormality, ST segment, and/or T wave, Q-T interval prolongation - Allied health notes Allied health notes reviewed: nursing
--- NOTE | 2021-05-12 11:53 | Progress Note ---
Assessment and Plan Assessment and plan: Patient is 76-year-old male with a past medical history of A. fib, bipolar disorder, debility, dementia, Alzheimer, history of CVA, and hypertension who came to the ED from a half-way facility on 05/04/2021 for complaint of coffee-ground emesis and hypotension 05/12: Patient states today he is feeling well. no intervention planned. d/w ccm ok for downgrade to floor bed.. #COVID-19 infection #Acute hypoxic respiratory failure- resolved -Patient no longer hypoxemic. -Dan PCR test positive/05/08/2021 -Continue Contact and droplet isolation -Chest x-ray to rule out pneumonia -Inflammatory markers every 2-3 days #Bradycardia; symptomatic -Cardiology suggest dopamine which is been initiated as opposed to PPM. -Remains asymptomatic at this time. -check EKG heart rate ranges between 40-59 -Patient not on any AV noel blocking agents -Cardiology following, EP cardiology evaluation and possible PPM/AICD placement #Upper GI bleeding- resolved -After closely monitoring H&H. 11 and 32. -GI consulted; appreciate recs -status post endoscopy that revealed esophagitis no evidence of bleeding. #Acute blood loss anemia- resolved -Patient received total 2 units of PRBC Hb improved to 7.7 -Monitor H&H additional transfusion as needed #Alzheimer's/vascular dementia Clear cognitive impairment. Patient mood stable #Chronic Atrial fibrillation -Require to hold anticoagulation secondary to GI blood loss anemia but stable. At some point will need to determine when to restart anticoagulate therapy. -Closely monitor, patient is not on any AV noel blocking agents #Cerebral atherosclerosis #Bipolar disorder; continue psych medications #Advanced care planning -Disease education conducted, care plan discussed, diagnoses discussed, prognosis discussed, and patient acknowledges understanding with care plan -Time: +30 min The high probability of a clinically significant, sudden or life threatening deterioration of the [multi] system(s) required my full and direct attention, intervention and personal management. The aggregate critical care time was [60] minutes. This time is in addition to time spent performing reported procedures but includes the following: [x] Data Review and interpretation [x] Patient assessment and monitoring of vital signs [x] Documentation [x] Medication orders and management History Interval history: Doing well on encounter. No complaints. Hospitalist Physical - Physical exam Narrative exam: General appearance: Present: no acute distress, well-nourished - EENT Eyes: PERRL, EOM intact ENT: hearing intact, clear oral mucosa - Neck Neck: supple, normal ROM - Respiratory Respiratory effort: normal Respiratory: bilateral: diminished, negative: other (Rhonchi has resolved.) - Cardiovascular Heart rate: 47 Extremities: pulses intact, No edema, normal color, Full ROM - Gastrointestinal General gastrointestinal: Present: soft, non-tender, non-distended, normal bowel sounds - Integumentary Integumentary: clear, warm, dry - Musculoskeletal Musculoskeletal: generalized weakness - Neurologic Neurologic: moves all extremities - Psychiatric Psychiatric: memory intact, appropriate mood/affect, intact judgment & insight - Constitutional Vitals: Temp Pulse Resp BP Pulse Ox 98.9 F 45 L 19 123/60 88 05/12/21 07:36 05/12/21 08:31 05/12/21 08:31 05/12/21 08:31 05/12/21 08:33 General appearance: Present: no acute distress, well-nourished HEART Score - HEART Score Troponin: Troponin T 0.014 ng/mL (0.00-0.029) 05/06/21 19:27 Results - Labs CBC & Chem 7: 05/11/21 05:18 05/12/21 04:19 Labs: Laboratory Last Values WBC 9.2 K/mm3 (4.5-11.0) 05/11/21 05:18 RBC 3.74 M/mm3 (3.65-5.03) 05/11/21 05:18 Hgb 11.0 gm/dl (11.8-15.2) L D 05/11/21 05:18 Hct 33.2 % (35.5-45.6) L D 05/11/21 05:18 MCV 89 fl (84-94) 05/11/21 05:18 MCH 29 pg (28-32) 05/11/21 05:18 MCHC 33 % (32-34) 05/11/21 05:18 RDW 16.1 % (13.2-15.2) H 05/11/21 05:18 Plt Count 329 K/mm3 (140-440) 05/11/21 05:18 Lymph % (Auto) 21.0 % (13.4-35.0) 05/10/21 07:25 [place] % (Auto) Boring And Filling Machine Operator 05/11/21 05:18 Eos % (Auto) 1.1 % (0.0-4.3) 05/10/21 07:25 Baso % (Auto) 0.4 % (0.0-1.8) 05/10/21 07:25 Lymph # (Auto) 2.1 K/mm3 (1.2-5.4) 05/10/21 07:25 [place] # (Auto) 1.1 K/mm3 (0.0-0.8) H 05/10/21 07:25 Eos # (Auto) 0.1 K/mm3 (0.0-0.4) 05/10/21 07:25 Baso # (Auto) 0.0 K/mm3 (0.0-0.1) 05/10/21 07:25 Add Manual Diff Complete 05/11/21 05:18 Total Counted 100 05/11/21 05:18 Seg Neutrophils % 66.0 % (40.0-70.0) 05/10/21 07:25 Seg Neuts % (Manual) 65.0 % (40.0-70.0) 05/11/21 05:18 Band Neutrophils % 2.0 % 05/11/21 05:18 Lymphocytes % (Manual) 15.0 % (13.4-35.0) 05/11/21 05:18 Reactive Lymphs % (Man) 0 % 05/11/21 05:18 Monocytes % (Manual) 15.0 % (0.0-7.3) H 05/11/21 05:18 Eosinophils % (Manual) 2.0 % (0.0-4.3) 05/11/21 05:18 Basophils % (Manual) 1.0 % (0.0-1.8) 05/11/21 05:18 Metamyelocytes % 0 % 05/11/21 05:18 Myelocytes % 0 % 05/11/21 05:18 Promyelocytes % 0 % 05/11/21 05:18 Blast Cells % 0 % 05/11/21 05:18 Nucleated RBC % 1.0 % (0.0-0.9) H 05/11/21 05:18 Seg Neutrophils # 6.5 K/mm3 (1.8-7.7) 05/10/21 07:25 Seg Neutrophils # Man 6.0 K/mm3 (1.8-7.7) 05/11/21 05:18 Band Neutrophils # 0.2 K/mm3 05/11/21 05:18 Lymphocytes # (Manual) 1.4 K/mm3 (1.2-5.4) 05/11/21 05:18 Abs React Lymphs (Man) 0.0 K/mm3 05/11/21 05:18 Monocytes # (Manual) 1.4 K/mm3 (0.0-0.8) H 05/11/21 05:18 Eosinophils # (Manual) 0.2 K/mm3 (0.0-0.4) 05/11/21 05:18 Basophils # (Manual) 0.1 K/mm3 (0.0-0.1) 05/11/21 05:18 Metamyelocytes # 0.0 K/mm3 05/11/21 05:18 Myelocytes # 0.0 K/mm3 05/11/21 05:18 Promyelocytes # 0.0 K/mm3 05/11/21 05:18 Blast Cells # 0.0 K/mm3 05/11/21 05:18 WBC Morphology Not Reportable 05/11/21 05:18 Hypersegmented Neuts Not Reportable 05/11/21 05:18 Hyposegmented Neuts Not Reportable 05/11/21 05:18 Hypogranular Neuts Not Reportable 05/11/21 05:18 Smudge Cells Not Reportable 05/11/21 05:18 Toxic Granulation Not Reportable 05/11/21 05:18 Toxic Vacuolation Not Reportable 05/11/21 05:18 Dohle Bodies Not Reportable 05/11/21 05:18 Pelger-Huet Anomaly Not Reportable 05/11/21 05:18 Juan Rods Not Reportable 05/11/21 05:18 Platelet Estimate Consistent w auto 05/11/21 05:18 Clumped Platelets Not Reportable 05/11/21 05:18 Plt Clumps, EDTA Not Reportable 05/11/21 05:18 Large Platelets Few 05/11/21 05:18 Giant Platelets Not Reportable 05/11/21 05:18 Platelet Satelliting Not Reportable 05/11/21 05:18 Plt Morphology Comment Not Reportable 05/11/21 05:18 RBC Morphology Not Reportable 05/11/21 05:18 Dimorphic RBCs Not Reportable 05/11/21 05:18 Polychromasia Few 05/11/21 05:18 Hypochromasia Not Reportable 05/11/21 05:18 Poikilocytosis Not Reportable 05/11/21 05:18 Anisocytosis 1+ 05/11/21 05:18 Microcytosis Not Reportable 05/11/21 05:18 Macrocytosis 1+ 05/11/21 05:18 Spherocytes Not Reportable 05/11/21 05:18 Pappenheimer Bodies Not Reportable 05/11/21 05:18 Sickle Cells Not Reportable 05/11/21 05:18 Target Cells Not Reportable 05/11/21 05:18 Tear Drop Cells Not Reportable 05/11/21 05:18 Ovalocytes Not Reportable 05/11/21 05:18 Helmet Cells Not Reportable 05/11/21 05:18 [place] Bodies Not Reportable 05/11/21 05:18 Chunky Rings Not Reportable 05/11/21 05:18 Anuradha Cells Not Reportable 05/11/21 05:18 Bite Cells Not Reportable 05/11/21 05:18 Crenated Cell Not Reportable 05/11/21 05:18 Elliptocytes Not Reportable 05/11/21 05:18 Acanthocytes (Spur) Not Reportable 05/11/21 05:18 Rouleaux Not Reportable 05/11/21 05:18 Hemoglobin C Crystals Not Reportable 05/11/21 05:18 Schistocytes Not Reportable 05/11/21 05:18 Malaria parasites Not Reportable 05/11/21 05:18 Abdifatah Bodies Not Reportable 05/11/21 05:18 Hem Pathologist Commnt No 05/11/21 05:18 PT 15.8 Sec. (12.2-14.9) H 05/04/21 14:47 INR 1.13 (0.87-1.13) 05/04/21 14:47 APTT 29.0 Sec. (24.2-36.6) 05/04/21 13:01 D-Dimer 419.12 ng/mlDDU (0-234) H 05/08/21 20:28 Sodium 139 mmol/L (137-145) 05/12/21 04:19 Potassium 3.6 mmol/L (3.6-5.0) 05/12/21 04:19 Chloride 101.0 mmol/L (98-107) 05/12/21 04:19 Carbon Dioxide 28 mmol/L (22-30) 05/12/21 04:19 Anion Gap 14 mmol/L 05/12/21 04:19 BUN 7 mg/dL (9-20) L 05/12/21 04:19 Creatinine 0.4 mg/dL (0.8-1.3) L 05/12/21 04:19 Estimated GFR > 60 ml/min 05/12/21 04:19 BUN/Creatinine Ratio 18 % 05/12/21 04:19 Glucose 95 mg/dL (75-100) 05/12/21 04:19 POC Glucose 80 mg/dL (70-105) 05/12/21 05:17 Calcium 8.8 mg/dL (8.4-10.2) 05/12/21 04:19 Ferritin 171.3 ng/mL (30.0-300.0) 05/08/21 20:28 Total Bilirubin 1.00 mg/dL (0.1-1.2) 05/12/21 04:19 AST 16 units/L (5-40) 05/12/21 04:19 ALT 22 units/L (7-56) 05/12/21 04:19 Alkaline Phosphatase 93 units/L (35-129) 05/12/21 04:19 Lactate Dehydrogenase 377 units/L (91-180) H 05/08/21 20:28 Troponin T 0.014 ng/mL (0.00-0.029) 05/06/21 19:27 C-Reactive Protein 10.50 mg/dL (0.00-1.30) H 05/08/21 20:28 Total Protein 6.1 g/dL (6.3-8.2) L 05/12/21 04:19 Albumin 2.6 g/dL (3.9-5) L 05/12/21 04:19 Albumin/Globulin Ratio 0.7 % 05/12/21 04:19 Coronavirus (PCR) Positive (Negative) A 05/08/21 10:50 Blood Type O POSITIVE 05/10/21 17:50 Antibody Screen Negative 05/10/21 17:50 Crossmatch See Detail 05/10/21 17:50 Microbiology: Microbiology 05/08/21 20:28 Peripheral/Venous Blood Culture - Preliminary NO GROWTH AFTER 72 HOURS 05/08/21 20:28 Peripheral/Venous Blood Culture - Preliminary NO GROWTH AFTER 72 HOURS Vu/IV: Voiding Method Incontinent Active Medications - Current Medications Current Medications: Generic Name Dose Route Start Last Admin Trade Name Freq PRN Reason Stop Dose Admin Acetaminophen 650 mg 05/04/21 15:00 Acetaminophen 325 Mg Tab PO Q4H PRN Pain MILD(1-3)/Fever >100.5/FARRIS Albuterol 2.5 mg 05/04/21 15:00 Albuterol 2.5 Mg/3 Ml Nebu IH Q4HRT PRN Shortness Of Breath Ascorbic Acid 500 mg 05/08/21 22:00 05/12/21 10:02 Ascorbic Acid 500 Mg Tab PO 500 mg BID CASEY Administration Cholecalciferol 1,000 unit 05/09/21 10:00 05/12/21 10:02 Cholecalciferol (Vit D3) 1000 Unit (25 Mcg) Tab PO 1,000 unit QDAY CASEY Administration Hydralazine HCl 5 mg 05/11/21 16:44 Hydralazine 20 Mg/1 Ml Inj IV Q30MIN PRN Hypertension Dextrose/Sodium Chloride 1,000 mls @ 75 mls/hr 05/06/21 17:00 05/11/21 21:46 D5/0.45ns IV 75 mls/hr DIRECT CASEY Administration Ondansetron HCl 4 mg 05/04/21 15:00 Ondansetron 4 Mg/2 Ml Inj IV Q8H PRN Nausea And Vomiting Oxycodone/Acetaminophen 1 tab 05/04/21 15:00 Oxycodone /Acetaminophen 5-325mg Tab PO Q6H PRN Pain, Moderate (4-6) Pantoprazole Sodium 40 mg 05/10/21 11:00 05/12/21 10:00 Pantoprazole 40 Mg Tab PO 40 mg DAILY CASEY Administration Sodium Chloride 10 ml 05/04/21 22:00 05/12/21 10:02 Sodium Chloride 0.9% 10 Ml Flush Syringe IV 10 ml BID CASEY Administration Sodium Chloride 10 ml 05/04/21 15:00 Sodium Chloride 0.9% 10 Ml Flush Syringe IV PRN PRN LINE FLUSH
[2021-05-12] MEDS: D5W/0.45% NACL 1,000 ML IV SCH (14:57)
[2021-05-13] MEDS: D5W/0.45% NACL 1,000 ML IV SCH (05:51)
[2021-05-13 06:10] VITALS: BP 97/64
--- NOTE | 2021-05-13 07:34 | Progress Note ---
Assessment and Plan Assessment and plan: Patient is 76-year-old male with a past medical history of A. fib, bipolar disorder, debility, dementia, Alzheimer, history of CVA, and hypertension who came to the ED from a custodial facility on 05/04/2021 for complaint of coffee-ground emesis and hypotension 05/12: Patient states today he is feeling well. no intervention planned. d/w [facility] ok for downgrade to floor bed.. 05/13: #COVID-19 infection #Acute hypoxic respiratory failure- resolved -Patient no longer hypoxemic. -[place] PCR test positive/05/08/2021 -Continue Contact and droplet isolation -Chest x-ray to rule out pneumonia -Inflammatory markers every 2-3 days #Bradycardia; symptomatic -Cardiology suggest dopamine which is been initiated as opposed to PPM. -Remains asymptomatic at this time. -check EKG heart rate ranges between 40-59 -Patient not on any AV noel blocking agents -Cardiology following, EP cardiology evaluation and possible PPM/AICD placement #Upper GI bleeding- resolved -After closely monitoring H&H. 11 and 32. -GI consulted; appreciate recs -status post endoscopy that revealed esophagitis no evidence of bleeding. #Acute blood loss anemia- resolved -Patient received total 2 units of PRBC Hb improved to 7.7 -Monitor H&H additional transfusion as needed #Alzheimer's/vascular dementia Clear cognitive impairment. Patient mood stable #Chronic Atrial fibrillation -Require to hold anticoagulation secondary to GI blood loss anemia but stable. At some point will need to determine when to restart anticoagulate therapy. -Closely monitor, patient is not on any AV noel blocking agents #Cerebral atherosclerosis #Bipolar disorder; continue psych medications #Advanced care planning -Disease education conducted, care plan discussed, diagnoses discussed, prognosis discussed, and patient acknowledges understanding with care plan -Time: +30 min The high probability of a clinically significant, sudden or life threatening deterioration of the [multi] system(s) required my full and direct attention, intervention and personal management. The aggregate critical care time was [60] minutes. This time is in addition to time spent performing reported procedures but includes the following: [x] Data Review and interpretation [x] Patient assessment and monitoring of vital signs [x] Documentation [x] Medication orders and management Hospitalist Physical - Physical exam Narrative exam: General appearance: Present: no acute distress, well-nourished - EENT Eyes: PERRL, EOM intact ENT: hearing intact, clear oral mucosa - Neck Neck: supple, normal ROM - Respiratory Respiratory effort: normal Respiratory: bilateral: diminished, negative: other (Rhonchi has resolved.) - Cardiovascular Heart rate: 47 Extremities: pulses intact, No edema, normal color, Full ROM - Gastrointestinal General gastrointestinal: Present: soft, non-tender, non-distended, normal bowel sounds - Integumentary Integumentary: clear, warm, dry - Musculoskeletal Musculoskeletal: generalized weakness - Neurologic Neurologic: moves all extremities - Psychiatric Psychiatric: memory intact, appropriate mood/affect, intact judgment & insight - Constitutional Vitals: Temp Pulse Resp BP Pulse Ox 98.0 F 67 20 97/64 93 05/13/21 05:02 05/13/21 05:02 05/13/21 05:02 05/13/21 05:02 05/13/21 05:02 General appearance: Present: no acute distress, well-nourished HEART Score - HEART Score Troponin: Troponin T 0.014 ng/mL (0.00-0.029) 05/06/21 19:27 Results - Labs CBC & Chem 7: 05/11/21 05:18 05/12/21 04:19 Labs: Laboratory Last Values WBC 9.2 K/mm3 (4.5-11.0) 05/11/21 05:18 RBC 3.74 M/mm3 (3.65-5.03) 05/11/21 05:18 Hgb 11.0 gm/dl (11.8-15.2) L D 05/11/21 05:18 Hct 33.2 % (35.5-45.6) L D 05/11/21 05:18 MCV 89 fl (84-94) 05/11/21 05:18 MCH 29 pg (28-32) 05/11/21 05:18 MCHC 33 % (32-34) 05/11/21 05:18 RDW 16.1 % (13.2-15.2) H 05/11/21 05:18 Plt Count 329 K/mm3 (140-440) 05/11/21 05:18 Lymph % (Auto) 21.0 % (13.4-35.0) 05/10/21 07:25 [place] % (Auto) Registered Physical Therapist 05/11/21 05:18 Eos % (Auto) 1.1 % (0.0-4.3) 05/10/21 07:25 Baso % (Auto) 0.4 % (0.0-1.8) 05/10/21 07:25 Lymph # (Auto) 2.1 K/mm3 (1.2-5.4) 05/10/21 07:25 [place] # (Auto) 1.1 K/mm3 (0.0-0.8) H 05/10/21 07:25 Eos # (Auto) 0.1 K/mm3 (0.0-0.4) 05/10/21 07:25 Baso # (Auto) 0.0 K/mm3 (0.0-0.1) 05/10/21 07:25 Add Manual Diff Complete 05/11/21 05:18 Total Counted 100 05/11/21 05:18 Seg Neutrophils % 66.0 % (40.0-70.0) 05/10/21 07:25 Seg Neuts % (Manual) 65.0 % (40.0-70.0) 05/11/21 05:18 Band Neutrophils % 2.0 % 05/11/21 05:18 Lymphocytes % (Manual) 15.0 % (13.4-35.0) 05/11/21 05:18 Reactive Lymphs % (Man) 0 % 05/11/21 05:18 Monocytes % (Manual) 15.0 % (0.0-7.3) H 05/11/21 05:18 Eosinophils % (Manual) 2.0 % (0.0-4.3) 05/11/21 05:18 Basophils % (Manual) 1.0 % (0.0-1.8) 05/11/21 05:18 Metamyelocytes % 0 % 05/11/21 05:18 Myelocytes % 0 % 05/11/21 05:18 Promyelocytes % 0 % 05/11/21 05:18 Blast Cells % 0 % 05/11/21 05:18 Nucleated RBC % 1.0 % (0.0-0.9) H 05/11/21 05:18 Seg Neutrophils # 6.5 K/mm3 (1.8-7.7) 05/10/21 07:25 Seg Neutrophils # Man 6.0 K/mm3 (1.8-7.7) 05/11/21 05:18 Band Neutrophils # 0.2 K/mm3 05/11/21 05:18 Lymphocytes # (Manual) 1.4 K/mm3 (1.2-5.4) 05/11/21 05:18 Abs React Lymphs (Man) 0.0 K/mm3 05/11/21 05:18 Monocytes # (Manual) 1.4 K/mm3 (0.0-0.8) H 05/11/21 05:18 Eosinophils # (Manual) 0.2 K/mm3 (0.0-0.4) 05/11/21 05:18 Basophils # (Manual) 0.1 K/mm3 (0.0-0.1) 05/11/21 05:18 Metamyelocytes # 0.0 K/mm3 05/11/21 05:18 Myelocytes # 0.0 K/mm3 05/11/21 05:18 Promyelocytes # 0.0 K/mm3 05/11/21 05:18 Blast Cells # 0.0 K/mm3 05/11/21 05:18 WBC Morphology Not Reportable 05/11/21 05:18 Hypersegmented Neuts Not Reportable 05/11/21 05:18 Hyposegmented Neuts Not Reportable 05/11/21 05:18 Hypogranular Neuts Not Reportable 05/11/21 05:18 Smudge Cells Not Reportable 05/11/21 05:18 Toxic Granulation Not Reportable 05/11/21 05:18 Toxic Vacuolation Not Reportable 05/11/21 05:18 Dohle Bodies Not Reportable 05/11/21 05:18 Pelger-Huet Anomaly Not Reportable 05/11/21 05:18 Juan Rods Not Reportable 05/11/21 05:18 Platelet Estimate Consistent w auto 05/11/21 05:18 Clumped Platelets Not Reportable 05/11/21 05:18 Plt Clumps, EDTA Not Reportable 05/11/21 05:18 Large Platelets Few 05/11/21 05:18 Giant Platelets Not Reportable 05/11/21 05:18 Platelet Satelliting Not Reportable 05/11/21 05:18 Plt Morphology Comment Not Reportable 05/11/21 05:18 RBC Morphology Not Reportable 05/11/21 05:18 Dimorphic RBCs Not Reportable 05/11/21 05:18 Polychromasia Few 05/11/21 05:18 Hypochromasia Not Reportable 05/11/21 05:18 Poikilocytosis Not Reportable 05/11/21 05:18 Anisocytosis 1+ 05/11/21 05:18 Microcytosis Not Reportable 05/11/21 05:18 Macrocytosis 1+ 05/11/21 05:18 Spherocytes Not Reportable 05/11/21 05:18 Pappenheimer Bodies Not Reportable 05/11/21 05:18 Sickle Cells Not Reportable 05/11/21 05:18 Target Cells Not Reportable 05/11/21 05:18 Tear Drop Cells Not Reportable 05/11/21 05:18 Ovalocytes Not Reportable 05/11/21 05:18 Helmet Cells Not Reportable 05/11/21 05:18 [place] Bodies Not Reportable 05/11/21 05:18 Orr Rings Not Reportable 05/11/21 05:18 Anuradha Cells Not Reportable 05/11/21 05:18 Bite Cells Not Reportable 05/11/21 05:18 Crenated Cell Not Reportable 05/11/21 05:18 Elliptocytes Not Reportable 05/11/21 05:18 Acanthocytes (Spur) Not Reportable 05/11/21 05:18 Rouleaux Not Reportable 05/11/21 05:18 Hemoglobin C Crystals Not Reportable 05/11/21 05:18 Schistocytes Not Reportable 05/11/21 05:18 Malaria parasites Not Reportable 05/11/21 05:18 Abdifatah Bodies Not Reportable 05/11/21 05:18 Hem Pathologist Commnt No 05/11/21 05:18 PT 15.8 Sec. (12.2-14.9) H 05/04/21 14:47 INR 1.13 (0.87-1.13) 05/04/21 14:47 APTT 29.0 Sec. (24.2-36.6) 05/04/21 13:01 D-Dimer 419.12 ng/mlDDU (0-234) H 05/08/21 20:28 Sodium 139 mmol/L (137-145) 05/12/21 04:19 Potassium 3.6 mmol/L (3.6-5.0) 05/12/21 04:19 Chloride 101.0 mmol/L (98-107) 05/12/21 04:19 Carbon Dioxide 28 mmol/L (22-30) 05/12/21 04:19 Anion Gap 14 mmol/L 05/12/21 04:19 BUN 7 mg/dL (9-20) L 05/12/21 04:19 Creatinine 0.4 mg/dL (0.8-1.3) L 05/12/21 04:19 Estimated GFR > 60 ml/min 05/12/21 04:19 BUN/Creatinine Ratio 18 % 05/12/21 04:19 Glucose 95 mg/dL (75-100) 05/12/21 04:19 POC Glucose 80 mg/dL (70-105) 05/12/21 05:17 Calcium 8.8 mg/dL (8.4-10.2) 05/12/21 04:19 Ferritin 171.3 ng/mL (30.0-300.0) 05/08/21 20:28 Total Bilirubin 1.00 mg/dL (0.1-1.2) 05/12/21 04:19 AST 16 units/L (5-40) 05/12/21 04:19 ALT 22 units/L (7-56) 05/12/21 04:19 Alkaline Phosphatase 93 units/L (35-129) 05/12/21 04:19 Lactate Dehydrogenase 377 units/L (91-180) H 05/08/21 20:28 Troponin T 0.014 ng/mL (0.00-0.029) 05/06/21 19:27 C-Reactive Protein 10.50 mg/dL (0.00-1.30) H 05/08/21 20:28 Total Protein 6.1 g/dL (6.3-8.2) L 05/12/21 04:19 Albumin 2.6 g/dL (3.9-5) L 05/12/21 04:19 Albumin/Globulin Ratio 0.7 % 05/12/21 04:19 Coronavirus (PCR) Positive (Negative) A 05/08/21 10:50 Blood Type O POSITIVE 05/10/21 17:50 Antibody Screen Negative 05/10/21 17:50 Crossmatch See Detail 05/10/21 17:50 Microbiology: Microbiology 03/23/22 20:28 Peripheral/Venous Blood Culture - Preliminary NO GROWTH AFTER 4 DAYS 05/08/21 20:28 Peripheral/Venous Blood Culture - Preliminary NO GROWTH AFTER 4 DAYS Vu/IV: Voiding Method Condom Catheter Active Medications - Current Medications Current Medications: Generic Name Dose Route Start Last Admin Trade Name Freq PRN Reason Stop Dose Admin Acetaminophen 650 mg 05/04/21 15:00 Acetaminophen 325 Mg Tab PO Q4H PRN Pain MILD(1-3)/Fever >100.5/FARRIS Albuterol 2.5 mg 05/04/21 15:00 Albuterol 2.5 Mg/3 Ml Nebu IH Q4HRT PRN Shortness Of Breath Ascorbic Acid 500 mg 05/08/21 22:00 05/12/21 21:50 Ascorbic Acid 500 Mg Tab PO 500 mg BID CASEY Administration Cholecalciferol 1,000 unit 05/09/21 10:00 05/12/21 10:02 Cholecalciferol (Vit D3) 1000 Unit (25 Mcg) Tab PO 1,000 unit QDAY CASEY Administration Hydralazine HCl 5 mg 05/11/21 16:44 Hydralazine 20 Mg/1 Ml Inj IV Q30MIN PRN Hypertension Dextrose/Sodium Chloride 1,000 mls @ 75 mls/hr 05/06/21 17:00 05/13/21 05:51 D5/0.45ns IV 75 mls/hr DIRECT CASEY Administration Ondansetron HCl 4 mg 05/04/21 15:00 Ondansetron 4 Mg/2 Ml Inj IV Q8H PRN Nausea And Vomiting Oxycodone/Acetaminophen 1 tab 05/04/21 15:00 Oxycodone /Acetaminophen 5-325mg Tab PO Q6H PRN Pain, Moderate (4-6) Pantoprazole Sodium 40 mg 05/10/21 11:00 05/12/21 10:00 Pantoprazole 40 Mg Tab PO 40 mg DAILY CASEY Administration Sodium Chloride 10 ml 05/04/21 22:00 05/12/21 21:51 Sodium Chloride 0.9% 10 Ml Flush Syringe IV 10 ml BID CASEY Administration Sodium Chloride 10 ml 05/04/21 15:00 Sodium Chloride 0.9% 10 Ml Flush Syringe IV PRN PRN LINE FLUSH Nutrition/Malnutrition Assess - Dietary Evaluation Nutrition/Malnutrition Findings: Nutrition Notes Start: 05/12/21 18:53 Freq: Status: Active Protocol: Document 05/12/21 18:53 RITIKA (Rec: 05/12/21 19:24 RITIKA [id number]) Nutrition Notes Current Diagnosis Hypertension Other Pertinent Diagnosis Esophagitis, Anemia s/p UGI Bleed, s/p COVID-19/RF, Alzheimer Dementia... Current Diet Pureed Diet (since D 05/08). Labs/Tests 05/12 BUN 7, Crea 0.4. Pertinent Medications 05/12: Vit C, Vit D3, D5/0. 45ns 1000 ml @ 75 ml/hr, others nutritionally unremarkable. Height 5 ft 11 in Weight 95.2 kg [place] Body Weight (kg) 78.18 BMI 29.2 Intake Prior to Admission Good Weight change and time frame Pt denies having loss body weight [employer]OTECTION [employer]ENT. Weight Status Overweight Subjective/Other Information RD consult for LOS assessment. No reports available on Pt's PO intake of meals at the time , will assess at F/U.. Pt has missing teeth and caries, according to Physical Assessment History notes. CONTRACT ASSOCIATE MANAGER note 05/10: Patient was downgraded from the mechanical soft diet with ground meats to a pureed consistency. Consistencies presented were increased in solidity which resulted in prolonged oral transit time with oral residuals. Therefore, the patient should maintain the pureed diet with thins. No further recommendations. Pt lives in a SNF, according to Progress notes. Percent of energy/protein needs met: Prescribed Pureed Diet provides for energy/protein needs (1,804 Kcal/77 g) during LOS. Burn Absent Trauma Absent GI Symptoms Other Difficulty In Swallowing,Chewing Food Allergy Yes Skin Integrity/Comment Unspecified dryness and flaking. Minimum of two criteria No #1 Nutrition Diagnosis No nutrition diagnosis at this time Comments: Will assess PO intake of meals at F/U. Is patient on ventilator? No Is Patient Ambulatory and/or Out of Bed No REE-([facility]-confined to bed) Calculation Used for Recommendations [facility] Additional Notes Protein: 1-1.2 g/Kg ABW; 95- 114 g/day. Fluids: 1 ml/Kcal, or as per MD. Nutrition Intervention Follow-Up By: 05/20/21 Additional Comments Continue monitoring food tolerance, %PO intake of meals , and BM.
--- NOTE | 2021-05-13 10:51 | Progress Note ---
Assessment and Plan Cultures: SARS CoV2 PCR: Positive 05/08/2021 blood culture: no growth A/P: 76-year-old male with atrial fibrillation, bipolar disorder, hypertension, prior CVA, dementia, [facility] resident was admitted on 05/04/2021 with coffee- ground emesis: #COVID-19 infection: Chest x-ray does not show pneumonia. At the time of my evaluation, patient was not on oxygen. Unable to determine if asymptomatic v/s presymptomatic. Considering his comorbidities, is at risk of disease progression, hence will treat with Remdesivir for 3 days. CRP elevated, ferritin normal, mild elevation of LDH. #Bradycardia: Cardiology following. #Acute blood loss anemia, suspected upper GI bleeding: EGD revealed esophagitis. #Dementia Recs: -Completed IV remdesivir -No indication for steroids since he is not hypoxic. If he develops hypoxia, start dexamethasone 6 mg daily -monitor LFTs -trend ferritin, d-dimer, CRP every 2-3 days Kimberlyn Horne MD [facility] O: [phone] F: [phone] Subjective Date of service: 05/13/21 Principal diagnosis: Bradycardia Interval history: Afebrile, normal white count. On room air. Imaging personally reviewed: Chest CTA: Bilateral interstitial infiltrates. No pulmonary embolism. Objective - Exam Narrative Exam: Physical Exam: Constitutional: Alert, cooperative. No acute distress Head, Ears, Nose: Normocephalic, atraumatic. External ears, nose normal Eyes: Conjunctivae/corneas clear. No icterus. No ptosis. Neck: Supple, no meningeal signs Oral: Dentition poor Cardiovascular: S1, S2 + Respiratory: Good air entry, clear to auscultation bilaterally GI: Soft, non-tender; bowel sounds normal. No peritoneal signs Musculoskeletal: No pedal edema, no cyanosis. Skin: No rash or abscess Hem/Lymphatic: No palpable cervical or supraclavicular nodes. No lymphangitis Psych: Calm, no agitation Neurological: Awake, alert, not oriented - Constitutional Vitals: Vital Signs Temp Pulse Resp BP Pulse Ox 98.0 F 67 20 97/64 93 05/13/21 05:02 05/13/21 05:02 05/13/21 05:02 05/13/21 05:02 05/13/21 05:02 Temperature -Last 24 Hours Temperature 98.0 F Temperature 99.0 F Temperature 98.2 F Temperature 98.6 F Temperature 98.6 F - Labs CBC & Chem 7: 05/11/21 05:18 05/12/21 04:19
--- NOTE | 2021-05-13 11:39 | Discharge Summary ---
Providers - Providers Date of Admission: 05/04/21 14:23 Date of discharge: 05/13/21 Attending physician: JIMENA PALOMINO MD 05/04/21 13:54 Consult to Physician [CONS] Urgent Comment: Consulting Provider: CLYDE PALOMINO Physician Instructions: Reason For Exam: GI bleed 05/06/21 09:19 Speech Therapy Evaluation and Treat [CONS] Stat Reason For Exam: swallow eval 05/07/21 14:21 Consult to Physician [CONS] Routine Comment: Consulting Provider: CHRISTINE CHOW Physician Instructions: Reason For Exam: Symptomatic yaa HR 30-60s[ 29/min last night] 05/09/21 07:13 Consult to Physician [CONS] Routine Comment: Consulting Provider: JEFFREY MELGAR Physician Instructions: Reason For Exam: Positive [place] PCR 05/08/2021/hypoxia Primary care physician: ANALY QUACH Hospitalization Reason for admission: hematemesis Condition: Fair Hospital course: History of present illness: 76 YO Male Assisted Facility Resident as [facility] with Atrial Fib on Therapeutic Anticoagulation, Encephalopathy, Debility, Bipolar Disorder, HTN, CVA, Debility, Vascular Dementia, Cerebral Atherosclerosis, Alzheimers Disease presents to ED for evaluation. Patient has diminished cognition and is unable to provide detailed history at the time of my evaluation. Patient history taken from EMS staff, ED staff, as well as halfway facility staff. As per staff the patient was found to have coffee- ground emesis today with concomitant hypotension, and change in level of consciousness, hypotension with a systolic blood pressure in the 80s. EMS was notified and upon arrival the patient was found to be in distress and subsequent transported to [facility] for further care and evaluation of the aforementioned symptoms. The patient was seen and evaluated in the emergency department. All lab and imaging studies reviewed. Patient found to have symptoms consistent with GI bleed. Patient admitted to telemetry due to increased risk of worsening symptoms. Patient initiated on GI bleed protocol. GI team consulted in ED. No reports of fever, chills, chest pain, palpitations, productive cough, skin rash, recent ill contacts, known exposure to COVID-19. Prior mission on 05/01/2020 reviewed. All medication listed at time of admission has been reconciled. Advanced care planning conducted in ED. Patient has diminished cognition at the time my evaluation but has a positive gag reflex and is able to protect his airway without difficulty. Hospital course: Patient was admitted for upper GI bleed and symptomatic bradycardia. Patient was evaluated by gastroenterology who completed endoscopy and found esophagitis with no high bleeding risk region lesions. Patient was initiated on Protonix daily. Patient was also evaluated by cardiology for symptomatic bradycardia. Evaluated for possible pacemaker due to heart rate 40-50. Patient was not on AV noel blocking agents prior to admission. Patient bradycardia self resolved. His echocardiogram demonstrated EF 50% normal LV function with dilated right ventricle however normal systolic function. EP did not recommend pacemaker placement at this time. Patient will be discharged back to [facility]. He will be discharged with prescription for Protonix. He will be advised to avoid any blood thinners. He is advised to follow-up with his primary care doctor in 1 to 2 weeks. #COVID-19 infection #Acute hypoxic respiratory failure- resolved -Patient no longer hypoxemic. -[place] PCR test positive/05/08/2021 -Continue Contact and droplet isolation -Chest x-ray to rule out pneumonia -Inflammatory markers every 2-3 days #Bradycardia; symptomatic -Cardiology suggest dopamine which is been initiated as opposed to PPM. -Remains asymptomatic at this time. -check EKG heart rate ranges between 40-59 -Patient not on any AV noel blocking agents -Cardiology following, EP cardiology evaluation and possible PPM/AICD placement #Upper GI bleeding- resolved -After closely monitoring H&H. 11 and 32. -GI consulted; appreciate recs -status post endoscopy that revealed esophagitis no evidence of bleeding. #Acute blood loss anemia- resolved -Patient received total 2 units of PRBC Hb improved to 7.7 -Monitor H&H additional transfusion as needed #Alzheimer's/vascular dementia Clear cognitive impairment. Patient mood stable #Chronic Atrial fibrillation -Require to hold anticoagulation secondary to GI blood loss anemia but stable. At some point will need to determine when to restart anticoagulate therapy. -Closely monitor, patient is not on any AV noel blocking agents #Cerebral atherosclerosis #Bipolar disorder; continue psych medications #Advanced care planning -Disease education conducted, care plan discussed, diagnoses discussed, prognosis discussed, and patient acknowledges understanding with care plan -Time: +30 min Disposition: 03 [facility] Final Discharge Diagnosis (Prints w/discharge instructions): COVID 19, symptomatic bradycardia Time spent for discharge: 35 Core Measure Documentation - Palliative Care Palliative Care/ Comfort Measures: Not Applicable - Core Measures Any of the following diagnoses?: none Exam - Physical Exam Narrative exam: General appearance: Present: no acute distress, well-nourished - EENT Eyes: PERRL, EOM intact ENT: hearing intact, clear oral mucosa - Neck Neck: supple, normal ROM - Respiratory Respiratory effort: normal Respiratory: bilateral: diminished, negative: other (Rhonchi has resolved.) - Cardiovascular Heart rate: 47 Extremities: pulses intact, No edema, normal color, Full ROM - Gastrointestinal General gastrointestinal: Present: soft, non-tender, non-distended, normal bowel sounds - Integumentary Integumentary: clear, warm, dry - Musculoskeletal Musculoskeletal: generalized weakness - Neurologic Neurologic: moves all extremities - Psychiatric Psychiatric: memory intact, appropriate mood/affect, intact judgment & insight - Constitutional Vitals: Temp Pulse Resp BP Pulse Ox 98.0 F 67 20 97/64 93 05/13/21 05:02 05/13/21 05:02 05/13/21 05:02 05/13/21 05:02 05/13/21 05:02 Plan Plan of Treatment: Patient was admitted for upper GI bleed and symptomatic bradycardia. Patient was evaluated by gastroenterology who completed endoscopy and found esophagitis with no high bleeding risk region lesions. Patient was initiated on Protonix daily. Patient was also evaluated by cardiology for symptomatic bradycardia. Evaluated for possible pacemaker due to heart rate 40-50. Patient was not on AV noel blocking agents prior to admission. Patient bradycardia self resolved. His echocardiogram demonstrated EF 50% normal LV function with dilated right ventricle however normal systolic function. EP did not recommend pacemaker placement at this time. Patient will be discharged back to [facility] nursing facility. He will be discharged with prescription for Protonix. He will be advised to avoid any blood thinners. He is advised to follow-up with his primary care doctor in 1 to 2 weeks. Follow up with: ANALY QUACH MD [Primary Care Provider] - 3-5 Days Prescriptions: Pantoprazole [Protonix TAB] 40 mg PO DAILY 30 Days #30 tablet
[2021-05-13] MEDS: ASCORBIC ACID 500 MG TAB PO SCH (11:59)
[2021-05-13] MEDS: CHOLECALCIFEROL (VIT D3) 1000 UNIT (25 mcg) TAB PO SCH (11:59)
[2021-05-13] MEDS: PANTOPRAZOLE 40 MG TAB PO SCH (11:59)
--- NOTE | 2021-05-13 12:31 | Progress Note ---
Assessment and Plan Patient is 76-year-old male with a past medical history of A. fib, bipolar disorder, debility, dementia, Alzheimer, history of CVA, and hypertension who came [facility] the ED from a [facility] on 05/[facility]/2021 for complaint of coffee-ground emesis and hypotension. Assessment: Covid+ -ID following Esophagitis-GI following Anemia requiring PRBCs A. fib/Bradycardia History of CVA Dementia/Alzheimer's Bipolar Disorder Hypertension Cardiographics: Echo 05/07/2021-EF 50% normal LV systolic function. Right ventricle is dilated right ventricle systolic function is normal. Left atrium is normal in size. Right atrium is. Mild diastolic function depression relaxation pattern. No pe ricardial effusion Plan: Off dopamine. Patient hemodynamically stable. HR 40-60's. Continue to monitor closely on telemetry EP consultation recommendation to hold all AV noel blocking agents. No further intervention at this time. Will see as needed. Patient seen in conjunction with Dr. Ventura who agrees with the assessment and management of this patient. Subjective Date of service: 05/13/21 Principal diagnosis: Bradycardia Interval history: Patient in no apparent distress. Doing well. Vital Signs Temp 98.0 F 05/13/21 05:02 Pulse 67 05/13/21 05:02 Resp 20 05/13/21 05:02 BP 97/64 05/13/21 05:02 Pulse Ox 93 05/13/21 05:02 Intake & Output 05/12/21 05/13/21 05/13/21 23:59 11:59 23:59 Intake Total 0 1600 Balance 0 1600 Weight 95.2 kg Intake: IV 1000 D5/0.45NS 1,000 ml @ 75 1000 mls/hr IV DIRECT CASEY Rx#:[id number] Oral 0 600 Other: Total, Intake Amount 0 600 Voiding Method Condom Catheter # Voids Condom Catheter 4 # Bowel Movements 1 Objective Vital Signs Temp Pulse Pulse Resp BP Pulse Ox 05/13/21 05:02 98.0 F 67 20 97/64 93 05/12/21 23:39 98 05/12/21 22:05 17 96 05/12/21 21:15 99.0 F 69 16 125/59 97 05/12/21 16:44 98.2 F 66 18 146/84 96 05/12/21 16:00 98.6 F 81 17 96 - Physical Examination General: No Apparent Distress HEENT: Positive: Normocephaly Neck: Positive: neck supple, trachea midline Cardiac: Positive: irregularly irregular, Bradycardia Lungs: Positive: clear to auscultation Neuro: Positive: Other (Dementia) Abdomen: Positive: Soft Skin: Negative: Rash Extremities: Present: warm. Absent: edema - Imaging and Cardiology EKG: report reviewed, image reviewed Echo: report reviewed - Telemetry EKG Rhythm: Atrial Fibrillation Repolarization changes or abnormalities: nonspecific abnormality, ST segment, and/or T wave, Q-T interval prolongation - Allied health notes Allied health notes reviewed: nursing
--- NOTE | 2021-05-14 09:00 | Electrocardiograph Report ---
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
== END 2021-05-13 16:55 | DRG 177 ==
LOC: ED 12:29 → 4A 14:23 → 3A 05-08 16:43 → CC1 05-10 16:29 → 3A 05-12 10:59
PROVIDERS: ADMIT Internal Medicine; ATTEND Internal Medicine
PROC: 0DJ08ZZ Inspection of Upper Intestinal Tract, Via Natural or Artificial Opening Endoscopic (ICD-10-PCS; principal; 2021-05-05)
PROC: 30233N1 Transfusion of Nonautologous Red Blood Cells into Peripheral Vein, Percutaneous Approach (ICD-10-PCS; 2021-05-05)
PROC: XW033E5 Introduction of Remdesivir Anti-infective into Peripheral Vein, Percutaneous Approach, New Technology Group 5 (ICD-10-PCS; 2021-05-09)
DX: U07.1 COVID-19 (principal); J96.01 Acute respiratory failure with hypoxia; K92.2 Gastrointestinal hemorrhage, unspecified; D62 Acute posthemorrhagic anemia; K22.10 Ulcer of esophagus without bleeding; I48.20 Chronic atrial fibrillation, unspecified; I67.2 Cerebral atherosclerosis; G30.9 Alzheimer's disease, unspecified; F02.80 Dementia in other diseases classified elsewhere, unspecified severity, without behavioral disturbance, psychotic disturbance, mood disturbance, and anxiety; F31.9 Bipolar disorder, unspecified; F20.9 Schizophrenia, unspecified; K44.9 Diaphragmatic hernia without obstruction or gangrene; E78.00 Pure hypercholesterolemia, unspecified; Z79.82 Long term (current) use of aspirin; Z83.3 Family history of diabetes mellitus; Z82.49 Family history of ischemic heart disease and other diseases of the circulatory system; Z86.73 Personal history of transient ischemic attack (TIA), and cerebral infarction without residual deficits; Z91.010 Allergy to peanuts
CPT/HCPCS: 36415; 70450; 71045; 71275; 80048; 80053; 82271; 82728; 82962; 83615; 84484; 85007; 85014; 85018; 85025; 85027; 85379; 85610; 85730; 86140; 86850; 86900; 86901; 86920; 87040; 93005; 93306; 94760; G0378; J7070; J7120; Q0162; C8929; C9113; J0696; J1100; J1265; J2704; J3480; J7030; J7040; J7050; P9016; Q9967; U0003

== ENCOUNTER 2021-09-24 07:25 | Emergency (ER) | payer MEDICARE ==
[2021-09-24 08:16] LABS: ABG Base Excess -12.7 mmol/L (-2.0-3.0); ABG HCO3 13.2 mmol/L (20.0-26.0); ABG Methemoglobin 0.7 % (0.0-1.5); ABG Oxygen Saturation 76.7 % (95.0-99.0); ABG PCO2 30.1 mm Hg; ABG PH 7.26 pH Units (7.350-7.450); ABG PO2 58.3 mm Hg (80.0-90.0)
--- NOTE | 2021-09-24 08:16 | XRay Report ---
CHEST 1 VIEW 09/24/2021 7:53 AM INDICATION / CLINICAL INFORMATION: sob. COMPARISON: 05/08/21 FINDINGS: SUPPORT DEVICES: None. HEART / MEDIASTINUM: No significant abnormality. LUNGS / PLEURA: Patchy bibasilar densities have increased slightly since the prior study. No pneumoth orax. ADDITIONAL FINDINGS: No significant additional findings. IMPRESSION: 1. Interval worsening of bibasilar pulmonary opacities. Signer Name: Rogerio Garcia MD Signed: 09/24/2021 8:11 AM Workstation Name: [id number]
[2021-09-24] MEDS ORDERED: LACTATED RINGERS 1000 ML IV SOLN IV ONE (08:23)
[2021-09-24 08:45] VITALS: BP 128/67
[2021-09-24 09:16] LABS: Albumin 2.9 g/dL (3.9-5); Calcium 10.7 mg/dL (8.4-10.2)
--- NOTE | 2021-09-24 09:24 | Emergency Department Report ---
ED Shortness of Breath HPI - General Chief Complaint: Dyspnea/Respdistress Stated Complaint: DIFFICULTY BREATHING Time Seen by Provider: 09/24/21 07:41 Source: EMS, old records reviewed Mode of arrival: Stretcher Limitations: Altered Mental Status, Physical Limitation - History of Present Illness Initial Comments: 76-year-old male with a past medical history schizophrenia, vascular dementia, atrial fibrillation, encephalopathy, debility, bipolar disorder, hypertension, and CVA presents to the hospital with complaints of dyspnea and tachycardia. EM S noted A. fib with RVR which was treated with adenosine 6 mg. Patient presents with sinus tachycardia with intermittent heart rate increases to 150s. Noticeable tachypnea and unable to obtain a reliable pulse ox saturation despite 100% nonrebreather. BiPAP and stat ABG ordered. Patient unable to provide any history of present illness due to underlying dementia and acute respiratory distress. Previous medical record reviewed and patient was admitted here in June for acute hypoxic respiratory failure, refractory hypoglycemia, symptomatic bradycardia, acute metabolic encephalopathy, chronic atrial fibrillation, GERD, Parkinson's disease, prior history of CVA, pseudoarthrosis, vascular dementia - Related Data Home Medications Medication Instructions Recorded Confirmed Last Taken Apixaban [Eliquis] 5 mg PO BID 12/01/20 05/05/21 Unknown Aspirin [Aspirin BABY CHEW TAB] 81 mg PO QDAY 12/01/20 05/05/21 Unknown AtorvaSTATin [Lipitor] 40 mg PO QHS 12/01/20 05/05/21 Unknown Carbidopa/Levodopa 25-100 [Sinemet 1 each PO TID 12/01/20 05/05/21 Unknown 25/100] Divalproex [Elvia Suarez] 500 mg PO BID 12/01/20 05/05/21 Unknown Flecainide [Tambocor] 100 mg PO Q12H 12/01/20 05/05/21 Unknown Loratadine 10 mg PO QDAY 12/01/20 05/05/21 Unknown Mirtazapine 7.5 mg PO QHS 12/01/20 05/05/21 Unknown Oxybutynin Chloride [Ditropan Xl] 5 mg PO BID 12/01/20 05/05/21 Unknown amantadine HCL [Amantadine] 100 mg PO BID 12/01/20 05/05/21 Unknown Previous Rx's Medication Instructions Recorded Last Taken Type Pantoprazole [Protonix TAB] 40 mg PO DAILY 30 Days #30 tablet 05/13/21 Unknown Rx Allergies Allergy/AdvReac Type Severity Reaction Status Date / Time peanut Allergy Itching Verified 07/01/21 07:39 ED Review of Systems ROS: Stated complaint: DIFFICULTY BREATHING Other details as noted in HPI Comment: Unobtainable due to pts medical conditions ED Past Medical Hx - Past Medical History Hx Hypertension: Yes Hx CVA: Yes Hx Liver Disease: Yes Hx Renal Disease: Yes (Acute renal Injury) Hx Seizures: No Hx Psychiatric Treatment: Yes (Bipolar, Schizophrenia) Hx Dementia: Yes Additional medical history: A-fib. High Cholesterol - Social History Smoking Status: Never Smoker Substance Use Type: None - Medications Home Medications: Home Medications Medication Instructions Recorded Confirmed Last Taken Type Apixaban [Eliquis] 5 mg PO BID 12/01/20 05/05/21 Unknown History Aspirin [Aspirin BABY CHEW TAB] 81 mg PO QDAY 12/01/20 05/05/21 Unknown History AtorvaSTATin [Lipitor] 40 mg PO QHS 12/01/20 05/05/21 Unknown History Carbidopa/Levodopa 25-100 [Sinemet 1 each PO TID 12/01/20 05/05/21 Unknown History 25/100] Divalproex Dr [Depakote Dr] 500 mg PO BID 12/01/20 05/05/21 Unknown History Flecainide [Tambocor] 100 mg PO Q12H 12/01/20 05/05/21 Unknown History Loratadine 10 mg PO QDAY 12/01/20 05/05/21 Unknown History Mirtazapine 7.5 mg PO QHS 12/01/20 05/05/21 Unknown History Oxybutynin Chloride [Ditropan Xl] 5 mg PO BID 12/01/20 05/05/21 Unknown History amantadine HCL [Amantadine] 100 mg PO BID 12/01/20 05/05/21 Unknown History Pantoprazole [Protonix TAB] 40 mg PO DAILY 30 Days #30 tablet 05/13/21 Unknown Rx ED Physical Exam - General Limitations: Altered Mental Status - Other Other exam information: General: Respiratory distress Head: Atraumatic Eyes: normal appearance ENT: Moist mucous membranes Neck: Normal appearance Chest: Tachypnea, accessory muscle use, breath sounds clear bilateral CV: Tachycardic regular rhythm Abdomen: Soft, normal bowel sounds, nondistended, no grimace with palpation Extremity: Normal inspection, full range of motion Neuro: Lethargic, unable to follow command Skin: Warm to touch ED Course Vital Signs 09/24/21 09/24/21 09/24/21 07:41 08:28 08:38 Temperature 98.2 F Pulse Rate 107 H 102 H 98 H Respiratory 48 H 42 H 30 H Rate Blood Pressure 128/67 128/67 Blood Pressure 127/84 124/55 [Left] O2 Sat by Pulse 90 95 Oximetry - Reevaluation(s) Reevaluation #1: 09/24/21 Patient initially significantly tachypneic with unreliable pulse oximetry on nonrebreather. ABG performed with 40% FiO2 showing significant hypoxia and metabolic acidosis. BiPAP continued with improvement initial tachycardia and stable blood pressure. I was called to the room due to bradycardia in the 30s with spontaneous resolved without intervention. Several minutes later (approximate 9:05 AM) patient bradycardia down into PEA arrest and required cardiopulmonary resuscitation. Patient was bagged and subsequently intubated. Coffee-ground emesis noted in the airway with aspiration. Resuscitation efforts continued for PEA and asystole arrest. Patient received epinephrine x4 and 1 amp of bicarb but unfortunately remained in asystole despite intubation and resuscitation efforts. Time of 9:18 AM - Intubation Time Out Performed: Yes Sedative: none Laryngoscope: fiberoptic video scope Size: 4 ET Tube Size: 7.5 Tube Secured Depth (cm): 24 Tube Secured Location: lips Tube Placement Confirmation: visualized tube passing t, equal breath sounds bilat, no breath sounds over epi, confirmation by capnometr Patient Tolerated Procedure: well Intubation Complications: none Additional Comments: Coffee-ground emesis noted in posterior pharynx including in the airway. Aspiration likely ED Medical Decision Making - Lab Data Result diagrams: 09/24/21 08:07 09/24/21 08:07 Lab Results 09/24/21 09/24/21 09/24/21 Range/Units 07:46 08:05 08:07 WBC 22.0 H (4.5-11.0) K/mm3 RBC 3.68 (3.65-5.03) M/mm3 Hgb 8.7 L (11.8-15.2) gm/dl Hct 31.1 L (35.5-45.6) % MCV 85 (84-94) fl MCH 24 L (28-32) pg MCHC 28 L (32-34) % RDW 22.2 H (13.2-15.2) % Plt Count 447 H (140-440) K/mm3 PT (12.2-14.9) Sec. INR (0.87-1.13) APTT (24.2-36.6) Sec. ABG pH 7.260 L (7.350-7.450) pH Units ABG pCO2 30.1 mm Hg ABG pO2 58.3 L (80.0-90.0) mm Hg ABG HCO3 13.2 L (20.0-26.0) mmol/L ABG O2 Saturation 76.7 L (95.0-99.0) % ABG O2 Content 8.9 (0.0-44) ABG Base Excess -12.7 L (-2.0-3.0) mmol/L ABG Hemoglobin 8.4 L (14.0-18.0) gm/dl ABG Carboxyhemoglobin 1.6 (0.0-5.0) % ABG Methemoglobin 0.7 (0.0-1.5) % Oxyhemoglobin 75.0 L (95.0-99.0) % FiO2 40 % Sodium (137-145) mmol/L Potassium (3.6-5.0) mmol/L Chloride (98-107) mmol/L Carbon Dioxide (22-30) mmol/L Anion Gap mmol/L BUN (9-20) mg/dL Creatinine (0.8-1.3) mg/dL Estimated GFR ml/min BUN/Creatinine Ratio % Glucose (75-100) mg/dL POC Glucose 92 (70-105) mg/dL Calcium (8.4-10.2) mg/dL Total Bilirubin (0.1-1.2) mg/dL AST (5-40) units/L ALT (7-56) units/L Alkaline Phosphatase (35-129) units/L Troponin T (0.00-0.029) ng/mL NT-Pro-B Natriuret Pep (0-900) pg/mL Total Protein (6.3-8.2) g/dL Albumin (3.9-5) g/dL Albumin/Globulin Ratio % 09/24/21 09/24/21 Range/Units 08:07 08:07 WBC (4.5-11.0) K/mm3 RBC (3.65-5.03) M/mm3 Hgb (11.8-15.2) gm/dl Hct (35.5-45.6) % MCV (84-94) fl MCH (28-32) pg MCHC (32-34) % RDW (13.2-15.2) % Plt Count (140-440) K/mm3 PT 24.5 H (12.2-14.9) Sec. INR 1.88 H (0.87-1.13) APTT 54.4 H (24.2-36.6) Sec. ABG pH (7.350-7.450) pH Units ABG pCO2 mm Hg ABG pO2 (80.0-90.0) mm Hg ABG HCO3 (20.0-26.0) mmol/L ABG O2 Saturation (95.0-99.0) % ABG O2 Content (0.0-44) ABG Base Excess (-2.0-3.0) mmol/L ABG Hemoglobin (14.0-18.0) gm/dl ABG Carboxyhemoglobin (0.0-5.0) % ABG Methemoglobin (0.0-1.5) % Oxyhemoglobin (95.0-99.0) % FiO2 % Sodium 150 H (137-145) mmol/L Potassium 5.1 H (3.6-5.0) mmol/L Chloride 105.8 (98-107) mmol/L Carbon Dioxide 14 L (22-30) mmol/L Anion Gap 35 mmol/L BUN 42 H (9-20) mg/dL Creatinine 1.5 H (0.8-1.3) mg/dL Estimated GFR 55 ml/min BUN/Creatinine Ratio 28 % Glucose 118 H (75-100) mg/dL POC Glucose (70-105) mg/dL Calcium 10.7 H (8.4-10.2) mg/dL Total Bilirubin 0.60 (0.1-1.2) mg/dL AST 117 H (5-40) units/L ALT 107 H (7-56) units/L Alkaline Phosphatase 128 (35-129) units/L Troponin T 0.092 H (0.00-0.029) ng/mL NT-Pro-B Natriuret Pep 6064 H (0-900) pg/mL Total Protein 7.2 (6.3-8.2) g/dL Albumin 2.9 L (3.9-5) g/dL Albumin/Globulin Ratio 0.7 % - EKG Data -: EKG Interpreted by Me (Performed at 7:30 AM after ED arrival) EKG shows normal: sinus rhythm, ST-T waves (no stemi) Rate: tachycardia (100) - EKG Data When compared to previous EKG there are: no significant change (Compared to EMS EKG just prior to arrival ) 09/24/21 09:53 EMS EKG and rhythm strip reviewed. Obtained at 7:17 AM showing A. fib rate 159 with a right bundle branch block. Patient received adenosine 6 and had a band repeat EKG 721 shows sinus tach with sinus arrhythmia, per degree AV block. - Radiology Data Radiology results: report reviewed CHEST 1 VIEW 09/24/2021 7:53 AM INDICATION / CLINICAL INFORMATION: sob. COMPARISON: 05/08/21 FINDINGS: SUPPORT DEVICES: None. HEART / MEDIASTINUM: No significant abnormality. LUNGS / PLEURA: Patchy bibasilar densities have increased slightly since the prior study. No pneumothorax. ADDITIONAL FINDINGS: No significant additional findings. IMPRESSION: 1. Interval worsening of bibasilar pulmonary opacities. - Medical Decision Making 76-year-old male presents to the hospital acute respiratory distress and tachycardia. Heart rate seem to improved after initial adenosine bolus. Respiratory distress and heart rate further improved with BiPAP support. Despite tolerating BiPAP support patient bradycardia down and developed PEA arrest with subsequent asystole. Patient did not have return of spontaneous circulation despite cardiopulmonary resuscitation and meds. Time of 9:18 AM. Please refer to nurse code sheet Critical Care Time: Yes Critical care attestation.: If time is entered above; I have spent that time in minutes in the direct care of this critically ill patient, excluding procedure time. Critical Care Time: 40 Minutes of critical care time excluding procedures were used in the care of the patient. I came immediately to the bedside upon patient's arrival. I I discussed treatment plan with the nursing team members. I reviewed electronic record. Patient required multiple interventions and reassessments. ED Disposition Clinical Impression: Cardiopulmonary arrest, Acute renal insufficiency, Coffee ground emesis, Aspiration into airway, Pulmonary infiltrates on CXR, Transaminitis Disposition: 20 Is pt being admited?: No Condition: Poor Time of Disposition: 10:07
[2021-09-24 09:26] LABS: Mean Corpuscular HGB Conc 28 % (32-34); Mean Corpuscular Volume 85 fl (84-94); Platelet Count 447 K/mm3 (140-440); Red Blood Count 3.68 M/mm3 (3.65-5.03)
[2021-09-24 09:32] LABS: Hematocrit 31.1 % (35.5-45.6); Hemoglobin 8.7 gm/dl (11.8-15.2); Red Cell Distribution Width 22.2 % (13.2-15.2)
[2021-09-24 09:37] LABS: INR 1.88 (0.87-1.13)
[2021-09-24 09:38] LABS: Partial Thromboplastin Time 54.4 Sec. (24.2-36.6)
[2021-09-24 18:05] LABS: Band Neutrophils # (Manual) 0.9 K/mm3; Basophils % (Manual) 0 % (0.0-1.8); Eosinophils % (Manual) 0 % (0.0-4.3); Total Cells Counted 100
[2021-09-24 18:06] LABS: Burr Cells 1+; Platelet Estimate Consistent w Auto; Schistocytes 1+
--- NOTE | 2021-09-25 11:04 | Electrocardiograph Report ---
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 Ventricular premature complex Probable left atrial enlargement Probable anteroseptal infarct, old Nonspecific repol abnormality, inferior leads Prolonged QT interval Prolonged QT interval now present Electronically Signed On 09-25-2021 11:03:28 EDT by Ruben Wharton
== END 2021-09-24 12:05 ==
LOC: ED 07:25
DX: I46.9 Cardiac arrest, cause unspecified (principal); N28.9 Disorder of kidney and ureter, unspecified; K92.0 Hematemesis; R91.8 Other nonspecific abnormal finding of lung field; R74.01 Elevation of levels of liver transaminase levels
CPT/HCPCS: 31500; 36415; 71045; 80053; 82140; 82803; 82962; 83880; 84484; 85007; 85025; 85610; 85730; 92950; 93005; 99291